=== PATIENT | male | born 1945 | race Caucasian/White ===

== ENCOUNTER 2021-04-15 22:01 | Emergency (ER) | payer MEDICARE, SELFPAY ==
[2021-04-15 22:10] VITALS: BP 179/80; PULSE 79; RESP 16; TEMP 36.5; O2SAT 98
--- NOTE | 2021-04-15 22:20 | ED_ITS ---
Documented by User: VIGNESH Payne 04/15/21 23:29 HPI - Chest Pain General: Chief Complaint: Chest Pain Stated Complaint: cp Time Seen by Provider: 04/15/21 22:19 History of Present Illness: HPI narrative: 75-year-old male patient comes in today with complaints of hiccups and upper abdominal discomfort for the last 3 days. Patient has a history of hypertension and tachycardia which he takes medicine. Patient comes in due to the length of time of the hiccups and increased discomfort today. Patient appears in no acute distress. Associated symptoms: Reports abdominal pain Review of Systems General: Reports: 10 or more systems reviewed and unremarkable except in HPI and below GI: Reports: abdominal pain Physical Exam Const: COMMON NORMALS: no acute distress and patient oriented x3 GENERAL APPEARANCE: cooperative HENMT: COMMON NORMALS: normocephalic HEAD & SCALP: normal to inspection and normocephalic Eye: GENERAL EYE: appearance normal, both eyes and all related structures Neck/C-Spine: COMMON NORMALS: full ROM Chest: COMMONS NORMALS: normal inspection of the chest Resp: COMMON NORMALS: normal respiratory effort EFFORT & INSPECTION: Yes able to speak in complete sentences Cardio: COMMON NORMALS: regular rate and regular rhythm RATE: regular rate RHYTHM: regular rhythm GI: COMMON NORMALS: Soft to palpation (mild distention) PALPATION: Yes Soft to palpation (mild distention) and Yes Tenderness to palpation present (GI) (epigastric) : COMMON NORMALS: Yes no CVA tenderness BLADDER/KIDNEY EXAM: Yes no CVA tenderness Back/Pelvis: COMMON NORMALS: no CVA tenderness Extremity: COMMON NORMALS: normal to inspection Neuro: COMMON NORMALS: patient oriented x3 and moves all extremities Psych: COMMON NORMALS: mental status grossly normal and cooperative Skin: COMMON NORMALS: no rashes or lesions noted GENERAL SKIN EXAM: no rashes or lesions noted Course Vital Signs: Vital signs: Vital Signs Temperature 97.7 F 04/15/21 22:10 Pulse Rate 79 04/15/21 22:10 Respiratory Rate 16 04/15/21 22:10 Blood Pressure 179/80 04/15/21 22:10 Pulse Oximetry 98 04/15/21 22:10 MDM - Chest Pain MDM Narrative: Medical decision making narrative: 75-year-old male patient comes in with some gastric distress. On exam abdomen was slightly distended and soft. Bowel sounds were present. Skin was warm and dry. Vital signs were normal except for some mild elevation in blood pressure. Differential diagnosis includes ACS, gastritis, gastroenteritis, diverticulitis. Laboratory values noted a white count of 5.8. CMP was unremarkable. Lipase was normal. Patient was given a GI cocktail, Reglan IV, and pantoprazole IV with resolution of hiccups and improvement in gastric discomfort. Chest x-ray was normal and KUB noted large amount of bowel gas in the colon. Feel the patient probably has a gastroenteritis. Patient was given 1 L of IV fluid, will be continued on ondansetron and loperamide for symptoms. Recommended follow-up with primary care in 3 days. Recommend return to the ER for high fever greater than 100.4, worsening vomiting and diarrhea, or blood in vomit or diarrhea. Patient reported understanding and agreed to plan. Lab Data: Labs: Lab Results 04/15/21 04/15/21 04/15/21 22:42 22:42 22:42 WBC 5.8 10^3/uL 10^3/ uL (4.0-10.0) RBC 4.53 10^6/uL 10^6 /uL (4.1-5.3) Hgb 13.9 g/dL g/dL (11.7-16.6) Hct 42.9 % % (42.0-52.0) MCV 94.7 fl H fl (80-94) MCH 30.7 pg pg (28.0-34.0) MCHC 32.4 g/dL g/dL (30.0-36.0) RDW 13.2 % % (12.1-15.1) Plt Count 108 10^3/cmm L 10 ^3/cmm (130-400) MPV 10.4 fL fL (7.4-10.4) Neut % (Auto) 81.7 % % Lymph % (Auto) 7.3 % % [place] % (Auto) 9.4 % % Eos % (Auto) 0.9 % % Baso % (Auto) 0.2 % % Neut # (Auto) 4.71 10^3/uL 10^3 /uL (1.8-7.7) Lymph # (Auto) 0.4 10^3/uL L 10^ 3/uL (0.8-4.8) [place] # (Auto) 0.5 10^3/uL 10^3/ uL (0.2-0.9) Eos # (Auto) 0.1 10^3/uL 10^3/ uL (0.0-0.8) Baso # (Auto) 0.0 10^3/uL 10^3/ uL (0.0-0.1) Nucleated RBC % (a uto) 0 % % Nucleated RBCs # 0.0 /100WBC /100W BC Sodium 139 mmol/L mmol/L (136-145) Potassium 3.5 mmol/L mmol/L (3.5-5.1) Chloride 103 mmol/L mmol/L (98-107) Carbon Dioxide 24 mmol/L mmol/L (22-29) Anion Gap 15.5 (5-19) BUN 16 mg/dL mg/dL (8-23) Creatinine 1.1 mg/dL mg/dL (0.7-1.2) GFR Calculation Not Reportable Glucose 111 mg/dL mg/dL (65-115) Calculated Osmolal ity 290 mOsm/kg mOsm/ kg (285-295) Calcium 9.0 mg/dL mg/dL (8.5-10.5) Total Bilirubin 0.4 mg/dL mg/dL (0.15-1.2) AST 12 U/L U/L (0-40) ALT 17 U/L U/L (0-41) Alkaline Phosphata se 69 IU/L IU/L (40-130) Troponin T Baselin e 6 ng/L ng/L (0-15) Total Protein 7.0 g/dL g/dL (6.6-8.7) Albumin 4.6 g/dL g/dL (3.5-5.2) Globulin 2.4 g/dL g/dL (1.3-4.6) Lipase 33 U/L U/L (13-60) Discharge Plan Discharge Patient Disposition: Home Clinical Impression: Gastroenteritis Condition: Stable Prescriptions: New loperamide 2 mg capsule 2 mg PO Q4H PRN (Reason: loose stool) Qty: 20 RF: 0 ondansetron 4 mg tablet,disintegrating 4 mg PO Q8H PRN (Reason: nausea and vomiting) 5 Days Qty: 10 RF: 0 Discharge Orders: Discharge ED (Routine); Ordered 04/15/21 Ordered By: Pato Livingston Referrals: Harvey Lea MD [Primary Care Provider] - Discharge Diet: Usual diet Discharge Activity: Increase activity as tolerated Patient Instructions: Gastroenteritis (ED), Opioid Safety Activity Restrictions/Additional Instructions: Home and rest. Drink plenty of fluids. Use ondansetron 4 mg every 8 hours as needed for nausea or vomiting. Use loperamide 1 capsule every 4 hours as needed for diarrhea or loose stools. Eat a healthy diet. Follow-up with primary care in 3 days for recheck. Return to the ER for high fever greater than 100.4, blood in vomit or stool, or new concerns. Coding Level of Care Code ED Dewatering Filtering Supervisor for Chg Fwd Exam Comprehensive Documented by User: Dewey Armendariz DO 04/16/21 00:25 HPI - Chest Pain General: Chief Complaint: Chest Pain Stated Complaint: cp Time Seen by Provider: 04/15/21 22:19 Course Vital Signs: Vital signs: Vital Signs Temperature 97.7 F 04/15/21 22:10 Pulse Rate 79 04/15/21 22:10 Respiratory Rate 16 04/15/21 22:10 Blood Pressure 179/80 04/15/21 22:10 Pulse Oximetry 98 04/15/21 22:10 MDM - Chest Pain MDM Narrative: Medical decision making narrative: This patient was originally seen by VIGNESH Rooney. I agree with his history, evaluation, and treatment. Lab Data: Labs: Lab Results 04/15/21 04/15/21 04/15/21 22:42 22:42 22:42 WBC 5.8 10^3/uL 10^3/ uL (4.0-10.0) RBC 4.53 10^6/uL 10^6 /uL (4.1-5.3) Hgb 13.9 g/dL g/dL (11.7-16.6) Hct 42.9 % % (42.0-52.0) MCV 94.7 fl H fl (80-94) MCH 30.7 pg pg (28.0-34.0) MCHC 32.4 g/dL g/dL (30.0-36.0) RDW 13.2 % % (12.1-15.1) Plt Count 108 10^3/cmm L 10 ^3/cmm (130-400) MPV 10.4 fL fL (7.4-10.4) Neut % (Auto) 81.7 % % Lymph % (Auto) 7.3 % % [place] % (Auto) 9.4 % % Eos % (Auto) 0.9 % % Baso % (Auto) 0.2 % % Neut # (Auto) 4.71 10^3/uL 10^3 /uL (1.8-7.7) Lymph # (Auto) 0.4 10^3/uL L 10^ 3/uL (0.8-4.8) [place] # (Auto) 0.5 10^3/uL 10^3/ uL (0.2-0.9) Eos # (Auto) 0.1 10^3/uL 10^3/ uL (0.0-0.8) Baso # (Auto) 0.0 10^3/uL 10^3/ uL (0.0-0.1) Nucleated RBC % (a uto) 0 % % Nucleated RBCs # 0.0 /100WBC /100W BC Sodium 139 mmol/L mmol/L (136-145) Potassium 3.5 mmol/L mmol/L (3.5-5.1) Chloride 103 mmol/L mmol/L (98-107) Carbon Dioxide 24 mmol/L mmol/L (22-29) Anion Gap 15.5 (5-19) BUN 16 mg/dL mg/dL (8-23) Creatinine 1.1 mg/dL mg/dL (0.7-1.2) GFR Calculation Not Reportable Glucose 111 mg/dL mg/dL (65-115) Calculated Osmolal ity 290 mOsm/kg mOsm/ kg (285-295) Calcium 9.0 mg/dL mg/dL (8.5-10.5) Total Bilirubin 0.4 mg/dL mg/dL (0.15-1.2) AST 12 U/L U/L (0-40) ALT 17 U/L U/L (0-41) Alkaline Phosphata se 69 IU/L IU/L (40-130) Troponin T Baselin e 6 ng/L ng/L (0-15) Total Protein 7.0 g/dL g/dL (6.6-8.7) Albumin 4.6 g/dL g/dL (3.5-5.2) Globulin 2.4 g/dL g/dL (1.3-4.6) Lipase 33 U/L U/L (13-60) Discharge Plan Discharge Patient Disposition: Home Clinical Impression: Gastroenteritis Condition: Stable Prescriptions: New loperamide 2 mg capsule 2 mg PO Q4H PRN (Reason: loose stool) Qty: 20 RF: 0 ondansetron 4 mg tablet,disintegrating 4 mg PO Q8H PRN (Reason: nausea and vomiting) 5 Days Qty: 10 RF: 0 Discharge Orders: Discharge ED (Routine); Ordered 04/15/21 Ordered By: Pato Livingston Referrals: Harvey Lea MD [Primary Care Provider] - Discharge Diet: Usual diet Discharge Activity: Increase activity as tolerated Patient Instructions: Gastroenteritis (ED), Opioid Safety Activity Restrictions/Additional Instructions: Home and rest. Drink plenty of fluids. Use ondansetron 4 mg every 8 hours as needed for nausea or vomiting. Use loperamide 1 capsule every 4 hours as needed for diarrhea or loose stools. Eat a healthy diet. Follow-up with primary care in 3 days for recheck. Return to the ER for high fever greater than 100.4, blood in vomit or stool, or new concerns. Coding Level of Care Code ED Dewatering Filtering Supervisor for Real Fwd Exam Comprehensive
--- NOTE | 2021-04-15 22:20 | XRR_ITS ---
PROCEDURE INFORMATION: Exam: XR Chest Exam date and time: 04/15/2021 10:20 PM Age: 75 years old Clinical indication: Chest wall pain; Additional info: Chest pain TECHNIQUE: Imaging protocol: XR of the chest. Views: 1 view. COMPARISON: No relevant prior studies available. FINDINGS: Tubes, catheters and devices: OVEN DRIER TENDER shunt catheter is seen overlying the lower neck and right side of chest. Lungs: Visualized portions of the lungs are clear. Pleural spaces: Unremarkable. No pleural effusion. No pneumothorax. Heart/Mediastinum: Heart is within normal limits of size. Bones/joints: Unremarkable. XR/XR chest 1V portable [id number] IMPRESSION: No acute infiltrate.
--- NOTE | 2021-04-15 22:32 | XRR_ITS ---
PROCEDURE INFORMATION: Exam: XR Abdomen Exam date and time: 04/15/2021 10:32 PM Age: 75 years old Clinical indication: Other: Distention; Additional info: Abd distention TECHNIQUE: Imaging protocol: XR of the abdomen. Views: Frontal supine view of the abdomen. 1 View. COMPARISON: CR (CHEST, ) 04/15/2021 10:33 PM FINDINGS: Tubes, catheters and devices: Lower end of a IRON SETTER shunt catheter is seen within the abdomen. Gastrointestinal tract: There is a nonspecific bowel gas pattern with gas seen throughout a normal appearing colon and mild gaseous distention of the stomach but paucity of small bowel gas. Organs: No urinary tract calculi are identified. Bones/joints: There is some mild degenerative change in the lumbar spine. XR/XR KUB [id number] IMPRESSION: Nonspecific bowel gas pattern.
[2021-04-15] MEDS: nitroglycerin 0.4 mg sublingual Tablet SUBLINGUAL (22:46)
[2021-04-15] MEDS: metoclopramide 5 mg/mL SDV 2 mL 10 MG IVP (22:48)
[2021-04-15] MEDS: pantoprazole 40 mg SDV IVP (22:48)
[2021-04-15 22:54] LABS: Basophils % 0.2 %; Eosinophils # 0.1 10^3/uL (0.0-0.8); Eosinophils % 0.9 %; Hematocrit 42.9 % (42.0-52.0); Hemoglobin 13.9 g/dL (11.7-16.6); Lymphocytes # 0.4 10^3/uL (0.8-4.8); Lymphocytes % 7.3 %; Mean Corpuscular HGB Conc 32.4 g/dL (30.0-36.0); Mean Corpuscular Hemoglobin 30.7 pg (28.0-34.0); Mean Corpuscular Volume 94.7 fl (80-94); Mean Platelet Volume 10.4 fL (7.4-10.4); Monocytes # 0.5 10^3/uL (0.2-0.9); Monocytes % 9.4 %; Neutrophils # 4.71 10^3/uL (1.8-7.7); Neutrophils % 81.7 %; Nucleated Red Blood Cells % 0 %; Platelet Count 108 10^3/cmm (130-400); Red Blood Count 4.53 10^6/uL (4.1-5.3); Red Cell Distribution Width 13.2 % (12.1-15.1); White Blood Count 5.8 10^3/uL (4.0-10.0)
[2021-04-15 23:08] LABS: Troponin(5th) Baseline 6 ng/L (0-15)
[2021-04-15 23:10] LABS: Alanine Aminotransferase 17 U/L (0-41); Albumin Level 4.6 g/dL (3.5-5.2); Alkaline Phosphatase 69 IU/L (40-130); Anion Gap 15.5 (5-19); Aspartate Amino Transferase 12 U/L (0-40); Blood Urea Nitrogen 16 mg/dL (8-23); Carbon Dioxide 24 mmol/L (22-29); Chloride 103 mmol/L (98-107); Globulin 2.4 g/dL (1.3-4.6); Glucose 111 mg/dL (65-115); Lipase 33 U/L (13-60); Osmolality Calculated 290 mOsm/kg (285-295); Potassium 3.5 mmol/L (3.5-5.1); Sodium 139 mmol/L (136-145); Total Bilirubin 0.4 mg/dL (0.15-1.2)
[2021-04-16] MEDS: diphenoxylate/atropine Tablet 2 TAB PO (00:51)
[2021-04-16] MEDS: sodium chloride 0.9% 1,000 ML 999 ML IV (00:51)
[2021-04-16 01:35] LABS: Troponin 5 2HR Delta 0 ABS# (0-10)
== END 2021-04-16 01:43 | disposition home or self-care (01) ==
PROVIDERS: Emergency Provider Nurse Practitioner Family; PCP Family Medicine
DX: K52.9 Noninfective gastroenteritis and colitis, unspecified (principal)
CPT/HCPCS: 36415; 71045; 74018; 80053; 83690; 84484; 85025; 96361; 96374; 96375; 99284; C9113; J2765; J7030

== ENCOUNTER 2023-04-01 08:28 | Outpatient (CLI) | payer OTHER, SELFPAY ==
--- NOTE | 2023-04-01 | ECG_ITS ---
[facility] Test Date: 2023-04-01 Pat Name: Andrae Callejas Department: Room: Gender: Male Electron Beam Welder: Phil Feliz : 1945 Requested By: Romina Whitlock Order Number: [id number] Micki MD: Jesenia Randle M.D. Interpretive Statements NAME OF STUDY: LEXISCAN SESTAMIBI STRESS TEST INDICATION: Dyspnea on exertion PROCEDURE: At the baseline, the blood pressure was 174/96 mmHg with a heart rate of 70 beats per min. The electrocardiogram showed sinus rhythm, normal axis with nonspecific T wave inversion in lead III. ??? The Lexiscan was infused over a period of 20 seconds. A total of 0.4 milligrams of Lexiscan was infused. The stress phase was continued for a total of 5 minutes. Heart rate at the end of the stress phase was 79 bpm with a blood pressure of 156 over 78 mm Hg. The EKG at the peak infusion revealed sinus rhythm with no significant ST-T wave changes. The study was terminated due to protocol completion. ??? Sestamibi was injected 20 seconds after the Lexiscan infusion. ??? Blood pressure at the end of the recovery phase was 161 over 80 mm Hg with a heart rate of 78 beats per minute. ??? CONCLUSION: 1. Normal EKG response to LexiScan infusion. 2. No LexiScan induced chest pain or cardiac arrhythmia. 3. Normal blood pressure and heart rate response. 4. Sestamibi/sestamibi perfusion scan pending; see separate report. Electronically Signed On 04-02-2023 12:06:33 FINANCIAL [employer]VOCATE by Jesenia Randle M.D. [id number]
--- NOTE | 2023-04-01 08:00 | USCV_ITS ---
Andrae Callejas Age: 77 Gender: M : 1945 Exam Date: 04/01/2023 08:46 Ordering Phys: Candice Reyes Technologist: Mickie Arnett Exam Location: [facility] [place] Indication: COFFEY BP: 150 / 80 HR: 71 Rhythm: Sinus Technical Quality: Adequate MEASUREMENTS (Male / Female) Normal Values 2D ECHO LV Diastolic Diameter PLAX 2.5 cm 4.2 - 5.9 / 3.9 - 5.3 cm LV Systolic Diameter PLAX 1.6 cm IVS Diastolic Thickness 1.7 cm 0.6 - 1.0 / 0.6 - 0.9 cm IVS Systolic Thickness 1.8 cm LVPW Diastolic Thickness 0.7 cm 0.6 - 1.0 / 0.6 - 0.9 cm LVPW Systolic Thickness 1.5 cm LVOT Diameter 2.1 cm LV Ejection Fraction 2D Teich 69.1 % LV Ejection Fraction MOD 2C 55.6 % LV Ejection Fraction 2C AL 55.6 % LA Diameter 2.8 cm LA Width 2.9 cm LA Height 4.6 cm RA Width 2.9 cm RA Height 4.5 cm Aorta at Sinotubular Diameter 3.3 cm IVC Diameter 1.2 cm M-MODE Aortic Annulus Diameter 3.0 cm LA Ao Ratio MM 1.1 MV E Point Septal Separation 0.4 cm DOPPLER AV Peak Velocity 162.0 cm/s LVOT Peak Velocity 135.0 cm/s AV Area Cont Eq vti 2.9 cm squared AV Area Cont Eq pk 2.9 cm squared MV Peak Velocity 68.0 cm/s MV Area PHT 4.0 cm squared Mitral E to A Ratio 0.9 MV E' Velocity 36.0 cm/s Mitral E to MV E' Ratio 11.2 Mitral E to LV E' Lateral Ratio 9.7 Mitral E to LV E' Septal Ratio 13.3 TR Peak Velocity 203.7 cm/s TR Peak Gradient 16.6 mmHg Right Atrial Pressure 5.0 mmHg Pulmonary Artery Systolic Pressu 21.6 mmHg RV Acceleration Time 0.1 s RV Ejection Time 0.3 s RV AcT/ET 0.4 FINDINGS Left Ventricle Left ventricle is normal in size. LV systolic function is normal with EF of 60-65%. No regional wall motion abnormalities are seen. Right Ventricle Normal in size and function Right Atrium Normal in size. Eustachian valve is seen. Left Atrium Normal in size Mitral Valve Structurally normal mitral valve. Trace mitral regurgitation. Aortic Valve Structurally normal aortic valve. Mild aortic regurgitation. No significant stenosis. Tricuspid Valve Mild tricuspid regurgitation. Pulmonary artery systolic pressure is normal. Pulmonic Valve Not well visualized Pericardium Normal Aorta Ascending aorta is mildly dilated with diameter of 3.59 cm. IVC Appears to be normal CONCLUSIONS LV systolic function is normal with EF of 60 to 65%. Trace mitral regurgitation Mild aortic regurgitation Mild tricuspid regurgitation Ascending aorta is mildly dilated with diameter of 3.59 cm No comparison studies are available Saqib Sanchez MD (Electronically Signed) Final Date: 01 April 2023 09:51 S
[2023-04-01 09:46] VITALS: BMI 24.4
--- NOTE | 2023-04-01 09:46 | NMCV_ITS ---
NM manoj perf SPECT r/s* [id number] Andrae Callejas Age: 77 Gender: M : 1945 Exam Date: 04/01/2023 10:26 Ordering Phys: Stuart Suero MD Technologist: Fabiola Escobedo Exam Location: [facility] Indications: ATHEROSCLEROTIC HEART DISEASE STRESS TEST [facility] IMAGE PROTOCOL Rest/Stress 1 Lexiscan Day Radiopharmaceutical Dose (mCi) Administration Site Administered by Rest: Tc-99m 10.6 IV Meño Moya, TY Sestamibi Stress:Tc-99m 32.5 IV TY Kulkarni Sestamibi Rest: 01-Apr-2023 60 Discovery 630 Stress: 01-Apr-2023 30 Discovery 630 0.4mg Lexiscan. Images obtained in supine and prone position. SPECT RESULTS Technical Quality: Excellent Raw Data Analysis: Normal Image Corrections: No attenuation or motion correction applied Summed Stress Score: 3 Summed Rest Score: 1 Summed Difference Score: 3 PERFUSION FINDINGS SPECT images demonstrate homogeneous tracer distribution throughout the myocardium. FUNCTIONAL RESULTS (calculated via Gated SPECT) Stress Image LV EF (%): 72 Stress EDV (mL):78 TID: 1.17 Stress ESV (mL):22 FUNCTIONAL FINDINGS: The left ventricle is normal in size. Transient Ischemia Dilatation of 1.17. The left ventricular ejection fraction is normal with a value of 72%. There is normal left ventricular wall thickening. IMPRESSIONS 1. Myocardial perfusion imaging is normal. 2. Overall left ventricular systolic function is normal without regional wall motion abnormalities, LVEF=72%. 3. No EKG changes with Lexiscan infusion. Refer to separate report for details. 4. Scan indicates low risk for cardiac events. Jesenia Randle MD (Electronically Signed) Final Date: 02 April 2023 12:04 S
[2023-04-01] MEDS: regadenoson 0.4 Mg/5 ml Syringe IVP (11:03)
[2023-04-01 11:12] VITALS: BP 161/80; PULSE 75
== END 2023-04-01 08:29 | disposition home or self-care (01) ==
LOC: RAD 09:15 → CDL 09:45
PROVIDERS: PCP Family Medicine; Visit Provider Nurse Practitioner Family
DX: R06.00 Dyspnea, unspecified (principal); I25.10 Atherosclerotic heart disease of native coronary artery without angina pectoris; I08.2 Rheumatic disorders of both aortic and tricuspid valves
CPT/HCPCS: 78452; 93017; 93306; A9500; J2785

== ENCOUNTER 2023-04-01 09:00 | Outpatient (CLI) | payer OTHER, SELFPAY | END 2023-04-01 09:01 | disposition home or self-care (01) | LOC: CDL 05-06 09:48 | PROVIDERS: PCP Family Medicine; Visit Provider Family Medicine | DX: R06.09 Other forms of dyspnea (principal) | CPT/HCPCS: 36415; 96374 ==

== ENCOUNTER 2023-05-03 08:28 | Outpatient (CLI) | payer OTHER, SELFPAY ==
--- NOTE | 2023-05-03 08:35 | CT_ITS ---
WS: [id number] CT HEAD TECHNIQUE: Noncontrast and contrast-enhanced CT of the head. CLINICAL INFORMATION: HX OF ANEURSYM W/SHUNT PLACEMENT COMPARISON: None. DLP: 2275.[address] scans at [facility] use at least one of these dose optimization techniques: automated e xposure control; mA and/or kV adjustment per patient size (includes targeted exams where dose is matc hed to clinical indication); or iterative reconstruction. FINDINGS: No evidence of intracranial hemorrhage or mass effect. Ventricular system and basal cisterns are parada nt. Moderate small vessel changes with mild parenchymal volume loss. Intracranial vascular calcificat ion. RIGHT frontal shunt catheter with tip in the LEFT frontal horn. No significant hydrocephalus. No transependymal edema. RIGHT frontal and pterional craniotomy with RIGHT supraclinoid aneurysm clippi ng. 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 Mastoid air cells are well aerated. Paranasal sinuses are well aerated. Moderate cavernous carotid calcification. No abnormal intracranial enhancement. Basilar artery is pat ent. Normal visualized proximal MCA segments. CTA head could be performed for better intracranial art erial evaluation if indicated. IMPRESSION: 1. No evidence intracranial hemorrhage or mass effect. 2. RIGHT pleural shunt cath with tip in the LEFT frontal horn. Normal ventricular system. No signifi cant hydrocephalus. No transependymal edema. 3. Moderate small vessel changes and mild parenchymal volume loss. 4. Prior RIGHT supraclinoid ICA aneurysm clipping. 5. No other suspicious findings.
[2023-05-03 09:20] LABS: Blood Urea Nitrogen 15 mg/dL (8-23)
[2023-05-03] MEDS: iohexol 350 mg/mL 500 mL Btl (per mL) IV (09:27)
== END 2023-05-03 08:29 | disposition home or self-care (01) ==
LOC: RAD 08:30
PROVIDERS: PCP Family Medicine; Visit Provider Family Medicine
DX: I67.1 Cerebral aneurysm, nonruptured (principal); Z95.828 Presence of other vascular implants and grafts
CPT/HCPCS: 70470; 82565; 84520; Q9967

== ENCOUNTER 2023-06-13 12:16 | Emergency (ER) | payer OTHER, SELFPAY ==
[2023-06-13 12:25] VITALS: BP 144/73; PULSE 67; RESP 18; TEMP 36.4; O2SAT 96; BMI 24.3
--- NOTE | 2023-06-13 13:13 | CT_ITS ---
WS: [id number] CT ABDOMEN PELVIS TECHNIQUE: Contrast-enhanced CT of the abdomen and pelvis with coronal and sagittal reformatted image s. CLINICAL INFORMATION: right sided abd mass, abd pain, diarrhea COMPARISON: None. DLP: 598.[address] scans at [facility] use at least one of these dose optimization techniques: automated e xposure control; mA and/or kV adjustment per patient size (includes targeted exams where dose is matc hed to clinical indication); or iterative reconstruction. FINDINGS: Mild diffuse wall thickening with submucosal enhancement and surrounding induration involving the hep atic flexure and RIGHT colon suspicious for infectious or inflammatory colitis. Recommend follow-up t o resolution. Mild wall thickening with submucosal enhancement involving the distal sigmoid colon extending to the rectum suspicious for distal colitis. Lung bases are well aerated. Slight subsegmental atelectasis in the lung bases. Normal liver. A few t iny low-attenuation lesions likely cysts but too small to characterize. Normal portal vein and spleni c vein. Normal pancreas. Normal gallbladder. Normal esophageal hiatal hernia. Normal spleen. Marked urinary distention of the bladder. Small cystocele. Enlarged prostate measuring 4.7 cm. 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 A few sigmoid diverticuli. No evidence of acute diverticuli tis. No evidence of high-grade small or large bowel obstruction. Partially visualized shunt with tip in the pelvis. IMPRESSION: 1. Mild diffuse wall thickening with submucosal enhancement and surrounding induration involving the hepatic flexure and RIGHT colon suspicious for infectious or inflammatory colitis. Recommend follow- up to resolution. 2. In addition, slight thickening with induration and enhancement involving the distal sigmoid colon extending to the rectum suspicious for distal colitis. 3. Enlarged prostate with urine distended bladder suspicious for bladder outlet obstruction. Thicken ing of the seminal vesicles. Recommend correlation PSA. 4. Small esophageal hiatal hernia. 5. Slightly aneurysmal infrarenal abdominal aorta measuring 2.8 x 2.4 cm.
--- NOTE | 2023-06-13 13:14 | ED_ITS ---
HPI - Abdominal Pain 2 General: Chief Complaint: Abdominal Pain Stated Complaint: bowel blockage sent from pr Time Seen by Provider: 06/13/23 13:08 History of Present Illness: Patient is present to the ER with complaints of right-sided abdominal mass that was seen at the [facility] approximately a month ago. Patient says been taking stool softeners and laxative to try to get rid of it which is causing diarrhea. They are on for sure what this mass or blockage is technically but they keep saying it is preventing him from having a good bowel movement and thus he has to use laxatives and stool softeners. Patient says he has mild discomfort in the right side. Patient says he had multiple labs and x-rays done at the [facility] but [facility]. Patient denies any nausea vomiting fevers chills coughs colds Review of Systems 2 General: Reports: 10 or more systems reviewed and unremarkable except in HPI and below Physical Exam 2 Const: COMMON NORMALS: no acute distress, average body habitus, patient oriented x3, no limitations, healthy appearing, alert and well nourished HENMT: COMMON NORMALS: normocephalic, atraumatic, hearing grossly normal bilaterally, external ears normal, Normal external nose present, moist oral mucous membranes and oropharynx normal HEAD & SCALP: normocephalic and atraumatic NOSE: Normal external nose present EXTERNAL EAR: Yes external ears normal Neck/C-Spine: COMMON NORMALS: full ROM, no lymphadenopathy, supple, no meningeal signs, no JVD and Thyroid normal THYROID: Thyroid normal Chest: COMMONS NORMALS: normal inspection of the chest and normal palpation of entire chest wall Resp: COMMON NORMALS: normal respiratory effort, No retractions, No use of accessory muscles and clear to auscultation bilaterally AUSCULTATION: clear to auscultation bilaterally Cardio: COMMON NORMALS: no JVD, regular rate, regular rhythm, S1 normal heart sound present, S2 normal heart sound present, No gallops present (Cardio), No murmurs present (Cardio) and No rub (Cardio) RATE: regular rate RHYTHM: r egular rhythm HEART SOUNDS: S1 normal heart sound present and S2 normal heart sound present GI: COMMON NORMALS: Normal to inspection, nondistended, normoactive bowel sounds present, Soft to palpation, non-tender and No hepatosplenomegaly present; negative for no masses (Palpable mass on right side of abdomen mobile nontender) PALPATION: Yes Soft to palpation and Yes No hepatosplenomegaly present Neuro: COMMON NORMALS: patient oriented x3 SENSORIUM/ORIENTATION: Yes alert MENINGEAL SIGNS: Yes no meningeal signs Course 2 Vital Signs: Vital signs: Vital Signs Temperature 97.6 F 06/13/23 12:25 Pulse Rate 67 06/13/23 12:25 Respiratory Rate 18 06/13/23 12:25 Blood Pressure 144/73 06/13/23 12:25 Pulse Oximetry 96 06/13/23 12:25 Oxygen Delivery Me thod Room Air 06/13/23 12:25 MDM - Abdominal Pain Medical Decision Making Physical exam was performed lab work was obtained and CT with contrast of the abdomen pelvis. Work included not limited to CBC CMP lipase, all of which was essentially benign, mildly elevated potassium of 5.2, CT scan of the abdomen pelvis showed possible colitis in the right upper quadrant as well as distal sigmoid colon. These results was discussed with the patient. We will call in antibiotics to the pharmacy and failure patient should follow-up with his family practice doctor within about 10 days for further evaluation and treatment. Differential Diagnosis Likely constipation; Unlikely abdominal pain, acute appendicitis, calculus of kidney, diverticulitis, endometriosis, gastroenteritis, pancreatitis or small bowel obstruction Medical Records I reviewed the patient's medical records. Lab Data I reviewed the patient's lab results. 06/13/23 13:15 06/13/23 13:15 Labs/Radiology: Laboratory Results WBC 4.66 10^3/uL (3.29-11.43) 06/13/23 13:15 RBC 4.14 10^6/uL (3.85-5.65) 06/13/23 13:15 Hgb 12.80 g/dL (11.27-16.99) 06/13/23 13:15 Hct 38.8 % (37-53) 06/13/23 13:15 MCV 93.7 fl (82-101) 06/13/23 13:15 MCH 30.9 pg (27-33) 06/13/23 13:15 MCHC 33.0 g/dL (30-55) 06/13/23 13:15 RDW 12.6 % (12.1-15.1) 06/13/23 13:15 Plt Count 144 10^3/cmm (157-399) L 06/13/23 13:15 MPV 9.8 fL (7.4-10.4) 06/13/23 13:15 Neut % (Auto) 68.0 % 06/13/23 13:15 Lymph % (Auto) 14.4 % 06/13/23 13:15 [place] % (Auto) 13.5 % 06/13/23 13:15 Eos % (Auto) 2.4 % 06/13/23 13:15 Baso % (Auto) 0.2 % 06/13/23 13:15 Neut # (Auto) 3.17 10^3/uL (1.8-7.7) 06/13/23 13:15 Lymph # (Auto) 0.7 10^3/uL (0.8-4.8) L 06/13/23 13:15 [place] # (Auto) 0.6 10^3/uL (0.2-0.9) 06/13/23 13:15 Eos # (Auto) 0.1 10^3/uL (0.0-0.8) 06/13/23 13:15 Baso # (Auto) 0.0 10^3/uL (0.0-0.1) 06/13/23 13:15 Nucleated RBC % (auto) 0 % 06/13/23 13:15 Nucleated RBCs # 0.0 /100WBC 06/13/23 13:15 Sodium 137 mmol/L (136-145) 06/13/23 13:15 Potassium 5.2 mmol/L (3.5-5.1) H 06/13/23 13:15 Chloride 102 mmol/L (98-107) 06/13/23 13:15 Carbon Dioxide 25 mmol/L (22-29) 06/13/23 13:15 Anion Gap 15.2 (5-19) 06/13/23 13:15 BUN 12 mg/dL (8-23) 06/13/23 13:15 Creatinine 1.2 mg/dL (0.7-1.2) 06/13/23 13:15 GFR Calculation Not Reportable 06/13/23 13:15 Glucose 95 mg/dL (65-115) 06/13/23 13:15 Calculated Osmolality 284 mOsm/kg (285-295) L 06/13/23 13:15 Calcium 9.3 mg/dL (8.5-10.5) 06/13/23 13:15 Total Bilirubin 0.4 mg/dL (0.15-1.2) 06/13/23 13:15 AST 16 U/L (0-40) 06/13/23 13:15 ALT 20 U/L (0-41) 06/13/23 13:15 Alkaline Phosphatase 81 U/L (40-130) 06/13/23 13:15 Total Protein 6.9 g/dL (6.6-8.7) 06/13/23 13:15 Albumin 4.1 g/dL (3.5-5.2) 06/13/23 13:15 Globulin 2.8 g/dL (1.3-4.6) 06/13/23 13:15 Lipase 53 U/L (13-60) 06/13/23 13:15 All radiology interpretation(s) finalized by discharge Discharge Plan Discharge Patient Disposition: Home Clinical Impression: Colitis, Enlarged prostate Diarrhea Qualifiers: Diarrhea type: unspecified type Qualified Code(s): R19.7 - Diarrhea, unspecified Condition: Stable Prescriptions: New ciprofloxacin HCl 500 mg tablet 500 mg PO Q12H Qty: 20 0RF metronidazole 500 mg tablet 500 mg PO Q8H Qty: 30 0RF No Action atorvastatin 20 mg Tablet 20 mg PO QPM metoprolol tartrate 100 mg Tablet 100 mg PO BID tramadol 50 mg Tablet 50 mg PO Q6H PRN (Reason: Pain) citalopram 20 mg tablet 20 mg PO QAM amlodipine 10 mg Tablet 10 mg PO DAILY cholecalciferol (vitamin D3) 50 mcg (2,000 unit) Tablet 50 mcg PO DAILY Discharge Orders: Discharge ED (Routine); Ordered 06/13/23 Ordered By: Joel Collier Referrals: Romina Whitlock MD [Primary Care Provider] - 1 week Patient Instructions: Diarrhea - Adult, Enlarged Prostate (BPH) (ED), Colitis (ED) Activity Restrictions/Additional Instructions: CT scan performed in the ER showed you do not have a mass or tumor but you do have probable colitis. We will prescribe you some antibiotics that should take care of this. Also shows you have enlarged prostate but probably needs further workup. Please follow-up with your family practice physician in about 10 days for further evaluation and treatment. If your symptoms worsen please return to the ER. 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
[2023-06-13 13:25] LABS: Basophils % 0.2 %; Eosinophils # 0.1 10^3/uL (0.0-0.8); Eosinophils % 2.4 %; Hematocrit 38.8 % (37-53); Lymphocytes # 0.7 10^3/uL (0.8-4.8); Lymphocytes % 14.4 %; Mean Corpuscular Hemoglobin 30.9 pg (27-33); Mean Corpuscular Volume 93.7 fl (82-101); Mean Platelet Volume 9.8 fL (7.4-10.4); Monocytes # 0.6 10^3/uL (0.2-0.9); Monocytes % 13.5 %; Neutrophils # 3.17 10^3/uL (1.8-7.7); Nucleated Red Blood Cells % 0 %; Platelet Count 144 10^3/cmm (157-399); Red Blood Count 4.14 10^6/uL (3.85-5.65); Red Cell Distribution Width 12.6 % (12.1-15.1); White Blood Count 4.66 10^3/uL (3.29-11.43)
[2023-06-13 13:42] LABS: Alanine Aminotransferase 20 U/L (0-41); Albumin Level 4.1 g/dL (3.5-5.2); Alkaline Phosphatase 81 U/L (40-130); Anion Gap 15.2 (5-19); Aspartate Amino Transferase 16 U/L (0-40); Blood Urea Nitrogen 12 mg/dL (8-23); Calcium 9.3 mg/dL (8.5-10.5); Carbon Dioxide 25 mmol/L (22-29); Chloride 102 mmol/L (98-107); Globulin 2.8 g/dL (1.3-4.6); Glucose 95 mg/dL (65-115); Lipase 53 U/L (13-60); Osmolality Calculated 284 mOsm/kg (285-295); Potassium 5.2 mmol/L (3.5-5.1); Sodium 137 mmol/L (136-145); Total Bilirubin 0.4 mg/dL (0.15-1.2); Total Protein 6.9 g/dL (6.6-8.7)
--- NOTE | 2023-06-13 13:53 | PC.PHAR ---
[facility]ED [facility] AT 1[facility]55 PM FOR [facility] MEDICATION LIST
[2023-06-13] MEDS: iohexol 350 mg/mL 500 mL Btl (per mL) IV (14:20)
[2023-06-13 17:17] VITALS: BP 151/86; PULSE 68; O2SAT 97
== END 2023-06-13 17:19 | disposition home or self-care (01) ==
PROVIDERS: Emergency Provider Emergency Medicine; PCP Family Medicine
DX: K52.9 Noninfective gastroenteritis and colitis, unspecified (principal); N40.0 Benign prostatic hyperplasia without lower urinary tract symptoms
CPT/HCPCS: 36415; 74177; 80053; 83690; 85025; 99285; Q9967

== ENCOUNTER 2023-11-03 05:26 | Emergency (ER) | payer OTHER, SELFPAY ==
[2023-11-03] VITALS (16 sets, daily range): BP systolic 143–197; BP diastolic 88–118; PULSE 63–86; RESP 18–29; TEMP 36.6; O2SAT 90–97; BMI 24.3
[2023-11-03 05:48] LABS: Basophils % 0.5 %; Eosinophils # 0.2 10^3/uL (0.0-0.8); Eosinophils % 2.7 %; Hematocrit 41.1 % (37-53); Lymphocytes # 0.9 10^3/uL (0.8-4.8); Lymphocytes % 17.2 %; Mean Corpuscular HGB Conc 32.4 g/dL (30-55); Mean Corpuscular Hemoglobin 30.6 pg (27-33); Mean Corpuscular Volume 94.7 fl (82-101); Mean Platelet Volume 10.1 fL (7.4-10.4); Monocytes # 0.6 10^3/uL (0.2-0.9); Monocytes % 10.9 %; Neutrophils % 67.6 %; Nucleated Red Blood Cells % 0 %; Platelet Count 121 10^3/cmm (157-399); Red Blood Count 4.34 10^6/uL (3.85-5.65); White Blood Count 5.48 10^3/uL (3.29-11.43)
[2023-11-03 06:07] LABS: INR 0.93 (0.8-1.2)
[2023-11-03 06:08] LABS: Partial Thromboplastin Time 25.9 SECONDS (23.9-36.7)
--- NOTE | 2023-11-03 06:10 | XRR_ITS ---
PROCEDURE INFORMATION: Exam: XR Chest Exam date and time: 11/03/2023 6:18 AM Age: 78 years old Clinical indication: Chest pressure; Prior surgery; Surgery date: 6+ months; Surgery type: Nozzle Tender shunt; Patient HX: C/O chest pain; Additional info: Cp TECHNIQUE: Imaging protocol: Radiologic exam of the chest. Views: 1 view. COMPARISON: CR XR chest 1V portable [id number] 04/15/2021 10:33 PM FINDINGS: Tubes, catheters and devices: Partially imaged ventriculoperitoneal shunt catheter is noted on the right. Lungs: Unremarkable. No consolidation. Pleural spaces: Unremarkable. No pleural effusion. No pneumothorax. Heart/Mediastinum: Heart size is normal. There is calcified plaque involving the aorta. Bones/joints: Unremarkable. XR/XR chest 1V portable [id number] IMPRESSION: 1. No acute findings.
[2023-11-03 06:11] LABS: Troponin(5th) Baseline 10 ng/L (0-15)
--- NOTE | 2023-11-03 06:11 | ED_ITS ---
HPI - Chest Pain 2 General: Chief Complaint: Chest Pain Stated Complaint: CP Time Seen by Provider: 11/03/23 06:03 Source: patient and family Mode of arrival: ambulatory Limitations: no limitations History of Present Illness: This patient presents to our emergency department because of chest pain. He states he was awoken with chest pain symptoms approximately 4 AM. He states that they felt like heaviness on his chest. There was no associated diaphoresis, nausea, change in his breathing pattern etc. He states the pain has not radiated or changed in location. He states that his symptoms are improved but not completely abated at this time. Family reports that he has been having some episodes of chest pain over the past at least a couple weeks intermittently but he has not sought care for that condition. He is has no known history of coronary artery disease although there is a question whether he was told he had a heart attack many years ago. He takes antihypertensives. He has had no aspirin this morning. He does not smoke tobacco he was a previous chewing tobacco user. Otherwise no other constitutional complaints at this time. MD complaint: chest heaviness Onset: during rest Pain radiation: none Quality: heaviness Relieving factors: nothing Associated symptoms: Deny abdominal pain, fever(s), nausea, palpitations, syncope or vomiting Risk Factors: Coronary artery disease risk factors: hypertension Review of Systems 2 Const: Denies: fever(s) or chills ENMT: Denies: throat pain, odynophagia, nasal congestion or nasal obstruction Card: Denies: palpitations, syncope or pre-syncope Resp: Denies: productive cough or wheezing GI: Denies: abdominal pain, nausea, vomiting or diarrhea : Denies: flank pain, difficulty urinating or dysuria Musc: Denies: neck pain, back pain, extremity pain or extremity swelling Skin/Breast: Denies: rash, pruritus or erythema Neuro: Denies: headache(s), numbness in extremities or weakness in extremities Antonio/Lymph: Denies: easy bruising or easy bleeding Physical Exam 2 Narrative: EXAM NARRATIVE: He is alert makes good eye contact is calm and cooperative. Const: COMMON NORMALS: no acute distress, average body habitus, patient oriented x3 and alert GENERAL APPEARANCE: cooperative and comfortable HENMT: COMMON NORMALS: normocephalic, Normal nasal mucous membranes and turbinates present and moist oral mucous membranes HEAD & SCALP: n ormocephalic NOSE: Normal nasal mucous membranes and turbinates present Eye: COMMON NORMALS: Equal, round and reactive pupils present, EOMs intact bilaterally and conjunctivae normal CONJUNCTIVA: Yes conjunctivae normal P UPIL: Yes Equal, round and reactive pupils present Neck/C-Spine: COMMON NORMALS: full ROM, no JVD and No carotid bruits Chest: COMMONS NORMALS: normal inspection of the chest and normal palpation of entire chest wall Resp: COMMON NORMALS: normal respiratory effort and No retractions EFFORT & INSPECTION: Yes able to speak in complete sentences Cardio: COMMON NORMALS: no JVD, regular rhythm, No murmurs present (Cardio) and Peripheral pulses 2+ throughout RHYTHM: regular rhythm PERIPHERAL PULSES: Peripheral pulses 2+ throughout GI: COMMON NORMALS: Normal to inspection, nondistended, normoactive bowel sounds present, Soft to palpation and non-tender PALPATION: Yes Soft to palpation : COMMON NORMALS: Yes no CVA tenderness BLADDER/KIDNEY EXAM: Yes no CVA tenderness Back/Pelvis: COMMON NORMALS: no CVA tenderness, thoracic and lumbar spine normal to inspection, no thoracic nor lumbar tenderness and thoraco-lumbar ROM normal Extremity: COMMON NORMALS: normal to inspection, full ROM, no calf tenderness and no pedal edema Neuro: COMMON NORMALS: patient oriented x3, moves all extremities, no focal motor deficits and no sensory deficits noted SENSORIUM/ORIENTATION: Yes alert Psych: COMMON NORMALS: mental status grossly normal Skin: COMMON NORMALS: no rashes or lesions noted, no wounds and turgor normal GENERAL SKIN EXAM: no rashes or lesions noted and turgor normal Course 2 Reevaluation(s): Reevaluation #1: Initial troponin is reassuring. He does show evidence of possible volume depletion will continue to observe and give fluids. Time: 07:57 Reevaluation #2: Serial biomarkers and serial electrocardiograms are reassuring. D-dimer is elevated. Will go ahead and proceed with a CTPA as we cannot age adjust him out. Time: 11:21 Reevaluation #3: Patient has subsegmental PE on the right middle lobe vasculature. No evidence of heart strain, hypoxia, tachycardia or other concerning clinical features at this time. Going to place him on a apixaban with a loading dose given in the emergency department and have him take 5 mg twice daily given his age and then reduce to 2.5 mg twice daily which has equal equivalent C to 5 mg in particular given his age. Time: 12:19 Vital Signs: Vital signs: Vital Signs Temperature 98 F 11/03/23 05:30 Pulse Rate 63 11/03/23 12:05 Respiratory Rate 24 H 11/03/23 12:05 Blood Pressure 159/113 11/03/23 12:05 Pulse Oximetry 93 11/03/23 12:05 Oxygen Delivery Me thod Room Air 11/03/23 08:25 MDM - Chest Pain Medical Decision Making This patient presented as noted in the HPI with chest pain symptoms. No other contributory history at this time. Clinical examination was reassuring without any stigmata to suggest a clear etiology to his presentation. Workup included evaluating for ACS, pneumonia, chest wall pain, thromboembolic issues etc. Serial biomarkers and EKGs were reassuring. His D-dimer was elevated past age- related cutoff and CTPA revealed right-sided subsegmental PE. There was no risk factor for PE as typically seen. He is certainly clinically stable without any evidence of right heart strain hypotension tachycardia hypoxia etc. to be managed as an outpatient. He is agreeable to that plan of care. He is being started on a loading dose of apixaban and will be continued on that therapy with outpatient primary care follow-up. We also discussed return precautions. Lab Data I reviewed the patient's lab results. 11/03/23 05:37 11/03/23 05:37 Radiology Impressions Chest X-Ray 11/03/23 06:10 IMPRESSION: 1. No acute findings. Chest CTA 11/03/23 11:13 IMPRESSION: 1. Pulmonary emboli involving branches of the right middle lobe pulmonary artery. No large central pulmonary embolism is identified. No right heart strain. 2. 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 3. Bibasilar atelectasis. COMMENTS: Consistent with the [employer]'s Incidental Findings Committee white paper (J Am Caprice Radiol 2018): Any incidental renal lesion less than 1 cm or classified as too small to characterize, or any incidental cystic renal lesion characterized as simple-appearing, is likely benign. No follow-up imaging is recommended for these lesions per consensus recommendations based on imaging criteria. ADDENDUM: 11/03/23 1204 COMMENT: THIS REPORT CONTAINS FINDINGS THAT MAY BE CRITICAL TO PATIENT CARE. The exam findings were verbally communicated by me to DAVID GARIBAY via telephone conference at 12:01 PM CDT on 11/03/2023. The findings were acknowledged and understood. Laboratory Results WBC 5.48 10^3/uL (3.29-11.43) 11/03/23 05:37 RBC 4.34 10^6/uL (3.85-5.65) 11/03/23 05:37 Hgb 13.30 g/dL (11.27-16.99) 11/03/23 05:37 Hct 41.1 % (37-53) 11/03/23 05:37 MCV 94.7 fl (82-101) 11/03/23 05:37 MCH 30.6 pg (27-33) 11/03/23 05:37 MCHC 32.4 g/dL (30-55) 11/03/23 05:37 RDW 13.0 % (12.1-15.1) 11/03/23 05:37 Plt Count 121 10^3/cmm (157-399) L 11/03/23 05:37 MPV 10.1 fL (7.4-10.4) 11/03/23 05:37 Neut % (Auto) 67.6 % 11/03/23 05:37 Lymph % (Auto) 17.2 % 11/03/23 05:37 [place] % (Auto) 10.9 % 11/03/23 05:37 Eos % (Auto) 2.7 % 11/03/23 05:37 Baso % (Auto) 0.5 % 11/03/23 05:37 Neut # (Auto) 3.70 10^3/uL (1.8-7.7) 11/03/23 05:37 Lymph # (Auto) 0.9 10^3/uL (0.8-4.8) 11/03/23 05:37 [place] # (Auto) 0.6 10^3/uL (0.2-0.9) 11/03/23 05:37 Eos # (Auto) 0.2 10^3/uL (0.0-0.8) 11/03/23 05:37 Baso # (Auto) 0.0 10^3/uL (0.0-0.1) 11/03/23 05:37 Nucleated RBC % (auto) 0 % 11/03/23 05:37 Nucleated RBCs # 0.0 /100WBC 11/03/23 05:37 PT 12.80 SECONDS (12.1-14.9) 11/03/23 05:37 INR 0.93 (0.8-1.2) 11/03/23 05:37 APTT 25.9 SECONDS (23.9-36.7) 11/03/23 05:37 D-Dimer 1.31 ug/mLFEU (0-0.59) H 11/03/23 05:37 Sodium 140 mmol/L (136-145) 11/03/23 05:37 Potassium 4.4 mmol/L (3.5-5.1) 11/03/23 05:37 Chloride 105 mmol/L (98-107) 11/03/23 05:37 Carbon Dioxide 22 mmol/L (22-29) 11/03/23 05:37 Anion Gap 17.4 (5-19) 11/03/23 05:37 BUN 25 mg/dL (8-23) H 11/03/23 05:37 Creatinine 1.7 mg/dL (0.7-1.2) H 11/03/23 05:37 GFR Calculation Not Reportable 11/03/23 05:37 Glucose 151 mg/dL (65-115) H 11/03/23 05:37 Calculated Osmolality 297 mOsm/kg (285-295) H 11/03/23 05:37 Calcium 9.3 mg/dL (8.5-10.5) 11/03/23 05:37 Total Bilirubin 0.2 mg/dL (0.15-1.2) 11/03/23 05:37 AST 15 U/L (0-40) 11/03/23 05:37 ALT 25 U/L (0-41) 11/03/23 05:37 Alkaline Phosphatase 98 U/L (40-130) 11/03/23 05:37 Troponin T Baseline 10 ng/L (0-15) 11/03/23 05:37 Troponin T 120 Minute 9.24 ng/L (0-15) 11/03/23 07:34 Delta Troponin T -0.76 ABS# (0-10) L 11/03/23 07:34 Troponin T Hi Sens 6Hr 8.93 ng/L (0-15) 11/03/23 11:17 Troponin T Hi Sens 6Hr Delta -1.07 ng/L (0-12) L 11/03/23 11:17 NT-Pro-B Natriuret Pep 63 pg/mL (0-450) 11/03/23 05:37 Total Protein 6.3 g/dL (6.6-8.7) L 11/03/23 05:37 Albumin 4.3 g/dL (3.5-5.2) 11/03/23 05:37 Globulin 2.0 g/dL (1.3-4.6) 11/03/23 05:37 All radiology interpretation(s) finalized by discharge EKG Data EKG 1: I personally reviewed and interpreted this EKG as follows: Interpretation: Contemporaneous review of resting EKG reveals a ventricular rate of 88 bpm. Normal CA interval, QRS duration, corrected QT interval. Normal axis. No acute ST-T wave changes noted at this time. EKG 2: I personally reviewed and interpreted this EKG as follows: Interpretation: Review of second EKG this visit reveals ventricular rate of 72 bpm. Normal CA interval, QRS duration, corrected QT interval. Normal axis. No acute ST-T wave changes no change from prior tracing this visit. Discharge Plan Discharge Patient Disposition: Home Clinical Impression: Multiple subsegmental pulmonary emboli without acute cor pulmonale, Chest pain Condition: Stable Prescriptions: New Eliquis 2.5 mg tablet 2.5 mg PO BID Qty: 60 1RF Rx Instructions: 2 pills twice daily for one week then 1 pill twice daily No Action atorvastatin 20 mg Tablet 20 mg PO QPM metoprolol tartrate 100 mg Tablet 100 mg PO BID tramadol 50 mg Tablet 50 mg PO Q6H PRN (Reason: Pain) citalopram 20 mg tablet 20 mg PO QAM amlodipine 10 mg Tablet 10 mg PO DAILY cholecalciferol (vitamin D3) 50 mcg (2,000 unit) Tablet 50 mcg PO DAILY ciprofloxacin HCl 500 mg tablet 500 mg PO Q12H Qty: 20 0RF metronidazole 500 mg tablet 500 mg PO Q8H Qty: 30 0RF Discharge Orders: Discharge ED (Routine); Ordered 11/03/23 Ordered By: David Garibay Referrals: Romina Whitlock MD [Primary Care Provider] - 2 weeks Discharge Diet: Usual diet Discharge Activity: Resume usual activity Patient Instructions: Opioid Safety, Pain Management Activity Restrictions/Additional Instructions: As we discussed you have blood clots in the right lung. At this point in time there is no evidence that she require hospitalization and you are safe to be discharged on blood thinning medication. We have provided a prescription for those medication. You should follow-up with your doctor in 2 weeks to review your medications and determine additional treatment. If it anytime you have increasing shortness of breath fevers chills or other concerns at any time return to this or the nearest emergency department. 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
[2023-11-03 06:16] LABS: Alanine Aminotransferase 25 U/L (0-41); Albumin Level 4.3 g/dL (3.5-5.2); Alkaline Phosphatase 98 U/L (40-130); Anion Gap 17.4 (5-19); Aspartate Amino Transferase 15 U/L (0-40); Blood Urea Nitrogen 25 mg/dL (8-23); Calcium 9.3 mg/dL (8.5-10.5); Carbon Dioxide 22 mmol/L (22-29); Chloride 105 mmol/L (98-107); Creatinine Clr Calc Pharmacy 38.4199; Glucose 151 mg/dL (65-115); Osmolality Calculated 297 mOsm/kg (285-295); Potassium 4.4 mmol/L (3.5-5.1); Sodium 140 mmol/L (136-145); Total Bilirubin 0.2 mg/dL (0.15-1.2); Total Protein 6.3 g/dL (6.6-8.7)
[2023-11-03] MEDS: aspirin 81 mg Chew Tablet 324 MG PO (06:33)
[2023-11-03] MEDS: nitroglycerin 0.4 mg sublingual Tablet SUBLINGUAL (06:35)
[2023-11-03 07:09] LABS: NT Pro B Type Natriuretic Pept 63 pg/mL (0-450)
--- NOTE | 2023-11-03 07:29 | ECG_ITS ---
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 Measurements Intervals [place] Rate: 72 P: 56 IN: 191 QRS: 41 QRSD: 89 T: 46 QT: 385 QTc: 422 Interpretive Statements SINUS RHYTHM Compared to ECG 11/03/2023 05:31:16 No significant changes Electronically Signed On 11-03-2023 16:08:37 CDT by Honey Cortez M.D. [email or web address]
[2023-11-03 08:10] LABS: Troponin 5 2HR 9.24 ng/L (0-15)
[2023-11-03] MEDS: lactated ringers 1,000 ML 999 ML IV (08:22)
[2023-11-03 09:39] LABS: Troponin 5 2HR Delta -0.76 ABS# (0-10)
[2023-11-03] MEDS: metoprolol tartrate 50 mg Tablet 100 MG PO (10:15)
[2023-11-03] MEDS: amlodipine 10 mg Tablet PO (10:15)
[2023-11-03 10:17] LABS: D Dimer 1.31 ug/mLFEU (0-0.59)
--- NOTE | 2023-11-03 11:13 | CTR_ITS ---
PROCEDURE INFORMATION: Exam: CTA Chest With Contrast Exam date and time: 11/03/2023 11:29 AM Age: 78 years old Clinical indication: Abnormal findings; Abnormal diagnostic tests; Elevated d-dimer; Additional info: Cp with elevated dimer TECHNIQUE: Imaging protocol: Computed tomographic angiography of the chest with contrast. Exam focused on the arteries. 3D rendering (Not supervised by radiologist): MIP and/or 3D reconstructed images were created by the technologist. Radiation optimization: All CT scans at this facility use at least one of these dose optimization techniques: automated exposure control; mA and/or kV adjustment per patient size (includes targeted exams where dose is matched to clinical indication); or iterative reconstruction. Contrast material: OMNI 350; Contrast volume: 80 ml; Contrast route: INTRAVENOUS (IV); COMPARISON: CR (CHEST, ) 11/03/2023 6:18 AM RADIATION DOSE METRICS: Total DLP (mGy-cm): 412.01 FINDINGS: Pulmonary arteries: There is intraluminal thrombus within branches of the right middle lobe pulmonary artery no large central PE is identified. No evidence of right heart strain. The RV/LV ratio is 0.92. Aorta: The ascending aorta is mildly dilated measuring 4.1 cm in maximal dimension. The descending thoracic aorta measures 3.5 cm in maximal dimension. There is calcified plaque involving the aorta, coronary vessels and proximal great vessels. The aorta is not opacified to the extent necessary to evaluate for an aortic dissection. Lungs: There is bibasilar atelectasis. No consolidation is appreciated. No lung nodules or masses Pleural spaces: Unremarkable. No pneumothorax. No pleural effusion. Heart: See Pulmonary arteries finding. Lymph nodes: Unremarkable. No enlarged lymph nodes. Liver: Images through the upper abdomen demonstrates fatty infiltration of the liver. There is a small hiatal hernia. Partially imaged right renal cystic lesion. are identified. Bones/joints: Unremarkable. No acute fracture. Soft tissues: Unremarkable. CT/CT angio chest PE protcl [id number] IMPRESSION: 1. Pulmonary emboli involving branches of the right middle lobe pulmonary artery. No large central pulmonary embolism is identified. No right heart strain. 2. 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 3. Bibasilar atelectasis. COMMENTS: Consistent with the [employer]'s Incidental Findings Committee white paper (J Am Caprice Radiol 2018): Any incidental renal lesion less than 1 cm or classified as too small to characterize, or any incidental cystic renal lesion characterized as simple-appearing, is likely benign. No follow-up imaging is recommended for these lesions per consensus recommendations based on imaging criteria.
--- NOTE | 2023-11-03 11:29 | ECG_ITS ---
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 Measurements Intervals Sarah Ann Rate: 88 P: 68 VA: 196 QRS: 69 QRSD: 92 T: 69 QT: 360 QTc: 437 Interpretive Statements SINUS RHYTHM Normal EKG No previous ECG available for comparison Electronically Signed On 11-03-2023 16:09:39 CDT by Honey Cortez M.D. [email or web address] [email or web address] Solutionsselect medical [facility], [id number]
[2023-11-03] MEDS: iohexol 350 mg/mL 500 mL Btl (per mL) IV (11:32)
[2023-11-03 11:51] LABS: Troponin 5 6HR 8.93 ng/L (0-15)
[2023-11-03 11:56] LABS: Troponin 5 6HR Delta -1.07 ng/L (0-12)
== END 2023-11-03 12:46 | disposition home or self-care (01) ==
PROVIDERS: Emergency Medicine; Emergency Provider Emergency Medicine; PCP Family Medicine
DX: I26.99 Other pulmonary embolism without acute cor pulmonale (principal); R07.89 Other chest pain; Z79.899 Other long term (current) drug therapy
CPT/HCPCS: 36415; 71045; 71275; 80053; 83880; 84484; 85025; 85378; 85610; 85730; 93005; 99285; J7120; Q9967

== ENCOUNTER 2023-11-15 10:36 | Emergency (ER) | payer OTHER, MEDICARE, SELFPAY ==
[2023-11-15 10:58] VITALS: BP 136/79; PULSE 58; RESP 20; TEMP 36.9; O2SAT 94; BMI 24.3
[2023-11-15 11:09] VITALS: BP 138/79; PULSE 57; O2SAT 94
--- NOTE | 2023-11-15 11:11 | ED_ITS ---
HPI - SOB/Dyspnea 2 General: Chief Complaint: Shortness of Breath/Dyspnea Stated Complaint: blood in stool, SOB Time Seen by Provider: 11/15/23 10:55 History of Present Illness: HPI Narrative: 78-year-old man with a history of hypert ension, hyperlipidemia, depression and recently diagnosed pulmonary embolismWho presents emergency room today with worsening shortness of breath. Also has some concern for some bright red blood in his stools. He says he just hurts all over. He had some mild cough. A big concern was that he was becoming more short of breath. He is having some chest pain still. No known fevers. No altered mental status. No focal motor deficits. No abdominal pain. No nausea or vomiting. Blood pressure is normal and he is mildly bradycardic on presentation. No fever. O2 sats are in the mid 90s on room air. Chest CTA 11/03/23 11:13 IMPRESSION: 1. Pulmonary emboli involving branches o f the right middle lobe pulmonary artery. No large central pulmonary embolism is identified. No right heart strain. 2. 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 3. Bibasilar atelectasis. Review of Systems 2 Narrative: Constitutional symptoms: Negative except as documented in HPI. Skin symptoms: Negative except as documented in HPI. Eye symptoms: Negative except as documented in HPI. ENMT symptoms: Negative except as documented in HPI. Respiratory symptoms: Negative except as documented in HPI. Cardiovascular symptoms: Negative except as documented in HPI. Gastrointestinal symptoms: Negative except as documented in HPI. Genitourinary symptoms: Negative except as documented in HPI. Musculoskeletal symptoms: Negative except as documented in HPI. Neurologic symptoms: Negative except as documented in HPI. Psychiatric symptoms: Negative except as documented in HPI. Endocrine symptoms: Negative except as documented in HPI. Physical Exam 2 Narrative: EXAM NARRATIVE: General: Alert, no acute distress. Skin: Warm, dry. Head: Normocephalic, atraumatic. Neck: Supple, trachea midline. Eye: Extraocular movements are intact. Ears, nose, mouth and throat: mucosa moist. Cardiovascular: Regular, Normal peripheral perfusion. Respiratory: Lungs are clear to auscultation, respirations are non-labored, breath sounds are equal, Symmetrical chest wall expansion. Gastrointestinal: Soft, Nontender, Non distended Musculoskeletal: Normal ROM, no deformity. Neurological: Alert and oriented, No focal neurological deficit observed. Psychiatric: Cooperative, appropriate mood & affect. Course 2 Vital Signs: Vital signs: Vital Signs Temperature 98.4 F 11/15/23 10:58 Pulse Rate 57 L 11/15/23 11:31 Respiratory Rate 20 H 11/15/23 10:58 Blood Pressure 155/83 11/15/23 11:31 Pulse Oximetry 94 11/15/23 11:31 Oxygen Delivery Me thod Room Air 11/15/23 10:58 MDM - SOB/Dyspnea Medical Decision Making Differential diagnosis for patient with shortness of breath includes but is not limited to and based on the above HPI, review of systems and physical exam: Pneumonia. Bronchitis. Asthma or COPD with acute exacerbation. Acute coronary syndrome / PR. Pulmonary embolism. Anxiety. Congestive heart failure. Viral infections including influenza and Covid-19. Atrial fibrillation. Anxiety. Pleural effusion. Pneumothorax. Workup: Lab work, chest X-ray and EKG ordered to evaluate, rule in and rule out above pathologies Chest x-ray: No acute process. No infiltrate. No pneumothorax. This was reviewed and interpreted by myself the ER physician. Lab Review: Laboratory results were reviewed and interpreted by myself the emergency room physician. Lab work is fairly unremarkable. Platelets are little bit low at 123. He is not anemic with a hemoglobin of 14.4. BUN and creatinine are 23 and 1.3 which is improved slightly from couple weeks ago. I reviewed the patient's medical record. Reexamination: Patient remained stable. No oxygen requirements. No increased work of breathing at this time. Altered mental status. No focal motor deficits. Assessment and plan: Pulmonary embolism Shortness of breath Rectal bleeding Anticoagulated -I can find no other acute issues at this time. Patient is oxygenating well and not requiring oxygen. Really did not have severe increased work of breathing. We discussed that it will take some time for him to improve after being initiated on treatment for pulmonary embolism. ?Patient has had some mild bright red blood per rectum. His hemoglobin is stable at 14.4. - Discharged home - Discussed findings and plan with patient. Answered any questions. - All laboratory values were reviewed and interpreted personally by myself, the ER physician - All imaging was reviewed and interpreted personally by myself, the ER physician. - Evaluation and treatment of this problem were appropriate in the emergency setting Lab Data 11/15/23 11:09 11/15/23 11:09 Labs/Radiology: Laboratory Results WBC 6.76 10^3/uL (3.29-11.43) 11/15/23 11:09 RBC 4.61 10^6/uL (3.85-5.65) 11/15/23 11:09 Hgb 14.40 g/dL (11.27-16.99) 11/15/23 11:09 Hct 42.8 % (37-53) 11/15/23 11:09 MCV 92.8 fl (82-101) 11/15/23 11:09 MCH 31.2 pg (27-33) 11/15/23 11:09 MCHC 33.6 g/dL (30-55) 11/15/23 11:09 RDW 13.1 % (12.1-15.1) 11/15/23 11:09 Plt Count 123 10^3/cmm (157-399) L 11/15/23 11:09 MPV 10.4 fL (7.4-10.4) 11/15/23 11:09 Neut % (Auto) 78.2 % 11/15/23 11:09 Lymph % (Auto) 10.9 % 11/15/23 11:09 [place] % (Auto) 9.0 % 11/15/23 11:09 Eos % (Auto) 0.6 % 11/15/23 11:09 Baso % (Auto) 0.4 % 11/15/23 11:09 Neut # (Auto) 5.28 10^3/uL (1.8-7.7) 11/15/23 11:09 Lymph # (Auto) 0.7 10^3/uL (0.8-4.8) L 11/15/23 11:09 [place] # (Auto) 0.6 10^3/uL (0.2-0.9) 11/15/23 11:09 Eos # (Auto) 0.0 10^3/uL (0.0-0.8) 11/15/23 11:09 Baso # (Auto) 0.0 10^3/uL (0.0-0.1) 11/15/23 11:09 Nucleated RBC % (auto) 0 % 11/15/23 11:09 Nucleated RBCs # 0.0 /100WBC 11/15/23 11:09 PT 13.10 SECONDS (12.1-14.9) 11/15/23 11:09 INR 0.96 (0.8-1.2) 11/15/23 11:09 APTT 27.4 SECONDS (23.9-36.7) 11/15/23 11:09 Sodium 139 mmol/L (136-145) 11/15/23 11:09 Potassium 4.8 mmol/L (3.5-5.1) 11/15/23 11:09 Chloride 105 mmol/L (98-107) 11/15/23 11:09 Carbon Dioxide 23 mmol/L (22-29) 11/15/23 11:09 Anion Gap 15.8 (5-19) 11/15/23 11:09 BUN 23 mg/dL (8-23) 11/15/23 11:09 Creatinine 1.3 mg/dL (0.7-1.2) H 11/15/23 11:09 GFR Calculation Not Reportable 11/15/23 11:09 Glucose 136 mg/dL (65-115) H 11/15/23 11:09 Calculated Osmolality 294 mOsm/kg (285-295) 11/15/23 11:09 Calcium 9.3 mg/dL (8.5-10.5) 11/15/23 11:09 Total Bilirubin 0.4 mg/dL (0.15-1.2) 11/15/23 11:09 AST 15 U/L (0-40) 11/15/23 11:09 ALT 28 U/L (0-41) 11/15/23 11:09 Alkaline Phosphatase 85 U/L (40-130) 11/15/23 11:09 Total Protein 7.1 g/dL (6.6-8.7) 11/15/23 11:09 Albumin 4.5 g/dL (3.5-5.2) 11/15/23 11:09 Globulin 2.6 g/dL (1.3-4.6) 11/15/23 11:09 All radiology interpretation(s) finalized by discharge Discharge Plan Discharge Patient Disposition: Home Clinical Impression: Rectal bleeding Pulmonary embolism Qualifiers: Pulmonary embolism type: unspecified Chronicity: acute Acute cor pulmonale presence: without acute cor pulmonale Qualified Code(s): I26.99 - Other pulmonary embolism without acute cor pulmonale Condition: Stable Prescriptions: No Action Eliquis 2.5 mg tablet 2.5 mg PO BID Qty: 60 1RF Rx Instructions: 2 pills twice daily for one week then 1 pill twice daily atorvastatin 20 mg Tablet 20 mg PO QPM metoprolol tartrate 100 mg Tablet 100 mg PO BID tramadol 50 mg Tablet 50 mg PO Q6H PRN (Reason: Pain) citalopram 20 mg tablet 20 mg PO QAM amlodipine 10 mg Tablet 10 mg PO DAILY cholecalciferol (vitamin D3) 50 mcg (2,000 unit) Tablet 50 mcg PO DAILY ciprofloxacin HCl 500 mg tablet 500 mg PO Q12H Qty: 20 0RF metronidazole 500 mg tablet 500 mg PO Q8H Qty: 30 0RF Discharge Orders: Discharge ED (Routine); Ordered 11/15/23 Ordered By: Anne Cartagena Referrals: Romina Whitlock MD [Primary Care Provider] - Discharge Diet: Usual diet Discharge Activity: Increase activity as tolerated Patient Instructions: Pulmonary Embolism (ED), Rectal Bleeding (ED) Activity Restrictions/Additional Instructions: Thank you for choosing [facility] for your healthcare needs today. Please realize this is an emergency room and that we are providing you with a medical screening exam and this may not be complete and all inclusive of all the testing and or work up that you may need to determine your ailment or severity of your illness. You have been screened and evaluated and felt safe for discharge. Health conditions do change or evolve sometimes and as such it is important that you follow up with your Primary Doctor to be re checked, 3-5 days is a general good time frame for follow up. 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
[2023-11-15 11:24] LABS: Basophils % 0.4 %; Eosinophils % 0.6 %; Hematocrit 42.8 % (37-53); Lymphocytes # 0.7 10^3/uL (0.8-4.8); Lymphocytes % 10.9 %; Mean Corpuscular HGB Conc 33.6 g/dL (30-55); Mean Corpuscular Hemoglobin 31.2 pg (27-33); Mean Corpuscular Volume 92.8 fl (82-101); Mean Platelet Volume 10.4 fL (7.4-10.4); Monocytes # 0.6 10^3/uL (0.2-0.9); Neutrophils # 5.28 10^3/uL (1.8-7.7); Neutrophils % 78.2 %; Nucleated Red Blood Cells % 0 %; Platelet Count 123 10^3/cmm (157-399); Red Blood Count 4.61 10^6/uL (3.85-5.65); Red Cell Distribution Width 13.1 % (12.1-15.1); White Blood Count 6.76 10^3/uL (3.29-11.43)
[2023-11-15 11:31] VITALS: BP 155/83; PULSE 57; O2SAT 94
[2023-11-15 11:38] LABS: INR 0.96 (0.8-1.2)
[2023-11-15 11:39] LABS: Partial Thromboplastin Time 27.4 SECONDS (23.9-36.7)
[2023-11-15 11:40] LABS: Alanine Aminotransferase 28 U/L (0-41); Albumin Level 4.5 g/dL (3.5-5.2); Alkaline Phosphatase 85 U/L (40-130); Anion Gap 15.8 (5-19); Aspartate Amino Transferase 15 U/L (0-40); Blood Urea Nitrogen 23 mg/dL (8-23); Calcium 9.3 mg/dL (8.5-10.5); Carbon Dioxide 23 mmol/L (22-29); Chloride 105 mmol/L (98-107); Creatinine Clr Calc Pharmacy 50.2414; Globulin 2.6 g/dL (1.3-4.6); Glucose 136 mg/dL (65-115); Osmolality Calculated 294 mOsm/kg (285-295); Potassium 4.8 mmol/L (3.5-5.1); Sodium 139 mmol/L (136-145); Total Bilirubin 0.4 mg/dL (0.15-1.2); Total Protein 7.1 g/dL (6.6-8.7)
--- NOTE | 2023-11-15 11:55 | XR_ITS ---
WS: [id number] XR chest 1V portable [id number] REASON FOR EXAM: Shortness of breath FINDINGS: Chest is unchanged compared to 11/03/2023. Peritoneal shunt tubing overlying the right mediastinum. Moderate tortuosity and ectasia of the thoracic aorta. The heart is at the upper limits of normal in size. Calcified granulomas disease in both hemithoraces. No acute pulmonary parenchymal or pleural disease. Moderate degenerative spondylosis in the thoracic spine. XR/XR chest 1V portable [id number] IMPRESSION: Stable chest without acute abnormality.
[2023-11-15 12:01] VITALS: BP 157/85; PULSE 57; RESP 17; O2SAT 97
--- NOTE | 2023-11-15 12:09 | PC.PHAR ---
[facility] L[facility] 11/15/23 12:09PM
[2023-11-15 12:31] VITALS: BP 150/92; PULSE 54; RESP 19; O2SAT 100
== END 2023-11-15 12:32 | disposition home or self-care (01) ==
PROVIDERS: Emergency Provider Emergency Medicine; PCP Family Medicine
DX: I26.99 Other pulmonary embolism without acute cor pulmonale (principal); K62.5 Hemorrhage of anus and rectum; Z79.01 Long term (current) use of anticoagulants
CPT/HCPCS: 36415; 71045; 80053; 85025; 85610; 85730; 86850; 86900; 99284

== ENCOUNTER → 2024-01-16 08:00 | Outpatient (BNVA) | payer OTHER, SELFPAY | PROVIDERS: PCP Family Medicine; Visit Provider Student in an Organized Health Care Education/Training Program | DX: Z12.11 Encounter for screening for malignant neoplasm of colon (principal) | CPT/HCPCS: 99204 ==

== ENCOUNTER → 2024-04-28 09:18 | Outpatient (BNVA) | payer OTHER, SELFPAY | PROVIDERS: PCP Family Medicine; Referring Provider Family Medicine; Visit Provider Psychiatry & Neurology Neurology | DX: F03.90 Unspecified dementia, unspecified severity, without behavioral disturbance, psychotic disturbance, mood disturbance, and anxiety (principal) | CPT/HCPCS: 36415; 82542; 83520; 99203 ==

== ENCOUNTER 2024-04-30 07:57 | Outpatient (CLI) | payer OTHER, SELFPAY ==
--- NOTE | 2024-04-30 08:16 | CT_ITS ---
WS: [id number] CT CHEST ANGIOGRAPHY WITH REFORMATS HISTORY: FOLLOW UP HISTORY OF PE TECHNIQUE: Contiguous axial images are obtained through the chest during arterial injection of intrav enous contrast. Images are reconstructed to evaluate the pulmonary arteries. MIP imaging also reviewe d. All CT scans at [facility] use at least one of these dose optimization techniques: automat ed exposure control; mA and/or kV adjustment per patient size (includes targeted exams where dose is matched to clinical indication); or iterative reconstruction. CONTRAST: Omnipaque 350; 100 mL IV. DLP: 375.78 mGy.cm COMPARISON: 11/03/2023 No residual pulmonary emboli identified. There are no filling defects in the pulmonary arteries. In p articular the RIGHT middle lobe pulmonary artery is clear. Mild ectasia and atherosclerosis aorta. As cending aorta 4.0 cm is stable. Bovine arch. Lungs are clear. No pneumonia. No mediastinal or hilar adenopathy. Small hiatal hernia. No adrenal ma ss. Reidentified are partially imaged cystic lesions in the upper pole of the RIGHT kidney with the large st measuring 4.6 x 5.0 cm. Hounsfield units are low. No osseous destructive lesions. TRACTOR TRAILER OPERATOR shunt catheter is noted over the anterior chest into the upper abd omen. CT/CT angio chest PE protcl [id number] IMPRESSION: 1. No pulmonary embolism. Complete resolution of the recently described pulmon sissy emboli in the RIGHT middle lobe. 2. No pneumonia. 3. Stable mild dilatation of the ascending aorta, 4.0 cm. 4. No adenopathy.
[2024-04-30] MEDS: iohexol 350 mg/mL 500 mL Btl (per mL) IV (08:33)
== END 2024-04-30 07:58 | disposition home or self-care (01) ==
LOC: RAD 07:58
PROVIDERS: PCP Family Medicine; Visit Provider Nurse Practitioner Family
DX: Z86.711 Personal history of pulmonary embolism (principal); I77.819 Aortic ectasia, unspecified site; K44.9 Diaphragmatic hernia without obstruction or gangrene; N28.9 Disorder of kidney and ureter, unspecified
CPT/HCPCS: 71275

== ENCOUNTER 2024-07-13 13:26 | Outpatient (CLI) | payer OTHER, SELFPAY ==
--- NOTE | 2024-07-13 13:30 | USCV_ITS ---
Andrae Callejas Age: 79 Gender: M : 1945 Exam Date: 07/13/2024 13:47 Ordering Phys: Romina Whitlock MD Technologist: JARRETT [place] [facility] [place]B BP: 146 / 77 HR: 64 Rhythm: Sinus Technical Quality: Adequate MEASUREMENTS (Male / Female) Normal Values 2D ECHO LV Diastolic Diameter PLAX 5.0 cm 4.2 - 5.9 / 3.9 - 5.3 cm IVS Diastolic Thickness 1.0 cm 0.6 - 1.0 / 0.6 - 0.9 cm IVS Systolic Thickness 1.7 cm LVPW Diastolic Thickness 0.9 cm 0.6 - 1.0 / 0.6 - 0.9 cm LVPW Systolic Thickness 0.9 cm LVOT Diameter 2.0 cm LV Ejection Fraction 2D Teich 64.2 % LV Ejection Fraction MOD 4C 64.4 % LV Ejection Fraction MOD 2C 70.9 % LV Ejection Fraction 2C AL 69.8 % LA Diameter 2.9 cm RA Systolic Volume 4C AL 42.1 ml RA Systolic Volume 4C MOD 41.6 ml LA Sys Volume AL 45.5 cm cubed LA Sys Volume Index AL 23.2 cm cubed/m squared Aorta at Sinotubular Diameter 3.4 cm IVC Diameter 1.7 cm M-MODE LA Ao Ratio MM 1.4 AV Cusp Separation MM 1.3 cm DOPPLER AV Peak Velocity 167.0 cm/s LVOT Peak Velocity 131.0 cm/s AV Area Cont Eq vti 2.6 cm squared AV Area Cont Eq pk 2.4 cm squared MV Peak Velocity 107.0 cm/s MV Area PHT 5.6 cm squared Mitral E to A Ratio 0.8 TR Peak Velocity 191.0 cm/s TR Peak Gradient 14.6 mmHg TR Mean Velocity 192.0 cm/s TR Mean Gradient 17.5 mmHg TR Velocity Time Integral 79.4 cm TV Peak E Velocity 69.0 cm/s PV Peak Velocity 107.0 cm/s FINDINGS Left Ventricle Left ventricle is normal in size. LV systolic function is normal with EF 55 to 60%. No regional wall motion abnormalities are seen. Grade 1 diastolic dysfunction Right Ventricle Normal in size and function Right Atrium Normal in size Left Atrium Normal in size Mitral Valve Structurally normal valve. Mild mitral regurgitation. Aortic Valve Structurally normal aortic valve. No significant stenosis Tricuspid Valve Insufficient TR jet to evaluate RVSP. Pulmonic Valve Not well visualized Pericardium Normal Aorta Normal in size IVC Appears to be normal CONCLUSIONS LV systolic function is normal with EF of 55-60% Grade 1 diastolic dysfunction Mild mitral regurgitatioon Saqib Sanchez MD (Electronically Signed) Final Date: 16 July 2024 12:01 S
== END 2024-07-13 13:27 | disposition home or self-care (01) ==
PROVIDERS: PCP Family Medicine; Visit Provider Family Medicine
DX: R06.00 Dyspnea, unspecified (principal); R93.1 Abnormal findings on diagnostic imaging of heart and coronary circulation; I34.0 Nonrheumatic mitral (valve) insufficiency
CPT/HCPCS: 93306

== ENCOUNTER 2024-07-21 20:00 | Outpatient (CLI) | payer OTHER, SELFPAY | END 2024-07-21 20:01 | disposition home or self-care (01) | LOC: SLEEP 07-23 13:24 | PROVIDERS: PCP Family Medicine; Visit Provider Family Medicine | DX: Z53.9 Procedure and treatment not carried out, unspecified reason (principal) | CPT/HCPCS: 95810 ==

== ENCOUNTER 2024-07-29 23:25 | Emergency (ER) | payer OTHER, MEDICARE, SELFPAY ==
[2024-07-29 23:28] VITALS: BP 145/83; PULSE 68; RESP 16; TEMP 37.1; O2SAT 93
--- NOTE | 2024-07-30 00:08 | W.ED.MALEGU ---
HPI - Male Genitourinary General: Chief complaint: Urogenital-Male Stated complaint: bleeding from penis Time Seen by Provider: 07/29/24 23:58 Source: patient Mode of arrival: ambulatory Limitations: no limitations History of Present Illness: Patient is a 79-year-old male who presents the emergency department complaining of hematuria onset tonight. States he noticed a couple dots of blood in his underwear, noted to be coming from his penis. This was just a small amount as he states he voided and noticed that the urine did not seem to have any blood in it. He is not having any pain, he is on a blood thinner. States he is just here to get checked out as he has never had this happen before. No recent trauma, does note a history of BPH and has followed urology in the past. Vitals unremarkable at this time. MD Complaint: other (Penile bleeding/hematuria) Onset (ago): hour(s) Duration: now resolved Location: penis Relieving factors: none Exacerbating factors: none Context: other (On blood thinner) Associated symptoms: Reports hematuria; Deny dysuria, nausea or vomiting Related Data Home Medications ?Medication ?Instructions ?Recorded ?Confirmed amlodipine 10 mg tablet 10 mg PO DAILY 06/13/23 04/28/24 atorvastatin 20 mg tablet 20 mg PO QPM 06/13/23 04/28/24 cholecalciferol (vitamin D3) 50 50 mcg PO DAILY 06/13/23 04/28/24 mcg (2,000 unit) tablet citalopram 20 mg tablet 20 mg PO QAM 06/13/23 04/28/24 metoprolol tartrate 100 mg tablet 100 mg PO BID 06/13/23 04/28/24 tramadol 50 mg tablet 50 mg PO Q6H PRN Pain 06/13/23 04/28/24 donepezil 10 mg tablet 10 mg PO DAILY 01/16/24 04/28/24 Previous Rx's ?Medication ?Instructions ?Recorded apixaban 2.5 mg tablet (Eliquis) 2.5 mg PO BID #60 tabs 11/03/23 Allergies Allergy/AdvReac Type Severity Reaction Status Date / Time No Known Allergies Allergy Verified 07/29/24 23:32 Review of Systems General: Reports: 10 or more systems reviewed and unremarkable except in HPI and below Const: Denies: fever(s), chills, change in appetite, change in weight or diaphoresis ENMT: Denies: throat pain or hoarseness Card: Denies: chest pain, palpitations or lightheadedness Resp: Denies: dyspnea, productive cough or wheezing GI: Denies: abdominal pain, nausea, vomiting, diarrhea, constipation, bloating, change in stool character or hematochezia : Reports: hematuria and other (Penile bleeding); Denies: flank pain, difficulty urinating, dysuria, urinary frequency or urinary urgency Musc: Denies: neck pain or back pain Skin/Breast: Denies: rash or new lesions Neuro: Denies: headache(s) or dizziness PFSH ED PFSH: Family History Mother Hypoglycemia Family/Other Heart disease Social History Smoking and tobacco/nicotine status: former use of tobacco/nicotine (chew) Quit status (tobacco/nicotine): has quit using Alcohol intake: former Year of sobriety/quit date alcohol: 2011 Substance/Drug Use: never Physical Exam Const: COMMON NORMALS: no acute distress, average body habitus, patient oriented x3, no limitations, healthy appearing, alert and well nourished GENERAL APPEARANCE: cooperative and comfortable ORIENTATION/CONSCIOUSNESS: Yes awake Eye: COMMON NORMALS: Equal, round and reactive pupils present, EOMs intact bilaterally, conjunctivae normal and normal visual cm by confrontation CONJUNCTIVA: Yes conjunctivae normal PUPIL: Yes Equal, round and reactive pupils present Neck/C-Spine: COMMON NORMALS: full ROM, supple, no meningeal signs and no JVD Resp: COMMON NORMALS: normal respiratory effort, No retractions, No use of accessory muscles and clear to auscultation bilaterally AUSCULTATION: clear to auscultation bilaterally, no crackles, no rales, no rhonchi and no wheezes Cardio: COMMON NORMALS: no JVD, regular rate, regular rhythm, S1 normal heart sound present, S2 normal heart sound present, No gallops present (Cardio), No clicks present (Cardio), No murmurs present (Cardio), No rub (Cardio) and Peripheral pulses 2+ throughout RATE: regular rate RHYTHM: regular rhythm HEART SOUNDS: S1 normal heart sound present and S2 normal heart sound present PERIPHERAL PULSES: Peripheral pulses 2+ throughout GI: COMMON NORMALS: Normal to inspection, nondistended, normoactive bowel sounds present, Soft to palpation, non-tender, No hepatosplenomegaly present and no masses AUSCULTATION: Yes normoactive bowel sounds PALPATION: Yes Soft to palpation, No Guarding due to palpation present (GI), No Rigid due to palpation and Yes No hepatosplenomegaly present RECTAL EXAM: Yes deferred : COMMON NORMALS: Yes no CVA tenderness BLADDER/KIDNEY EXAM: Yes no CVA tenderness Back/Pelvis: COMMON NORMALS: no CVA tenderness Extremity: COMMON NORMALS: normal to inspection and full ROM Neuro: COMMON NORMALS: patient oriented x3, moves all extremities, no focal motor deficits and no sensory deficits noted SENSORIUM/ORIENTATION: Yes alert MENINGEAL SIGNS: Yes no meningeal signs Psych: COMMON NORMALS: mental status grossly normal, cooperative and speech normal SPEECH: Yes normal speech Skin: COMMON NORMALS: no rashes or lesions noted GENERAL SKIN EXAM: no rashes or lesions noted Course Vital Signs: Vital signs: Vital Signs Temperature 98.7 F 07/29/24 23:28 Pulse Rate 68 07/29/24 23:28 Respiratory Rate 16 07/29/24 23:28 Blood Pressure 145/83 07/29/24 23:28 Pulse Oximetry 93 07/29/24 23:28 Oxygen Delivery Me thod Room Air 07/29/24 23:28 [facility] - Male Medical Decision Making Gross hematuria reported by this patient, resolved on arrival as urinalysis he gave us appeared normal. However on UA there was 3+ blood and red blood cells noted. He is on a blood thinner, history of BPH but no other abnormalities. History of CKD, creatinine seem to be stable and the rest of his lab work was normal. He had no other symptoms to report and was asymptomatic at time of exam with normal vitals. I do believe that he needs further workup with urology which he already is established with, encouraged him to call in the morning to set up an appointment as he may require cystoscopy or further imaging on an outpatient basis to evaluate for the microscopic bleeding. In the meantime told him to return if he has any new symptoms that arise or any worsening of the hematuria. He agrees with this plan and verbalizes understanding to return precautions. Discussed case with Dr. oCllier. Lab Data 07/30/24 00:15 07/30/24 00:15 Laboratory Results WBC 6.04 10^3/uL (3.29-11.43) 07/30/24 00:15 RBC 3.92 10^6/uL (3.85-5.65) 07/30/24 00:15 Hgb 12.10 g/dL (11.27-16.99) 07/30/24 00:15 Hct 37.3 % (37-53) 07/30/24 00:15 MCV 95.2 fl (82-101) 07/30/24 00:15 MCH 30.9 pg (27-33) 07/30/24 00:15 MCHC 32.4 g/dL (30-55) 07/30/24 00:15 RDW 13.2 % (12.1-15.1) 07/30/24 00:15 Plt Count 111 10^3/cmm (157-399) L 07/30/24 00:15 MPV 11.1 fL (7.4-10.4) H 07/30/24 00:15 Neut % (Auto) 67.3 % 07/30/24 00:15 Lymph % (Auto) 16.2 % 07/30/24 00:15 [place] % (Auto) 12.3 % 07/30/24 00:15 Eos % (Auto) 2.2 % 07/30/24 00:15 Baso % (Auto) 0.7 % 07/30/24 00:15 Neut # (Auto) 4.07 10^3/uL (1.8-7.7) 07/30/24 00:15 Lymph # (Auto) 1.0 10^3/uL (0.8-4.8) 07/30/24 00:15 [place] # (Auto) 0.7 10^3/uL (0.2-0.9) 07/30/24 00:15 Eos # (Auto) 0.1 10^3/uL (0.0-0.8) 07/30/24 00:15 Baso # (Auto) 0.0 10^3/uL (0.0-0.1) 07/30/24 00:15 Nucleated RBC % (auto) 0 % 07/30/24 00:15 Nucleated RBCs # 0.0 /100WBC 07/30/24 00:15 PT 13.90 SECONDS (12.1-14.9) 07/30/24 00:15 INR 1.00 (0.8-1.2) 07/30/24 00:15 APTT 28.4 SECONDS (23.9-36.7) 07/30/24 00:15 Sodium 139 mmol/L (136-145) 07/30/24 00:15 Potassium 4.0 mmol/L (3.5-5.1) 07/30/24 00:15 Chloride 106 mmol/L (98-107) 07/30/24 00:15 Carbon Dioxide 22 mmol/L (22-29) 07/30/24 00:15 Anion Gap 15.0 (5-19) 07/30/24 00:15 BUN 21 mg/dL (8-23) 07/30/24 00:15 Creatinine 1.5 mg/dL (0.7-1.2) H 07/30/24 00:15 GFR Calculation Not Reportable 07/30/24 00: Glucose 156 mg/dL (65-115) H 07/30/24 00:15 Calculated Osmolality 294 mOsm/kg (285-295) 07/30/24 00:15 Calcium 9.3 mg/dL (8.5-10.5) 07/30/24 00:15 Total Bilirubin 0.3 mg/dL (0.15-1.2) 07/30/24 00:15 AST 16 U/L (0-40) 07/30/24 00:15 ALT 22 U/L (0-41) 07/30/24 00:15 Alkaline Phosphatase 92 U/L (40-130) 07/30/24 00:15 Total Protein 6.8 g/dL (6.6-8.7) 07/30/24 00:15 Albumin 4.2 g/dL (3.5-5.2) 07/30/24 00:15 Globulin 2.6 g/dL (1.3-4.6) 07/30/24 00:15 Urine Color Yellow (Yellow) 07/30/24 00:03 Urine Appearance Slightly cloudy (CLEAR) 07/30/24 00:03 Urine pH 5 (5-7) 07/30/24 00:03 Ur Specific White 1.020 (1.005-1.030) 07/30/24 00:03 Urine Protein Neg (Negative) 07/30/24 00:03 Urine Glucose (UA) Norm (Normal) 07/30/24 00:03 Urine Ketones Negative (Negative) 07/30/24 00:03 Urine Blood 3+ (Negative) A 07/30/24 00:03 Urine Nitrate Negative (Negative) 07/30/24 00:03 Urine Bilirubin Neg (Negative) 07/30/24 00:03 Urine Urobilinogen Neg mg/dL (Negative) 07/30/24 00:03 Ur Leukocyte Esterase Negative (Negative) 07/30/24 00:03 Urine RBC 51-100 /hpf (0-2) H 07/30/24 00:03 Urine WBC 0-5 /hpf (0-5) 07/30/24 00:03 Ur Squamous Epith Cells 0-5 /hpf (0-5) 07/30/24 00:03 Amorphous Sediment Not Reportable 07/30/24 00:03 Urine Bacteria None seen /hpf (NONE) 07/30/24 00:03 Hyaline Casts 0.81 /lpf 07/30/24 00:03 No radiology studies performed this visit Discharge Plan Discharge Patient Disposition: Home Clinical Impression: Hematuria Qualifiers: Hematuria type: gross Qualified Code(s): R31.0 - Gross hematuria Condition: Stable Prescriptions: No Action donepezil 10 mg tablet 10 mg PO DAILY Eliquis 2.5 mg tablet 2.5 mg PO BID Qty: 60 1RF Rx Instructions: 2 pills twice daily for one week then 1 pill twice daily atorvastatin 20 mg Tablet 20 mg PO QPM metoprolol tartrate 100 mg Tablet 100 mg PO BID tramadol 50 mg Tablet 50 mg PO Q6H PRN (Reason: Pain) citalopram 20 mg tablet 20 mg PO QAM amlodipine 10 mg Tablet 10 mg PO DAILY cholecalciferol (vitamin D3) 50 mcg (2,000 unit) Tablet 50 mcg PO DAILY Discharge Orders: Discharge ED (Routine); Ordered 07/30/24 Ordered By: Lito Arguello Referrals: Romina Whitlock MD [Primary Care Provider] - Patient Instructions: Hematuria (ED) Activity Restrictions/Additional Instructions: Follow-up with urology as we discussed. Please call your primary care in the morning to also schedule close follow-up. Return with any onset of pain, fevers, or other concerning symptoms that you have. 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
[2024-07-30 00:15] LABS: Bacteria Urine None Seen /hpf; Hyaline Casts Urine 0.81 /lpf; RBC Urine 51-100 /hpf (0-2); Squamous Epithelial Cell Urine 0-5 /hpf (0-5); WBC Urine 0-5 /hpf (0-5)
[2024-07-30 00:17] LABS: Add Urine Culture? Yes; Add Urine Microscopic? YES; Bilirubin Urine Neg (Negative); Blood Urine 3+ (Negative); Glucose Urine UA Norm (Normal); Ketones Urine Negative (Negative); Leukocyte Esterase Urine Negative (Negative); Nitrate Urine Negative (Negative); Protein Urine Neg (Negative); Urine Appearance Slightly Cloudy (CLEAR); Urine Color Yellow (Yellow); Urobilinogen Urine Neg (Negative); pH Urine 5 (5-7)
[2024-07-30 00:36] LABS: Basophils % 0.7 %; Eosinophils # 0.1 10^3/uL (0.0-0.8); Eosinophils % 2.2 %; Hematocrit 37.3 % (37-53); Lymphocytes % 16.2 %; Mean Corpuscular HGB Conc 32.4 g/dL (30-55); Mean Corpuscular Hemoglobin 30.9 pg (27-33); Mean Corpuscular Volume 95.2 fl (82-101); Mean Platelet Volume 11.1 fL (7.4-10.4); Monocytes # 0.7 10^3/uL (0.2-0.9); Monocytes % 12.3 %; Neutrophils # 4.07 10^3/uL (1.8-7.7); Neutrophils % 67.3 %; Nucleated Red Blood Cells % 0 %; Platelet Count 111 10^3/cmm (157-399); Red Blood Count 3.92 10^6/uL (3.85-5.65); Red Cell Distribution Width 13.2 % (12.1-15.1); White Blood Count 6.04 10^3/uL (3.29-11.43)
[2024-07-30 00:40] LABS: Partial Thromboplastin Time 28.4 SECONDS (23.9-36.7)
[2024-07-30 00:46] LABS: Alanine Aminotransferase 22 U/L (0-41); Albumin Level 4.2 g/dL (3.5-5.2); Alkaline Phosphatase 92 U/L (40-130); Aspartate Amino Transferase 16 U/L (0-40); Blood Urea Nitrogen 21 mg/dL (8-23); Calcium 9.3 mg/dL (8.5-10.5); Carbon Dioxide 22 mmol/L (22-29); Chloride 106 mmol/L (98-107); Globulin 2.6 g/dL (1.3-4.6); Glucose 156 mg/dL (65-115); Osmolality Calculated 294 mOsm/kg (285-295); Sodium 139 mmol/L (136-145); Total Bilirubin 0.3 mg/dL (0.15-1.2); Total Protein 6.8 g/dL (6.6-8.7)
[2024-07-30 01:47] VITALS: BP 144/81; PULSE 70; O2SAT 95
[2024-07-30 01:48] VITALS: BP 144/81; PULSE 70; O2SAT 95
== END 2024-07-30 01:48 | disposition home or self-care (01) ==
PROVIDERS: Emergency Provider Physician Assistant; PCP Family Medicine
DX: R31.0 Gross hematuria (principal); Z79.01 Long term (current) use of anticoagulants; Z87.891 Personal history of nicotine dependence
CPT/HCPCS: 36415; 80053; 81001; 85025; 85610; 85730; 87086; 99283

== ENCOUNTER → 2024-07-30 13:00 | Outpatient (BNVA) | payer OTHER, MEDICARE, SELFPAY | PROVIDERS: PCP Family Medicine; Visit Provider Internal Medicine Cardiovascular Disease | DX: R06.02 Shortness of breath (principal); R06.00 Dyspnea, unspecified; I20.89 Other forms of angina pectoris; R53.83 Other fatigue; I27.20 Pulmonary hypertension, unspecified; Z79.01 Long term (current) use of anticoagulants; Z87.891 Personal history of nicotine dependence; Z86.711 Personal history of pulmonary embolism | CPT/HCPCS: 99214 ==

== ENCOUNTER → 2024-07-30 13:13 | Outpatient (BNVA) | payer OTHER, MEDICARE, SELFPAY | PROVIDERS: PCP Family Medicine; Visit Provider Internal Medicine Cardiovascular Disease | DX: R07.9 Chest pain, unspecified (principal); R06.02 Shortness of breath; R58 Hemorrhage, not elsewhere classified | CPT/HCPCS: 36415; 80048; 85025; 85610; 93005 ==

== ENCOUNTER 2024-08-07 02:35 | Emergency (ER) | payer OTHER, MEDICARE, SELFPAY ==
[2024-08-07 02:41] VITALS: BP 112/70; PULSE 94; RESP 20; TEMP 36.8; O2SAT 92; BMI 27.8
--- NOTE | 2024-08-07 02:47 | W.ED.CHESTPA ---
HPI - Chest Pain General: Chief Complaint: Chest Pain Stated Complaint: CP Time Seen by Provider: 08/07/24 02:47 History of Present Illness: The patient is a 79-year-old male seen primarily for COFFEY of uncertain etiology. He also has trouble breathing at rest, causing him difficulty sleeping. 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 The patient has been experiencing ongoing issues with shortness of breath and chest pain for about a year. Despite undergoing various tests, including x-rays and CAT scans, the cause remains unclear. Daughter of the patient notes that he typically had a flat, soft abdomen, but over the last few months it has become hard and distended. An echocardiogram performed a month ago showed normal heart function with no wall motion abnormalities. The patient is scheduled for a dye test to check for coronary disease on saturday (5 days) but daughter is tearful and wants it done now. The patient is also experiencing difficulty sleeping and breathing. There is a concern about potential liver disease due to a history of significant alcohol consumption. The patient is currently taking a new medication, the name of which is not recalled. Related Data Home Medications ?Medication ?Instructions ?Recorded ?Confirmed amlodipine 10 mg tablet 10 mg PO DAILY 06/13/23 07/30/24 atorvastatin 20 mg tablet 20 mg PO QPM 06/13/23 07/30/24 cholecalciferol (vitamin D3) 50 50 mcg PO DAILY 06/13/23 07/30/24 mcg (2,000 unit) tablet citalopram 20 mg tablet 20 mg PO QAM 06/13/23 07/30/24 donepezil 10 mg tablet 10 mg PO DAILY 01/16/24 07/30/24 albuterol sulfate 90 mcg/actuation 1 inh inhalation QID 07/30/24 07/30/24 aerosol inhaler (Ventolin HFA) olanzapine 5 mg tablet 5 mg PO DAILY 07/30/24 07/30/24 propranolol 80 mg capsule,24 80 mg PO DAILY 07/30/24 07/30/24 hr,extended release (Inderal LA) Previous Rx's ?Medication ?Instructions ?Recorded apixaban 2.5 mg tablet (Eliquis) 2.5 mg PO BID #60 tabs 11/03/23 isosorbide mononitrate 30 mg 30 mg PO DAILY #90 tabs 07/30/24 tablet,extended release 24 hr Allergies Allergy/AdvReac Type Severity Reaction Status Date / Time No Known Allergies Allergy Verified 07/30/24 13:15 PFSH ED PFSH: Family History Mother Hypoglycemia Family/Other Heart disease Social History Smoking and tobacco/nicotine status: former use of tobacco/nicotine (chew) Quit status (tobacco/nicotine): has quit using Alcohol intake: former Year of sobriety/quit date alcohol: 2011 Substance/Drug Use: never Physical Exam Const: COMMON NORMALS: no acute distress, patient oriented x3 and alert HENMT: COMMON NORMALS: normocephalic and atraumatic HEAD & SCALP: normocephalic and atraumatic Eye: COMMON NORMALS: Equal, round and reactive pupils present, EOMs intact bilaterally and no scleral icterus PUPIL: Yes Equal, round and reactive pupils present Resp: OTHER: Mildly increased work of breathing. No wheezes or crackles. Decreased breath sounds bilaterally. Mild tachypnea. Cardio: COMMON NORMALS: regular rate, regular rhythm and No murmurs present (Cardio) RATE: regular rate RHYTHM: regular rhythm GI: COMMON NORMALS: Soft to palpation and non-tender PALPATION: Yes Soft to palpation OTHER: Abdomen is soft but distended.. No obvious fluid wave. No focal tenderness. Neuro: COMMON NORMALS: patient oriented x3 SENSORIUM/ORIENTATION: Yes alert Skin: COMMON NORMALS: no rashes or lesions noted GENERAL SKIN EXAM: no rashes or lesions noted Course Vital Signs: Vital signs: Vital Signs Temperature 98.2 F 08/07/24 02:41 Pulse Rate 77 08/07/24 06:32 Respiratory Rate 20 H 08/07/24 05:34 Blood Pressure 133/83 08/07/24 06:32 Pulse Oximetry 90 08/07/24 06:32 Oxygen Delivery Me thod Room Air 08/07/24 02:59 MDM - Chest Pain Medical Decision Making Patient remained hemodynamically stable throughout ED course. Imaging and labs and EKG are all reassuring with no evidence of PE, pneumonia, ACS, or intra-abdominal process. states that shortness of breath has been ongoing for the last year and abdominal pain intermittently for the last year as well. I suspect that much of his shortness of breath is due to deconditioning. He agreed to attempt to increase his level activity. I think there may be a component of patient causing intermittent abdominal cramping. I observed him 1 time in the room where he had exquisite pain for roughly 15 seconds and heard his stomach gurgling. Pain remitted spontaneously. He will try taking MiraLAX for this. He will be discharged in stable condition. Lab Data 08/07/24 02:56 08/07/24 02:56 Radiology Impressions Chest X-Ray 08/07/24 02:48 IMPRESSION: No acute findings. Chest/Abdomen/Pelvis CT 08/07/24 03:09 IMPRESSION: Mild bronchiectasis which appears new from prior comparison (nonspecific and could indicate infectious/inflammatory pathology). Otherwise no acute thoracic findings. IMPRESSION: No acute intra-abdominal findings. Specifically no evidence for ascites as queried by the study indication. COMMENTS: Consistent with the [place] [employer]'s Incidental Findings Committee white paper (J Am Caprice Radiol 2018): Any incidental renal lesion less than 1 cm or classified as too small to characterize, or any incidental cystic renal lesion characterized as simple-appearing, is likely benign. No follow-up imaging is recommended for these lesions per consensus recommendations based on imaging criteria. Laboratory Results WBC 6.06 10^3/uL (3.29-11.43) 08/07/24 02:56 RBC 3.87 10^6/uL (3.85-5.65) 08/07/24 02:56 Hgb 11.90 g/dL (11.27-16.99) 08/07/24 02:56 Hct 36.6 % (37-53) L 08/07/24 02:56 MCV 94.6 fl (82-101) 08/07/24 02:56 MCH 30.7 pg (27-33) 08/07/24 02:56 MCHC 32.5 g/dL (30-55) 08/07/24 02:56 RDW 13.0 % (12.1-15.1) 08/07/24 02:56 Plt Count 123 10^3/cmm (157-399) L 08/07/24 02:56 MPV 10.9 fL (7.4-10.4) H 08/07/24 02:56 Neut % (Auto) 66.2 % 08/07/24 02:56 Lymph % (Auto) 16.2 % 08/07/24 02:56 [place] % (Auto) 13.0 % 08/07/24 02:56 Eos % (Auto) 3.3 % 08/07/24 02:56 Baso % (Auto) 0.5 % 08/07/24 02:56 Neut # (Auto) 4.01 10^3/uL (1.8-7.7) 08/07/24 02:56 Lymph # (Auto) 1.0 10^3/uL (0.8-4.8) 08/07/24 02:56 [place] # (Auto) 0.8 10^3/uL (0.2-0.9) 08/07/24 02:56 Eos # (Auto) 0.2 10^3/uL (0.0-0.8) 08/07/24 02:56 Baso # (Auto) 0.0 10^3/uL (0.0-0.1) 08/07/24 02:56 Nucleated RBC % (auto) 0 % 08/07/24 02:56 Nucleated RBCs # 0.0 /100WBC 08/07/24 02:56 Sodium 140 mmol/L (136-145) 08/07/24 02:56 Potassium 4.7 mmol/L (3.5-5.1) 08/07/24 02:56 Chloride 104 mmol/L (98-107) 08/07/24 02:56 Carbon Dioxide 22 mmol/L (22-29) 08/07/24 02:56 Anion Gap 18.7 (5-19) 08/07/24 02:56 BUN 17 mg/dL (8-23) 08/07/24 02:56 Creatinine 1.5 mg/dL (0.7-1.2) H 08/07/24 02:56 GFR Calculation Not Reportable 08/07/24 02:56 Glucose 312 mg/dL (65-115) H 08/07/24 02:56 Calculated Osmolality 303 mOsm/kg (285-295) H 08/07/24 02:56 Calcium 9.6 mg/dL (8.5-10.5) 08/07/24 02:56 Total Bilirubin 0.3 mg/dL (0.15-1.2) 08/07/24 02:56 AST 22 U/L (0-40) 08/07/24 02:56 ALT 22 U/L (0-41) 08/07/24 02:56 Alkaline Phosphatase 105 U/L (40-130) 08/07/24 02:56 Troponin T Baseline 10 ng/L (0-15) 08/07/24 02:56 Troponin T 120 Minute 9.23 ng/L (0-15) 08/07/24 04:42 Delta Troponin T -0.77 ABS# (0-10) L 08/07/24 04:42 Total Protein 7.2 g/dL (6.6-8.7) 08/07/24 02:56 Albumin 4.3 g/dL (3.5-5.2) 08/07/24 02:56 Globulin 2.9 g/dL (1.3-4.6) 08/07/24 02:56 All radiology interpretation(s) finalized by discharge EKG Data EKG 1: Computer generated interpretation: Time?0241?sinus rhythm with first-degree block, rate of 78, no ST segment elevation or depression, intervals within normal limits. QTc = 425 Discharge Plan Discharge Patient Disposition: Home Clinical Impression: COFFEY (dyspnea on exertion) Condition: Stable Prescriptions: No Action donepezil 10 mg tablet 10 mg PO DAILY olanzapine 5 mg tablet 5 mg PO DAILY propranolol [Inderal LA] 80 mg capsule,extended release 24 hr 80 mg PO DAILY albuterol sulfate [Ventolin HFA] 90 mcg/actuation HFA aerosol inhaler 1 inh inhalation QID isosorbide mononitrate 30 mg tablet extended release 24 hr 30 mg PO DAILY Qty: 90 2RF Eliquis 2.5 mg tablet 2.5 mg PO BID Qty: 60 1RF Rx Instructions: 2 pills twice daily for one week then 1 pill twice daily atorvastatin 20 mg Tablet 20 mg PO QPM citalopram 20 mg tablet 20 mg PO QAM amlodipine 10 mg Tablet 10 mg PO DAILY cholecalciferol (vitamin D3) 50 mcg (2,000 unit) Tablet 50 mcg PO DAILY Discharge Orders: Discharge ED (Routine); Ordered 08/07/24 Ordered By: Dominik Quinn Referrals: Romina Whitlock MD [Primary Care Provider] - Discharge Diet: Diabetic Discharge Activity: Increase activity as tolerated Activity Restrictions/Additional Instructions: Please increase activity as feasible to counteract deconditioning Print Language: [place] Coding Level of Care 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
--- NOTE | 2024-08-07 02:48 | XRR_ITS ---
PROCEDURE INFORMATION: Exam: XR Chest Exam date and time: 08/07/2024 3:13 AM Age: 79 years old Clinical indication: Chest pressure and chest wall pain; Additional info: Chest pain TECHNIQUE: Imaging protocol: Radiologic exam of the chest. Views: 1 view. COMPARISON: CT angio chest PE protcl [id number] 04/30/2024 8:21 AM FINDINGS: Tubes, catheters and devices: Right-sided shunt tubing. Lungs: Unremarkable. No consolidation. Pleural spaces: Unremarkable. No pleural effusion. No pneumothorax. Heart/Mediastinum: The heart is mildly enlarged. Vascular calcification. Bones/joints: Unremarkable. XR/XR chest 1V portable [id number] IMPRESSION: No acute findings.
--- NOTE | 2024-08-07 02:48 | ECG_ITS ---
[facility]: [facility]24[facility] Pat Name: Andrae Callejas Department: Room: Gender: Male Fleet Director: : 1945 Requested By: Dominik Bahena Order Number: [id number] Micki MD: Sherron Riley M.D. Measurements Intervals [place] Rate: 78 P: 56 [place]: 212 QRS: 67 QRSD: 97 T: 42 QT: 392 QTc: 447 Interpretive Statements SINUS RHYTHM WITH FIRST DEGREE AV BLOCK Compared to ECG 07/30/2024 13:23:56 Sinus bradycardia no longer present Electronically Signed On 08-07-2024 08:36:50 CDT by Sherron Riley M.D. [email or web address]
[2024-08-07 02:59] VITALS: BP 112/75; PULSE 88; RESP 25; O2SAT 90
[2024-08-07 03:05] LABS: Basophils % 0.5 %; Eosinophils # 0.2 10^3/uL (0.0-0.8); Eosinophils % 3.3 %; Hematocrit 36.6 % (37-53); Lymphocytes % 16.2 %; Mean Corpuscular HGB Conc 32.5 g/dL (30-55); Mean Corpuscular Hemoglobin 30.7 pg (27-33); Mean Corpuscular Volume 94.6 fl (82-101); Mean Platelet Volume 10.9 fL (7.4-10.4); Monocytes # 0.8 10^3/uL (0.2-0.9); Neutrophils # 4.01 10^3/uL (1.8-7.7); Neutrophils % 66.2 %; Nucleated Red Blood Cells % 0 %; Platelet Count 123 10^3/cmm (157-399); Red Blood Count 3.87 10^6/uL (3.85-5.65); White Blood Count 6.06 10^3/uL (3.29-11.43)
[2024-08-07 03:09] VITALS: BP 123/72; PULSE 83; RESP 25; O2SAT 91
--- NOTE | 2024-08-07 03:09 | CTR_ITS ---
PROCEDURE INFORMATION: Exam: CTA Chest With Contrast Exam date and time: 08/07/2024 3:38 AM Age: 79 years old Clinical indication: Bloating and fever; Shortness of breath; Additional info: Hypoxia, tachypnia, abd distention, concern for pe + abd distension concerning for new ascites TECHNIQUE: Imaging protocol: Computed tomographic angiography of the chest with contrast. Exam focused on the arteries. 3D rendering (Not supervised by radiologist): MIP and/or 3D reconstructed images were created by the technologist. Radiation optimization: All CT scans at this facility use at least one of these dose optimization techniques: automated exposure control; mA and/or kV adjustment per patient size (includes targeted exams where dose is matched to clinical indication); or iterative reconstruction. Contrast material: OMNI 350; Contrast volume: 100 ml; Contrast route: INTRAVENOUS (IV); COMPARISON: CT angio chest PE protcl [id number] 04/30/2024 8:21 AM RADIATION DOSE METRICS: Total DLP (mGy-cm): 1300.46 FINDINGS: Tubes, catheters and devices: Partially evaluated presumed MACHINE STONECUTTER shunt, appears intact. Pulmonary arteries: Normal. No pulmonary emboli. Aorta: Heavy atherosclerotic disease of the aorta and the major visualized branches. Lungs: Posterior basilar scarring/atelectasis. [id number]-[id number]-left basilar bronchiectasis. Pleural spaces: Unremarkable. No pneumothorax. No pleural effusion. Heart: Unremarkable. No cardiomegaly. No pericardial effusion. Coronary arteries: Heavy coronary calcified atherosclerotic disease. Lymph nodes: Unremarkable. No enlarged lymph nodes. Bones/joints: Degenerative changes of the visualized osseous structures. Incompletely evaluated cervical spine fusion hardware. Findings compatible with DISH. Soft tissues: Unremarkable. PROCEDURE INFORMATION: Exam: CT Abdomen And Pelvis without contrast. Exam date and time: 08/07/2024 3:38 AM Age: 79 years old Clinical indication: Bloating and fever; Shortness of breath; Additional info: Hypoxia, tachypnia, abd distention, concern for pe + abd distension concerning for new ascites TECHNIQUE: Imaging protocol: Computed tomography of the abdomen and pelvis with contrast. Radiation optimization: All CT scans at this facility use at least one of these dose optimization techniques: automated exposure control; mA and/or kV adjustment per patient size (includes targeted exams where dose is matched to clinical indication); or iterative reconstruction. Contrast material: OMNI 350; Contrast volume: 100 ml; Contrast route: INTRAVENOUS (IV); COMPARISON: CT abdomen pelvis w con* [id number] 06/13/2023 2:13 PM RADIATION DOSE METRICS: Total DLP (mGy-cm): 0.01 FINDINGS: Limitations: Please note the order indicated that the abdomen and pelvis was performed with contrast, however the abdominal and pelvic images demonstrate no contrast within the vasculature of the viscera. Tubes, catheters and devices: Partially evaluated anterior presumed MACHINE STONECUTTER shunt, appears intact. Liver: Scattered hepatic hypodensities too small to characterize by modality, statistically likely to represent benign etiology. Gallbladder and biliary ducts: Normal. No calcified stones. No ductal dilation. Pancreas: Normal. No ductal dilation. Spleen: Normal. No splenomegaly. Adrenal glands: Normal. No mass. Kidneys and ureters: Benign right renal cysts. A few bilateral renal hypodensities too small to characterize by modality, statistically likely to represent benign findings. Stomach and bowel: Moderate colonic stool burden. Appendix: No evidence of appendicitis. Intraperitoneal space: Unremarkable. No ascites. Vasculature: Peripheral arterial vascular disease. Heavy atherosclerotic disease of the aorta in the visualized branches. Infrarenal abdominal aortic ectasia. Lymph nodes: Unremarkable. No enlarged lymph nodes. Urinary bladder: Unremarkable as visualized. Reproductive: Dystrophic calcifications of the prostate gland. Bones/joints: Unremarkable. No acute fracture. Soft tissues: Small fat containing right indirect inguinal hernia. CT/CT angio chest w abd pel w con IMPRESSION: Mild bronchiectasis which appears new from prior comparison (nonspecific and could indicate infectious/inflammatory pathology). Otherwise no acute thoracic findings. IMPRESSION: No acute intra-abdominal findings. Specifically no evidence for ascites as queried by the study indication. COMMENTS: Consistent with the [employer]'s Incidental Findings Committee white paper (J Am Caprice Radiol 2018): Any incidental renal lesion less than 1 cm or classified as too small to characterize, or any incidental cystic renal lesion characterized as simple-appearing, is likely benign. No follow-up imaging is recommended for these lesions per consensus recommendations based on imaging criteria.
[2024-08-07 03:22] LABS: Troponin(5th) Baseline 10 ng/L (0-15)
[2024-08-07 03:27] LABS: Alanine Aminotransferase 22 U/L (0-41); Albumin Level 4.3 g/dL (3.5-5.2); Alkaline Phosphatase 105 U/L (40-130); Anion Gap 18.7 (5-19); Aspartate Amino Transferase 22 U/L (0-40); Blood Urea Nitrogen 17 mg/dL (8-23); Calcium 9.6 mg/dL (8.5-10.5); Carbon Dioxide 22 mmol/L (22-29); Chloride 104 mmol/L (98-107); Creatinine Clr Calc Pharmacy 46.7682; Globulin 2.9 g/dL (1.3-4.6); Glucose 312 mg/dL (65-115); Osmolality Calculated 303 mOsm/kg (285-295); Potassium 4.7 mmol/L (3.5-5.1); Sodium 140 mmol/L (136-145); Total Bilirubin 0.3 mg/dL (0.15-1.2); Total Protein 7.2 g/dL (6.6-8.7)
[2024-08-07] MEDS: iohexol 350 mg/mL 500 mL Btl (per mL) IV (03:59)
[2024-08-07 04:44] VITALS: BP 137/83; PULSE 80; RESP 25; O2SAT 91
[2024-08-07 05:08] LABS: Troponin 5 2HR 9.23 ng/L (0-15)
[2024-08-07 05:09] LABS: Troponin 5 2HR Delta -0.77 ABS# (0-10)
[2024-08-07 05:34] VITALS: BP 129/79; PULSE 80; RESP 20; O2SAT 91
[2024-08-07 06:32] VITALS: BP 133/83; PULSE 77; O2SAT 90
== END 2024-08-07 06:34 | disposition home or self-care (01) ==
PROVIDERS: Emergency Provider Student in an Organized Health Care Education/Training Program; PCP Family Medicine
DX: R06.00 Dyspnea, unspecified (principal); Z79.01 Long term (current) use of anticoagulants
CPT/HCPCS: 71045; 71275; 74177; 80053; 84484; 85025; 93005; 99285

== ENCOUNTER → 2024-08-10 14:06 | Outpatient (BNVA) | payer OTHER, MEDICARE, SELFPAY | PROVIDERS: PCP Family Medicine; Visit Provider Psychiatry & Neurology Neurology | DX: F03.90 Unspecified dementia, unspecified severity, without behavioral disturbance, psychotic disturbance, mood disturbance, and anxiety (principal) | CPT/HCPCS: 99212 ==

== ENCOUNTER 2024-08-12 08:50 | Outpatient (CLI) | payer OTHER, SELFPAY ==
--- NOTE | 2024-08-11 10:36 | PC.NURSE ---
no answer when calling patient to give pre procedure instructions and to hold eliquis for procedure per Dr. Mcclure.
[2024-08-12 09:00] VITALS: BP 120/69; PULSE 65; RESP 16; TEMP 36.5; O2SAT 94; BMI 28.7
[2024-08-12] MEDS: aspirin 325 mg Tablet PO (09:30)
[2024-08-12] MEDS: diphenhydrAMINE 50 mg Capsule PO (09:30)
[2024-08-12 09:38] LABS: Anion Gap 15.5 (5-19); Blood Urea Nitrogen 23 mg/dL (8-23); Calcium 9.6 mg/dL (8.5-10.5); Carbon Dioxide 22 mmol/L (22-29); Chloride 108 mmol/L (98-107); Glucose 167 mg/dL (65-115); Osmolality Calculated 299 mOsm/kg (285-295); Potassium 4.5 mmol/L (3.5-5.1); Sodium 141 mmol/L (136-145)
--- NOTE | 2024-08-12 10:05 | W.PM.OPSUD ---
Surgery/Procedure H&P Update DATE OF PROCEDURE: August 12, 2024 DATE H&P PERFORMED: 07/30/24 H&P UPDATE INFORMATION: I have reviewed H&P completed within last 30 days, I have examined patient prior to procedure and No changes to prior documentation PREOP DIAGNOSIS: Angina equivalent, unexplained shortness of breath PRIMARY INDICATION FOR PROCEDURE: 79-year-old male past medical history significant for hypertension hyperlipidemia pulmonary embolism 1 year ago continues to have worsening of shortness of breath fatigue occasional chest pressure not explained by pulmonary symptoms he is here for left and right heart catheterization to rule out cardiac etiology and angina equivalant symptoms PLANNED PROCEDURE: Operation Date: 08/12/24 10:00 Proposed Procedures p Cardiac Catheterization - RLHC w/wo LV & Deuce(Bilateral) - Renée Mcclure MD PATIENT REASSESSED PRIOR TO SEDATION, WITH NO CHANGE NOTED: Yes PHYSICAL EXAM: alert, oriented x 3, clear to auscultation bilaterally, regular rate & rhythm and operative site marked AIRWAY EVAL/ANESTHESIA PLAN: ASA II, Risks, benefits & alternatives of sedation and/or procedure discussed and Patient agrees to continue as planned ADDITIONAL INFORMATION: Patient has been explained all risk-benefit and alternative for the procedure patient understand 2% risk of stroke major bleed, patient has 10 5% risk of contrast-induced nephropathy urgent emergent bypass or vascular surgery, pseudoaneurysm hematoma infection. Patient would like to accept the risk and proceed with that.
--- NOTE | 2024-08-12 10:19 | P.PN_ITS ---
Subjective 2 Subjective: Please note that the patient and his just told me that they have hematuria in the last few days for which they cannot see urologist. Since this is a elective angiogram for unexplained shortness of breath at this point I will postpone the case until patient see the urologist for hematuria and get clearance as in case of any lesion and placing stent patient cannot stop dual antiplatelet therapy which can be a problem. I have detailed discussion with the patient and the family by bedside. They are in agreement. Patient creatinine today is 1.5 for which he is getting IV fluid. Patient will follow- up after urology clearance to reschedule the case. Vitals/I&O/Wt Last Vital Signs Temp 97.7 F 08/12/24 09:00 Pulse 65 08/12/24 09:00 Resp 16 08/12/24 09:00 BP 120/69 08/12/24 09:00 Pulse Ox 94 08/12/24 09:00 O2 Del Method Room Air 08/12/24 09:00 Weight last 48 hrs Weight 200 lb Data 08/12/24 09:15 A&P PDMP PDMP Reviewed: Not Reviewed Attestations 2 Medical Necessity Statement*: Patient can be discharged home. Coding Level of Care Code Acute Code for Chg Fwd
== END 2024-08-12 08:51 | disposition home or self-care (01) ==
LOC: CCL 08:54
PROVIDERS: PCP Family Medicine; Visit Provider Internal Medicine Cardiovascular Disease
DX: Z53.8 Procedure and treatment not carried out for other reasons (principal); R06.02 Shortness of breath; Z87.891 Personal history of nicotine dependence; Z86.711 Personal history of pulmonary embolism
CPT/HCPCS: 36415; 80048; J1644; J2250; J3010; J3490; J7030; J9999; Q0163

== ENCOUNTER 2024-08-26 06:52 | Outpatient (CLI) | payer OTHER, SELFPAY ==
--- NOTE | 2024-08-24 10:26 | PC.NURSE ---
Attempted to call patient to ask if he was able to follow up with urology for hematuria and ask his eliquis but no answer. Left message to call back.
[2024-08-26] VITALS (14 sets, daily range): BP systolic 137–165; BP diastolic 81–97; PULSE 68–83; RESP 12–20; TEMP 36.4; O2SAT 92–96; BMI 24.3
--- NOTE | 2024-08-26 07:00 | XACV_ITS ---
Ht: 178 cm Wt: 77 kg BSA: 1.96 m2 Gender: Male : 1945 Any Known Allergies: No known allergies Exam Priority: Routine Procedure(s): Procedure Description: Diagnostic procedure Procedure Description: Left Heart Catheterization Procedure Description: Left ventriculography Procedure Description: Coronary Angiography Ren W[place]URN; Diagnostic Cath Status: Elective Diagnostic Findings * No disease noted in the Left Main, Left Anterior Descending, Right, or Circumflex coronary arteries. * Coronary angiography shows right dominance. Conclusions 1. No disease noted in the Left Main, Left Anterior Descending, Right, or Circumflex coronary arteries. 2. Right heart catheterization Pulmonary capillary wedge pressure 14 mmHg PA mean 21 mm Hg RV 33/7 mm Hg RA 14 mmHg Cardiac output 4.5 cardiac index 2.3No intracardiac shunt noted. Recommendations * Continue current medical management and risk factor modification. Diagnostic RX Recommendation: medical therapy and/or counseling Pressures Phase:Rest AO : 116 / 75 ( ) @ 11:48:00 AM RV : 33 / 7 / 14 @ 11:58:00 AM PA : 2 / 0 ( 0 ) @ 11:56:00 AM 35 / 11 ( 21 ) @ 11:57:00 AM RA : a wave = 19 v wave = 16 mean = 14 @ 12:01:00 PM PCW : a wave = 14 v wave = 12 mean = 12 @ 11:57:00 AM O2 Content Phase:Rest PA : O2 Content O2: 63.3 @ 11:48:00 AM Saturations Phase:Rest AO : 93 @ 11:57:00 AM RA : 67 @ 11:57:00 AM RV : 66 @ 11:56:00 AM PA : 63 @ 11:48:00 AM Cardiac Output Phase:Rest Jan : 5 @ 11:42:38 AM Jan Cardiac Index: 2 @ 11:42:38 AM Flow Phase:Rest Qp : 5 @ 11:42:38 AM Qs : 5 @ 11:42:38 AM Clinical Evaluation EBL: 5mL-10mL Procedural Details Procedure Consent Obtained. Admit Source: Out Patient. Current Diagnosis : Unexplained shortness of breath; Angina on Effort. Pre-Procedure Time Out. Identified patient by full name and date of as verbalized by the patient/guarantor. Does the consent match the physician's order: Yes. Accurate & Complete Informed Consent: Yes. Inpatient/Outpatient History & Physical on Chart: Yes. If H&P is completed, is and addenduem needed: No; If yes, is the addendum complete: N/A. Visualize and Verify Site with Patient/Guarantor: N/A. Relevant Radiology Images available: N/A. The risks, benefits, and alternatives of sedation and/or procedure were discussed by physician. The patient agrees to continue. Procedure started. [facility] Clinical Fraility Score: 3: Managing Well. Merchandising Team Lead Indications: Other. Chest Pain Symptom Assessment: Typical Angina Symptoms. Cardiovascular Instability: No. Correct patient, site and procedure confirmed by cath team. Current diagnosis: Chest Pain. PERRLA. Strong, equal hand nurse first assist bilaterally. Lungs clear x 5 lobes. IV Site on Arrival: 20 gauge in the right anticubital. IV Site on Arrival: 20 gauge in the left anticubital. IV Fluids: 0.9% NaCl at KVO. 0 mL infused prior to labor contractor. Pre Procedural Pulses: bilateral posterior tibial was 3+. Pre Procedural Pulses: bilateral dorsalis pedis was 3+. Pre Procedural Pulses: bilateral radial was 3+. Oxygen started at 0liters/min via nasal canula. Will turn on after RHC. right brachial was prepped with chloroprep then draped in the usual sterile fashion. right radial was prepped with chloroprep then draped in the usual sterile fashion. bilateral groins was prepped with chloroprep then draped in the usual sterile fashion. Physician notified. Baseline sample Acquired. HR: 77 BPM. Physician arrived. Physician scrubbed in. Immediate Pre-Procedure Time Out. Correct Patient: Yes; Correct Procedure: Yes; Correct Site: Yes; Correct Patient Position: Yes; Correct Supplies: Yes; Dried Flammable Prep: Yes; Blood Products Available: N/A;. Wire inserted thru the venous brachial access. Lidocaine 1% infiltrated to the right brachial. Odell-Bruce MON catheter inserted and advanced into position over the cougar wire. Oximetry samples were obtained. Normal venous range: 60-85%. Normal arterial range: 95-100%. Pressure measurements obtained. ABG drawn and sent with respiratory therapy. Odell-Bruce out. Lidocaine 1% infiltrated to the right radial. Arterial access obtained. ABG drawn and sent with respiratory therapy. A 5 british TIG catheter in over wire. Multiple views taken of left coronary artery. Catheter redirected to the RCA. Catheter removed over the exchange wire. A 5 british JR4 catheter in over wire. Multiple views taken of right coronary artery. Catheter removed over the exchange wire. A 5 british Angled Pig catheter in over wire. Catheter removed over the exchange wire. Physician scrubbed out. Physician review of films. A Manual Compression was successful obtaining hemostatsis at the Right Brachial Vein insertion site. A TR Band was successful obtaining hemostatsis at the Right Radial artery insertion site. TR band placed. Hemostasis obtained. Pressure bandage applied to brachial access. Post Procedure: Pulses reassessed and unchanged. PERRLA. Strong, equal hand nurse first assist bilaterally. No VTE prophylaxis required. Medication's Wasted: Lidocaine 1% =16 ml , Nitro = 49.6 mg , Heparin = 1000 units. Vital chart was stopped. Total IV fluids: 50 mL. Fluoro: 8:04. Contrast type used: Omnipaque 300 mg/mL, 150 mL bottle. [id number]. Post-op diagnosis: Normal RHC; Normal Coronaries. Complications: None. Estimated blood loss: 5mL-10mL. Responsiveness - Normal response to verbal stimuli; alert and oriented, PERRLA. Airway - Unaffected, no intervention required; spontaneous ventilation. Circulation: W/N/L, pulses unchanged. Nausea/Vomiting: No. Procedure completed. Patient transferred by bed to CPRU. Access Site Site: Right Brachial Vein Sheath Size: 6 Fr Hemostasis Method: Manual Compression Hemostasis Success: Successful Site: Right Radial artery Sheath Size: 6 Fr Hemostasis Method: TR Band Hemostasis Success: Successful Procedure Medications Start: 10:43 AM Stop: 10:43 AM Medication: Versed Amount: 1 mg Route: I.V. Start: 10:44 AM Stop: 10:44 AM Medication: Fentanyl Amount: 50 mcg Route: I.V. Start: 11:13 AM Stop: 11:13 AM Medication: Nitrogylcerin Amount: 200 mcg Route: I.A. Start: 11:14 AM Stop: 11:14 AM Medication: Heparin Amount: 5000 units Route: I.V. Start: 11:15 AM Stop: 11:15 AM Medication: Versed Amount: 1 mg Route: I.V. Start: 11:15 AM Stop: 11:15 AM Medication: Fentanyl Amount: 50 mcg Route: I.V. I, the attending physician, have reviewed and verified all procedure medications. Yes, all medications given per verbal order History/Risk Factors Hypertension: Yes Dyslipidemia: Yes Peripheral Arterial Disease (PAD): No Myocardial Infarction (AK): No Obesity: No Renal Disease: No Tobacco Use: Former Prior Interventions PCI: No CABG: No Valve Surgery: No Report Signatures Finalized by Renée Mcclure MD on 08/26/2024 12:33 PM
[2024-08-26] MEDS: sodium chloride 0.9% 250 ML 999 ML IV (07:20)
[2024-08-26] MEDS: sodium chloride 0.9% 1,000 ML 100 ML IV (07:40)
[2024-08-26 07:42] LABS: Basophils % 0.4 %; Eosinophils # 0.2 10^3/uL (0.0-0.8); Hematocrit 38.6 % (37-53); Lymphocytes # 0.9 10^3/uL (0.8-4.8); Lymphocytes % 17.9 %; Mean Corpuscular HGB Conc 32.4 g/dL (30-55); Mean Corpuscular Hemoglobin 30.7 pg (27-33); Mean Corpuscular Volume 94.8 fl (82-101); Mean Platelet Volume 10.3 fL (7.4-10.4); Monocytes # 0.6 10^3/uL (0.2-0.9); Monocytes % 12.2 %; Neutrophils # 3.08 10^3/uL (1.8-7.7); Neutrophils % 64.9 %; Nucleated Red Blood Cells % 0 %; Platelet Count 112 10^3/cmm (157-399); Red Blood Count 4.07 10^6/uL (3.85-5.65); White Blood Count 4.75 10^3/uL (3.29-11.43)
[2024-08-26 08:07] LABS: Blood Urea Nitrogen 16 mg/dL (8-23); Calcium 9.5 mg/dL (8.5-10.5); Carbon Dioxide 24 mmol/L (22-29); Chloride 104 mmol/L (98-107); Glucose 168 mg/dL (65-115); Osmolality Calculated 295 mOsm/kg (285-295); Sodium 140 mmol/L (136-145)
--- NOTE | 2024-08-26 08:21 | PC.NURSE ---
For RHC procedure
[2024-08-26] MEDS: aspirin 325 mg Tablet PO (09:02)
[2024-08-26] MEDS: diphenhydrAMINE 50 mg Capsule PO (09:02)
--- NOTE | 2024-08-26 10:41 | P.HPUD_ITS ---
Surgery/Procedure H&P Update DATE OF PROCEDURE: August 26, 2024 DATE H&P PERFORMED: 07/30/24 H&P UPDATE INFORMATION: I have reviewed H&P completed within last 30 days, I have examined patient prior to procedure and No changes to prior documentation CHANGES TO PREVIOUS DOCUMENTATION: 79-year-old old male with unexplained worsening of shortness of breath along with chest pain suspicious for worsening of effort angina despite of optimization of medicine he was suggested with left and right heart catheterization. Patient in the past has hematuria for which he was cleared from urology to proceed with left and right heart cath in case patient needs dual antiplatelet therapy. He has underlying chronic kidney disease with baseline creatinine of 1.5. Patient has been prehydrated. Patient has been explained all risk-benefit and alternative for the procedure. He understand 2% risk of stroke major bleed. Patient understand 5 to 6% risk of contrast- induced nephropathy leading to temporary or permanent dialysis. Patient understand 5 to 6% risk of urgent emergent vascular bypass surgery. Patient would like to proceed with it. PLANNED PROCEDURE: Operation Date: 08/26/24 10:00 Proposed Procedures p Cardiac Catheterization - RLHC w/wo LV & Deuce(Bilateral) - Renée Mcclure MD PATIENT REASSESSED PRIOR TO SEDATION, WITH NO CHANGE NOTED: Yes PHYSICAL EXAM: alert, oriented x 3, clear to auscultation bilaterally, regular rate & rhythm and operative site marked AIRWAY EVAL/ANESTHESIA PLAN: ASA II, Risks, benefits & alternatives of sedation and/or procedure discussed and Patient agrees to continue as planned
[2024-08-26 11:27] LABS: Alveolar-Arterial Oxygen Gradi 3.3 mmHg (5-10); Arterial Blood Gas Hematocrit 29.1 % (42-52); Blood Gas Operator Identificat WALCI; Blood Gas Sample Type Arterial; Carboxyhemoglobin < 0.3 %THgb (0.4-20.1); HGB O2 Sat 91.7 % (95-100); Methemoglobin 1.4 % (0.4-1.5); Oxygen Device ROOM AIR; Total Hemoglobin 9.5 g/dL (14-18)
[2024-08-26 11:29] LABS: Blood Gas Operator Identificat WALCI; Blood Gas Sample Type Arterial; Oxygen Device ROOM AIR
[2024-08-26 11:30] LABS: Alveolar-Arterial Oxygen Gradi 7.5 mmHg (5-10); Arterial Blood Gas Hematocrit 32.4 % (42-52); Carboxyhemoglobin 0.9 %THgb (0.4-20.1); HGB O2 Sat 65.6 % (95-100); Methemoglobin 1.4 % (0.4-1.5); Total Hemoglobin 10.6 g/dL (14-18)
[2024-08-26 11:32] LABS: Alveolar-Arterial Oxygen Gradi 7.4 mmHg (5-10); Arterial Blood Gas Hematocrit 32.1 % (42-52); Blood Gas Sample Type Arterial; HGB O2 Sat 64.8 % (95-100); Methemoglobin 1.2 % (0.4-1.5); Oxygen Device ROOM AIR; Total Hemoglobin 10.5 g/dL (14-18)
[2024-08-26 11:34] LABS: Alveolar-Arterial Oxygen Gradi 7.4 mmHg (5-10); Blood Gas Operator Identificat WALCI; Blood Gas Sample Type Arterial; Carboxyhemoglobin 0.3 %THgb (0.4-20.1); HGB O2 Sat 62.6 % (95-100); Oxygen Device ROOM AIR; Total Hemoglobin 14.3 g/dL (14-18)
--- NOTE | 2024-08-26 11:35 | PC.NURSE ---
Received the patient back from the terrazzo laborer via cot s/p Diagnostic R & LHC. Drowsy but A & 0 x 3. vb net developer placed and vital signs obtained. TR band intact to the right wrist. No bleeding or hematoma noted. Palpable radial pulse. Pressure dressing to the right brachial from RHC procedure. Dressing dry and intact with no bleeding or hematoma noted. No other assessment changes noted from pre cath assessment. Family remains at bedside. No concerns voiced at this time. Plan to transfer to floor when bed becomes available.
--- NOTE | 2024-08-26 12:35 | PC.NURSE ---
Letting the air out of the TR band per protocol. The pressure dressing to the right brachial is off. No bleeding or hematoma noted. Site soft. A band aid was applied to the site. No other assessment changes at this time.
--- NOTE | 2024-08-26 12:45 | PC.NURSE ---
Called to give report to assuming nurse. Was told by BECKY Mooney that BECKY Shipley was not available at this time and would call back for report cara.
--- NOTE | 2024-08-26 13:28 | PC.NURSE ---
Report called to BECKY Shipley. Gordo then transferred via wheelchair to room 105 with family and all belongings.
== END 2024-08-26 15:45 | disposition home or self-care (01) ==
LOC: CCL 11:36 → CSU 13:35
PROVIDERS: PCP Family Medicine; Visit Provider Internal Medicine Cardiovascular Disease
DX: R07.9 Chest pain, unspecified (principal); R06.02 Shortness of breath; I10 Essential (primary) hypertension; E78.5 Hyperlipidemia, unspecified; E11.9 Type 2 diabetes mellitus without complications; I27.20 Pulmonary hypertension, unspecified; Z87.891 Personal history of nicotine dependence; Z82.49 Family history of ischemic heart disease and other diseases of the circulatory system
CPT/HCPCS: 36415; 80048; 82810; 85025; 93456; 96374; 99152; 99153; C1751; C1769; C1887; C1894; J1644; J2250; J3010; J3490; J7030; J9999; Q0163; Q9967

== ENCOUNTER → 2024-09-02 15:05 | Outpatient (BNVA) | payer OTHER, SELFPAY | PROVIDERS: PCP Family Medicine; Visit Provider Nurse Practitioner Family | DX: R06.02 Shortness of breath (principal); Z09 Encounter for follow-up examination after completed treatment for conditions other than malignant neoplasm; Z79.01 Long term (current) use of anticoagulants; Z87.891 Personal history of nicotine dependence | CPT/HCPCS: 36415; 80048; 99213 ==

== ENCOUNTER 2024-10-07 08:46 | Outpatient (CLI) | payer OTHER, SELFPAY ==
--- NOTE | 2024-10-07 08:51 | USCV_ITS ---
Andrae Callejas Age: 79 Gender: M : 1945 Exam Date: 10/07/2024 09:02 Ordering Phys: Romina Whitlock MD Technologist: USR Exam Location: [facility] [place] Indication: rigth flank pain Aortic Velocity @ SMA (cm/s) 81.4 RIGHT KIDNEY LEFT KIDNEY Velocity (cm/s) Velocity (cm/s) Sys/Oconnell Sys/Oconnell Resistive Index Resistive Index 103.8 / 23.4 0.77 Proximal Renal Artery 67.6 / 16.3 0.76 72.3 / 14.8 0.80 Mid Renal Artery 68.5 / 17.3 0.75 57.9 / 12.9 0.78 Distal Renal Artery 47.9 / 16.3 0.66 41.6 / 9.7 0.77 Hilar 48.3 / 11.0 0.08 17.6 / 4.6 0.74 Upper Pole 47.9 / 17.0 0.65 24.5 / 8.7 0.65 Mid Pole 35.9 / 12.4 0.65 22.7 / 8.5 0.63 Lower Pole 29.8 / 11.5 0.62 1.26 Renal Aortic Ratio 0.83 Accleration Time (sec) 0.08 Hilar 0.08 0.04 Upper Pole 0.02 0.08 Mid Pole 0.08 0.05 Lower Pole 0.05 10.5 Kidney Length (cm) 9.5 FINDINGS renal cyst recorded on the right kidney CONCLUSIONS Normal renal arterial Doppler velocities and indices. No significant renal artery stenosis, based on the above findings. Right renal cyst measuring 4.3 x 4.7cm Clarence Muniz MD (Electronically Signed) Final Date: 07 October 2024 11:54 S
== END 2024-10-07 08:47 | disposition home or self-care (01) ==
PROVIDERS: PCP Family Medicine; Visit Provider Family Medicine
DX: R10.31 Right lower quadrant pain (principal); N28.1 Cyst of kidney, acquired
CPT/HCPCS: 93975

== ENCOUNTER 2024-10-11 12:36 | Observation (INO) | payer OTHER, MEDICARE, SELFPAY ==
--- OUTSIDE RECORDS SUMMARY | 2023-09-26 08:00 | XMS_ITS ---
Author Organization [facility] Address [address] 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 Name Role Phone Romina Lynch MD Primary Care Provider Unav ailable EloisaKamila guidry Unavailable [phone] [place], [place] Unavailable Unavailable Guerrero Chavez Unavailable [phone] REASON FOR VISIT 1 yr w/ ua/pvr/hortencia Encounters Encounter Location Date Provider Diagnosis [facility] [address] [facility] [place] [address] 09/26/2023 Guerrero Chavez Plan Of Treatment No Information Progress Notes * Andrae VILLALBA CDOB: [birth year] (79 yo M)Acc No.[id number]:09/26/2023 Progress Notes Patient: Ching HAMPTONAndrae Provider: Franchesca Chavez MD :1945 A ge:78 Y S ex:Male Date:09/26/2023 Address:[address] [facility], [id number] Pcp:Romina Lynch MD Subjective: * Chief Complaints: * 1 . 1 yr w/ ua/pvr/hortencia. * Medical History: Objective: * Vitals: Assessment: Plan: * Treatment: * Billing Information: * Visit Code: * Procedure Codes: * Electronic signature of Aust in MD Scott on 10/11/2024 at 06:11 PM CDT Sign off status: Pending * Provider: Franchesca Chavez MD Date: 0 09/26/2023 Generated for Dontrell campos/Ro/Caden on: 0 10/11/2024 06:11 PM CDT
--- OUTSIDE RECORDS SUMMARY | 2023-11-20 09:30 | XMS_ITS | Encounter Summary ---
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 This section includes the names of all active insurance providers for the patient. Insurance Provider Type of Coverage Plan Name Start of Policy Coverage End of Policy Coverage Group Number Member ID Insurance Provider's Telephone Number Policy Andrade's Name Patient's Relationship to Policy Andrade MEDICARE (WNR) MEDICARE (M) RR PART B Oct 20, 2012 RR PART B [id number] [phone] Wilber VILLALBA PATIENT MEDICARE (WNR) MEDICARE (M) RR PART B Oct 20, 2012 RR PART B [id number] Wilber VILLALBA PATIENT MEDICARE (WNR) MEDICARE (M) RR PART A Mar 22, 2011 RR PART A [id number] Wilber VILLALBA PATIENT MEDICARE (WNR) MEDICARE (M) RR PART A Mar 22, 2011 RR PART A [id number] Wilber VILLALBA PATIENT MEDICARE (WNR) MEDICARE (M) RR PART A Mar 22, 2011 RR PART A [id number] Wilber VILLALBA PATIENT MEDICARE (WNR) MEDICARE (M) RR PART A Mar 22, 2011 RR PART A [id number] Wilber VILLALBA PATIENT Selected Encounter This section includes the information on record at NH for the Encounter. Date/Time Encounter Type Encounter Description Reason Provider Source Nov 20, 2023 02:30 PM OFFICE O/P EST MOD 30 MIN PRIMARY CARE/MEDICINE ICD-10-CM I26.99 Other pulmonary embolism without acute cor pulmonale ROMINA WHITLOCK René Encounter Template Text not used by NH Assessments - Encounter Diagnoses This section includes the primary and secondary diagnoses documented for the Encounter. Date/Time Primary/Secondary Diagnosis Diagnosis Name Provider Source Nov 20, 2023 03:10 PM PRIMARY Other pulmonary embolism without acute cor pulmonale ROMINA WHITLOCK [facility] Nov 20, 2023 03:10 PM SECONDARY Cerebral aneurysm, nonruptured [facility] Nov 20, 2023 03:10 PM SEC[facility], [facility] Plan of Treatment: Future Appointments (+ 6 months) and Future Tests (+/- 45 days) The Plan of Treatment section includes future care activities for the patient from all NH treatmentfacilities. This section includes future appointments and future orders which are active, pending or scheduled. Future Appointments This section includes appointments that were scheduled to occur 6 months from the date of the Encounter, up to a maximum of 20 appointments. The data comes from all NH treatment facilities. Appointment Date/Time Appointment Type Appointme nt Facility Name Dec 18, 2023 09:15 AM AM[facility]ORY [place] [facility] Jan 29, 2024 08:40 AM AMBULATORY - MEDICINE [facility] Jan 29, 2024 01:30 PM [facility] [place] [facility] Apr 13, 2024 09:00 AM AMBULATORY - MEDICINE [facility] 2024 11:30 AM [facility] 2024 11:31 AM [facility] Apr 28, 2024 09:00 AM [facility] [place] [facility] Apr 30, 2024 08:00 AM [facility] [facility] Lab Results: +/- 30 days of the encounter This section includes the Chemistry and Hematology Lab Results on record with NH for the patient. Radiology Reports and Pathology Reports are provided separately, in subsequent sections. Lab Results This section contains the Chemistry/Hematology Results that were resulted 30 days before or 30 daysafter the date of the Encounter. Date/Time Source Result Type Result - Unit Interpretation Reference Range Specimen Type Comment Nov 27, 2023 03:12 PM [facility] GASTROINTESTINAL PCR PANEL FECES Specimen Typ e: FECES No comment entered. Ordering Provider: ROMINA WHITLOCK Report Released Date/Time: Nov 27, 2023 03:12 PM Reporting Lab: [facility] [address] [facility] [facility] [address] Performing Lab: [facility] [address] [facility] [facility] [address] *Campylobacter-j,c,u (BF)) Not Detected Not Detected *Clostridium difficile (toxin A/B)(BF) canc Not Detected *Plesiomonas shigelloides(BF) Not Detected Not Detected *Salmonella(BF) Not Detected Not Detecte d *Yersinia enterocolitica(BF) Not Detected Not Detected *Vibrio (p,v,ch)(BF) Not Detected Not De tected *Vibrio cholerae(BF) Not Detected Not De tected *Enteroaggregative E. coli (EAEC)(BF) Not Detect ed Not Detected *Enteropathic E. coli (EPEC)(BF) Not Detected Not Detected *Enterotoxigenic E. coli (ETEC)(BF) Not Detected Not Detected *Shiga-like tox-prod E. coli (STEC)(BF) Not Dete cted Not Detected *E. coli 0157(BF) Not Detected Not Detec [place] *Shigella/Enteroinv E. coli (EIEC)(BF) Not Detec [place] Not Detected *Cryptosporidium(BF) Not Detected Not De tected *Cyclospora cayetanensis(BF) Not Detected Not Detected *Entamoeba histolytica(BF) Not Detected Not Detected *Giardia lamblia(BF) Not Detected Not De tected *Adenovirus F40/41(BF) NON_DETECT Not De tected *Norovirus GI/GII(BF) Not Detected Not D etected *Rotavirus A(BF) Not Detected Not Detect ed *Sapovirus (I, II, IV & V)(BF) Not Detected Not Detected *Astrovirus(BF) Not Detected Not Detecte d Nov 27, 2023 09:56 AM [facility] FECAL LEUKOCYTES (PB) FECES Specimen Type: FE [place] No comment entered. Ordering Provider: ROMINA WHITLOCK Report Released Date/Time: Nov 20, 2023 03:03 PM Reporting Lab: [place] [facility] [address] [place] [address] Performing Lab: [place] [facility] [address] [place] [address] FECAL LEUKOCYTES (PB) NEGATIVE Nov 20, 2023 03:00 PM [facility] PRO TIME (PB) PLASMA Specimen Typ e: PLASMA No comment entered. Ordering Provider: ROMINA WHITLOCK Report Released Date/Time: Nov 20, 2023 02:51 PM Reporting Lab: [place] [facility] [address] [place] [address] Performing Lab: [place] [facility] [address] [place] [address] PROTIME 12.6 s H 9.4-12.5 INR VALUE 1.12 {INR} Nov 20, 2023 03:00 PM [facility] BASIC METABOLIC PANEL PLASMA Specimen Type: PL ASMA No comment entered. Ordering Provider: ROMINA WHITLOCK Report Released Date/Time: Nov 20, 2023 02:44 PM Reporting Lab: [place] [facility] [address] [place] [address] Performing Lab: [place] [facility] [address] [place] [address] CREATININE 1.51 mg/dL H 0.7-1.3 UREA NITROGEN 18 mg/dL 9-25 GLUCOSE 90 mg/dL 72-99 SODIUM 137 meq/L 136-145 POTASSIUM 4.4 meq/L 3.5-5 CHLORIDE 103 meq/L 98-107 CARBON DIOXIDE 25 meq/L 22-31 CALCIUM 9.5 mg/dL 8.4-10.4 EGFR (CKD-EPI 2020) 47 Nov 20, 2023 03:00 PM [facility] APTT PLASM A Specimen Type: PLASMA No comment entered. Ordering Provider: ROMINA WHITLOCK Report Released Date/Time: Nov 20, 2023 02:51 PM Reporting Lab: [place] [facility] [address] [place] [address] Performing Lab: [place] [facility] [address] [place] [address] APTT 30.6 s 26.7-39.9 Nov 20, 2023 03:00 PM [facility] CBC BLOOD Specimen Type: BLOOD No comment entered. Ordering Provider: ROMINA WHITLOCK Report Released Date/Time: Nov 20, 2023 02:48 PM Reporting Lab: [place] [facility] [address] [place] [address] Performing Lab: [place] [facility] [address] [place] [address] WBC 6.4 10*3/uL 3.6-11.2 RBC 4.30 10*6/uL 4.10-5.70 HGB 13.5 g/dL 13.1-16.8 HCT 40.1 38.2-48.4 MCV 93.3 fL 80.0-100.0 MCH 31.4 pg 27.0-34.0 MCHC 33.7 g/dL 33.0-36.0 PLT 130 10*3/uL L 150-400 MPV 11.6 fL H 7.5-11.2 RDW 13.0 11.8-15.1 LYMPHOCYTES, AUTO % 17.1 MONOCYTES, AUTO % 12.6 NEUTROPHILS, AUTO % 67.8 EOSINOPHILS, AUTO % 1.4 BASOPHILS, AUTO % 0.5 LYMPHOCYTES, ABSOLUTE 1.09 10*3/uL 0.77- 4.50 MONOCYTES, ABSOLUTE 0.80 10*3/uL 0.19-0. 8 NEUTROPHILS, ABSOLUTE 4.31 10*3/uL 2.10- 8.00 EOSINOPHILS, ABSOLUTE 0.09 10*3/uL 0.00- 0.60 BASOPHILS, ABSOLUTE 0.03 10*3/uL 0.00-0. 20 IMMATURE PLT FRACTION 6.0 1.0-7.0 IMMATURE GRANS, AUTO % 0.6 IMMATURE GRANS, AUTO ABS 0.04 10*3/uL 0. 00-0.05 Vital Signs: All taken on the encounter date This section contains inpatient and outpatient Vital Signs collected on the date of the Encounter. Date/Time Temperature Pulse Blood Pressure Respiratory Rate SP02 Pain Height Weight Body Mass Index Source Nov 20, 2023 02:32 PM 97.9 49 107/70 20 94 4 71.0 194.7 27 [facility] Social History: Smoking Status (Most current) and Tobacco Use (All prior to encounter date) This section includes the most current, and the historical, smoking and tobacco- related health factors from the NH facility where the Encounter took place. Current Smoking Status This section includes the most current smoking, or tobacco-related health factor, from the NH facility where the Encounter took place. Date/Time Current Smoking Status Comment Facil ity Apr 17, 2023 02:00 PM VA-TOBACCO USER EVERY DAY [facility] Tobacco Use History This section includes a history of the smoking, or tobacco-related health factors, that were collected on or before the date of the Encounter. The data comes from the NH facility where the Encounter took place. 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 [facility] Apr 17, 2023 02:00 PM VA-TOBACCO USE MED NO [facility] Apr 17, 2023 02:00 PM VA-TOBACCO USER EVERY DAY [facility] Apr 19, 2022 01:00 PM VA-TOBACCO USE 30 YEARS OR MORE [facility] Apr 19, 2022 01:00 PM VA-TOBACCO USE ADVICE [facility] Apr 19, 2022 01:00 PM 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 [facility] Apr 19, 2022 01:00 PM VA-TOBACCO USE MED NO [facility] Apr 19, 2022 01:00 PM VA-TOBACCO USE WI 30 MIN OF WAKEUP [facility] Apr 19, 2022 01:00 PM VA-TOBACCO USER EVERY DAY [facility] Apr 26, 2021 02:30 PM VA-TOBACCO DOESNT USE WI 30 MIN WAKEUP [facility] Apr 26, 2021 02:30 PM VA-TOBACCO USE 5 T O 15 YEARS [facility] Apr 26, 2021 02:30 PM VA-TOBACCO USE ADVICE [place] [facility] Apr 26, 2021 02:30 PM 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 [facility] Apr 26, 2021 02:30 PM VA-TOBACCO USE MED NO [place] [facility] Apr 26, 2021 02:30 PM VA-TOBACCO USER SOME DAYS [facility] 2020 09:00 AM VA-TOBACCO USE 30 YEARS OR MORE [facility] 2020 09:00 AM VA-TOBACCO USE ADVICE [place] 2020 09:00 AM 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 [place] [facility] 2020 09:00 AM VA-TOBACCO USE MED NO [place] [facility] 2020 09:00 AM VA-TOBACCO USE WI 30 MIN OF WAKEUP [place] [facility] 2020 09:00 AM VA-TOBACCO USER EVERY DAY [facility] Jun 02, 2018 01:55 PM VA-TOBACCO USE 30 YEARS OR MORE [place] [facility] Jun 02, 2018 01:55 PM VA-TOBACCO USE ADVICE [place] [facility] Jun 02, 2018 01:55 PM 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 [place] [facility] Jun 02, 2018 01:55 PM VA-TOBACCO USE MED NO [place] [facility] Jun 02, 2018 01:55 PM VA-TOBACCO USE WI 30 MIN OF WAKEUP [facility] Jun 02, 2018 01:55 PM VA-TOBACCO USER EVERY DAY [facility] May 27, 2017 12:10 PM CURRENT TOBACCO USER [place] [facility] May 27, 2017 12:10 PM CURRENT TOBACCO US ER (NOT READY TO QUIT) [facility] [facility] May 27, 2017 12:10 PM SMOKELESS TOBACCO AMOUNT/LENGTH V15 1 can Q day , 51 yrs [place] [facility] May 27, 2017 12:10 PM TOBACCO CESSATION REFERRAL DECLINED [place] [facility] May 27, 2017 12:10 PM TOBACCO MEDS OFFER ED BUT DECLINED [facility] May 27, 2017 12:10 PM TOBACCO USER OFFERED MEDS [place] [facility] Aug 10, 2016 08:46 AM CURRENT TOBACCO USER [facility] Aug 10, 2016 08:46 AM CURRENT TOBACCO US ER (NOT READY TO QUIT) [facility] Aug 10, 2016 08:46 AM TOBACCO CESSATION REFERRAL DECLINED [facility] Aug 10, 2016 08:46 AM TOBACCO CESSATION REFERRAL OFFERED [facility] Aug 10, 2016 08:46 AM TOBACCO MEDS OFFER ED BUT DECLINED [facility] Aug 10, 2016 08:46 AM TOBACCO USER OFFERED MEDS [facility] September 02, 2015 09:12 AM CURRENT TOBACCO USER [facility] September 02, 2015 09:12 AM TOBACCO OFFERED PT MEDS (PROVIDER) [facility] September 02, 2015 09:[address] OP SMOKING CLINIC [facility] September 02, 2015 09:12 AM TOBACCO OFFERRED S TOP SMOKING CLINIC [facility] Encounter Notes: All associated encounter notes This section contains the clinical notes associated to the Encounter. Date/Time Encounter Note(s) Provider Source Nov 28, 2023 11:12 AM PHYSICIAN LETTERS: LOCAL TITLE: TEST RESULT GENERAL LETTER STL STANDARD TITLE: PHYSICIAN LETTERS DATE OF NOTE: NOV 28, 2023@11:12 ENTRY DATE: NOV 28, 2023@11:12:51 AUTHOR: ROMINA WHITLOCK EXP COSIGNER: URGENCY: STATUS: COMPLETED [facility] [address] [place] [address] Nov 28, 2023 Mr. Hoa Villalba [address] [place] [id number] Dear Mr. Villalba: This letter is to inform you regarding your recent laboratory tests. The ordering provider has reviewed these reports and will take necessary action, if needed. Date Lab Test Result H/L Unit Range 11/27/2023 CAMPY PCR Not Detecte Not - 11/27/2023 P SHIG PCR Not Detecte Not - 11/27/2023 *Salmonella(BF) Not Detecte Not - 11/27/2023 Y ENT PCR Not Detecte Not - 11/27/2023 VIB-P,V,C PCR Not Detecte Not - 11/27/2023 VIB CH PCR Not Detecte Not - 11/27/2023 EAEC PCR Not Detecte Not - 11/27/2023 EPEC PCR Not Detecte Not - 11/27/2023 ETEC PCR Not Detecte Not - 11/27/2023 STEC PCR Not Detecte Not - 11/27/2023 *E. coli 0157(BF) Not Detecte Not - 11/27/2023 EIEC PCR Not Detecte Not - 11/27/2023 CRYPTO PCR Not Detecte Not - 11/27/2023 CYCLO PCR Not Detecte Not - 11/27/2023 E HISTO PCR Not Detecte Not - 11/27/2023 G VENEGAS PCR Not Detecte Not - 11/27/2023 ADENO PCR Not Detecte Not - 11/27/2023 *Astrovirus(BF) Not Detecte Not - 11/27/2023 NORO PCR Not Detecte Not - 11/27/2023 *Rotavirus A(BF) Not Detecte Not - 11/27/2023 DEMIAN PCR Not Detecte Not - 11/27/2023 F.LEUK NEGATIVE - 11/20/2023 PTT 30.6 Sec 26.7 - 39.9 11/20/2023 INR 1.12 INR - 11/20/2023 PT 12.6 H Sec 9.4 - 12.5 11/20/2023 WBC 6.4 10*3/uL 3.6 - 11.2 11/20/2023 RBC 4.30 10*6/uL 4.10 - 5.70 11/20/2023 HEMOGLOBIN 13.5 g/dL 13.1 - 16.8 11/20/2023 HEMATOCRIT 40.1 % 38.2 - 48.4 11/20/2023 MCV 93.3 fL 80.0 - 100.0 11/20/2023 MCH 31.4 pg 27.0 - 34.0 11/20/2023 MCHC 33.7 g/dL 33.0 - 36.0 11/20/2023 RDW 13.0 % 11.8 - 15.1 11/20/2023 PLATELETS 130 L 10*3/uL 150 - 400 11/20/2023 MPV 11.6 H fL 7.5 - 11.2 11/20/2023 NEUTROPHIL % 67.8 % - 11/20/2023 LYMPHOCYTE % 17.1 % - 11/20/2023 MONOCYTES, AUTO % 12.6 % - 11/20/2023 EO% 1.4 % - 11/20/2023 BASOPHILS, AUTO % 0.5 % - 11/20/2023 IG% 0.6 % - 11/20/2023 NEUT ABS 4.31 10*3/uL 2.10 - 8.00 11/20/2023 LYMPH ABS 1.09 10*3/uL 0.77 - 4.50 11/20/2023 MONO ABS 0.80 10*3/uL 0.19 - 0.8 11/20/2023 EO ABS 0.09 10*3/uL 0.00 - 0.60 11/20/2023 BASO ABS 0.03 10*3/uL 0.00 - 0.20 11/20/2023 IG ABS 0.04 10*3/uL 0.00 - 0.05 11/20/2023 IPF 6.0 % 1.0 - 7.0 11/20/2023 eGFR 47 - 11/20/2023 SODIUM 137 mEq/L 136 - 145 11/20/2023 POTASSIUM 4.4 mEq/L 3.5 - 5 11/20/2023 CHLORIDE 103 mEq/L 98 - 107 11/20/2023 UREA NITROGEN 18 mg/dL 9 - 25 11/20/2023 CREATININE, SERUM 1.51 H mg/dL 0.7 - 1.3 11/20/2023 CALCIUM, SERUM 9.5 mg/dL 8.4 - 10.4 11/20/2023 CO2 25 mEq/L 22 - 31 11/20/2023 GLUCOSE 90 mg/dL 72 - 99 If you are seeing any outside provider(s), please share this information with him/her. If you have any questions, please feel free to contact our clinic. Your stool studies were all normal. Sincerely, MD [facility] [place] [facility] Nov 27, 2023 09:51 AM PHYSICIAN LETTERS: LOCAL TITLE: TEST RESULT GENERAL LETTER STL STANDARD TITLE: PHYSICIAN LETTERS DATE OF NOTE: NOV 27, 2023@09:51 ENTRY DATE: NOV 27, 2023@09:51:25 AUTHOR: ROMINA WHITLOCK EXP COSIGNER: URGENCY: STATUS: COMPLETED [facility] [address] [place] [address] Nov 27, 2023 Mr. Hoa Villalba [address] [place] [address] Dear Mr. Villalba: This letter is to inform you regarding your recent laboratory tests. The ordering provider has reviewed these reports and will take necessary action, if needed. Date Lab Test Result H/L Unit Range 11/20/2023 PTT 30.6 Sec 26.7 - 39.9 11/20/2023 INR 1.12 INR - 11/20/2023 PT 12.6 H Sec 9.4 - 12.5 11/20/2023 WBC 6.4 10*3/uL 3.6 - 11.2 11/20/2023 RBC 4.30 10*6/uL 4.10 - 5.70 11/20/2023 HEMOGLOBIN 13.5 g/dL 13.1 - 16.8 11/20/2023 HEMATOCRIT 40.1 % 38.2 - 48.4 11/20/2023 MCV 93.3 fL 80.0 - 100.0 11/20/2023 MCH 31.4 pg 27.0 - 34.0 11/20/2023 MCHC 33.7 g/dL 33.0 - 36.0 11/20/2023 RDW 13.0 % 11.8 - 15.1 11/20/2023 PLATELETS 130 L 10*3/uL 150 - 400 11/20/2023 MPV 11.6 H fL 7.5 - 11.2 11/20/2023 NEUTROPHIL % 67.8 % - 11/20/2023 LYMPHOCYTE % 17.1 % - 11/20/2023 MONOCYTES, AUTO % 12.6 % - 11/20/2023 EO% 1.4 % - 11/20/2023 BASOPHILS, AUTO % 0.5 % - 11/20/2023 IG% 0.6 % - 11/20/2023 NEUT ABS 4.31 10*3/uL 2.10 - 8.00 11/20/2023 LYMPH ABS 1.09 10*3/uL 0.77 - 4.50 11/20/2023 MONO ABS 0.80 10*3/uL 0.19 - 0.8 11/20/2023 EO ABS 0.09 10*3/uL 0.00 - 0.60 11/20/2023 BASO ABS 0.03 10*3/uL 0.00 - 0.20 11/20/2023 IG ABS 0.04 10*3/uL 0.00 - 0.05 11/20/2023 IPF 6.0 % 1.0 - 7.0 11/20/2023 eGFR 47 - 11/20/2023 SODIUM 137 mEq/L 136 - 145 11/20/2023 POTASSIUM 4.4 mEq/L 3.5 - 5 11/20/2023 CHLORIDE 103 mEq/L 98 - 107 11/20/2023 UREA NITROGEN 18 mg/dL 9 - 25 11/20/2023 CREATININE, SERUM 1.51 H mg/dL 0.7 - 1.3 11/20/2023 CALCIUM, SERUM 9.5 mg/dL 8.4 - 10.4 11/20/2023 CO2 25 mEq/L - 11/20/2023 GLUCOSE 90 mg/dL 72 - 99 If you are seeing any outside provider(s), please share this information with him/her. If you have any questions, please feel free to contact our clinic. Sincerely, Romina Whitlock MD [facility] Nov 20, 2023 02:35 PM PRIMARY CARE PROGR ESS NOTE: LOCAL TITLE: PRIMARY CARE CLINIC PROGRESS NOTE PB STANDARD TITLE: PRIMARY CARE PROGRESS NOTE DATE OF NOTE: NOV 20, 2023@14:35 ENTRY DATE: NOV 20, 2023@14:36:02 AUTHOR: RMOINA WHITLOCK EXP COSIGNER: URGENCY: STATUS: COMPLETED CC: ER follow up HPI: Patient was seen in the emergency room on November 03, 2023 with the diagnoses Multiple subsegmental pulmonary emboli without acute cor pulmonale and was started on Eliquis 2.5 mg twice daily (due to increased creatinine). He reports he started feeling bad a few days prior to going into the emergency room. Mainly just trouble catching his breath and then started having chest pain. He is still fatigued but starting to see maybe a little improvement. 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 He has had some rectal bleeding this last week no known history of hemorrhoids. Non-VA Primary Care Provider Eneida Means NP in [facility] Neurology Dr. 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 elbow Right inguinal hernia cervical fusion Rt. knee arthroscopy Problem List 1) History of surgery for cerebral aneurysm 2) Poor short-term memory 3) Headache 4) Degenerative joint disease of hand 5) HTN - Hypertension 6) Hand pain 7) Lumbar radiculopathy 8) Actinic keratosis 9) Supraventricular tachycardia 10) Benign Prostatic Hypertrophy with Outflow Obstruction ([facility] [id number]) 11) Essential tremor 12) Depression 13) Exposure to potentially hazardous substance 14) Single acquired kidney cyst 15) Acute pulmonary embolism Active Outpatient Medications (including Supplies): Active Outpatient Medications Status 1) AMLODIPINE BESYLATE 10MG TAB TAKE ONE TABLET BY MOUTH ACTIVE ONCE A DAY FOR HEART/BLOOD PRESSURE 2) ATORVASTATIN CALCIUM 20MG TAB TAKE ONE TABLET BY ACTIVE MOUTH EVERY EVENING FOR HIGH CHOLESTEROL 3) CHOLECALCIF 50MCG (D3-2,000UNIT) TAB TAKE ONE TABLET ACTIVE BY MOUTH ONCE A DAY FOR VITAMIN D DEFICIENCY. 4) CITALOPRAM HYDROBROMIDE 20MG TAB TAKE ONE TABLET BY ACTIVE MOUTH EVERY MORNING FOR DEPRESSION 5) METOPROLOL TARTRATE 100MG TAB TAKE ONE TABLET BY ACTIVE MOUTH TWICE A DAY FOR HEART/BLOOD PRESSURE. TAKE WITH OR IMMEDIATELY FOLLOWING FOOD. Active Non-VA Medications Status 1) Non-VA TRAMADOL HCL 50MG TAB 1 TABLET BY MOUTH FOUR ACTIVE TIMES A DAY NEEDED 6 Total Medications OBJECTIVE: Vital Signs Temperature: 97.9 F [36.6 C] (11/20/2023 14:32) Respiratory Rate: 20 (11/20/2023 14:32) Pulse Rate: 49 (11/20/2023 14:32) Blood Pressure: 107/70 (11/20/2023 14:32) HT: 71.0 in [180.3 cm] (11/20/2023 14:32) WT: 194.7 lb [88.31 kg] (11/20/2023 14:32) BMI: 27.2 94% (11/20/2023 14:32) Physical Exam General: NAD noted, A&Ox3, pleasant, appears stated age HEENT: NCAT, TM's clear, nares and oropharynx clear Neck: Supple with normal active ROM, without any lymphadenopathy Heart: RRR, no murmur, clicks, or rub Resp: Lungs CTA bilaterally, respirations even and unlabored Abdomen: Soft, non-distended, non-tender Anal: Minimal anal hemorrhoidal tag noninflamed; no active bleeding at this time Ext: No clubbing, cyanosis, edema or obvious deformity Neuro: Grossly intact Psych: Affect normal, answers questions appropriately throughout visit Assessment/Plan: Hemodynamically stable recent diagnosed pulmonary emboli-we will continue with the apixaban History of cerebral aneurysm with several surgeries and shunt placement Chronic diarrhea/colitis- Will attempt again to get him into see gastroenterology. Will obtain stool studies as well. Follow-up: as scheduled and/or as needed. Discussed with patient that in the event of community imaging / testing being ordered in the future, once the imaging / testing has been completed, please notify [facility]CT of completion at outside facility if not called with results within 1 week by a [facility]; this is due to intermittent lapses in notification of imaging completion within [facility]. All questions answered; agrees to plan of care. Follow up as listed above, annually, and as needed. Keep all appointments. Medications Reconciled. See AVS given to [place]. Time spent 30 minutes. /es/ Romina Whitlock MD [facility] Signed: 11/20/2023 15:10 ROMINA WHITLOCK [facility] Nov 20, 2023 02:22 PM PRIMARY CARE [facility] NOTE: LOCAL TITLE: PRIMARY CARE NURSING PROGRESS NOTE (TEXT) NURSING P STANDARD TITLE: PRIMARY CARE NURSING NOTE DATE OF NOTE: NOV 20, 2023@14:22 ENTRY DATE: NOV 20, 2023@14:22:05 AUTHOR: CHACE HOGAN COSIGNER: URGENCY: STATUS: COMPLETED Established Patient HOA VILLALBA IS A 78 YEAR OLD MALE BEING SEEN IN CLINIC NOV 20, 2023. REASON FOR VISIT: [place] here for ER follow up, Pulmonary embolism Are you receiving care any where other than the [facility]? No HEALTH AND SURGICAL HISTORY: Does patient report using home oxygen? No CURRENT ACTIVE MEDICATIONS FOR REVIEW: Allergies/ADRs (Tool #5) FACILITY ALLERGY/ADR -------- [facility] - NO KNOWN ALLERGIES [facility] GABAPENTIN Med. Reconciliation (Tool #1) INCLUDED IN THIS LIST: Alphabetical list of active outpatient prescriptions dispensed from this VA (local) and dispensed from another VA or DoD facility (remote) as well as inpatient orders (local pending and active), local clinic medications, locally documented non-VA medications, and local prescriptions that have or been discontinued in the past 90 days. Non-VA Meds Last Documented On: 2020 NOTE The display of VA prescriptions dispensed from another VA or DoD facility (remote) is limited to active outpatient prescription entries matched to National Drug File at the originating site and may not include some items such as investigational drugs, compounds, etc. NOT INCLUDED IN THIS LIST: Medications self-entered by the patient into personal health records (i.e. TopLog) are NOT included in this list. Non-VA medications documented outside this NH, remote inpatient orders (regardless of status) and remote clinic medications are NOT included in this list. The patient and provider must always discuss medications the patient is taking, regardless of where the medication was dispensed or obtained. OUTPT AMLODIPINE BESYLATE 10MG TAB (Status = Active) TAKE ONE TABLET BY MOUTH ONCE A DAY FOR HEART/BLOOD PRESSURE Rx# [id number] Last Released: 11/06/23 Qty/Days Supply: Rx Expiration Date: 04/18/24 Refills Remainin Indication: FOR HIGH BLOOD PRESSURE OUTPT ATORVASTATIN CALCIUM 20MG TAB (Status = Active) TAKE ONE TABLET BY MOUTH EVERY EVENING FOR HIGH CHOLESTEROL Rx# [id number] Last Released: 11/07/23 Qty/Days Supply: Rx Expiration Date: 04/19/24 Refills Remainin Indication: FOR HIGH CHOLESTEROL OUTPT CHOLECALCIF 50MCG (D3-2,000UNIT) TAB (Status = Active) TAKE ONE TABLET BY MOUTH ONCE A DAY FOR VITAMIN D DEFICIENCY. Rx# [id number] Last Released: 11/06/23 Qty/Days Supply: 100 Rx Expiration Date: 04/19/24 Refills Remainin OUTPT CITALOPRAM HYDROBROMIDE 20MG TAB (Status = Active) TAKE ONE TABLET BY MOUTH EVERY MORNING FOR DEPRESSION Rx# [id number] Last Released: 11/07/23 Qty/Days Supply: 90 Rx Expiration Date: 03/13/24 Refills Remainin Indication: FOR DEPRESSION OUTPT METOPROLOL TARTRATE 100MG TAB (Status = Active) TAKE ONE TABLET BY MOUTH TWICE A DAY FOR HEART/BLOOD PRESSURE. TAKE WITH OR IMMEDIATELY FOLLOWING FOOD. Rx# [id number] Last Released: 11/07/23 Qty/Days Supply: 180/90 Rx Expiration Date: 04/18/24 Refills Remainin Non-VA TRAMADOL HCL 50MG TAB TAKE ONE TABLET BY MOUTH FOUR TIMES A DAY NEEDED Non-VA medication recommended by VA provider. Patient wants to buy from Non-NH pharmacy. SUPPLIES PHARMACY TERMS AND POSSIBLE PATIENT ACTIONS INPT = NH inpatient order IV = NH intravenous medication OUTPT = NH outpatient prescription PHARMACY POSSIBLE PATIENT TERMS EXPLANATION ACTIONS -------- --- ACTIVE A prescription that can be If you have refills, filled at the local NH pharmacy. you may request a refill of this prescription from your NH pharmacy. CLINIC A medication you received during If you have questions a visit to a NH clinic or about this medication emergency department. contact your NH healthcare team. DISCONTINUED A prescription your provider has Contact your NH stopped. It is no longer healthcare team if you available to be sent to you or need more of this picked up at the NH pharmacy medication. window. A prescription which is too old Contact your VA to fill. This does not refer to healthcare team if you the expiration date of the need more of this medication in the container. medication. NON-VA A medication that came from If this medication someplace other than a VA information is pharmacy. This may be a incorrect or out of prescription from either the VA date, please tell your or non VA providers that was NH healthcare team. filled outside the VA. Or, it may be an jyec-jrq-tiuzseh (OTC), herbal, dietary supplements or sample medication. ON HOLD An active prescription that will Contact your VA not be filled until pharmacy pharmacy when you need resolves the issue. more of this medication. PARKED An active prescription that will Contact your VA not be filled until the patient pharmacy when you need requests it. this medication. PENDING This prescription order has been If you have been sent to the pharmacy for review instructed to start and is not ready yet. this medication now, contact your VA pharmacy. SUSPENDED An active prescription that is Contact your NH not scheduled to be filled yet. pharmacy if you need You should receive it before this medication now. you run out. ======== Patient reports taking meds other than as directed/ordered: eliquis BID IS PATIENT TAKING ANY OVER THE COUNTER MEDICATIONS, SUCH VITAMINS OR HERBAL SUPPLEMENTS, INCLUDING ANY MEDICATIONS PRESCRIBED BY ANOTHER PHYSICIAN? No ALLERGIES/ADVERSE REACTIONS: GABAPENTIN Does patient have any new allergies to report since last visit? NO VITALS: TEMPERATURE: 97.5 F [36.4 C] (04/17/2023 14:47) BP: 144/91 (04/17/2023 14:47) RESP: 16 (04/17/2023 14:47) PULSE: 59 (04/17/2023 14:47) HT: 71 in [180.3 cm] (03/13/2023 10:57) WT: 181.4 lb [82.28 kg] (04/17/2023 14:47) BMI: 25.4 PAIN ASSESSMENT: (Most Recent Pain Score in Vitals Package: 0 (04/17/2023 14:47) ) The patient indicated that they and their close contacts have not traveled outside of the [place] in the past 21 days. The patient reports the following symptoms: No symptoms present The patient is not immunocompromised. The patient does not report having a history of Multi Drug Resistant Organism (MDRO) within the last five years. The patient does not report having been exposed to measles, chickenpox, or zoster in last 30 days. STRESS: Thank you for your service. Now let us serve you. At the [facility], we strive to provide you with exceptional health care that improves your health and well-being. Are you feeling sad, empty, or depressed? No Do you need to talk about things in your life that worry you or cause you stress? No Do you need to talk about personal problems, family problems, alcohol use, drug use, or mental or emotional illness? No SUICIDE SCREENING: The patient was asked, Over the past two weeks, how often have you been bothered by thoughts that you would be better off or of hurting yourself in some way? Not At All SPIRITUAL ASSESSMENT: Are there alevism practices or spiritual concerns you want the grade checker, your physician, and other health care team members to immediately know about? No Patient advised to call the clinic for any concerns, questions, or symptoms. Patient and/or caregiver verbalized understanding of plan of care. /lynn/ ALAN LALA CBMAKAYLA Signed: 11/20/2023 14:37 CHACE HOGAN [place] SHANNON
--- OUTSIDE RECORDS SUMMARY | 2024-04-09 09:46 | XMS_ITS | Encounter Summary ---
Author Name [facility] Address [address] [place] [address] Care Team Providers Care Loading Manager Name Role Phone JYOTSNA TIMMY Primary Care Provider Unavailabl e Insurance Providers: [...] B Oct 20, 2012 RR PART B [id number] Wilber VILLALBA PATIENT MEDICARE (WNR) MEDICARE (M) RR PART B Oct 20, 2012 RR PART B [id number] Wilber VILLALBA PATIENT MEDICARE (WNR) MEDICARE (M) RR PART A Mar 22, 2011 RR PART A [id number] Wilber VILLALBA PATIENT MEDICARE (WNR) MEDICARE (M) RR PART A Mar 22, 2011 RR PART A [id number] Wilber VILLALBA PATIENT MEDICARE (WNR) MEDICARE (M) RR PART A Mar 22, 2011 RR PART A [id number] WAGNERWilber MENSAH JAQUELIN PATIENT MEDICARE (WNR) MEDICARE (M) RR PART A Mar 22, 2011 RR PART A [id number] [phone] WAGNERWilber MENSAH JAQUELIN PATIENT Selected Encounter This section includes the information on record at [place] for the Encounter. Date/Time Encounter Type Encounter Description Reason Pro vider Source Apr 09, 2024 02:46 PM Outpatient Encounter ADMIN PAT ACTIVTIES (MASNONCT) IHE Encounter Template Text not used by ME Plan of Treatment: Future Appointments (+ 6 months) and Future Tests (+/- 45 days) The Plan of Treatment section includes future care activities for the patient from all [place] treatmentfacilities. This section includes future appointments and future orders which are active, pending or scheduled. Future Appointments This section includes appointments that were scheduled to occur 6 months from the date of the Encounter, up to a maximum of 20 appointments. The data comes from all [place] treatment facilities. Appointment Date/Time Appointment Type Appointme nt Facility Name Apr 13, 2024 09:00 AM AMBULATORY - MEDICINE [facility] 2024 11:30 AM AMBULATORY - MEDICINE [facility] 2024 11:31 AM [facility] Apr 28, 2024 09:00 AM [facility]IC[facility] [place] [facility] Apr 30, 2024 08:00 AM AM[facility] - MEDICINE [place] [facility] Jun 04, 2024 08:30 AM AMBULATORY - MEDICINE [facility] Jun 24, 2024 01:30 PM AM[facility]ORY - MEDICINE [place] [facility] Jun 29, 2024 01:00 PM AMBULATORY - MEDICINE [place] Jul 02, 2024 02:00 PM AMBULATORY - NONE [facility] [facility] Jul 06, 2024 11:00 AM AM[facility]ULATORY - MEDICINE [place] [facility] Jul 09, 2024 08:30 AM AMBULATORY - MEDICINE [facility] Jul 13, 2024 01:30 PM AMBULATORY - MEDICINE [place] [facility] Sep 28, 2024 03:30 PM AMBULATORY - MEDICINE [facility] Oct 07, 2024 09:00 AM AM[facility]ATORY - MEDICINE [place] Lab Results: +/- 30 days of the encounter This section includes the Chemistry and Hematology Lab Results on record with ME for the patient. Radiology Reports and Pathology Reports are provided separately, in subsequent sections. Lab Results This section contains the Chemistry/Hematology Results that were resulted 30 days before or 30 daysafter the date of the Encounter. Date/Time Source Result Type Result - Unit Interpretation Reference Range Specimen Type Comment Apr 13, 2024 08:53 AM [facility] HGA1C BLOOD Specimen Type: BLOOD No comment entered. Ordering Provider: TIMMY GOYAL Report Released Date/Time: Apr 17, 2023 04:07 PM Reporting Lab: [place] [facility] [address] [place] [address] Performing Lab: [place] [facility] [address] [place] [address] HGA1C 6.7 H 4.0-6.0 Apr 13, 2024 08:53 AM [facility] COMPREHENSIVE METABOLIC PANEL PLASMA Specimen Type: PLASMA No comment entered. Ordering Provider: TIMMY GOYAL Report Released Date/Time: Apr 17, 2023 04:07 PM Reporting Lab: [place] [facility] [address] [place] [address] Performing Lab: [place] [facility] [address] [place] [address] CREATININE 1.50 mg/dL H 0.7-1.3 UREA NITROGEN 18 mg/dL 9-25 GLUCOSE 144 mg/dL H 72-99 SODIUM 138 meq/L 136-145 POTASSIUM 4.5 meq/L 3.5-5 CHLORIDE 105 meq/L 98-107 CARBON DIOXIDE 23 meq/L 22-31 CALCIUM 9.9 mg/dL 8.4-10.4 PROTEIN 7.0 g/dL 6-8.6 ALBUMIN 4.4 g/dL 3.4-5 TOTAL BILIRUBIN 0.4 mg/dL 0.2-1.2 ALKALINE PHOSPHATASE 77 U/L 40-150 AST/SGOT 17 U/L 5-34 ALT/SGPT 27 U/L 8-40 EGFR (CKD-EPI 2020) 48 Apr 13, 2024 08:53 AM [facility] TSH (MA-PB) SERUM Specimen Typ e: SERUM No comment entered. Ordering Provider: TIMMY GOYAL Report Released Date/Time: Apr 17, 2023 04:07 PM Reporting Lab: [place] [facility] [address] [place] [address] Performing Lab: [place] [facility] [address] [place] [address] TSH 4.948 u[IU]/mL 0.47-5 Apr 13, 2024 08:53 AM [facility] CHOLESTEROL PANEL (PB) PLASMA Specimen Type: P LASMA No comment entered. Ordering Provider: TIMMY GOYAL Report Released Date/Time: Apr 17, 2023 04:07 PM Reporting Lab: [place] [facility] [address] [place] [address] Performing Lab: [place] [facility] [address] [place] [address] CHOLESTEROL 150 mg/dL 0-200 TRIGLYCERIDE 79 mg/dL 0-150 CALCULATED LDL 95.2 mg/dL HDL(New) 39.0 mg/dL L >40 HDL % OF TOTAL CHOLESTEROL (PB) 26.0 >25 Apr 13, 2024 08:53 AM [facility] CBC BLOOD Specimen Type: BLOOD No comment entered. Ordering Provider: TIMMY GOYAL Report Released Date/Time: Apr 17, 2023 04:07 PM Reporting Lab: [place] [facility] [address] [place] [address] Performing Lab: [place] [facility] [address] [place] [address] WBC 5.5 10*3/uL 3.6-11.2 RBC 4.17 10*6/uL 4.10-5.70 HGB 13.0 g/dL L 13.1-16.8 HCT 39.9 38.2-48.4 MCV 95.7 fL 80.0-100.0 MCH 31.2 pg 27.0-34.0 MCHC 32.6 g/dL L 33.0-36.0 PLT 108 10*3/uL L 150-400 MPV 11.3 fL H 7.5-11.2 RDW 12.7 11.8-15.1 LYMPHOCYTES, AUTO % 16.3 MONOCYTES, AUTO % 13.4 NEUTROPHILS, AUTO % 66.1 EOSINOPHILS, AUTO % 2.7 BASOPHILS, AUTO % 0.4 LYMPHOCYTES, ABSOLUTE 0.89 10*3/uL 0.77- 4.50 MONOCYTES, ABSOLUTE 0.73 10*3/uL 0.19-0. 8 NEUTROPHILS, ABSOLUTE 3.61 10*3/uL 2.10- 8.00 EOSINOPHILS, ABSOLUTE 0.15 10*3/uL 0.00- 0.60 BASOPHILS, ABSOLUTE 0.02 10*3/uL 0.00-0. 20 IMMATURE PLT FRACTION 6.3 1.0-7.0 IMMATURE GRANS, AUTO % 1.1 IMMATURE GRANS, AUTO ABS 0.06 10*3/uL H 0. 00-0.05 Social History: Smoking Status (Most current) and Tobacco Use (All prior to encounter date) This section includes the most current, and the historical, smoking and tobacco- related health factors from the [place] facility where the Encounter took place. Current Smoking Status This section includes the most current smoking, or tobacco-related health factor, from the ME facility where the Encounter took place. Date/Time Current Smoking Status Comment Facil ity Apr 17, 2023 02:00 PM VA-TOBACCO USER EVERY DAY [facility] Tobacco Use History This section includes a history of the smoking, or tobacco-related health factors, that were collected on or before the date of the Encounter. The data comes from the [place] facility where the Encounter took place. Date/Time Smoking Status/Tobacco Use Comment F acility Apr 17, 2023 02:00 PM VA-TOBACCO USE > 1 5 LESS THAN 30 YEARS [facility] Apr 17, 2023 02:00 PM VA-TOBACCO USE ADVICE [facility] Apr 17, 2023 02:00 PM VA-TOBACCO USE DIP GUIDER STOVES NO [facility] Apr 17, 2023 02:00 PM VA-TOBACCO USE MED NO [facility] Apr 17, 2023 02:00 PM VA-TOBACCO USER EVERY DAY [facility] Apr 19, 2022 01:00 PM VA-TOBACCO USE 30 YEARS OR MORE [facility] Apr 19, 2022 01:00 PM VA-TOBACCO USE ADVICE [facility] Apr 19, 2022 01:00 PM VA-TOBACCO USE DIP GUIDER STOVES NO [facility] Apr 19, 2022 01:00 PM VA-TOBACCO USE MED NO [facility] Apr 19, 2022 01:00 PM VA-TOBACCO USE WI 30 MIN OF WAKEUP [facility] Apr 19, 2022 01:00 PM VA-TOBACCO USER EVERY DAY [facility] Apr 26, 2021 02:30 PM VA-TOBACCO DOESNT USE WI 30 MIN WAKEUP [facility] Apr 26, 2021 02:30 PM VA-TOBACCO USE 5 T O 15 YEARS [facility] Apr 26, 2021 02:30 PM VA-TOBACCO USE ADVICE [facility] Apr 26, 2021 02:30 PM VA-TOBACCO USE DIP GUIDER STOVES NO [facility] Apr 26, 2021 02:30 PM VA-TOBACCO USE MED NO [facility] Apr 26, 2021 02:30 PM VA-TOBACCO USER SOME DAYS [facility] 2020 09:00 AM VA-TOBACCO USE 30 YEARS OR MORE [facility] 2020 09:00 AM VA-TOBACCO USE ADVICE [facility] 2020 09:00 AM VA-TOBACCO USE DIP GUIDER STOVES NO [facility] 2020 09:00 AM VA-TOBACCO USE MED NO [facility] 2020 09:00 AM VA-TOBACCO USE WI 30 MIN OF WAKEUP [facility] 2020 09:00 AM VA-TOBACCO USER EVERY DAY [facility] Jun 02, 2018 01:55 PM VA-TOBACCO USE 30 YEARS OR MORE [facility] Jun 02, 2018 01:55 PM VA-TOBACCO USE ADVICE [facility] Jun 02, 2018 01:55 PM VA-TOBACCO USE DIP GUIDER STOVES NO [facility] Jun 02, 2018 01:55 PM VA-TOBACCO USE MED NO [facility] Jun 02, 2018 01:55 PM VA-TOBACCO USE WI 30 MIN OF WAKEUP [facility] Jun 02, 2018 01:55 PM VA-TOBACCO USER EVERY DAY [facility] May 27, 2017 12:10 PM CURRENT TOBACCO USER [facility] May 27, 2017 12:10 PM CURRENT TOBACCO US ER (NOT READY TO QUIT) [facility] May 27, 2017 12:10 PM SMOKELESS TOBACCO AMOUNT/LENGTH V15 1 can Q day , 51 yrs [facility] May 27, 2017 12:10 PM TOBACCO CESSATION REFERRAL DECLINED [facility] May 27, 2017 12:10 PM TOBACCO MEDS OFFER ED BUT DECLINED [facility] May 27, 2017 12:10 PM TOBACCO USER OFFERED MEDS [facility] Aug 10, 2016 08:46 AM CURRENT TOBACCO USER [facility] Aug 10, 2016 08:46 AM CURRENT TOBACCO US ER (NOT READY TO QUIT) [facility] Aug 10, 2016 08:46 AM TOBACCO CESSATION REFERRAL DECLINED [facility] Aug 10, 2016 08:46 AM TOBACCO CESSATION REFERRAL OFFERED [facility] Aug 10, 2016 08:46 AM TOBACCO MEDS OFFER ED BUT DECLINED [facility] Aug 10, 2016 08:46 AM TOBACCO USER OFFERED MEDS [facility] September 02, 2015 09:12 AM CURRENT TOBACCO USER [facility] September 02, 2015 09:12 AM TOBACCO OFFERED PT MEDS (PROVIDER) [facility] September 02, 2015 09:[address] OP SMOKING CLINIC [facility] September 02, 2015 09:12 AM TOBACCO OFFERRED S TOP SMOKING CLINIC [facility] Encounter Notes: All associated encounter notes This section contains the clinical notes associated to the Encounter. 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 Narr. - History of myocardial infarction ([facility] [id number]) Action: No Referral Ordered: Eye exam completed elsewhere by an Instrument Specialist or Enologist Exam Information: Date: November 06, 2023 Findings/Comment None [facility] Signed: 04/09/2024 14:48 NADINE RAMIREZ [facility]
--- OUTSIDE RECORDS SUMMARY | 2024-04-20 06:30 | XMS_ITS | Encounter Summary ---
Author Name [facility] [place] [facility] [place] Address [address] [place] [address] Care Team Providers Care Information Assurance Name Role Phone TIMMY GOYAL Primary Care Provider Unavailabl e Insurance Providers: [...] B Oct 20, 2012 RR PART B [id number] Wilber VILLALBA PATIENT MEDICARE (WNR) MEDICARE (M) RR PART B Oct 20, 2012 RR PART B [id number] Wilber VILLALBA PATIENT MEDICARE (WNR) MEDICARE (M) RR PART A Mar 22, 2011 RR PART A [id number] Wilber VILLALBA PATIENT MEDICARE (WNR) MEDICARE (M) RR PART A Mar 22, 2011 RR PART A [id number] Wilber VILLALBA PATIENT MEDICARE (WNR) MEDICARE (M) RR PART A Mar 22, 2011 RR PART A [id number] ORLYWilber JAQUELIN PATIENT MEDICARE (WNR) MEDICARE (M) RR PART A Mar 22, 2011 RR PART A [id number] [phone] ORLYWilber JAQUELIN PATIENT Selected Encounter This section includes the information on record at [place] for the Encounter. Date/Time Encounter Type Encounter Description Reason Provider Source 2024 11:30 AM TELEHEALTH FACILITY FEE PRIMARY CARE/MEDICINE ICD-10-CM I10 Essential (primary) hypertension PEPE CARO IHRené Encounter Template Text not used by [place] Assessments - Encounter Diagnoses This section includes the primary and secondary diagnoses documented for the Encounter. Date/Time Primary/Secondary Diagnosis Diagnosis Name Provider Source 2024 01:09 PM PRIMARY Essential (primary) hypertension NICK CARO [facility] Plan of Treatment: Future Appointments (+ 6 months) and Future Tests (+/- 45 days) The Plan of Treatment section includes future care activities for the patient from all [place] treatmentfacilities. This section includes future appointments and future orders which are active, pending or scheduled. Future Appointments This section includes appointments that were scheduled to occur 6 months from the date of the Encounter, up to a maximum of 20 appointments. The data comes from all [place] treatment facilities. Appointment Date/Time Appointment Type Appointme nt Facility Name Apr 28, 2024 09:00 AM AMBULATORY - [place]ICINE [place] [facility] Apr 30, 2024 08:00 AM AMBULATORY - [place]IC[place] [facility] Jun 04, 2024 08:30 AM AMBULATORY - MEDICINE [facility] Jun 24, 2024 01:30 PM AMBULATORY - [place]IC[place] [facility] Jun 29, 2024 01:00 PM AMBULATORY - MEDICINE [place] [facility] Jul 02, 2024 02:00 PM AMBULATORY - NONE [place] [facility] Jul 06, 2024 11:00 AM AMBULATORY - MEDICINE [place] [facility] Jul 09, 2024 08:30 AM AMBULATORY - MEDICINE [facility] Jul 13, 2024 01:30 PM AMBULATORY - MEDICINE [place] [facility] Sep 28, 2024 03:30 PM AMBULATORY - MEDICINE [facility] Oct 07, 2024 09:00 AM AMBULATORY - MEDICINE [place] [facility] Lab Results: +/- 30 days of the encounter This section includes the Chemistry and Hematology Lab Results on record with [place] for the patient. Radiology Reports and Pathology Reports are provided separately, in subsequent sections. Lab Results This section contains the Chemistry/Hematology Results that were resulted 30 days before or 30 daysafter the date of the Encounter. Date/Time Source Result Type Result - Unit Interpretation Reference Range Specimen Type Comment Apr 13, 2024 08:53 AM [facility] HGA1C BLOOD Specimen Type: BLOOD No comment entered. Ordering Provider: TIMMY GOYAL Report Released Date/Time: Apr 17, 2023 04:07 PM Reporting Lab: [place] [facility] [address] [place] [address] Performing Lab: [place] [facility] [address] [place] [address] HGA1C 6.7 H 4.0-6.0 Apr 13, 2024 08:53 AM [facility] COMPREHENSIVE METABOLIC PANEL PLASMA Specimen Type: PLASMA No comment entered. Ordering Provider: TIMMY GOYAL Report Released Date/Time: Apr 17, 2023 04:07 PM Reporting Lab: [place] [facility] [address] [place] [address] Performing Lab: [place] [facility] [address] [place] [address] CREATININE 1.50 mg/dL H 0.7-1.3 UREA NITROGEN [...] 2020) 48 Apr 13, 2024 08:53 AM [facility] TSH (MA-PB) SERUM Specimen Typ e: SERUM No comment entered. Ordering Provider: TIMMY GOYAL Report Released Date/Time: Apr 17, 2023 04:07 PM Reporting Lab: [place] [facility] [address] [place] [address] Performing Lab: [place] [facility] [address] [place] [address] TSH 4.948 u[IU]/mL 0.47-5 Apr 13, 2024 08:53 AM [facility] CHOLESTEROL PANEL (PB) PLASMA Specimen Type: P LASMA No comment entered. Ordering Provider: TIMMY GOYAL Report Released Date/Time: Apr 17, 2023 04:07 PM Reporting Lab: [place] [facility] [address] [place] [address] Performing Lab: [place] [facility] [address] [place] [facility] CHOLESTEROL 150 mg/dL 0-200 TRIGLYCERIDE 79 mg/dL 0-150 CALCULATED LDL 95.2 mg/dL HDL(New) 39.0 mg/dL L >40 HDL % OF TOTAL CHOLESTEROL (PB) 26.0 >25 Apr 13, 2024 08:53 AM [facility] CBC BLOOD Specimen Type: BLOOD No comment entered. Ordering Provider: TIMMY GOYAL Report Released Date/Time: Apr 17, 2023 04:07 PM Reporting Lab: [place] [facility] [address] [place] [address] Performing Lab: [place] [facility] [address] [place] [address] WBC 5.5 10*3/uL 3.6-11.2 RBC 4.17 10*6/uL [...] AUTO ABS 0.06 10*3/uL H 0. 00-0.05 Vital Signs: All taken on the encounter date This section contains inpatient and outpatient Vital Signs collected on the date of the Encounter. Date/Time Temperature Pulse Blood Pressure Respiratory Rate SP02 Pain Height Weight Body Mass Index Source 2024 12:03 PM 63 118/71 [facility] 2024 12:02 PM 54 154/79 17 94 2 204.6 29 [facility] Social History: Smoking Status (Most current) and Tobacco Use (All prior to encounter date) This section includes the most current, and the historical, smoking and tobacco- related health factors from the [place] facility where the Encounter took place. Current Smoking Status This section includes the most current smoking, or tobacco-related health factor, from the [place] facility where the Encounter took place. Date/Time Current Smoking Status Comment Facil ity 2024 11:30 AM VA-TOBACCO USE FOR ZANE OTHER TYPE Quit 2 years ago [facility] Tobacco Use History This section includes a history of the smoking, or tobacco-related health factors, that were collected on or before the date of the Encounter. The data comes from the [place] facility where the Encounter took place. Date/Time Smoking Status/Tobacco Use Comment F acility 2024 11:30 AM VA-TOBACCO USE FOR ZANE OTHER TYPE Quit 2 years ago [facility] Apr 17, 2023 02:00 PM VA-TOBACCO DOESNT USE WI 30 MIN WAKEUP [facility] Apr 17, 2023 02:00 PM VA-TOBACCO USE > 1 5 LESS THAN 30 YEARS [facility] Apr 17, 2023 02:00 PM VA-TOBACCO USE ADVICE [facility] Apr 17, 2023 02:00 PM VA-TOBACCO USE SQUAD BOSS NO [facility] Apr 17, 2023 02:00 PM VA-TOBACCO USE MED NO [facility] Apr 17, 2023 02:00 PM VA-TOBACCO USER EVERY DAY [facility] Apr 19, 2022 01:00 PM VA-TOBACCO USE 30 YEARS OR MORE [facility] Apr 19, 2022 01:00 PM VA-TOBACCO USE ADVICE [facility] Apr 19, 2022 01:00 PM VA-TOBACCO USE SQUAD BOSS NO [facility] Apr 19, 2022 01:00 PM VA-TOBACCO USE MED NO [facility] Apr 19, 2022 01:00 PM VA-TOBACCO USE WI 30 MIN OF WAKEUP [facility] Apr 19, 2022 01:00 PM VA-TOBACCO USER EVERY DAY [facility] Apr 26, 2021 02:30 PM VA-TOBACCO DOESNT USE WI 30 MIN WAKEUP [facility] Apr 26, 2021 02:30 PM VA-TOBACCO USE 5 T O 15 YEARS [facility] Apr 26, 2021 02:30 PM VA-TOBACCO USE ADVICE [facility] Apr 26, 2021 02:30 PM VA-TOBACCO USE SQUAD BOSS NO [facility] Apr 26, 2021 02:30 PM VA-TOBACCO USE MED NO [facility] Apr 26, 2021 02:30 PM VA-TOBACCO USER SOME DAYS [facility] 2020 09:00 AM VA-TOBACCO USE 30 YEARS OR MORE [facility] 2020 09:00 AM VA-TOBACCO USE ADVICE [facility] 2020 09:00 AM VA-TOBACCO USE SQUAD BOSS NO [facility] 2020 09:00 AM VA-TOBACCO USE MED NO [facility] 2020 09:00 AM VA-TOBACCO USE WI 30 MIN OF WAKEUP [facility] 2020 09:00 AM VA-TOBACCO USER EVERY DAY [facility] Jun 02, 2018 01:55 PM VA-TOBACCO USE 30 YEARS OR MORE [facility] Jun 02, 2018 01:55 PM VA-TOBACCO USE ADVICE [facility] Jun 02, 2018 01:55 PM VA-TOBACCO USE SQUAD [place]OSS NO [place] [facility] Jun 02, 2018 01:55 PM VA-TOBACCO USE MED NO [facility] Jun 02, 2018 01:55 PM VA-TOBACCO USE WI 30 MIN OF WAKEUP [facility] Jun 02, 2018 01:55 PM VA-TOBACCO USER EVERY DAY [facility] May 27, 2017 12:10 PM CURRENT TOBACCO USER [facility] May 27, 2017 12:10 PM CURRENT TOBACCO US ER (NOT READY TO QUIT) [facility] May 27, 2017 12:10 PM SMOKELESS TOBACCO AMOUNT/LENGTH V15 1 can Q day , 51 yrs [facility] May 27, 2017 12:10 PM TOBACCO CESSATION REFERRAL DECLINED [facility] May 27, 2017 12:10 PM TOBACCO MEDS OFFER ED BUT DECLINED [facility] May 27, 2017 12:10 PM TOBACCO USER OFFERED MEDS [place] [facility] Aug 10, 2016 08:46 AM CURRENT TOBACCO USER [place] [facility] Aug 10, 2016 08:46 AM CURRENT TOBACCO US ER (NOT READY TO QUIT) [place] [facility] Aug 10, 2016 08:46 AM TOBACCO CESSATION REFERRAL DECLINED [facility] Aug 10, 2016 08:46 AM TOBACCO CESSATION REFERRAL OFFERED [facility] Aug 10, 2016 08:46 AM TOBACCO MEDS [facility] ED [facility]ED [facility] Aug 10, 2016 08:46 AM TOBACCO USER OFFERED MEDS [place] [facility] September 02, 2015 09:12 AM CURRENT TOBACCO USER [place] [facility] September 02, 2015 09:12 AM TOBACCO OFFERED PT MEDS (PROVIDER) [facility] September 02, 2015 09:[address] OP SMOKING CLINIC [facility] September 02, 2015 09:12 AM TOBACCO OFFERRED S TOP SMOKING CLINIC [facility] Encounter Notes: All associated encounter notes This section contains the clinical notes associated to the Encounter. Date/Time Encounter Note(s) Provider Source 2024 11:33 AM PRIMARY CARE NURSI NG NOTE: LOCAL TITLE: PRIMARY CARE NURSING PROGRESS NOTE (TEXT) NURSING P STANDARD TITLE: PRIMARY CARE NURSING NOTE DATE OF NOTE: 2024@11:33 ENTRY DATE: 2024@11:33:54 AUTHOR: YANCY CAROIGNER: URGENCY: STATUS: COMPLETED Established Patient HOA VILLALBA IS A 79 YEAR OLD MALE BEING SEEN IN CLINIC 2024. == == REASON FOR VISIT: The is here for his annual appointment. reports he is having trouble breathing and has been since October. Reports he was seen in the ER and told that he had several small blood clots in the lungs. Was started on Apixaban at that time. Also has complaint of neck pain, radiating into both shoulders, pain with looking up and pain. Auscultated the 's lungs and heart, the 's lungs are clear throughout, heart sounds are good. Are you receiving care any where other than the [place]? No HEALTH AND SURGICAL HISTORY: Does patient report using home oxygen? No CURRENT ACTIVE MEDICATIONS FOR REVIEW: Allergies/ADRs (Tool #5) FACILITY ALLERGY/ADR -------- [facility] - NO KNOWN ALLERGIES [facility] GABAPENTIN Med. Reconciliation (Tool #1) INCLUDED [...] the patient into personal health records (i.e. [employer]) are NOT included in this list. Non-VA medications documented outside this [place], remote inpatient orders (regardless of status) and remote clinic medications are NOT included in this list. The patient and provider must always discuss medications the patient is taking, regardless of where the medication was dispensed or obtained. OUTPT AMLODIPINE BESYLATE 10MG TAB (Status = ) TAKE ONE TABLET BY MOUTH ONCE A DAY FOR HEART/BLOOD PRESSURE Rx# [id number] Last Released: 02/19/24 Qty/Days Supply: 90 Rx Expiration Date: 04/18/24 Refills Remainin Indication: FOR HIGH BLOOD PRESSURE OUTPT APIXABAN 5MG TAB (Status = Active) TAKE ONE TABLET BY MOUTH TWICE A DAY FOR ANTICOAGULATION Rx# [id number] Last Released: 03/14/24 Qty/Days Supply: 120/60 Rx Expiration Date: 12/04/24 Refills Remainin Indication: FOR ANTICOAGULATION OUTPT ATORVASTATIN CALCIUM 20MG TAB (Status = ) TAKE ONE TABLET BY MOUTH EVERY EVENING FOR HIGH CHOLESTEROL Rx# [id number] Last Released: 02/18/24 Qty/Days Supply: 90 Rx Expiration Date: 04/19/24 Refills Remainin Indication: FOR HIGH CHOLESTEROL OUTPT CHOLECALCIF 50MCG (D3-2,000UNIT) TAB (Status = ) TAKE ONE TABLET BY MOUTH ONCE A DAY FOR VITAMIN D DEFICIENCY. Rx# [id number] Last Released: 02/18/24 Qty/Days Supply: 100/90 Rx Expiration Date: 04/19/24 Refills Remainin OUTPT CITALOPRAM HYDROBROMIDE 20MG TAB (Status = ) TAKE ONE TABLET BY MOUTH EVERY MORNING FOR DEPRESSION Rx# [id number] Last Released: 02/22/24 Qty/Days Supply: 9090 Rx Expiration Date: 03/13/24 Refills Remainin Indication: FOR DEPRESSION OUTPT METOPROLOL TARTRATE 100MG TAB (Status = ) TAKE ONE TABLET BY MOUTH TWICE A DAY FOR HEART/BLOOD PRESSURE. TAKE WITH OR IMMEDIATELY FOLLOWING FOOD. Rx# [id number] Last Released: 02/19/24 Qty/Days Supply: 180/90 Rx Expiration Date: 04/18/24 Refills Remainin Non-VA TRAMADOL HCL 50MG TAB TAKE ONE TABLET BY MOUTH FOUR TIMES A DAY NEEDED Non-VA medication recommended by [place] provider. Patient wants to buy from Non-[place] pharmacy. SUPPLIES PHARMACY TERMS AND POSSIBLE PATIENT ACTIONS INPT = [place] inpatient order IV = [place] intravenous medication OUTPT = [place] outpatient prescription PHARMACY POSSIBLE PATIENT TERMS EXPLANATION ACTIONS -------- ----- ACTIVE A prescription that can be If you have refills, filled at the local [place] pharmacy. you may request a refill of this prescription from your [place] pharmacy. CLINIC A medication you received during If you have questions a visit to a [place] clinic or about this medication emergency department. contact your [place] healthcare team. DISCONTINUED A prescription your provider has Contact your [facility] stopped. It is no longer healthcare team if you available to be sent to you or need more of this picked up at the [place] pharmacy medication. window. A prescription which is [...] your or non VA providers that was VA healthcare team. filled outside the VA. Or, it may be an qdqk-hyw-nuiedql (OTC), herbal, dietary supplements or sample medication. [...] An active prescription that is Contact your [facility] not scheduled to be filled yet. pharmacy if you need You should receive it before this medication now. you run out. Patient reports taking meds other than as Pt reports that he has been out of his Donepezil 10mg for a few months. IS PATIENT TAKING ANY OVER THE COUNTER MEDICATIONS, SUCH VITAMINS OR HERBAL SUPPLEMENTS, INCLUDING ANY MEDICATIONS PRESCRIBED BY ANOTHER PHYSICIAN? No ALLERGIES/ADVERSE REACTIONS: GABAPENTIN Does patient have any new allergies to report since last visit? NO VITALS: TEMPERATURE: 97.9 F [36.6 C] (11/20/2023 14:32) BP: 107/70 (11/20/2023 14:32) RESP: 20 (11/20/2023 14:32) PULSE: 49 (11/20/2023 14:32) HT: 71.0 in [180.3 cm] (11/20/2023 14:32) WT: 194.7 lb [88.31 kg] (11/20/2023 14:32) BMI: 27.2 PAIN ASSESSMENT: (Most Recent Pain Score in Vitals Package: 4 (11/20/2023 14:32) ) The patient indicated that they and [...] Now let us serve you. At the , we strive to provide you with exceptional health care that improves your health and well-being. Are you feeling sad, empty, or depressed? Yes Do you need to talk about things in your life that worry you or cause you stress? No Do you need to talk about personal problems, family problems, alcohol use, drug use, or mental or emotional illness? No Talks to SUICIDE SCREENING: The patient was asked, Over the past two weeks, how often have you been bothered by thoughts that you would be better off or of hurting yourself in some way? Not At All SPIRITUAL ASSESSMENT: Are there mandaeism practices or spiritual concerns you want the channel lip stiffener insoles, your physician, and other health care team members to immediately know about? No Patient advised to call the clinic for any concerns, questions, or symptoms. Patient and/or caregiver verbalized understanding of plan of care. Suicide Screen - V: C-SSRS Screening [place] Suicide Severity Rating Scale (C-SSRS) screener 1. Over the past month, have you wished you were or wished you could go to sleep and not wake up? No 2. Over the past month, have you had any actual thoughts of killing yourself? No 3. Over the past month, have you been thinking about how you might do this? Response not required due to responses to other questions. 4. Over the past month, have you had these thoughts and had some intention of acting on them? Response not required due to responses to other questions. 5. Over the past month, have you started to work out or worked out the details of how to kill yourself? Response not required due to responses to other questions. 6. If yes, at any time in the past month did you intend to carry out this plan? Response not required due to responses to other questions. 7. In your lifetime, have you ever done anything, started to do anything, or prepared to do anything to end your life (for example, collected pills, obtained a gun, gave away valuables, went to the roof but didn't jump)? No 8. If YES, was this within the past 3 months? Response not required due to responses to other questions. Depression Screening - V: Perform PHQ-2 A PHQ-2 screen was performed. The score was 6 which is a positive screen for depression. Over the past two weeks, how often have you been bothered by the following problems? 1. Little interest or pleasure in doing things Nearly every day 2. Feeling down, depressed, or hopeless Nearly every day Licensed Independent Provider notified of positive screen and need for follow-up. Name of provider notified: KASI Tian FALL RISK OP PB: [place] FALL RISK ASSESSMENT Have you experienced any falls within the last 12 months: 10 = Yes Secondary Dx: 5 = Yes Secondary Dx Ambulatory Aid: 0 = No Gait/Transferrin = Weak Mental status: 0 = Oriented to own ability Medications: 5 = High risk meds TOTAL SCORE: 25 Score <30 - patient IS NOT at risk for falls. No action at this time. Reassess annually or if needed. Fall Documentation Yes - Patient experienced a fall within the last year. Type of fall that occurred: Two or more falls RHS Screen - VS: RHS Screen Session Format: Face to Face Environmental Check Screening was not completed at this time due to: Another adult present COVID-19 Immunization - L,N,P,PH,U: Refused Moderna Monovalent COVID-19 vaccine Immunization: COVID-19 (MODERNA), MRNA, LNP-S, PF, 50 MCG/0.5 ML (AGES 12+ YEARS) Refusal Reason: PATIENT DECISION Patient refuses all immunization(s) in the COVID-19 group Comment: The has pulmonary embolism diagnosed 11/03/23, does not want Date Documented: 04/20/24 12:44 Alcohol Use Screen (AUDIT-C) - V: Alcohol Screen: SCREEN FOR ALCOHOL (AUDIT-C) An alcohol screening test (AUDIT-C) was negative (score=0). 1. How often did you have a drink containing alcohol in the past year? Consider a drink to be a 12 ounce can or bottle of regular beer, 8 ounces of malt liquor, a 5 ounce glass of table wine, or a 1.5 ounce shot of liquor (like scotch, gin, or vodka). Never 2. How many drinks containing alcohol did you have on a typical day when you were drinking in the past year? Response not required due to responses to other questions. 3. How often did you have six or more drinks on one occasion in the past year? Response not required due to responses to other questions. Tobacco Use Screening - AT,DE,L,M,N,P,PH,PS,RT,S,U: The patient has never smoked cigarettes. The patient formerly used other types of tobacco. Comment: Quit 2 years ago Advanced Directive Screen/Generation Manager: ADVANCE DIRECTIVE SCREENING: I asked if the patient has an advance directive, and determined that: Patient does not have an Advance Directive. Patient declines advance directive education/instruction at this time. ADVANCE DIRECTIVE NOTIFICATION I did not provide the patient with written notification about advance directives because reports she has a copy and they have filled it out but need to get it notarized and then will bring it in. Level of understanding: Good Pain Assessment: - PAIN ASSESSMENT: .. Patient is reporting some pain. PAIN SCORE TODAY: 2 Patient's self identified pain goal: 0 Weight Control/Nutrition Counseling: * Patient declined nutrition and weight screen counseling at this encounter. Patient/Nurse Interview: * * Patient stated that adequate information was received regarding the condition and/or treatment. Comment: If you have any questions please call the clinic Per [facility] Directive [phone], wristband documentation: Patient wristband was removed and destroyed by (staff name) Naman Caro RN and placed in the designated [place] bin. /lynn/ Yancy Caro RN,BSN SHANNON Lopez Signed: 2024 12:57 YANCY CARO
--- OUTSIDE RECORDS SUMMARY | 2024-04-20 06:31 | XMS_ITS | Encounter Summary ---
Author Name [facility] [place] Organization [facility] [place] [place] Address [address] [place] [address] Care Team Providers Care Rn Private Duty Name Role Phone JYOTSNA ROMINA Primary Care [...] B Oct 20, 2012 RR PART B [id number] [phone] Wilber VILLALBA PATIENT MEDICARE (WNR) MEDICARE (M) RR PART B Oct 20, 2012 RR PART B [id number] [phone] Wilber VILLALBA PATIENT MEDICARE (WNR) MEDICARE (M) RR PART A Mar 22, 2011 RR PART A [id number] Wilber VILLALBA PATIENT MEDICARE (WNR) MEDICARE (M) RR PART A Mar 22, 2011 RR PART A [id number] Wilber VILLALBA PATIENT MEDICARE (WNR) MEDICARE (M) RR PART A Mar 22, 2011 RR PART A [id number] WAGNERRODRICKWilber JAQUELIN PATIENT MEDICARE (WNR) MEDICARE (M) RR PART A Mar 22, 2011 RR PART A [id number] [phone] WAGNERWilber MENSAH JAQUELIN PATIENT Selected Encounter This section includes the information on record at [place] for the Encounter. Date/Time Encounter Type Encounter Description Reason Provider Source 2024 11:31 AM OFFICE O/P EST MOD 30 MIN PRIMARY CARE/MEDICINE ICD-10-CM I10 Essential (primary) hypertension YISELSHEILA René Encounter Template Text not used by [place] Assessments - Encounter Diagnoses This section includes the primary and secondary diagnoses documented for the Encounter. Date/Time Primary/Secondary Diagnosis Diagnosis Name Provider Source 2024 12:36 PM PRIMARY Essential (primary) hypertension YISELSHEILA [facility] 2024 12:36 PM SECONDARY [facility] 12:36 PM SECONDARY Benign prostatic hyperplasia with lower urinary tract symp [facility]ROES,[facility] 2024 12:36 PM SECONDARY Cerebral aneurysm, nonruptured THROESCH,[facility] 2024 12:36 PM SECONDARY Contact with and exposure to other hazardous substances YISELSHEILA [facility] 2024 12:36 PM SECONDARY Cyst of kidney, acquired THROESCH,[facility] 2024 12:36 PM SECONDARY Depression, unspecified THROESCH,SHEILA [facility] 2024 12:36 PM SECONDARY Essential tremor THROES,[facility] 2024 12:36 PM SECONDARY Other amnesia ANDREIAESDELIA,[facility] 2024 12:36 PM SECONDARY Other obstructive and reflux uropathy [facility] 2024 12:36 PM SECONDARY Other pulmonary embolism without acute cor pulmonale [facility] 2024 12:36 PM SECONDARY Pain in unspecified hand THROESCH,[facility] 2024 12:36 PM SECONDARY Primary osteoarthritis, unspecified hand [facility] 2024 12:36 PM SECONDARY Radiculopathy, lumbar region [facility] 2024 12:36 PM SECONDARY Supraventricular tachycardia, unspecified BARRON MORILLO [facility] Plan of Treatment: Future Appointments (+ 6 months) and Future Tests (+/- 45 days) The Plan of Treatment section includes future care activities for the patient from all [place] treatmentfacilities. This section includes future appointments and future orders which are active, pending or scheduled. Future Appointments This section includes appointments that were scheduled to occur 6 months from the date of the Encounter, up to a maximum of 20 appointments. The data comes from all [place] treatment facilities. Appointment Date/Time Appointment Type Appointme nt Facility Name Apr 28, 2024 09:00 AM AM[place]ULATORY [place] [facility] Apr 30, 2024 08:00 AM AM[facility]ULATORY [place] [facility] Jun 04, 2024 08:30 AM AMBULATORY - MEDICINE [facility] Jun 24, 2024 01:30 PM AM[facility]ULATORY [place] [facility] Jun 29, 2024 01:00 PM AM[facility]ULATORY [facility] [place] [facility] Jul 02, 2024 02:00 PM AMBULATORY - NONE [place] [facility] Jul 06, 2024 11:00 AM AM[facility]ULATORY [place] [facility] Jul 09, 2024 08:30 AM AMBULATORY - MEDICINE [facility] Jul 13, 2024 01:30 PM AM[facility]ULATORY [place] [facility] Sep 28, 2024 03:30 PM AMBULATORY - MEDICINE [facility] Oct 07, 2024 09:00 AM AM[facility]ULATORY - [place] [facility] Lab Results: +/- 30 days of the encounter This section includes the Chemistry and Hematology Lab Results on record with [place] for the patient. Radiology Reports and Pathology Reports are provided separately, in subsequent sections. Lab Results This section contains the Chemistry/Hematology Results that were resulted 30 days before or 30 daysafter the date of the Encounter. Date/Time Source Result Type Result - Unit Interpretation Reference Range Specimen Type Comment Apr 13, 2024 08:53 AM [facility] HGA1C BLOOD Specimen Type: BLOOD No comment entered. Ordering Provider: ROMINA WHITLOCK Report Released Date/Time: Apr 17, 2023 04:07 PM Reporting Lab: [place] [facility] [address] [place] [address] Performing Lab: [place] [facility] [address] [place] [address] HGA1C 6.7 H 4.0-6.0 Apr 13, 2024 08:53 AM [facility] COMPREHENSIVE METABOLIC PANEL PLASMA Specimen Type: PLASMA No comment entered. Ordering Provider: ROMINA WHITLOCK Report Released Date/Time: Apr 17, 2023 04:07 PM Reporting Lab: [place] [facility] [address] [place] [address] Performing Lab: [place] [facility] [address] [place] [address] CREATININE 1.50 mg/dL H 0.7-1.3 UREA NITROGEN [...] 2020) 48 Apr 13, 2024 08:53 AM [facility] CHOLESTEROL PANEL (PB) PLASMA Specimen Type: P LASMA No comment entered. Ordering Provider: ROMINA WHITLOCK Report Released Date/Time: Apr 17, 2023 04:07 PM Reporting Lab: [place] [facility] [address] [place] [address] Performing Lab: [place] [facility] [address] [place] [address] CHOLESTEROL 150 mg/dL 0-200 TRIGLYCERIDE 79 mg/dL 0-150 CALCULATED LDL 95.2 mg/dL HDL(New) 39.0 mg/dL L >40 HDL % OF TOTAL CHOLESTEROL (PB) 26.0 >25 Apr 13, 2024 08:53 AM [facility] TSH ([place]-PB) SERUM Specimen Typ e: SERUM No comment entered. Ordering Provider: ROMINA WHITLOCK Report Released Date/Time: Apr 17, 2023 04:07 PM Reporting Lab: [place] [facility] [address] [place] [address] Performing Lab: [place] [facility] [address] [place] [address] TSH 4.948 u[IU]/mL 0.47-5 Apr 13, 2024 08:53 AM [facility] CBC BLOOD Specimen Type: BLOOD No comment entered. Ordering Provider: ROMINA WHITLOCK Report Released Date/Time: Apr 17, 2023 04:07 PM Reporting Lab: [place] [facility] [address] [place] [address] Performing Lab: [place] [facility] [address] [place] [address] WBC 5.5 10*3/uL 3.6-11.2 RBC 4.17 10*6/uL [...] AUTO ABS 0.06 10*3/uL H 0. 00-0.05 Encounter Notes: All associated encounter notes This section contains the clinical notes associated to the Encounter. Date/Time Encounter Note(s) Provider Source May 18, 2024 11:53 AM ADDENDUM: LOCAL TITLE: Addendum STANDARD TITLE: ADDENDUM DATE OF NOTE: MAY 18, 2024@11:53:34 ENTRY DATE: MAY 18, 2024@11:53:35 AUTHOR: ROMINA WHITLOCK EXP COSIGNER: URGENCY: STATUS: COMPLETED Notify patient his CT scan performed on 04/30/2024 shows complete resolution of his pulmonary emboli that was in the right middle lobe. No other concerns noted such as infiltrates or masses. It is common to have residual shortness of breath from the PE if he continues to have increasing issues or problems he needs an appointment with me for reevaluation. /lynn/ Romina Whitlock MD [facility] Primary Care Signed: 05/18/2024 11:54 Receipt Acknowledged By: 05/18/2024 15:01 /lynn/ Yancy Caro RN,BSN [facility] --- Original Document --- 04/20/24 PRIMARY CARE CLINIC PROGRESS NOTE PB: SUBJECTIVE: HOA VILLALBA is a 79 y.o.MALE. HPI: [place] contacted via Telehealth appointment due to location/staffing limitations. was offered to be seen via this modality and is agreeable to be seen via telehealth. Patient is located at the [facility] for this appointment, whereas [facility] affiliated provider is located off-site utilizing remotely secured video connection. Patient is being seen for a annual f/u. Reports he had small PE found in ER in October and was started on eliquis. he has not had repeat imaging and continues to have sob and julio. will repeat CTA. Denies any new problems or acute symptoms otherwise. Denies any other needs at this time. Non-VA Primary Care Provider none Specialty Services Neurology Dr. Correa Problem List 1) History of surgery for cerebral aneurysm 2) Poor short-term memory 3) Headache 4) Degenerative joint disease of hand 5) HTN - Hypertension 6) Hand pain 7) Lumbar radiculopathy 8) Actinic keratosis 9) Supraventricular tachycardia 10) Benign Prostatic Hypertrophy with Outflow Obstruction 11) Essential tremor 12) Depression 13) Exposure to potentially hazardous substance 14) Single acquired kidney cyst 15) Acute pulmonary embolism 16) Chronic diarrhea Active Outpatient Medications (including Supplies): Active Outpatient Medications Status 1) APIXABAN 5MG TAB TAKE ONE TABLET BY MOUTH TWICE A DAY ACTIVE Indication: FOR ANTICOAGULATION Active Non-VA Medications Status 1) Non-VA TRAMADOL HCL 50MG TAB 1 TABLET BY MOUTH FOUR TIMES A ACTIVE DAY NEEDED 2 Total Medications Allergies: GABAPENTIN Review of Systems Systemic: Denies fatique, fever, chills, or weight loss CV: Denies chest pain, palpitations Pulm: Denies hemoptysis GI: Denies constipation, bloody stools. Musculo- skeletal: Denies swelling Neuro: Denies slurred speech Skin: Denies abnormal lesions; denies any new rashes PSYCH: Denies SI/HI OBJECTIVE: Vital Signs Temperature: 97.9 F [36.6 C] (11/20/2023 14:32) Respiratory Rate: 20 (11/20/2023 14:32) Pulse Rate: 49 (11/20/2023 14:32) Blood Pressure: 107/70 (11/20/2023 14:32) HT: 71.0 in [180.3 cm] (11/20/2023 14:32) WT: 194.7 lb [88.31 kg] (11/20/2023 14:32) BMI: 27.2 SPO2: 94% (11/20/2023 14:32) Vital Signs per chart to date and reviewed by signee. Physical Exam completed by pact RN whom reports lungs CTA APL and normal heart sounds with S1S2 and no murmur noted. General: NAD noted, A&Ox3, pleasant, appears stated age Neuro: Grossly intact Psych: Affect normal, answers questions appropriately throughout visit A/P: ASSESSMENT and PLAN Health Maintenance: Discussed preventative health to include diet/exercise, immunizations, CRS. labs reviewed and discussed. A1C up from 5.7 to 6.7 at this time. ldl 95. depression-improved on citalopram. stable, doing well. Poor short-term memory- on Aricept 10mg with no real improvement; has upcoming apt with neurology. Headache- stable; denies any recent problems HTN - well controlled on metoprolol hx of SVT- on metoprolol; denies any recent palpitations Arthritis hands- discussed supportive care for his hands. Actinic keratosis- use Efudex cream Essential tremor with pill rolling -followed by neurology Lumbar radiculopathy-stable: very rarely but occasionally will take a tramadol as needed Diabetes: a1c 6.7. will work on diet management. he reports he has been eating a ton of snacks, little debbies, etc. he tells me he will stop eating the simple sugars. Stable. Discussed health conditions listed above and medications with patient; med rec completed. Continue current regimen as prescribed by PCP and specialists. RTC as needed if developing any new or worsening symptoms. Please notify PACT with medication changes or for orders coordination as needed if seen by a specialist in the future. Will f/u with patient once updated labs / imaging / testing received; otherwise f/u as listed below. Follow-up: 12 months and/or as needed. All questions answered; agrees to plan of care. Follow up as listed above, annually, and as needed. Keep all appointments. Medications Reconciled. Time spent 30 minutes. Discussed with patient that in the event of community imaging / testing being ordered in the future, once the imaging / testing has been completed, please notify PACT of completion at outside facility if not called with results within 1 week by a [facility] PACT member; this is due to intermittent lapses in notification of imaging completion within [facility]. Appointment was conducted via [facility] Connect, Video to home, or CVT Telehealth via in-person interview within the local [place] [facility] as discussed in note above. VVC / Video to home / CVT Telehealth via in-person interview appointment information: The following items were reviewed: - The nature of telehealth, its benefits, and risks. - Confidentiality and its limits. - The importance of having a confidential location for the service. - The emergency plan. - The appointment should be treated like an in person appointment (no smoking or driving during session, showing up fully dressed, etc.) *The Virtual Medical Room locked for this encounter (CVT, VVC, or Video to home). *A survey of the environment was conducted and it is appropriate to conduct a CVT/VVC appointment. *Confirmed [place]'s Non-VA location for appointment (VVC or Video to home). *[place] was notified of right to decline Telehealth services and eligibility for other options. consented to be seen via CVT/VVC/Telehealth via in-person interview at local [facility]. EMERGENCY PLAN In the event of an emergency, the or family will call emergency services, if capable. Teleprovider will remain in the virtual medical room until emergency response arrives and handoff to emergency services is complete. If [place] is unable to make emergency call, Teleprovider is to call the national E911 service at [phone] and ask to be connected to emergency services for the [place]'s location. Crisis Hotline: 201.447.7309 [employer] Help Desk ([employer]): 885.802.1125 or [phone] Verified Provider's location and contact information for this appointment: Other Location: [place] [facility] or Remote from home // BARRON MORILLO, MANAGER STUDENT SERVICES-ANTHONY BONILLA [facility] Signed: 2024 12:35 ROMINA WHITLOCK RAHELMIKEARASELI [facility] 2024 12:02 PM PRIMARY CARE PROGR ESS NOTE: LOCAL TITLE: PRIMARY CARE CLINIC PROGRESS NOTE PB STANDARD TITLE: PRIMARY CARE PROGRESS NOTE DATE OF NOTE: 2024@12:02 ENTRY DATE: 2024@12:02:15 AUTHOR: BRARON MORILLO EXP COSIGNER: URGENCY: STATUS: COMPLETED PRIMARY CARE CLINIC PROGRESS NOTE PB Has ADDENDA SUBJECTIVE: OHA VILLALBA is a 79 y.o.MALE. HPI: contacted via Telehealth appointment due to location/staffing limitations. was offered to be seen via this modality and is agreeable to be seen via telehealth. Patient is located at the [facility] for this appointment, whereas [facility] affiliated provider is located off-site utilizing remotely secured video connection. Patient is being seen for a annual f/u. Reports he had small PE found in ER in October and was started on eliquis. he has not had repeat imaging and continues to have sob and julio. will repeat CTA. Denies any new problems or acute symptoms otherwise. Denies any other needs at this time. Non-VA Primary Care Provider none Specialty Services Neurology Dr. Correa Problem List 1) History of surgery for cerebral aneurysm 2) Poor short-term memory 3) Headache 4) Degenerative joint disease of hand 5) HTN - Hypertension 6) Hand pain 7) Lumbar radiculopathy 8) Actinic keratosis 9) Supraventricular tachycardia 10) Benign Prostatic Hypertrophy with Outflow Obstruction 11) Essential tremor 12) Depression 13) Exposure to potentially hazardous substance 14) Single acquired kidney cyst 15) Acute pulmonary embolism 16) Chronic diarrhea Active Outpatient Medications (including Supplies): Active Outpatient Medications Status 1) APIXABAN 5MG TAB TAKE ONE TABLET BY MOUTH TWICE A DAY ACTIVE Indication: FOR ANTICOAGULATION Active Non-VA Medications Status 1) Non-VA TRAMADOL HCL 50MG TAB 1 TABLET BY MOUTH FOUR TIMES A ACTIVE DAY NEEDED 2 Total Medications Allergies: GABAPENTIN Review of Systems Systemic: Denies fatique, fever, chills, or weight loss CV: Denies chest pain, palpitations Pulm: Denies hemoptysis GI: Denies constipation, bloody stools. Musculo- skeletal: Denies swelling Neuro: Denies slurred speech Skin: Denies abnormal lesions; denies any new rashes PSYCH: Denies SI/HI OBJECTIVE: Vital Signs Temperature: 97.9 F [36.6 C] (11/20/2023 14:32) Respiratory Rate: 20 (11/20/2023 14:32) Pulse Rate: 49 (11/20/2023 14:32) Blood Pressure: 107/70 (11/20/2023 14:32) HT: 71.0 in [180.3 cm] (11/20/2023 14:32) WT: 194.7 lb [88.31 kg] (11/20/2023 14:32) BMI: 27.2 SPO2: 94% (11/20/2023 14:32) Vital Signs per chart to date and reviewed by signee. Physical Exam completed by pact RN whom reports lungs CTA APL and normal heart sounds with S1S2 and no murmur noted. General: NAD noted, A&Ox3, pleasant, appears stated age Neuro: Grossly intact Psych: Affect normal, answers questions appropriately throughout visit A/P: ASSESSMENT and PLAN Health Maintenance: Discussed preventative health to include diet/exercise, immunizations, CRS. labs reviewed and discussed. A1C up from 5.7 to 6.7 at this time. ldl 95. depression-improved on citalopram. stable, doing well. Poor short-term memory- on Aricept 10mg with no real improvement; has upcoming apt with neurology. Headache- stable; denies any recent problems HTN - well controlled on metoprolol hx of SVT- on metoprolol; denies any recent palpitations Arthritis hands- discussed supportive care for his hands. Actinic keratosis- use Efudex cream Essential tremor with pill rolling -followed by neurology Lumbar radiculopathy-stable: very rarely but occasionally will take a tramadol as needed Diabetes: a1c 6.7. will work on diet management. he reports he has been eating a ton of snacks, little debbies, etc. he tells me he will stop eating the simple sugars. Stable. Discussed health conditions listed above and medications with patient; med rec completed. Continue current regimen as prescribed by PCP and specialists. RTC as needed if developing any new or worsening symptoms. Please notify PACT with medication changes or for orders coordination as needed if seen by a specialist in the future. Will f/u with patient once updated labs / imaging / testing received; otherwise f/u as listed below. Follow-up: 12 months and/or as needed. All questions answered; agrees to plan of care. Follow up as listed above, annually, and as needed. Keep all appointments. Medications Reconciled. Time spent 30 minutes. Discussed with patient that in the event of community imaging / testing being ordered in the future, once the imaging / testing has been completed, please notify PACT of completion at outside facility if not called with results within 1 week by a [facility] PACT member; this is due to intermittent lapses in notification of imaging completion within [facility]. Appointment was conducted via [employer] Video Connect, Video to home, or CVT Telehealth via in-person interview within the local [place] [facility] as discussed in note above. VVC / Video to home / CVT Telehealth via in-person interview appointment information: The following items were reviewed: - The nature of telehealth, its benefits, and risks. - Confidentiality and its limits. - The importance of having a confidential location for the service. - The emergency plan. - The appointment should be treated like an in person appointment (no smoking or driving during session, showing up fully dressed, etc.) *The Virtual Medical Room locked for this encounter (CVT, VVC, or Video to home). *A survey of the environment was conducted and it is appropriate to conduct a CVT/VVC appointment. *Confirmed [place]'s Non-VA location for appointment (VVC or Video to home). *[place] was notified of right to decline Telehealth services and eligibility for other options. [place] consented to be seen via CVT/VVC/Telehealth via in-person interview at local CB. EMERGENCY PLAN In the event of an emergency, the or family will call emergency services, if capable. Teleprovider will remain in the virtual medical room until emergency response arrives and handoff to emergency services is complete. If [place] is unable to make emergency call, Teleprovider is to call the [employer] service at [phone] and ask to be connected to emergency services for the [place]'s location. Crisis Hotline: 265.414.7460 [employer] Help Desk ([employer]TH[employer]): 450.423.3705 or [phone] Verified Provider's location and contact information for this appointment: Other Location: [facility] or Remote from home /lynn/ VIGNESH MRERITT-ANTHONY BONILLA [facility] Signed: 2024 12:35 05/18/2024 ADDENDUM STATUS: COMPLETED Notify patient his CT scan performed on 04/30/2024 shows complete resolution of his pulmonary emboli that was in the right middle lobe. No other concerns noted such as infiltrates or masses. It is common to have residual shortness of breath from the PE if he continues to have increasing issues or problems he needs an appointment with me for reevaluation. /lynn/ Romina Whitlock MD [facility] Primary Care Signed: 05/18/2024 11:54 Receipt Acknowledged By: * AWAITING SIGNATURE * YANCY CARO,BARRON MCGINNISENCOMPASS [facility]
--- OUTSIDE RECORDS SUMMARY | 2024-06-04 03:30 | XMS_ITS | Encounter Summary ---
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 Role Phone JYOTSNA ROMINA Primary Care [...] B Oct 20, 2012 RR PART B [id number] [phone] Wilber VILLALBA PATIENT MEDICARE (WNR) MEDICARE (M) RR PART B Oct 20, 2012 RR PART B [id number] Wilber VILLALBA PATIENT MEDICARE (WNR) MEDICARE (M) RR PART A Mar 22, 2011 RR PART A [id number] Wilber VILLALBA PATIENT MEDICARE (WNR) MEDICARE (M) RR PART A Mar 22, 2011 RR PART A [id number] [phone] Wilber VILLALBA PATIENT MEDICARE (WNR) MEDICARE (M) RR PART A Mar 22, 2011 RR PART A [id number] Wilber VILLALBA PATIENT MEDICARE (WNR) MEDICARE (M) RR PART A Mar 22, 2011 RR PART A [id number] Wilber VILLALBA PATIENT Selected Encounter This section includes the information on record at [place] for the Encounter. Date/Time Encounter Type Encounter Description Reason Provider Source Jun 04, 2024 08:30 AM OFFICE O/P EST LOW 20 MIN PRIMARY CARE/MEDICINE ICD-10-CM R06.00 Dyspnea, unspecified JOYTSNA,TAMMY IHE Encounter Template Text not used by [place] Assessments - Encounter Diagnoses This section includes the primary and secondary diagnoses documented for the Encounter. Date/Time Primary/Secondary Diagnosis Diagnosis Name Provider Source Jun 04, 2024 09:56 AM PRIMARY Dyspnea, unspecified JYOTSNA,ROMINA [facility] Jun 04, 2024 09:56 AM SECONDARY Cerebral aneurysm, nonruptured ROMINA GOYAL [facility] Jun 04, 2024 09:56 AM SECONDARY Chronic respiratory failure with hypoxia ROMINA GOYAL [facility] Jun 04, 2024 09:56 AM SECONDARY Essential tremor JYOTSNA,ROMINA [facility] Jun 04, 2024 09:56 AM SECONDARY Nightmare disorder JYOTSNA,ROMINA [facility] Plan of Treatment: Future Appointments (+ 6 months) and Future Tests (+/- 45 days) The Plan of Treatment section includes future care activities for the patient from all [place] treatmentfacilities. This section includes future appointments and future orders which are active, pending or scheduled. Future Appointments This section includes appointments that were scheduled to occur 6 months from the date of the Encounter, up to a maximum of 20 appointments. The data comes from all [place] treatment facilities. Appointment Date/Time Appointment Type Appointme nt Facility Name Jun 24, 2024 01:30 PM AMBULATORY - MEDICINE [place] [facility] Jun 29, 2024 01:00 PM AMBULATORY - MEDICINE [place] [facility] Jul 02, 2024 02:00 PM AMBULATORY - NONE [place] [facility] Jul 06, 2024 11:00 AM AMBULATORY - MEDICINE [place] [facility] Jul 09, 2024 08:30 AM [place] [place] [facility] Jul 13, 2024 01:30 PM AMBULATORY - MEDICINE [place] [facility] Sep 28, 2024 03:30 PM AMBULATORY - MEDICINE [facility] Oct 07, 2024 09:00 AM AMBULATORY - MEDICINE [facility] Lab Results: +/- 30 days of the encounter This section includes the Chemistry and Hematology Lab Results on record with [facility] for the patient. Radiology Reports and Pathology Reports are provided separately, in subsequent sections. Lab Results This section contains the Chemistry/Hematology Results that were resulted 30 days before or 30 daysafter the date of the Encounter. Date/Time Source Result Type Result - Unit Interpretation Reference Range Specimen Type Comment Jul 02, 2024 12:21 PM [facility] COMPREHENSIVE METABOLIC PANEL PLASMA Specimen Type: PLASMA No comment entered. Ordering Provider: ROMINA GOYAL Report Released Date/Time: Jun 04, 2024 05:00 PM Reporting [facility] [address] [place] [facility] [address] Performing Lab: [facility] [address] [place] [facility] [id number] CREATININE 1.65 mg/dL H 0.7-1.3 UREA NITROGEN 17 mg/dL 9-25 GLUCOSE 220 mg/dL H 72-99 SODIUM 141 meq/L 136-145 POTASSIUM 4.0 meq/L 3.5-5 CHLORIDE 110 meq/L H 98-107 CARBON DIOXIDE 20 meq/L L 22-31 CALCIUM 9.2 mg/dL 8.4-10.4 PROTEIN 6.4 g/dL 6-8.6 ALBUMIN 4.1 g/dL 3.4-5 TOTAL BILIRUBIN 0.4 mg/dL 0.2-1.2 ALKALINE PHOSPHATASE 76 U/L 40-150 AST/SGOT 19 U/L 5-34 ALT/SGPT 23 U/L 8-40 EGFR (CKD-EPI 2020) 42 Jun 24, 2024 02:05 PM [facility] ANCILLARY GLUCOSE-PB BLOOD Specimen Type: BLO OD Comment: Test performed by: Julius Amezquita [id number] Meter #: [id number] Ordering Provider: ROMINA GOYAL Report Released Date/Time: Jun 24, 2024 02:19 PM Reporting Lab: [place] [facility] [address] [place] [address] Performing Lab: [place] [facility] [address] [place] [address] ANCILLARY GLUCOSE-PB 92 mg/dL 72-99 Vital Signs: All taken on the encounter date This section contains inpatient and outpatient Vital Signs collected on the date of the Encounter. Date/Time Temperature Pulse Blood Pressure Respiratory Rate SP02 Pain Height Weight Body Mass Index Source Jun 04, 2024 08:37 AM 54 134/79 [facility] Jun 04, 2024 08:37 AM 56 144/72 [facility] Jun 04, 2024 08:36 AM 54 151/79 18 96 3 206.7 29 [facility] Social History: Smoking Status (Most current) and Tobacco Use (All prior to encounter date) This section includes the most current, and the historical, smoking and tobacco- related health factors from the [place] facility where the Encounter took place. Current Smoking Status This section includes the most current smoking, or tobacco-related health factor, from the [place] facility where the Encounter took place. Date/Time Current Smoking Status Comment Facil ity 2024 11:30 AM VA-TOBACCO NEVER USED CIGARETTES [facility] Tobacco Use History This section includes a history of the smoking, or tobacco-related health factors, that were collected on or before the date of the Encounter. The data comes from the [place] facility where the Encounter took place. 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 [facility] Apr 17, 2023 02:00 PM VA-TOBACCO USE MED NO [facility] Apr 17, 2023 02:00 PM VA-TOBACCO USER EVERY DAY [facility] Apr 19, 2022 01:00 PM VA-TOBACCO USE 30 YEARS OR MORE [facility] Apr 19, 2022 01:00 PM VA-TOBACCO USE ADVICE [facility] Apr 19, 2022 01:00 PM 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 [place] [facility] Apr 19, 2022 01:00 PM VA-TOBACCO USE MED NO [place] [facility] Apr 19, 2022 01:00 PM VA-TOBACCO USE WI 30 MIN OF WAKEUP [place] [facility] Apr 19, 2022 01:00 PM VA-TOBACCO USER EVERY DAY [place] [place] [facility] Apr 26, 2021 02:30 PM VA-TOBACCO DOESNT USE WI 30 MIN WAKEUP [place] [facility] Apr 26, 2021 02:30 PM VA-TOBACCO USE 5 T O 15 YEARS [place] [place] [facility] Apr 26, 2021 02:30 PM VA-TOBACCO USE ADVICE [facility] Apr 26, 2021 02:30 PM 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 [facility] Apr 26, 2021 02:30 PM VA-TOBACCO USE MED NO [facility] Apr 26, 2021 02:30 PM VA-TOBACCO USER SOME DAYS [facility] 2020 09:00 AM VA-TOBACCO USE 30 YEARS OR MORE [place] [facility] 2020 09:00 AM VA-TOBACCO USE ADVICE [facility] 2020 09:00 AM 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 [facility] 2020 09:00 AM VA-TOBACCO USE MED NO [facility] 2020 09:00 AM VA-TOBACCO USE WI 30 MIN OF WAKEUP [place] [facility] 2020 09:00 AM VA-TOBACCO USER EVERY DAY [place] [facility] Jun 02, 2018 01:55 PM VA-TOBACCO USE 30 YEARS OR MORE [place] [place] [facility] Jun 02, 2018 01:55 PM VA-TOBACCO USE ADVICE [place] [place] [facility] Jun 02, 2018 01:55 PM 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 [place] [facility] Jun 02, 2018 01:55 PM VA-TOBACCO USE MED NO [facility] Jun 02, 2018 01:55 PM VA-TOBACCO USE WI 30 MIN OF WAKEUP [place] [facility] Jun 02, 2018 01:55 PM VA-TOBACCO USER EVERY DAY [place] [facility] May 27, 2017 12:10 PM [facility] May 27, 2017 12:10 PM CURRENT TOBACCO US ER (NOT READY TO QUIT) [facility] May 27, 2017 12:10 PM SMOKELESS TOBACCO AMOUNT/LENGTH V15 1 can Q day , 51 yrs [facility] [place] [facility] May 27, 2017 12:10 PM TOBACCO CESSATION REFERRAL DECLINED [facility] May 27, 2017 12:10 PM TOBACCO MEDS OFFER ED BUT DECLINED [facility] May 27, 2017 12:10 PM TOBACCO USER OFFERED MEDS [facility] Aug 10, 2016 08:46 AM CURRENT TOBACCO USER [facility] Aug 10, 2016 08:46 AM CURRENT TOBACCO US ER (NOT READY TO QUIT) [facility] Aug 10, 2016 08:46 AM TOBACCO CESSATION REFERRAL DECLINED [facility] Aug 10, 2016 08:46 AM TOBACCO CESSATION REFERRAL OFFERED [facility] Aug 10, 2016 08:46 AM TOBACCO MEDS OFFER ED BUT DECLINED [facility] Aug 10, 2016 08:46 AM TOBACCO USER OFFERED MEDS [facility] September 02, 2015 09:12 AM CURRENT TOBACCO USER [facility] September 02, 2015 09:12 AM TOBACCO OFFERED PT MEDS (PROVIDER) [facility] September 02, 2015 09:[address] OP SMOKING CLINIC [facility] September 02, 2015 09:12 AM TOBACCO OFFERRED S TOP SMOKING CLINIC [facility] Radiology Reports: +/- 30 days of the encounter Radiology Reports For cases when an order for radiology services may have been completed prior to the date of the Encounter, the report list includes the Radiology Reports that were completed up to 30 days before dateof the Encounter. For cases when an order for radiology services may have been completed after the date of the Encounter, the report list also includes the Radiology Reports that were completed up to30 days after date of the Encounter. The data comes from all [place] treatment facilities. Date/Time Radiology Report Provider Source Jul 02, 2024 01:47 PM MRI BRAIN W/O CONT : HOA VILLALBA CHEST [id number] -1945 M Exm Date: JUL 02, 2024@13:47 Req Phys: ROMINA GOYAL Loc: PB-[facility] PACT ECHO PCP (Nain'randi Velazco Loc: PB-MOBILE MRI Service: Unknown [facility] [place] [address] (Case [id number] COMPLETE) MRI BRAIN W/O CONT (MRI Detailed) CPT:18144 Reason for Study: AMS Clinical History: Reason for exam: AMS; trmors, new onset nightmares, worsening dementia Does the patient have: Pacemaker? NO Cochlear implants? NO Aneurysm Clip? NO Any metallic prosthesis? NO Neurotransmitter? NO Weigh over 350 lbs? NO (Note: Weight limit 350lbs but shoulder and abominal girth also a a limiting factor) Female patient: ? NO IUD? NO Urgent Request? NO has AV shunt with history of aneurysm Report Status: Verified Date Reported: JUL 03, 2024 Date Verified: JUL 03, 2024 Grader [employer] E-Sig: Report: MRI BRAIN W/O CONT INDICATION: 79 year old Male with altered mental status, tremors, new onset nightmares and worsening dementia COMPARISON: CT head 05/02/2022 TECHNIQUE: MRI BRAIN W/O CONT. 438 total images. FINDINGS: No restricted diffusion to suggest recent infarct. No acute intracranial hemorrhage. No extra-axial fluid collection. No midline shift. Encephalomalacia/tract at right frontal lobe. Right posterior approach ventriculostomy catheter with tip at left lateral ventricle. Encephalomalacia at left occipital lobe, anterior lateral right temporal lobe and inferior right frontal lobe. Mild chronic ischemic T2/FLAIR white matter hyperintensities. Mild generalized cerebral volume loss; appears similar to prior exam. Aneurysm clip and susceptibility artifact at right parasellar region. Normal major intracranial arterial flow voids. Mucosal thickening of maxillary sinuses. Opacification of right mastoid air cells. No abnormal signal drop-out on susceptibility-weighting to suggest hemosiderin deposition. Impression: No restricted diffusion to suggest recent infarct. Right posterior approach ventriculostomy catheter with tip at left lateral ventricle. Aneurysm clip and susceptibility artifact at right parasellar region. Encephalomalacia at left occipital lobe, anterior lateral right temporal lobe and inferior right frontal lobe. Encephalomalacia/tract at right frontal lobe. Mucosal thickening of maxillary sinuses. Opacification of right mastoid air cells. READING PHYSICIAN: Connor Garcia M.D. -[id number] 07/02/2024 22:31 PDT [facility] [employer] [phone] (For Medical Practitioner Use Only) Attention Patients / Veterans: If you have questions or concerns about these test results, please contact your ordering provider or primary care team. Primary Interpreting Staff: RADIOLOGY,OUTSIDE SERVICE, Staff Physician / RADIOLOGY,OUTSIDE SERVICE [facility] Jun 04, 2024 08:53 AM CHEST X-RAY, 2 VIE WS: HOA VILLALBA CHEST [id number] -1945 M Exm Date: JUN 04, 2024@08:53 Req Phys: ROMINA GOYAL Pat Loc: PB-[facility] PACT ECHO PCP (Req'g Lo Img Loc: PB-XRAY [place] Service: [place] [address] (Case [id number] COMPLETE) CHEST X-RAY, 2 VIEWS (RAD Detailed) CPT:50737 Reason for Study: dyspnea Clinical History: Report Status: Verified Date Reported: JUN 04, 2024 Date Verified: JUN 04, 2024 Gr[employer] E-Sig: Report: PA and lateral views of the chest reveal degenerative skeletal change, mild scoliosis, atherosclerotic calcification, mild bilateral pulmonary hyperaeration and what appears to be a ventriculoperitoneal shunt superimposed on the chest. There is no infiltrate or effusion. Heart size is normal. Impression: No acute process Primary Interpreting Staff: EWELINA ESPINO, RADIOLOGIST (Grader Patrol, no e-sig) /EWELINA Ellison [facility] Encounter Notes: All associated encounter notes This section contains the clinical notes associated to the Encounter. Date/Time Encounter Note(s) Provider Source Jun 04, 2024 08:39 AM PRIMARY CARE PROGR ESS NOTE: LOCAL TITLE: PRIMARY CARE CLINIC PROGRESS NOTE PB STANDARD TITLE: PRIMARY CARE PROGRESS NOTE DATE OF NOTE: JUN 04, 2024@08:39 ENTRY DATE: JUN 04, 2024@08:39:39 AUTHOR: ROMINA GOYAL EXP COSIGNER: URGENCY: STATUS: COMPLETED PRIMARY CARE CLINIC PROGRESS NOTE PB Has ADDENDA SUBJECTIVE: HOA VILLALBA is a 79 years old MALE. CC: Dyspnea HPI: Patient was diagnosed in October 2023 with a small pulmonary emboli he reports that his breathing has continued to worsen without any improvement he had a CTA last month that showed complete resolution of the PE and no other lung abnormality. Nurse did do a oxygen test on him during check and he was satting normally at room air at rest but with ambulation he drops significantly and did not even return to normal at 6 L. Patient has not had any cough or congestion he reports no improvement with use of albuterol. He does not have a significant smoking history. He has had cerebral aneurysms and has a shunt in his head he has having increasing tremors that have been diagnosed by neurology is essential tremors worse on the right than on the left. Although these tremors are rest so I am not so sure they are essential tremors. Also the last month he has been waking up in the night screaming with nightmares that he does not really remember. Non-VA Primary Care Provider Eneida Means NP in [facility] Neurology Dr. 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 RINSE MOUTHPIECE FREQUENTLY TO PREVENT CLOGGING. Indication: FOR COPD 2) AMLODIPINE BESYLATE 10MG TAB TAKE ONE TABLET BY MOUTH ONCE A ACTIVE DAY Indication: FOR HIGH BLOOD PRESSURE 3) APIXABAN 5MG TAB TAKE ONE TABLET BY MOUTH TWICE A DAY ACTIVE Indication: FOR ANTICOAGULATION 4) ATORVASTATIN CALCIUM 20MG TAB TAKE ONE TABLET BY MOUTH EVERY ACTIVE EVENING Indication: FOR HIGH CHOLESTEROL 5) CHOLECALCIF 50MCG (D3-2,000UNIT) TAB TAKE ONE TABLET BY ACTIVE MOUTH ONCE A DAY FOR VITAMIN D DEFICIENCY. 6) CITALOPRAM HYDROBROMIDE 20MG TAB TAKE ONE TABLET BY MOUTH ACTIVE EVERY MORNING Indication: FOR DEPRESSION 7) DONEPEZIL HCL 10MG TAB TAKE ONE TABLET BY MOUTH AT BEDTIME ACTIVE Indication: FOR ALZHEIMER DISEASE 8) METOPROLOL TARTRATE 100MG TAB TAKE ONE TABLET BY MOUTH TWICE ACTIVE A DAY FOR HEART/BLOOD PRESSURE. TAKE WITH OR IMMEDIATELY FOLLOWING FOOD. Active Non-VA Medications Status 1) Non-VA TRAMADOL HCL 50MG TAB 1 TABLET BY MOUTH FOUR TIMES A ACTIVE DAY NEEDED 9 Total Medications Allergies: GABAPENTIN Review of Systems: as per HPI and Systemic: Denies fatigue, fever, chills, or weight loss CV: Denies chest pain, palpitations Pulmonary: Denies hemoptysis, Shortness of breath, dyspnea on exertion GI: Denies constipation, bloody stools, diarrhea, indigestion, or n/v Ext: Denies any swelling Neuro: Denies slurred speech or dizziness Skin: Denies abnormal lesions; denies any new rashes PSYCH: Denies SI/HI; denies nightmares OBJECTIVE: Vital Signs Temperature: 97.9 F [36.6 C] (11/20/2023 14:32) Respiratory Rate: 18 (06/04/2024 08:36) Pulse Rate: 54 (06/04/2024 08:37) Blood Pressure: 134/79 (06/04/2024 08:37) HT: 71.0 in [180.3 cm] (11/20/2023 14:32) WT: 206.7 lb [93.76 kg] (06/04/2024 08:36) BMI: 28.9 96% (06/04/2024 08:36) Physical Exam General: NAD noted, A&Ox3, pleasant, appears stated age HEENT: NCAT, TM's clear, nares and oropharynx clear Neck: Supple with normal active ROM, without any lymphadenopathy Heart: RRR, no murmur, clicks, or rub Resp: Lungs CTA bilaterally, respirations even and unlabored Ext: No clubbing, cyanosis, edema or obvious deformity Skin: Warm, pink, and dry, no rashes Neuro: Grossly intact Psych: Affect normal, answers questions appropriately throughout visit A/P: ASSESSMENT and PLAN: 1) History of surgery for cerebral aneurysm status post shunt with new onset of nightmares and increased tremors-will obtain a MRI of the head for further evaluation 2) Tremor-combination of resting and essential but more noticeable actually resting; he just recently saw a new neurologist I am going to get the notes from Dr. Parker as he had seen Dr. Pak in the past. I am going to switch his metoprolol over to propranolol to see if we get any improvement with the tremors. 3) Dyspnea with hypoxemia associated with any activity-we will set him up for pulmonary function test as well as a sleep study with his new onset of nightmares as well will also set him up for an echocardiogram and pulmonology consult. Stable. Discussed medications with patient; med rec completed. Continue current regimen as prescribed by PCP and specialists. RTC as needed if developing any new or worsening symptoms. Please notify PACT with medication changes or for orders coordination as needed if seen by a specialist in the future. Will f/u with patient once updated labs / imaging / testing received; otherwise f/u as listed below. Follow-up: 4 to 6 weeks for med follow-up and test result review and/or as needed. Discussed with patient that [...] appointments. Medications Reconciled. See AVS given to . Time spent 30 minutes. /lynn/ Romina Goyal MD [facility] Primary Care Signed: 06/04/2024 09:56 06/04/2024 ADDENDUM STATUS: COMPLETED ECG today shows sinus bradycardia with first-degree block ventricular rate of [address] normal axis no acute ST changes Chest x-ray today shows no acute infiltrates or concerns no cardiomegaly /lynn/ Romina Goyal MD [facility] Primary Care Signed: 06/04/2024 09:57 ROMINA GOYAL [facility] Jun 04, 2024 08:13 AM PRIMARY CARE ALBA NAJERA NOTE: LOCAL TITLE: PRIMARY CARE NURSING PROGRESS NOTE (TEXT) NURSING P STANDARD TITLE: PRIMARY CARE NURSING NOTE DATE OF NOTE: JUN 04, 2024@08:13 ENTRY DATE: JUN 04, 2024@08:13:26 AUTHOR: YANCY CARO COSIGNER: URGENCY: STATUS: COMPLETED Established Patient HAO VILLALBA IS A 79 YEAR OLD MALE BEING SEEN IN CLINIC JUN 04, 2024. = = REASON FOR VISIT: [place] here for an acute visit with continue complaint of SOB. Oxygen walk test done in the clinic today. The 's oxygen was 99-100% at rest on room air. The did not walk 100 feet before his Spo2 fell to 81%. recovered to 99% within one minute at rest. Placed on 2 Lt of oxygen, Sp02 sats fell to 86% after walking only about 500 feet, let the recover to 98% increased oxygen to 3 Lt. Spo2 fell again to 86% after walking about 500Ft. This was repeated till was on 6 Lt of oxygen. The veterans Spo2 on 6Lt of oxygen fell to 86% after walking about 800Ft back to the room. The recovered to 100%. Taken off oxygen and maintained 98-99%. Pulse rate remained in the 60s during the Oxygen walk test. Are you receiving care any where other than the [place]? No HEALTH AND SURGICAL HISTORY: Does patient report using home oxygen? No CURRENT ACTIVE MEDICATIONS FOR REVIEW: Allergies/ADRs (Tool #5) FACILITY ALLERGY/ADR -------- [facility] - NO KNOWN ALLERGIES [facility] GABAPENTIN Med. Reconciliation (Tool #1) INCLUDED IN THIS LIST: Alphabetical list of active outpatient prescriptions dispensed from this [place] (local) and dispensed from another [place] or DoD facility (remote) as well as [...] the patient into personal health records (i.e. [facility]) are NOT included in this list. Non-VA medications documented outside this [place], remote inpatient orders (regardless of status) and remote clinic medications are NOT included in this list. The patient and provider must always discuss medications the patient is taking, regardless of where the medication was dispensed or obtained. OUTPT ALBUTEROL 90MCG (CFC-F) 200D ORAL INHL (Status = Active) INHALE 2 PUFFS BY ORAL INHALATION FOUR TIMES A DAY FOR COPD SHAKE WELL. RINSE MOUTHPIECE FREQUENTLY TO PREVENT CLOGGING. Rx# [id number] Last Released: 04/24/24 Qty/Days Supply: Rx Expiration Date: 04/21/25 Refills Remainin Indication: FOR COPD OUTPT AMLODIPINE BESYLATE 10MG TAB (Status = Discontinued) TAKE ONE TABLET BY MOUTH ONCE A DAY FOR HEART/BLOOD PRESSURE Rx# [id number] Last Released: 02/19/24 Qty/Days Supply: Rx Expiration Date: 04/18/24 Refills Remainin Indication: FOR HIGH BLOOD PRESSURE OUTPT AMLODIPINE BESYLATE 10MG TAB (Status = Active) TAKE ONE TABLET BY MOUTH ONCE A DAY FOR HIGH BLOOD PRESSURE Rx# [id number] Last Released: 04/29/24 Qty/Days Supply: Rx Expiration Date: 04/21/25 Refills Remainin Indication: FOR HIGH BLOOD PRESSURE OUTPT APIXABAN 5MG TAB (Status = Active) TAKE ONE TABLET BY MOUTH TWICE A DAY FOR ANTICOAGULATION Rx# [id number] Last Released: 03/14/24 Qty/Days Supply: 120/60 Rx Expiration Date: 12/04/24 Refills Remainin Indication: FOR ANTICOAGULATION OUTPT ATORVASTATIN CALCIUM 20MG TAB (Status = Discontinued) TAKE ONE TABLET BY MOUTH EVERY EVENING FOR HIGH CHOLESTEROL Rx# [id number] Last Released: 02/18/24 Qty/Days Supply: Rx Expiration Date: 04/19/24 Refills Remainin Indication: FOR HIGH CHOLESTEROL OUTPT ATORVASTATIN CALCIUM 20MG TAB (Status = Active) TAKE ONE TABLET BY MOUTH EVERY EVENING FOR HIGH CHOLESTEROL Rx# [id number] Last Released: 04/28/24 Qty/Days Supply: 90 Rx Expiration Date: 04/21/25 Refills Remainin Indication: FOR HIGH CHOLESTEROL OUTPT CHOLECALCIF 50MCG (D3-2,000UNIT) TAB (Status = Discontinued) TAKE ONE TABLET BY MOUTH ONCE A DAY FOR VITAMIN D DEFICIENCY. Rx# [id number] Last Released: 02/18/24 Qty/Days Supply: 100/90 Rx Expiration Date: 04/19/24 Refills Remainin OUTPT CHOLECALCIF 50MCG (D3-2,000UNIT) TAB (Status = Active) TAKE ONE TABLET BY MOUTH ONCE A DAY FOR VITAMIN D DEFICIENCY. Rx# [id number] Last Released: 04/28/24 Qty/Days Supply: 100 Rx Expiration Date: 04/21/25 Refills Remainin OUTPT CITALOPRAM HYDROBROMIDE 20MG TAB (Status = Discontinued) TAKE ONE TABLET BY MOUTH EVERY MORNING FOR DEPRESSION Rx# [id number] Last Released: 02/22/24 Qty/Days Supply: Rx Expiration Date: 03/13/24 Refills Remainin Indication: FOR DEPRESSION OUTPT CITALOPRAM HYDROBROMIDE 20MG TAB (Status = Active) TAKE ONE TABLET BY MOUTH EVERY MORNING FOR DEPRESSION Rx# [id number] Last Released: 04/28/24 Qty/Days Supply: Rx Expiration Date: 04/21/25 Refills Remainin Indication: FOR DEPRESSION OUTPT DONEPEZIL HCL 10MG TAB (Status = Active) TAKE ONE TABLET BY MOUTH AT BEDTIME FOR ALZHEIMER DISEASE Rx# [id number] Last Released: 04/24/24 Qty/Days Supply: 90 Rx Expiration Date: 04/21/25 Refills Remainin Indication: FOR ALZHEIMER DISEASE OUTPT METOPROLOL TARTRATE 100MG TAB (Status = Discontinued) TAKE ONE TABLET BY MOUTH TWICE A DAY FOR HEART/BLOOD PRESSURE. TAKE WITH OR IMMEDIATELY FOLLOWING FOOD. Rx# [id number] Last Released: 02/19/24 Qty/Days Supply: 180/90 Rx Expiration Date: 04/18/24 Refills Remainin OUTPT METOPROLOL TARTRATE 100MG TAB (Status = Active) TAKE ONE TABLET BY MOUTH TWICE A DAY FOR HEART/BLOOD PRESSURE. TAKE WITH OR IMMEDIATELY FOLLOWING FOOD. Rx# [id number] Last Released: 04/30/24 Qty/Days Supply: 180 Rx Expiration Date: 04/21/25 Refills Remainin Non-VA TRAMADOL HCL 50MG TAB TAKE ONE TABLET BY MOUTH FOUR TIMES A DAY NEEDED Non-VA medication recommended by VA provider. Patient wants to buy from Non-VA pharmacy. SUPPLIES PHARMACY TERMS AND POSSIBLE PATIENT ACTIONS INPT = [place] inpatient order IV = [place] intravenous medication OUTPT = [place] outpatient prescription PHARMACY POSSIBLE PATIENT TERMS EXPLANATION ACTIONS -------- ---- ACTIVE A prescription that can be If you have refills, filled at the local [place] pharmacy. you may request a refill of this prescription from your [place] pharmacy. CLINIC A medication you received during If you have questions a visit to a [place] clinic or about this medication emergency department. contact your [place] healthcare team. DISCONTINUED A prescription your provider has Contact your VA stopped. It is no longer healthcare team if you available to be sent to you or need more of this picked up at the [place] pharmacy medication. window. A prescription which is [...] the VA. Or, it may be an epen-rch-ckefqsy (OTC), herbal, dietary supplements or sample medication. [...] before this medication now. you run out. Medication list reviewed with Patient Pt and Patient/Caregiver reports taking medications as ordered. IS PATIENT TAKING ANY OVER THE COUNTER MEDICATIONS, SUCH VITAMINS OR HERBAL SUPPLEMENTS, INCLUDING ANY MEDICATIONS PRESCRIBED BY ANOTHER PHYSICIAN? No Does patient have any new allergies to report since last visit? NO VITALS: TEMPERATURE: 97.9 F [36.6 C] (11/20/2023 14:32) BP: 118/71 (2024 12:03) RESP: 17 (2024 12:02) PULSE: 63 (2024 12:03) HT: 71.0 in [180.3 cm] (11/20/2023 14:32) WT: 204.6 lb [92.80 kg] (2024 12:02) BMI: 28.6 PAIN ASSESSMENT: (Most Recent Pain Score in Vitals Package: 2 (2024 12:02) ) The patient indicated that they and [...] Now let us serve you. At the [facility], we strive to provide you with exceptional [...] Not At All SPIRITUAL ASSESSMENT: Are there spiritism practices or spiritual concerns you want the quality assurance intern, your physician, and other health care team members to immediately know about? No Patient advised to call the clinic for any concerns, questions, or symptoms. Patient and/or caregiver verbalized understanding of plan of care. Per [facility] Directive 1605.06, wristband documentation: Patient wristband was removed and destroyed by (staff name) Naman Caro RN and placed in the designated [employer] bin. /es/ Yancy Caro RN,BSN SHANNON Lopez Signed: 06/05/2024 15:28 YANCY CARO
--- OUTSIDE RECORDS SUMMARY | 2024-06-24 08:30 | XMS_ITS | Encounter Summary ---
Author Name [facility] Organization [facility] Address [address] [place] [address] Care Team Providers Care Folder Machine Adjuster Name Role Phone TIMMY GOYAL Primary Care [...] B Oct 20, 2012 RR PART B [id number] [phone] Wilber VILLALBA PATIENT MEDICARE (WNR) MEDICARE (M) RR PART B Oct 20, 2012 RR PART B [id number] Wilber VILLALBA PATIENT MEDICARE (WNR) MEDICARE (M) RR PART A Mar 22, 2011 RR PART A [id number] Wilber VILLALBA PATIENT MEDICARE (WNR) MEDICARE (M) RR PART A Mar 22, 2011 RR PART A [id number] ORLYWilber JAQULEIN PATIENT MEDICARE (WNR) MEDICARE (M) RR PART A Mar 22, 2011 RR PART A [id number] Wilber VILLALBA PATIENT MEDICARE (WNR) MEDICARE (M) RR PART A Mar 22, 2011 RR PART A [id number] [phone] Wilber VILLALBA PATIENT Selected Encounter This section includes the information on record at ID for the Encounter. Date/Time Encounter Type Encounter Description Reason Provider Source Jun 24, 2024 01:30 PM EVALUATION OF WHEEZING PULMONARY FUNCTION ICD-10-CM J98.9 Respiratory disorder, unspecified HERMILO GENAO I[facility] Encounter Template Text not used by ID Assessments - Encounter Diagnoses This section includes the primary and secondary diagnoses documented for the Encounter. Date/Time Primary/Secondary Diagnosis Diagnosis Name Provider Source Jun 24, 2024 02:26 PM PRIMARY Respiratory disorder, unspecified HERMILO GENAO [facility] Plan of Treatment: Future Appointments (+ 6 months) and Future Tests (+/- 45 days) The Plan of Treatment section includes future care activities for the patient from all [place] treatmentfacilities. This section includes future appointments and future orders which are active, pending or scheduled. Future Appointments This section includes appointments that were scheduled to occur 6 months from the date of the Encounter, up to a maximum of 20 appointments. The data comes from all ID treatment facilities. Appointment Date/Time Appointment Type Appointme nt Facility Name Jun 29, 2024 01:00 PM AMBULATORY - MEDICINE [place] [facility] Jul 02, 2024 02:00 PM AMBULATORY - NONE [place] [facility] Jul 06, 2024 11:00 AM AMBULATORY - MEDICINE [place] [facility] Jul 09, 2024 08:30 AM AM[facility]ORY - MEDICINE [facility] Jul 13, 2024 01:30 PM AMBULATORY - MEDICINE [place] [facility] Sep 28, 2024 03:30 PM AMBULATORY - MEDICINE [facility] Oct 07, 2024 09:00 AM AMBULATORY - MEDICINE [place] [facility] Lab Results: +/- 30 days of the encounter This section includes the Chemistry and Hematology Lab Results on record with ID for the patient. Radiology Reports and Pathology Reports are provided separately, in subsequent sections. Lab Results This section contains the Chemistry/Hematology Results that were resulted 30 days before or 30 daysafter the date of the Encounter. Date/Time Source Result Type Result - Unit Interpretation Reference Range Specimen Type Comment Jul 02, 2024 12:21 PM [facility] [place] COMPREHENSIVE METABOLIC PANEL PLASMA Specimen Type: PLASMA No comment entered. Ordering Provider: TIMMY GOYAL Report Released Date/Time: Jun 04, 2024 05:00 PM Reporting Lab: [place] [facility] [address] [place] [address] Performing Lab: [place] [facility] [address] [place] [address] CREATININE 1.65 mg/dL H 0.7-1.3 UREA NITROGEN [...] 2020) 42 Jun 24, 2024 02:05 PM [facility] ANCILLARY GLUCOSE-PB BLOOD Specimen Type: BLO OD Comment: Test performed by: Julius Amezquita [id number] Meter #: [id number] Ordering Provider: TIMMY GOYAL Report Released Date/Time: Jun 24, 2024 02:19 PM Reporting Lab: [place] [facility] [address] [place] [address] Performing Lab: [place] [facility] [address] [place] [address] ANCILLARY GLUCOSE-PB 92 mg/dL 72-99 Radiology Reports: +/- 30 days of the [...] the Encounter. The data comes from all [facility] treatment facilities. Date/Time Radiology Report Provider Source Jul 02, 2024 01:47 PM MRI BRAIN W/O CONT : HOA VILLALBA CHEST [id number] -[id number] M Exm Date: JUL 02, 2024@13:47 Req Phys: TIMMY GOYAL Ruth Loc: PB-[facility] PACT ECHO PCP (Req'g Lo Img Loc: PB-MOBILE MRI Service: Unknown [facility]ON [facility] [place] [address] (Case [id number] COMPLETE) MRI BRAIN W/O CONT (MRI Detailed) CPT:20309 Reason for Study: AMS Clinical History: Reason [...] 03, 2024 Date Verified: JUL 03, 2024 Clerical Administrative Assistant E-Sig: Report: MRI BRAIN W/O CONT INDICATION: [...] air cells. READING PHYSICIAN: Connor Garcia M.D. -[phone] 07/02/2024 22:31 PDT [facility] National Teleradiology Program [phone] (For Medical Practitioner Use Only) Attention Patients / Veterans: If you have questions or concerns about these test results, please contact your ordering provider or primary care team. Primary Interpreting Staff: RADIOLOGY,OUTSIDE SERVICE, Staff Physician / RADIOLOGY,OUTSIDE SERVICE [facility] Jun 04, 2024 08:53 AM CHEST X-RAY, 2 VIE WS: HOA VILLALBA CHEST [id number] -[id number] M Exm Date: JUN 04, 2024@08:53 Req Phys: TIMMY GOYAL Loc: PB-[facility] PACT ECHO PCP (Req'g Lo Img Loc: PB-XRAY [place] Service: [place] [address] (Case [id number] COMPLETE) CHEST X-RAY, 2 VIEWS (RAD Detailed) CPT:24529 Reason for Study: dyspnea Clinical History: Report Status: Verified Date Reported: JUN 04, 2024 Date Verified: JUN 04, 2024 Clerical Administrative Assistant E-Sig: Report: PA and lateral views of the chest reveal degenerative skeletal change, mild scoliosis, atherosclerotic calcification, mild bilateral pulmonary hyperaeration and what appears to be a ventriculoperitoneal shunt superimposed on the chest. There is no infiltrate or effusion. Heart size is normal. Impression: No acute process Primary Interpreting Staff: EWELINA ESPINO RADIOLOGIST (Clerical Administrative Assistant, no e-sig) /EWELINA Ellison [facility] Encounter Notes: All associated encounter notes This section contains the clinical notes associated to the Encounter. Date/Time Encounter Note(s) Provider Source Oct 09, 2024 02:48 PM PULMONARY PROCEDUR E CONSULT: LOCAL TITLE: CP PFT PB STANDARD TITLE: PULMONARY PROCEDURE CONSULT DATE OF NOTE: OCT 09, 2024@14:48 ENTRY DATE: OCT 09, 2024@14:49:08 AUTHOR: TIMMY HIGH COSIGNER: URGENCY: STATUS: COMPLETED PROCEDURE SUMMARY CODE: DATE/TIME PERFORMED: Impression: Spirometry is normal. No significant response to bronchodilator prior. This should not preclude the use of bronchodilators if clinically indicated. Diffusion capacity is mildly reduced. Lung volume measurements are normal. Clinical correlation is advised. Ata Nieves MD, [facility] Pulmonary and Critical Care Medicine /lynn/ ATA RIZO PHYSICIAN Signed: 10/09/2024 14:49 ATA PRABHAKAR [facility] Jun 24, 2024 02:18 PM PULMONARY DIAGNOST IC STUDY NOTE: LOCAL TITLE: PULMONARY FUNCTION TEST NOTE PB STANDARD TITLE: PULMONARY DIAGNOSTIC STUDY NOTE DATE OF NOTE: JUN 24, 2024@14:18 ENTRY DATE: JUN 24, 2024@14:19:04 AUTHOR: HERMILO GENAO EXP COSIGNER: URGENCY: STATUS: COMPLETED (Note: Only items marked with x are applicable) [] Spirometry completed [X] Pre/Post Bronchodilator Challenge completed [] Gas-dilution determination of Functional [place] Capacity completed [X] Volume of Thoracic Gas determination by whole-body plethysmography completed [X] DLCO completed [] Tolerated procedure well. Effort: GOOD [] Unable to tolerate Comments:Pt lost consciousness while performing post spirometry tesing. Rapid respose called. Pts vital signs all normal. Outpatient Education Patient Educated/Demonstration regarding: Instruction handout provided /lynn/ HERMILO GENAO REGISTERED RESPIRATORY THERAPIST Signed: 06/24/2024 14:26 HERMILO GENAO [facility] Jun 24, 2024 02:12 PM PULMONARY PROCEDUR E CONSULT: LOCAL TITLE: CP PFT PB STANDARD TITLE: PULMONARY PROCEDURE CONSULT DATE OF NOTE: JUN 24, 2024@14:12:29 ENTRY DATE: JUN 24, 2024@14:12:29 AUTHOR: CLINICAL,DEVICE PRO EXP COSIGNER: URGENCY: STATUS: COMPLETED PROCEDURE SUMMARY CODE: Machine Resulted DATE/TIME PERFORMED: JUN 24, 2024@13:35:1 DOCUMENT IN VISTA IMAGING SEE FULL REPORT IN VISTA IMAGING SIGNATURE NOT REQUIRED SEE SIGNATURE IN VISTA IMAGING (VYAIRE PFT PB) AUTO-INSTRUMENT DIAGNOSIS Procedure: PFT PFT Administrative Closure: 06/24/2024 by: CLINICAL,DEVICE PROXY SERVICE CLINICAL,DEVICE PROXY SERVICE [facility]
--- OUTSIDE RECORDS SUMMARY | 2024-07-09 03:30 | XMS_ITS | Encounter Summary ---
Author Name [facility] [place] [facility] [place] [facility] [place] Address [address] [place] [address] Care Team Providers Care Hand Tube Bender Name Role Phone JYOTSNA ROMINA Primary Care [...] B Oct 20, 2012 RR PART B [id number] Wilber VILLALBA PATIENT MEDICARE (WNR) MEDICARE (M) RR PART B Oct 20, 2012 RR PART B [id number] Wilber VILLALBA PATIENT MEDICARE (WNR) MEDICARE (M) RR PART A Mar 22, 2011 RR PART A [id number] Wilber VILLALBA PATIENT MEDICARE (WNR) MEDICARE (M) RR PART A Mar 22, 2011 RR PART A [id number] Wilber VILLALBA PATIENT MEDICARE (WNR) MEDICARE (M) RR PART A Mar 22, 2011 RR PART A [id number] Wilber VILLALBA PATIENT MEDICARE (WNR) MEDICARE (M) RR PART A Mar 22, 2011 RR PART A [id number] Wilber VILLALBA PATIENT Selected Encounter This section includes the information on record at [place] for the Encounter. Date/Time Encounter Type Encounter Description Reason Provider Source Jul 09, 2024 08:30 AM OFFICE O/P EST MOD 30 MIN PRIMARY CARE/MEDICINE ICD-10-CM I67.1 Cerebral aneurysm, nonruptured JYOTSNA,TAMMY René Encounter Template Text not used by [place] Assessments - Encounter Diagnoses This section includes the primary and secondary diagnoses documented for the Encounter. Date/Time Primary/Secondary Diagnosis Diagnosis Name Provider Source Jul 09, 2024 08:54 AM PRIMARY Cerebral aneurysm, nonruptured JYOTSNAROMINA OCASIO [facility] Jul 09, 2024 08:54 AM SECONDARY Chronic obstructive pulmonary disease, unspecified JYOTSNA,ROMINA LYNN PEGGY [facility] Jul 09, 2024 08:54 AM SECONDARY Essential tremor JYOTSNA,ROMINA PARRA LANGTRYJosef [place] [facility] Jul 09, 2024 08:54 AM SECONDARY Other pulmonary embolism without acute cor pulmonale JYOTSNA,ROMINA [facility] Plan of Treatment: Future Appointments (+ 6 months) and Future Tests (+/- 45 days) The Plan of Treatment section includes future care activities for the patient from all [place] treatmentfacilities. This section includes future appointments and future orders which are active, pending or scheduled. Future Appointments This section includes appointments that were scheduled to occur 6 months from the date of the Encounter, up to a maximum of 20 appointments. The data comes from all [place] treatment facilities. Appointment Date/Time Appointment Type Appointme nt Facility Name Jul 13, 2024 01:30 PM AMBULATORY - MEDICINE [facility] [facility] Sep 28, 2024 03:30 PM AMBULATORY - MEDICINE [facility] Oct 07, 2024 09:00 AM AMBULATORY - MEDICINE [facility] Lab Results: +/- 30 days of the encounter This section includes the Chemistry and Hematology Lab Results on record with [place] for the patient. Radiology Reports and Pathology Reports are provided separately, in subsequent sections. Lab Results This section contains the Chemistry/Hematology Results that were resulted 30 days before or 30 daysafter the date of the Encounter. Date/Time Source Result Type Result - Unit Interpretation Reference Range Specimen Type Comment Jul 02, 2024 12:21 PM [facility] COMPREHENSIVE METABOLIC PANEL PLASMA Specimen Type: PLASMA No comment entered. Ordering Provider: ROMINA GOYAL Report Released Date/Time: Jun 04, 2024 05:00 PM Reporting Lab: [place] [facility] [address] [place] [facility] [address] Performing Lab: [place] [facility] [address] [facility] [address] CREATININE 1.65 mg/dL H 0.7-1.3 UREA NITROGEN [...] 2020) 42 Jun 24, 2024 02:05 PM [facility] ANCILLARY GLUCOSE-PB BLOOD Specimen Type: BLO OD Comment: Test performed by: Julius Amezquita [id number] Meter #: [id number] Ordering Provider: ROMINA GOYAL Report Released Date/Time: Jun 24, 2024 02:19 PM Reporting Lab: [place] [facility] [address] [place] [facility] [address] Performing Lab: [place] [facility] [address] [place] [facility] [address] ANCILLARY GLUCOSE-PB 92 mg/dL 72-99 Vital Signs: All taken on the encounter date This section contains inpatient and outpatient Vital Signs collected on the date of the Encounter. Date/Time Temperature Pulse Blood Pressure Respiratory Rate SP02 Pain Height Weight Body Mass Index Source Jul 09, 2024 08:35 AM 81 127/74 18 94 2 211.4 30 [facility] Social History: Smoking Status (Most current) and Tobacco Use (All prior to encounter date) This section includes the most current, and the historical, smoking and tobacco- related health factors from the [place] facility where the Encounter took place. Current Smoking Status This section includes the most current smoking, or tobacco-related health factor, from the [place] facility where the Encounter took place. Date/Time Current Smoking Status Comment Facil ity 2024 11:30 AM VA-TOBACCO USE FOR ZANE OTHER TYPE Quit 2 years ago [facility] [place] [facility] Tobacco Use History This section includes a history of the smoking, or tobacco-related health factors, that were collected on or before the date of the Encounter. The data comes from the [place] facility where the Encounter took place. Date/Time Smoking Status/Tobacco Use Comment F acility 2024 11:30 AM VA-TOBACCO USE FOR ZANE OTHER TYPE Quit 2 years ago [facility] [place] [facility] Apr 17, 2023 02:00 PM VA-TOBACCO DOESNT USE WI 30 MIN WAKEUP [facility] Apr 17, 2023 02:00 PM VA-TOBACCO USE > 1 5 LESS THAN 30 YEARS [facility] Apr 17, 2023 02:00 PM VA-TOBACCO USE ADVICE [facility] Apr 17, 2023 02:00 PM VA-TOBACCO USE LUMBER TRIPPER NO [facility] Apr 17, 2023 02:00 PM VA-TOBACCO USE MED NO [facility] Apr 17, 2023 02:00 PM VA-TOBACCO USER EVERY DAY [facility] Apr 19, 2022 01:00 PM VA-TOBACCO USE 30 YEARS OR MORE [facility] Apr 19, 2022 01:00 PM VA-TOBACCO USE ADVICE [facility] Apr 19, 2022 01:00 PM VA-TOBACCO USE LUMBER TRIPPER NO [facility] Apr 19, 2022 01:00 PM VA-TOBACCO USE MED NO [facility] Apr 19, 2022 01:00 PM VA-TOBACCO USE WI 30 MIN OF WAKEUP [facility] Apr 19, 2022 01:00 PM VA-TOBACCO USER EVERY DAY [facility] Apr 26, 2021 02:30 PM VA-TOBACCO DOESNT USE WI 30 MIN WAKEUP [facility] Apr 26, 2021 02:30 PM VA-TOBACCO USE 5 T O 15 YEARS [facility] Apr 26, 2021 02:30 PM VA-TOBACCO USE ADVICE [facility] Apr 26, 2021 02:30 PM VA-TOBACCO USE LUMBER TRIPPER NO [facility] Apr 26, 2021 02:30 PM VA-TOBACCO USE MED NO [facility] Apr 26, 2021 02:30 PM VA-TOBACCO USER SOME DAYS [facility] 2020 09:00 AM VA-TOBACCO USE 30 YEARS OR MORE [facility] 2020 09:00 AM VA-TOBACCO USE ADVICE [facility] 2020 09:00 AM VA-TOBACCO USE LUMBER TRIPPER NO [facility] 2020 09:00 AM VA-TOBACCO USE MED NO [facility] 2020 09:00 AM VA-TOBACCO USE WI 30 MIN OF WAKEUP [facility] 2020 09:00 AM VA-TOBACCO USER EVERY DAY [facility] Jun 02, 2018 01:55 PM VA-TOBACCO USE 30 YEARS OR MORE [facility] Jun 02, 2018 01:55 PM VA-TOBACCO USE ADVICE [facility] Jun 02, 2018 01:55 PM VA-TOBACCO USE LUMBER TRIPPER NO [facility] Jun 02, 2018 01:55 PM VA-TOBACCO USE MED NO [facility] Jun 02, 2018 01:55 PM VA-TOBACCO USE WI 30 MIN OF WAKEUP [facility] Jun 02, 2018 01:55 PM VA-TOBACCO USER EVERY DAY [facility] May 27, 2017 12:10 PM CURRENT TOBACCO USER [facility] May 27, 2017 12:10 PM CURRENT TOBACCO US ER (NOT READY TO QUIT) [facility] May 27, 2017 12:10 PM SMOKELESS TOBACCO AMOUNT/LENGTH V15 1 can Q day , 51 yrs [facility] May 27, 2017 12:10 PM TOBACCO CESSATION REFERRAL DECLINED [facility] May 27, 2017 12:10 PM TOBACCO MEDS OFFER ED BUT DECLINED [facility] May 27, 2017 12:10 PM TOBACCO USER OFFERED MEDS [facility] Aug 10, 2016 08:46 AM CURRENT TOBACCO USER [facility] Aug 10, 2016 08:46 AM CURRENT TOBACCO US ER (NOT READY TO QUIT) [facility] Aug 10, 2016 08:46 AM TOBACCO CESSATION REFERRAL DECLINED [facility] Aug 10, 2016 08:46 AM TOBACCO CESSATION REFERRAL OFFERED [facility] Aug 10, 2016 08:46 AM TOBACCO MEDS OFFER ED BUT DECLINED [facility] Aug 10, 2016 08:46 AM TOBACCO USER OFFERED MEDS [facility] September 02, 2015 09:12 AM CURRENT TOBACCO USER [facility] September 02, 2015 09:12 AM TOBACCO OFFERED PT MEDS (PROVIDER) [facility] September 02, 2015 09:[address] OP SMOKING CLINIC [facility] September 02, 2015 09:12 AM TOBACCO OFFERRED S TOP SMOKING CLINIC [facility] Radiology Reports: +/- 30 days of [...] the Encounter. The data comes from all [place] treatment facilities. Date/Time Radiology Report Provider Source Jul 02, 2024 01:47 PM MRI BRAIN W/O CONT : HOA VILLALBA CHEST [id number] M Exm Date: JUL 02, 2024@13:47 Req Phys: ROMINA GOYAL Loc: PB-[facility] PACT ECHO PCP (Req'g Lo Img Loc: PB-MOBILE MRI Service: Unknown BARRON MELVIZUHAIR [facility] PEGGY MIMS [id number] (Case [id number] COMPLETE) MRI BRAIN W/O CONT (MRI Detailed) CPT:94238 Reason for Study: AMS Clinical History: Reason [...] 03, 2024 Date Verified: JUL 03, 2024 Special Delivery Carrier E-Sig: Report: MRI BRAIN W/O CONT INDICATION: [...] air cells. READING PHYSICIAN: Connor Garcia M.D. -[id number] 07/02/2024 22:31 PDT [facility] National Teleradiology Program [phone] (For Medical Practitioner Use Only) Attention Patients / Veterans: If you have questions or concerns about these test results, please contact your ordering provider or primary care team. Primary Interpreting Staff: RADIOLOGY,OUTSIDE SERVICE, Staff Physician / RADIOLOGY,OUTSIDE SERVICE [facility] Encounter Notes: All associated encounter notes This section contains the clinical notes associated to the Encounter. Date/Time Encounter Note(s) Provider Source Jul 09, 2024 08:36 AM PRIMARY CARE PROGR ESS NOTE: LOCAL TITLE: PRIMARY CARE CLINIC PROGRESS NOTE PB STANDARD TITLE: PRIMARY CARE PROGRESS NOTE DATE OF NOTE: JUL 09, 2024@08:36 ENTRY DATE: JUL 09, 2024@08:36:56 AUTHOR: ROMINA GOYAL EXP COSIGNER: URGENCY: STATUS: COMPLETED PRIMARY CARE CLINIC PROGRESS NOTE PB Has ADDENDA CC: Medication follow-up HPI: Patient reports sleeping well on the Zyprexa has decreased his nightmares significantly he still has an occasional 1 but is happy with where he is at on the medication at this time. His tremors has significantly decreased as well with the switch of metoprolol over to propranolol. Non-VA Primary Care Provider Eneida Means NP in [facility] Neurology Dr. 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 elbow Right inguinal hernia cervical fusion Rt. knee arthroscopy Problem List: 1) History of surgery for cerebral aneurysm 2) Poor short-term memory 3) Headache 4) Degenerative joint disease of hand 5) HTN - Hypertension 6) Hand pain 7) Lumbar radiculopathy 8) Actinic keratosis 9) Supraventricular tachycardia 10) Benign Prostatic Hypertrophy with Outflow Obstruction ([facility] [phone]) 11) Essential tremor 12) Depression 13) Exposure to potentially hazardous substance 14) Single acquired kidney cyst 15) Acute pulmonary embolism 16) Chronic diarrhea 17) Dementia Active Outpatient Medications (including Supplies): Active Outpatient [...] BEDTIME ACTIVE Indication: FOR ALZHEIMER DISEASE 8) OLANZAPINE 5MG TAB TAKE ONE TABLET BY MOUTH AT BEDTIME ACTIVE Indication: FOR NIGHTMARES 9) PROPRANOLOL HCL 80MG TAB TAKE ONE-HALF TABLET BY MOUTH THREE ACTIVE TIMES A DAY Indication: FOR ESSENTIAL TREMOR Active Non-VA Medications Status 1) Non-VA TRAMADOL HCL 50MG TAB 1 TABLET BY MOUTH FOUR TIMES A ACTIVE DAY NEEDED 10 Total Medications OBJECTIVE: Vital Signs Temperature: 97.9 F [36.6 C] (11/20/2023 14:32) Respiratory Rate: 18 (07/09/2024 08:35) Pulse Rate: 81 (07/09/2024 08:35) Blood Pressure: 127/74 (07/09/2024 08:35) HT: 71.0 in [180.3 cm] (11/20/2023 14:32) WT: 211.4 lb [95.89 kg] (07/09/2024 08:35) BMI: 29.5 94% (07/09/2024 08:35) Physical Exam General: NAD noted, A&Ox3, pleasant, appears stated age HEENT: NCAT, TM's clear, nares and oropharynx clear Neck: Supple with normal active ROM, without any lymphadenopathy Heart: RRR, no murmur, clicks, or rub Resp: Lungs CTA bilaterally, respirations even and unlabored Abdomen: Soft, non-distended, non-tender Ext: No clubbing, cyanosis, edema or obvious deformity Neuro: Grossly intact Psych: Affect normal, answers questions appropriately throughout visit Assessment/Plan: 1) History of surgery for cerebral aneurysm status post shunt with new onset of nightmares and increased tremors-MRI showed no significant acute changes 2) Tremor-patient did follow-up with Dr. Parker he is doing much better on the propranolol will continue with current medications 3) Dyspnea with hypoxemia associated with any activity-PFT showed mild obstruction will use the albuterol as needed encouraged him to use it before working outside. He has an appointment with cardiology on Saturday and hopefully will get an echocardiogram. He is on apixaban due to a PE from back in April informing we need to stay on that at least 3-6 months. But will await his cardiology consult and evaluation. Follow-up: as scheduled and/or as needed. Discussed [...] spent 30 minutes. /lynn/ Romina Goyal MD [facility] Primary Care Signed: 07/09/2024 08:55 10/09/2024 ADDENDUM STATUS: COMPLETED Echocardiogram performed 07/16/2024 essentially unremarkable other than some mild mitral regurgitation EF 55 to 60% grade 1 diastolic dysfunction /lynn/ Romina Goyal MD [facility] Primary Care Signed: 10/09/2024 09:43 [facility] Jul 09, 2024 08:23 AM PRIMARY CARE NURSI REINALDO NOTE: LOCAL TITLE: PRIMARY CARE NURSING PROGRESS NOTE (TEXT) NURSING P STANDARD TITLE: PRIMARY CARE NURSING NOTE DATE OF NOTE: JUL 09, 2024@08:23 ENTRY DATE: JUL 09, 2024@08:23:15 AUTHOR: YANCY CARO COSIGNER: URGENCY: STATUS: COMPLETED Established Patient HAO VILLALBA IS A 79 YEAR OLD MALE BEING SEEN IN CLINIC JUL 09, 2024. = = REASON FOR VISIT: The is here for a Medication follow and Test results. Are you receiving care any where other than the [facility]? No HEALTH AND SURGICAL HISTORY: Does patient report using home oxygen? Yes; Current Oxygen Flow Rate: 2Lt CURRENT ACTIVE MEDICATIONS FOR REVIEW: Allergies/ADRs (Tool #5) FACILITY ALLERGY/ADR -------- [facility] - NO KNOWN ALLERGIES [facility] Med. Reconciliation (Tool #1) INCLUDED IN THIS LIST: Alphabetical list of active outpatient prescriptions dispensed from this [place] (local) and dispensed from another VA or [...] the patient into personal health records (i.e. [employer]) are NOT included in this list. Non-VA medications documented outside this [place], remote inpatient orders (regardless of status) and [...] RINSE MOUTHPIECE FREQUENTLY TO PREVENT CLOGGING. Rx# [id number] Last Released: 04/24/24 Qty/Days Supply: Rx Expiration Date: 04/21/25 Refills Remainin Indication: FOR COPD OUTPT AMLODIPINE BESYLATE 10MG TAB (Status = Discontinued) TAKE ONE TABLET BY MOUTH ONCE A DAY FOR HEART/BLOOD PRESSURE Rx# [id number] Last Released: 02/19/24 Qty/Days Supply: Rx Expiration Date: 04/18/24 Refills Remainin Indication: FOR HIGH BLOOD PRESSURE OUTPT AMLODIPINE BESYLATE 10MG TAB (Status = Active) TAKE ONE TABLET BY MOUTH ONCE A DAY FOR HIGH BLOOD PRESSURE Rx# [id number] Last Released: 04/29/24 Qty/Days Supply: Rx Expiration Date: 04/21/25 Refills Remainin Indication: FOR HIGH BLOOD PRESSURE OUTPT APIXABAN 5MG TAB (Status = Active) TAKE ONE TABLET BY MOUTH TWICE A DAY FOR ANTICOAGULATION Rx# [id number] Last Released: 03/14/24 Qty/Days Supply: 120/60 Rx Expiration Date: 12/04/24 Refills Remainin Indication: FOR ANTICOAGULATION OUTPT ATORVASTATIN CALCIUM 20MG TAB (Status = Discontinued) TAKE ONE TABLET BY MOUTH EVERY EVENING FOR HIGH CHOLESTEROL Rx# [id number] Last Released: 02/18/24 Qty/Days Supply: 90 Rx Expiration Date: 04/19/24 Refills Remainin Indication: FOR HIGH CHOLESTEROL OUTPT ATORVASTATIN CALCIUM 20MG TAB (Status = Active) TAKE ONE TABLET BY MOUTH EVERY EVENING FOR HIGH CHOLESTEROL Rx# [id number] Last Released: 04/28/24 Qty/Days Supply: Rx Expiration Date: 04/21/25 Refills Remainin Indication: FOR HIGH CHOLESTEROL OUTPT CHOLECALCIF 50MCG (D3-2,000UNIT) TAB (Status = Discontinued) TAKE ONE TABLET BY MOUTH ONCE A DAY FOR VITAMIN D DEFICIENCY. Rx# [id number] Last Released: 02/18/24 Qty/Days Supply: 100/90 Rx Expiration Date: 04/19/24 Refills Remainin OUTPT CHOLECALCIF 50MCG (D3-2,000UNIT) TAB (Status = Active) TAKE ONE TABLET BY MOUTH ONCE A DAY FOR VITAMIN D DEFICIENCY. Rx# [id number] Last Released: 04/28/24 Qty/Days Supply: 100/90 Rx Expiration Date: 04/21/25 Refills Remainin OUTPT CITALOPRAM HYDROBROMIDE 20MG TAB (Status = Active) TAKE ONE TABLET BY MOUTH EVERY MORNING FOR DEPRESSION Rx# [id number] Last Released: 04/28/24 Qty/Days Supply: 90 Rx Expiration Date: 04/21/25 Refills Remainin Indication: FOR DEPRESSION OUTPT DONEPEZIL HCL 10MG TAB (Status = Active) TAKE ONE TABLET BY MOUTH AT BEDTIME FOR ALZHEIMER DISEASE Rx# [id number] Last Released: 04/24/24 Qty/Days Supply: 90 Rx Expiration Date: 04/21/25 Refills Remainin Indication: FOR ALZHEIMER DISEASE OUTPT METOPROLOL TARTRATE 100MG TAB (Status = Discontinued) TAKE ONE TABLET BY MOUTH TWICE A DAY FOR HEART/BLOOD PRESSURE. TAKE WITH OR IMMEDIATELY FOLLOWING FOOD. Rx# [id number] Last Released: 02/19/24 Qty/Days Supply: 180/90 Rx Expiration Date: 04/18/24 Refills Remainin OUTPT METOPROLOL TARTRATE 100MG TAB (Status = Discontinued) TAKE ONE TABLET BY MOUTH TWICE A DAY FOR HEART/BLOOD PRESSURE. TAKE WITH OR IMMEDIATELY FOLLOWING FOOD. Rx# [id number] Last Released: 04/30/24 Qty/Days Supply: 180/90 Rx Expiration Date: 04/21/25 Refills Remainin OUTPT OLANZAPINE 5MG TAB (Status = Active) TAKE ONE TABLET BY MOUTH AT BEDTIME FOR NIGHTMARES Rx# [id number] Last Released: 06/10/24 Qty/Days Supply: 90/90 Rx Expiration Date: 06/05/25 Refills Remainin Indication: FOR NIGHTMARES OUTPT PROPRANOLOL HCL 80MG TAB (Status = Active) TAKE ONE-HALF TABLET BY MOUTH THREE TIMES A DAY FOR ESSENTIAL TREMOR Rx# [id number] Last Released: 06/10/24 Qty/Days Supply: 135/90 Rx Expiration Date: 06/05/25 Refills Remainin Indication: FOR ESSENTIAL TREMOR Non-VA TRAMADOL HCL 50MG TAB TAKE ONE TABLET BY MOUTH FOUR TIMES A DAY NEEDED Non-VA medication recommended by [place] provider. Patient wants to buy from Non-[place] pharmacy. SUPPLIES PHARMACY TERMS AND POSSIBLE PATIENT ACTIONS INPT = [place] inpatient order IV = [place] intravenous medication OUTPT = [place] outpatient prescription PHARMACY POSSIBLE PATIENT TERMS EXPLANATION ACTIONS -------- ---- ACTIVE A prescription that can be If you have refills, filled at the local [place] pharmacy. you may request a refill of this prescription from your [place] pharmacy. CLINIC A medication you received during If you have questions a visit to a [place] clinic or about this medication emergency department. contact your [place] healthcare team. DISCONTINUED A prescription your provider has Contact your [place] stopped. It is no longer healthcare team if you available to be sent to you or need more of this picked up at the [place] pharmacy medication. window. A prescription which is [...] the [facility]. Or, it may be an ifrt-fie-enrasfk (OTC), herbal, dietary supplements or sample medication. [...] run out. Medication list reviewed with Patient And caregiver Patient/Caregiver reports taking medications as ordered. IS PATIENT TAKING ANY OVER THE COUNTER MEDICATIONS, SUCH VITAMINS OR HERBAL SUPPLEMENTS, INCLUDING ANY MEDICATIONS PRESCRIBED BY ANOTHER PHYSICIAN? No Does patient have any new allergies to report since last visit? NO VITALS: TEMPERATURE: 97.9 F [36.6 C] (11/20/2023 14:32) BP: 134/79 (06/04/2024 08:37) RESP: 18 (06/04/2024 08:36) PULSE: 54 (06/04/2024 08:37) HT: 71.0 in [180.3 cm] (11/20/2023 14:32) WT: 206.7 lb [93.76 kg] (06/04/2024 08:36) BMI: 28.9 PAIN ASSESSMENT: (Most Recent Pain Score in Vitals Package: 3 (06/04/2024 08:36) ) The patient indicated that they and [...] chickenpox, or zoster in last 30 days. Patient reports no pain at this visit. Pain Score = 0. STRESS: Thank you for your service. Now let us serve you. At the [facility], we strive to provide you with exceptional [...] Not At All SPIRITUAL ASSESSMENT: Are there orthodoxy practices or spiritual concerns you want the rn wellness, your physician, and other health care team members to immediately know about? No Patient advised to call the clinic for any concerns, questions, or symptoms. Patient and/or caregiver verbalized understanding of plan of care. Depression Screening - V: Perform PHQ-2 A PHQ-2 screen was performed. The score was 0 which is a negative screen for depression. Over the past two weeks, how often have you been bothered by the following problems? 1. Little interest or pleasure in doing things Not at all 2. Feeling down, depressed, or hopeless Not at all Homelessness/Food Insecurity Screen - DI,L,N,P,PH,PS,S,U: In the past 2 months, have you been living in stable housing that you own, rent, or stay in as part of a household? Yes - Living in stable housing. Are you worried or concerned that in the next 2 months you may NOT have stable housing that you own, rent, or stay in as part of a household? No - Not worried about housing near future The reports the following: Within the past 12 months, you worried whether your food would run out before you got money to buy more. Never true Within the past 12 months, the food you bought just didn't last and you didn't have money to get more. Never true Patient/Nurse Interview: * * Patient stated that adequate information was received regarding the condition and/or treatment. Comment: If you have any questions please call the clinic Per [facility] Directive 1605.06, wristband documentation: Patient wristband was removed and destroyed by (staff name) Naman Caro RN and placed in the designated [employer] bin. /es/ Yancy Caro RN,BSN [place] Signed: 07/09/2024 08:43 YANCY CARO [facility]
--- OUTSIDE RECORDS SUMMARY | 2024-09-28 10:30 | XMS_ITS | Encounter Summary ---
Author Name [facility] [place] Organization [facility] [place] Address [address] [place] [address] Care Team Providers Care Flooring Professional Name Role Phone JYOTSNA ROMINA Primary Care [...] B Oct 20, 2012 RR PART B [id number] [phone] Wilber VILLALBA PATIENT MEDICARE (WNR) MEDICARE (M) RR PART B Oct 20, 2012 RR PART B [id number] Wilber VILLALBA PATIENT MEDICARE (WNR) MEDICARE (M) RR PART A Mar 22, 2011 RR PART A [id number] [phone] Wilber VILLALBA PATIENT MEDICARE (WNR) MEDICARE (M) RR PART A Mar 22, 2011 RR PART A [id number] [phone] Wilber VILLALBA PATIENT MEDICARE (WNR) MEDICARE (M) RR PART A Mar 22, 2011 RR PART A [id number] Wilber VILLALBA PATIENT MEDICARE (WNR) MEDICARE (M) RR PART A Mar 22, 2011 RR PART A [id number] Wilber VILLALBA PATIENT Selected Encounter This section includes the information on record at [place] for the Encounter. Date/Time Encounter Type Encounter Description Reason Provider Source Sep 28, 2024 03:30 PM OFFICE O/P EST MOD 30 MIN PRIMARY CARE/MEDICINE ICD-10-CM I10 Essential (primary) hypertension JYOTSNA,TAMM Y IHE Encounter Template Text not used by [place] Assessments - Encounter Diagnoses This section includes the primary and secondary diagnoses documented for the Encounter. Date/Time Primary/Secondary Diagnosis Diagnosis Name Provider Source Sep 28, 2024 04:54 PM PRIMARY Essential (primary) hypertension [facility] Sep 28, 2024 04:54 PM SECONDARY Chronic fatigue, unspecified [facility] Sep 28, 2024 04:54 PM SECONDARY Essential tremor [facility] Sep 28, 2024 04:54 PM SECONDARY Radiculopathy, lumbar region [facility] Plan of Treatment: Future Appointments (+ 6 [...] Date/Time Appointment Type Appointme nt Facility Name Oct 07, 2024 09:00 AM AMBULATORY - MEDICINE [facility] Active, Pending, and Scheduled Orders This section includes a listing of several types of active, pending, and scheduled orders, including clinic medications orders, diagnostic test orders, procedure orders and consult orders; where the start date of the order is 45 days before the date of the Encounter or 45 days after the date of theEncounter. The data comes from all [place] treatment [facility]. Test Date/Time Test Type Test Details Facility Name Sep 28, 2024 03:35 PM Laboratory - Chemi stry Order POC UA (STL-PB-MA) URINE SP [facility] Sep 29, 2024 12:02 PM Consult Order COMMUNITY CARE-IMAGING ULTRASOUND-AUTO [id number] [facility] Nurse's Choice [facility] Lab Results: +/- 30 days of [...] Unit Interpretation Reference Range Specimen Type Comment Sep 28, 2024 03:43 PM [facility] POC UA (STL-PB-MA) URINE Specimen Type: URINE No comment entered. Ordering Provider: ROMINA WHITLOCK Report Released Date/Time: Sep 28, 2024 03:50 PM Reporting Lab: [facility] [address] [facility] [id number] Performing Lab: [facility] [address] [facility] [id number] PROTEIN POC UA 30 mg/dL Negative BLOOD POC UA Negative Negative LEUKOCYTES POC UA Negative Negative COLOR POC UA Yellow YELLOW SPEC GRAV POC UA >=1.030 1.005-1.030 UROBILINOGEN POC UA 0.2 {Yeny'U}/dL 0 .1-1.0 BILIRUBIN POC UA Negative Negative KETONES POC UA Negative mg/dL Negative GLUCOSE POC UA Negative mg/dL Negative pH POC UA 5.5 5.0-8.0 NITRITE POC UA Negative Negative CLARITY POC UA Clear CLEAR Vital Signs: All taken on the encounter date This section contains inpatient and outpatient Vital Signs collected on the date of the Encounter. Date/Time Temperature Pulse Blood Pressure Respiratory Rate SP02 Pain Height Weight Body Mass Index Source Sep 28, 2024 03:28 PM 97.5 60 116/70 18 91 0 71.0 209.1 29 [facility] Social History: Smoking Status (Most current) and [...] took place. Date/Time Current Smoking Status Comment Frederick ity 2024 11:30 AM VA-TOBACCO NEVER USED CIGARETTES [facility] Tobacco Use History This section includes a history of the smoking, or tobacco-related health factors, that were collected on or before the date of the Encounter. The data comes from the [place] facility where the Encounter took place. Date/Time Smoking Status/Tobacco Use Comment F acility 2024 11:30 AM VA-TOBACCO USE FOR ZANE OTHER TYPE Quit 2 years ago [facility] Apr 17, 2023 02:00 PM VA-TOBACCO DOESNT USE WI 30 MIN WAKEUP [facility] Apr 17, 2023 02:00 PM VA-TOBACCO USE > 1 5 LESS THAN 30 YEARS [facility] Apr 17, 2023 02:00 PM VA-TOBACCO USE ADVICE [facility] Apr 17, 2023 02:00 PM VA-TOBACCO USE ENERGY ADMINISTRATOR NO [facility] Apr 17, 2023 02:00 PM VA-TOBACCO USE MED NO [facility] Apr 17, 2023 02:00 PM VA-TOBACCO USER EVERY DAY [facility] Apr 19, 2022 01:00 PM VA-TOBACCO USE 30 YEARS OR MORE [facility] Apr 19, 2022 01:00 PM VA-TOBACCO USE ADVICE [facility] Apr 19, 2022 01:00 PM VA-TOBACCO USE ENERGY ADMINISTRATOR NO [facility] Apr 19, 2022 01:00 PM VA-TOBACCO USE MED NO [facility] Apr 19, 2022 01:00 PM VA-TOBACCO USE WI 30 MIN OF WAKEUP [facility] Apr 19, 2022 01:00 PM VA-TOBACCO USER EVERY DAY [facility] Apr 26, 2021 02:30 PM VA-TOBACCO DOESNT USE WI 30 MIN WAKEUP [facility] Apr 26, 2021 02:30 PM VA-TOBACCO USE 5 T O 15 YEARS [facility] Apr 26, 2021 02:30 PM VA-TOBACCO USE ADVICE [facility] Apr 26, 2021 02:30 PM VA-TOBACCO USE ENERGY ADMINISTRATOR NO [facility] Apr 26, 2021 02:30 PM VA-TOBACCO USE MED NO [facility] Apr 26, 2021 02:30 PM VA-TOBACCO USER SOME DAYS [facility] 2020 09:00 AM VA-TOBACCO USE 30 YEARS OR MORE [facility] 2020 09:00 AM VA-TOBACCO USE ADVICE [facility] 2020 09:00 AM VA-TOBACCO USE ENERGY ADMINISTRATOR NO [facility] 2020 09:00 AM VA-TOBACCO USE MED NO [facility] 2020 09:00 AM VA-TOBACCO USE WI 30 MIN OF WAKEUP [facility] 2020 09:00 AM VA-TOBACCO USER EVERY DAY [facility] Jun 02, 2018 01:55 PM VA-TOBACCO USE 30 YEARS OR MORE [facility] Jun 02, 2018 01:55 PM VA-TOBACCO USE ADVICE [facility] Jun 02, 2018 01:55 PM VA-TOBACCO USE ENERGY ADMINISTRATOR NO [facility] Jun 02, 2018 01:55 PM VA-TOBACCO USE MED NO [facility] Jun 02, 2018 01:55 PM VA-TOBACCO USE WI 30 MIN OF WAKEUP [facility] Jun 02, 2018 01:55 PM VA-TOBACCO USER EVERY DAY [facility] May 27, 2017 12:10 PM CURRENT TOBACCO USER [facility] May 27, 2017 12:10 PM CURRENT TOBACCO US ER (NOT READY TO QUIT) [facility] May 27, 2017 12:10 PM SMOKELESS TOBACCO AMOUNT/LENGTH V15 1 can Q day , 51 yrs [facility] May 27, 2017 12:10 PM TOBACCO CESSATION REFERRAL DECLINED [facility] May 27, 2017 12:10 PM TOBACCO MEDS OFFER ED BUT DECLINED [facility] May 27, 2017 12:10 PM TOBACCO USER OFFERED MEDS [facility] Aug 10, 2016 08:46 AM CURRENT TOBACCO USER [facility] Aug 10, 2016 08:46 AM CURRENT TOBACCO US ER (NOT READY TO QUIT) [facility] Aug 10, 2016 08:46 AM TOBACCO CESSATION REFERRAL DECLINED [facility] Aug 10, 2016 08:46 AM TOBACCO CESSATION REFERRAL OFFERED [facility] Aug 10, 2016 08:46 AM TOBACCO MEDS OFFER ED BUT DECLINED [facility] Aug 10, 2016 08:46 AM TOBACCO USER OFFERED MEDS [facility] September 02, 2015 09:12 AM CURRENT TOBACCO USER [facility] September 02, 2015 09:12 AM TOBACCO OFFERED PT MEDS (PROVIDER) [facility] September 02, 2015 09:[address] OP SMOKING CLINIC [facility] September 02, 2015 09:12 AM TOBACCO OFFERRED S TOP SMOKING CLINIC [facility] Encounter Notes: All associated encounter notes This section contains the clinical notes associated to the Encounter. Date/Time Encounter Note(s) Provider Source Sep 28, 2024 03:45 PM PRIMARY CARE PROGR ESS NOTE: LOCAL TITLE: PRIMARY CARE CLINIC PROGRESS NOTE PB STANDARD TITLE: PRIMARY CARE PROGRESS NOTE DATE OF NOTE: SEP 28, 2024@15:45 ENTRY DATE: SEP 28, 2024@15:45:34 AUTHOR: ROMINA WHITLOCK EXP COSIGNER: URGENCY: STATUS: COMPLETED CC: Right flank pain HPI: Patient reports for several months now having pain in his right mid to lower back more so with movement like when he is going to get up but his reports that he moans and groans with it continuously he has had numerous CT scans been seen in the ER for other issues including hematuria. He has never been told he had an aortic aneurysm in the past but he has had brain aneurysm surgery. He has not tried any topical rubs for the pain he states that it feels like almost like a muscle Spasm that just reviewed currently appears. He is on propranolol which is not helping with his tremor and he reports chronic fatigue just has no energy to do anything. He was supposed to been set up for a sleep study was set up actually went to the study but because he is on Aricept he had to have somebody stay with him his is unable to do that so the sleep study was never performed. Non-VA Primary Care Provider Eneida Means NP in [facility] Neurology Dr. 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 OVERSEAS STATIONS/DEPLOYMENTS: [place], [place] MAJOR [employer] OR [...] 10) Benign Prostatic Hypertrophy with Outflow Obstruction ([facility] [id number]) 11) Essential tremor 12) Depression 13) Exposure to potentially hazardous substance 14) Single acquired kidney cyst 15) Acute pulmonary embolism 16) Chronic diarrhea 17) Dementia 18) Chronic obstructive pulmonary disease 19) Chronic hypoxemic respiratory failure Active Outpatient Medications (including Supplies): Active Outpatient [...] 10 Total Medications OBJECTIVE: Vital Signs Temperature: 97.5 F [36.4 C] (09/28/2024 15:) Respiratory Rate: 18 (09/28/2024 15:) Pulse Rate: 60 (09/28/2024:) Blood Pressure: 116/70 (09/28/2024:) HT: 71.0 in [180.3 cm] (09/28/2024) WT: 209.1 lb [94.85 kg] (09/28/2024:) BMI: 29.2 91% (09/28/2024:) Physical Exam General: NAD noted, A&Ox3, pleasant, [...] normal, answers questions appropriately throughout visit Assessment/Plan: 1. Right flank pain-POC UA today was negative no hematuria although he was seen in the ER in July for hematuria. I medicine him up for an ultrasound of the aorta and renal ultrasound for further evaluation since he has already had CT scan of the abdomen. Will also get him a TENS unit to help with there is any muscle spasms associated with this. Encouraged using topical rubs. 2. Chronic fatigue-we will get him set up for a sleep study at home. Will stop his propranolol which may be contributing to his fatigue place him on primidone to help with his essential tremors. He is already followed by neurology. Follow-up: As scheduled and/or as needed. Discussed with patient [...] appointments. Medications Reconciled. See AVS given to [place]. Time spent 30 minutes. /es/ Romina Whitlock MD [facility] Signed: 09/28/2024 16:54 ROMINA WHITLOCK [facility] Sep 28, 2024 03:21 PM PRIMARY CARE NURSI NG NOTE: LOCAL TITLE: PRIMARY CARE NURSING PROGRESS NOTE (TEXT) NURSING P STANDARD TITLE: PRIMARY CARE NURSING NOTE DATE OF NOTE: SEP 28, 2024@15:21 ENTRY DATE: SEP 28, 2024@15:21:12 AUTHOR: CHACE HOGAN EXP COSIGNER: URGENCY: STATUS: COMPLETED Established Patient HOA VILLALBA IS A 79 YEAR OLD MALE BEING SEEN IN CLINIC SEP 28, 2024. = = REASON FOR VISIT: [place] here for c/o right sided low/mid back pain Are you receiving care any where other than the [facility]? No HEALTH AND SURGICAL HISTORY: Does patient report using home oxygen? Yes; Current Oxygen Flow Rate: 2l CURRENT ACTIVE MEDICATIONS FOR REVIEW: If the list for review does not include a component, then it was not applicable to this patient. Allergies/ADRs (Tool #5) FACILITY ALLERGY/ADR -------- [facility] - NO KNOWN ALLERGIES [facility] GABAPENTIN Med. Reconciliation (Tool #1) INCLUDED IN THIS LIST: Alphabetical list of active outpatient prescriptions dispensed from this [place] (local) and dispensed from another VA or [facility] facility (remote) as well as inpatient orders (local pending and active), local clinic medications, locally documented non-VA medications, and local prescriptions that have or been discontinued in the past 90 days. Non-VA Meds Last Documented On: 2020 NOTE The display of VA prescriptions dispensed from another [place] or [facility] facility (remote) is limited to active outpatient prescription entries matched to National Drug File at the originating site and may not include some items such as investigational drugs, compounds, etc. NOT INCLUDED IN THIS LIST: Medications self-entered by the patient into personal health records (i.e. [employer]) are NOT included in this list. Non-VA [...] RINSE MOUTHPIECE FREQUENTLY TO PREVENT CLOGGING. Rx# [id number] Last Released: 04/24/24 Qty/Days Supply: Rx Expiration Date: 04/21/25 Refills Remainin Indication: FOR COPD OUTPT AMLODIPINE BESYLATE 10MG TAB (Status = Active) TAKE ONE TABLET BY MOUTH ONCE A DAY FOR HIGH BLOOD PRESSURE Rx# [id number] Last Released: 04/29/24 Qty/Days Supply: Rx Expiration Date: 04/21/25 Refills Remainin Indication: FOR HIGH BLOOD PRESSURE OUTPT APIXABAN 5MG TAB (Status = Discontinued) TAKE ONE TABLET BY MOUTH TWICE A DAY FOR ANTICOAGULATION Rx# [id number] Last Released: 03/14/24 Qty/Days Supply: 120/60 Rx Expiration Date: 12/04/24 Refills Remainin Indication: FOR ANTICOAGULATION OUTPT APIXABAN 5MG TAB (Status = Active) TAKE ONE TABLET BY MOUTH TWICE A DAY FOR ANTICOAGULATION Rx# [id number] Last Released: 07/21/24 Qty/Days Supply: 180/90 Rx Expiration Date: 07/21/25 Refills Remainin Indication: FOR ANTICOAGULATION OUTPT ATORVASTATIN CALCIUM 20MG TAB (Status = Active) TAKE ONE TABLET BY MOUTH EVERY EVENING FOR HIGH CHOLESTEROL Rx# [id number] Last Released: 04/28/24 Qty/Days Supply: 90/90 Rx Expiration Date: 04/21/25 Refills Remainin Indication: FOR HIGH CHOLESTEROL OUTPT CHOLECALCIF 50MCG (D3-2,000UNIT) TAB (Status = Active) TAKE ONE TABLET BY MOUTH ONCE A DAY FOR VITAMIN D DEFICIENCY. Rx# [id number] Last Released: 04/28/24 Qty/Days Supply: 100/90 Rx Expiration Date: 04/21/25 Refills Remainin OUTPT CITALOPRAM HYDROBROMIDE 20MG TAB (Status = Active) TAKE ONE TABLET BY MOUTH EVERY MORNING FOR DEPRESSION Rx# [id number] Last Released: 04/28/24 Qty/Days Supply: 90/90 Rx Expiration Date: 04/21/25 Refills Remainin Indication: FOR DEPRESSION OUTPT DONEPEZIL HCL 10MG TAB (Status = Active) TAKE ONE TABLET BY MOUTH AT BEDTIME FOR ALZHEIMER DISEASE Rx# [id number] Last Released: 04/24/24 Qty/Days Supply: 9090 Rx Expiration Date: 04/21/25 Refills Remainin Indication: FOR ALZHEIMER DISEASE OUTPT OLANZAPINE 5MG TAB (Status = Active) TAKE ONE TABLET BY MOUTH AT BEDTIME FOR NIGHTMARES Rx# [id number] Last Released: 06/10/24 Qty/Days Supply: 90/90 Rx Expiration Date: 06/05/25 Refills Remainin Indication: FOR NIGHTMARES OUTPT PROPRANOLOL HCL 80MG TAB (Status = Active) TAKE ONE-HALF TABLET BY MOUTH THREE TIMES A DAY FOR ESSENTIAL TREMOR Rx# [id number] Last Released: 06/10/24 Qty/Days Supply: 135/90 Rx Expiration Date: 2/14/26 Refills Remainin Indication: FOR ESSENTIAL TREMOR Non-VA TRAMADOL HCL 50MG TAB TAKE ONE TABLET BY MOUTH FOUR TIMES A DAY NEEDED Non-VA medication recommended by [place] provider. Patient wants to buy from Non-VA [...] A prescription your provider has Contact your [place] stopped. It is no longer healthcare team [...] your or non VA providers that was [place] healthcare team. filled outside the VA. Or, it may be an djdi-qku-aomvhui (OTC), herbal, dietary supplements or sample medication. [...] An active prescription that is Contact your [place] not scheduled to be filled yet. pharmacy if you need You should receive it before this medication now. you run out. Medication list reviewed with Caregiver Patient/Caregiver reports taking medications as ordered. IS PATIENT TAKING ANY OVER THE COUNTER MEDICATIONS, SUCH VITAMINS OR HERBAL SUPPLEMENTS, INCLUDING ANY MEDICATIONS PRESCRIBED BY ANOTHER PHYSICIAN? No Does patient have any new allergies to report since last visit? NO VITALS: TEMPERATURE: 97.9 F [36.6 C] (11/20/2023 14:32) BP: 127/74 (07/09/2024 08:35) RESP: 18 (07/09/2024 08:35) PULSE: 81 (07/09/2024 08:35) HT: 71.0 in [180.3 cm] (11/20/2023 14:32) WT: 211.4 lb [95.89 kg] (07/09/2024 08:35) BMI: 29.5 PAIN ASSESSMENT: (Most Recent Pain Score in Vitals Package: 2 (07/09/2024 08:35) ) The patient indicated that they and [...] Now let us serve you. At the [facility], we strive to provide you with [...] Not At All SPIRITUAL ASSESSMENT: Are there synagogue practices or spiritual concerns you want the tobacco stemmer, your physician, and other health care team members to immediately know about? No Patient advised to call the clinic for any concerns, questions, or symptoms. Patient and/or caregiver verbalized understanding of plan of care. /lynn/ ALAN LALA CBMAKAYLA Signed: 09/28/2024 15:32 CHACE HOGAN [place] SHANN[place]
[2024-10-11] VITALS (16 sets, daily range): BP systolic 128–151; BP diastolic 70–90; PULSE 55–78; RESP 15–22; TEMP 36.8; O2SAT 92–98; BMI 25.8
--- NOTE | 2024-10-11 12:43 | CTR_ITS ---
PROCEDURE INFORMATION: Exam: CT Head Without Contrast Exam date and time: 10/11/2024 1:01 PM Age: 79 years old Clinical indication: Dizziness; Prior surgery; Surgery date: 6+ months; Surgery type: Shunt; Additional info: [place] TECHNIQUE: Imaging protocol: Computed tomography of the head without contrast. Radiation optimization: All CT scans at this facility use at least one of these dose optimization techniques: automated exposure control; mA and/or kV adjustment per patient size (includes targeted exams where dose is matched to clinical indication); or iterative reconstruction. COMPARISON: CT head wo/w con [id number] 05/03/2023 9:22 AM RADIATION DOSE METRICS: Total DLP (mGy-cm): 1164.01 FINDINGS: Tubes, catheters and devices: A right-sided CHEMICAL EDUCATOR shunt has its tip in the left frontal horn. The ventricles are minimally prominent. Brain: Patchy chronic white matter ischemic change involves the periventricular white matter bilaterally. Focal encephalomalacia also involves the posterior aspect of the right frontal lobe. Cerebral ventricles: See Tubes, catheters and devices finding. 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 Paranasal sinuses: Visualized sinuses are unremarkable. No fluid levels. Mastoid air cells: Visualized mastoid air cells are well aerated. Bones: Unremarkable. No acute fracture. Soft tissues: Unremarkable. CT/CT head wo con* [id number] IMPRESSION: 1. No acute findings. 2. Surgical changes and chronic ischemic changes noted
--- NOTE | 2024-10-11 12:44 | W.ED.NEUROSD ---
HPI - Neuro Symptoms/Deficit General: Chief Complaint: Dizziness Stated Complaint: dizzy; fall Time Seen by Provider: 10/11/24 12:38 Source: patient and EMS Mode of arrival: EMS Limitations: no limitations History of Present Illness: 79-year-old male who states that he had dizziness episode just prior arrival. He states roughly 30 minutes ago he got up to walk felt dizzy and fell. He denies hitting his head he states he feels much improved currently he has no dizziness at this time denies any nausea or vomiting denies headache or chest pain. Associated symptoms: Deny chest pain, headache(s), nausea or vomiting Related Data Home Medications ?Medication ?Instructions ?Recorded ?Confirmed amlodipine 10 mg tablet 10 mg PO DAILY 06/13/23 10/11/24 atorvastatin 20 mg tablet 20 mg PO QPM 06/13/23 10/11/24 cholecalciferol (vitamin D3) 50 50 mcg PO DAILY 06/13/23 10/11/24 mcg (2,000 unit) tablet citalopram 20 mg tablet 20 mg PO QAM 06/13/23 10/11/24 albuterol sulfate 90 mcg/actuation 1 inh inhalation QID PRN Shortness 07/30/24 10/11/24 aerosol inhaler (Ventolin HFA) Of Breath apixaban 5 mg tablet (Eliquis) 5 mg PO BID 10/11/24 10/11/24 primidone 50 mg tablet 25 mg PO TID 10/11/24 10/11/24 Previous Rx's ?Medication ?Instructions ?Recorded isosorbide mononitrate 30 mg 30 mg PO DAILY #90 tabs 07/30/24 tablet,extended release 24 hr donepezil 10 mg tablet 10 mg PO DAILY 30 days #30 tabs 08/10/24 Allergies Allergy/AdvReac Type Severity Reaction Status Date / Time No Known Allergies Allergy Verified 09/02/24 15:18 Review of Systems Const: Denies: fever(s), chills, body aches or change in appetite Eyes: Denies: blurry vision or eye discomfort ENMT: Denies: throat pain or dental pain Card: Denies: chest pain Resp: Denies: dyspnea GI: Denies: abdominal pain, nausea, vomiting or diarrhea Musc: Denies: neck pain or back pain Skin/Breast: Denies: rash Neuro: Reports: dizziness; Denies: headache(s) PFSH ED PFSH: Family History Mother Hypoglycemia Family/Other Heart disease Social History Smoking and tobacco/nicotine status: former use of tobacco/nicotine (chew) Quit status (tobacco/nicotine): has quit using Alcohol intake: former Year of sobriety/quit date alcohol: 2011 Substance/Drug Use: never NIH stroke score NIHSS: Level Of Consciousness - 1a: 0 Level Of Consciousness Questions - 1b: Both Correct Level Of Consciousness Commands - 1c: Both Correct Best Gaze - 2: Normal Visual Mejia - 3: No Visual Loss Facial Palsy - 4: Normal Motor Arm Right - 5: No Drift Motor Arm Left - 5: No Drift Motor Leg Right - 6: No Drift Motor Leg Left - 6: No Drift Limb Ataxia - 7: Absent Sensory - 8: Normal Best Language - 9: No Aphasia Dysarthia - 10: Normal Extinction And Inattention - 11: 0 Score: Total Score: 0 Physical Exam Const: COMMON NORMALS: no acute distress, patient oriented x3 and healthy appearing HENMT: COMMON NORMALS: normocephalic and atraumatic HEAD & SCALP: normocephalic and atraumatic Eye: COMMON NORMALS: Equal, round and reactive pupils present and EOMs intact bilaterally VISUAL MEJIA: No peripheral vision loss, No central vision loss, No left visual field cut, No right visual field cut and No bitemporal visual field cut PUPIL: Yes Equal, round and reactive pupils present Neck/C-Spine: COMMON NORMALS: full ROM and supple Chest: COMMONS NORMALS: normal inspection of the chest Resp: COMMON NORMALS: normal respiratory effort, No retractions, No use of accessory muscles and clear to auscultation bilaterally AUSCULTATION: clear to auscultation bilaterally Cardio: COMMON NORMALS: regular rate, regular rhythm and No murmurs present (Cardio) RATE: regular rate RHYTHM: regular rhythm Extremity: COMMON NORMALS: normal to inspection and full ROM Neuro: COMMON NORMALS: patient oriented x3, moves all extremities and no focal motor deficits CRANIAL NERVES: Yes CN normal except as noted SPEECH: speech normal GAIT: Yes Normal gait present MOTOR EXAM: 5/5 motor strength present throughout Psych: COMMON NORMALS: mental status grossly normal, Normal thought process present and cooperative THOUGHT PROCESS: Normal thought process present Skin: COMMON NORMALS: no rashes or lesions noted and no wounds GENERAL SKIN EXAM: no rashes or lesions noted Course Reevaluation(s): Reevaluation #1: When patient first arrived his symptoms resolved and he was able to ambulate with me I had him ambulate in the [place] and was able to ambulate normally patient is now unsteady again he states he does not feels dizzy but does have an ataxic gait having difficulty walking and will have [facility] stroke team evaluate and will do a CTA of the head Time: 14:13 Vital Signs: Vital signs: Vital Signs Temperature 98.2 F 10/11/24 12:43 Pulse Rate 78 10/11/24 12:43 Respiratory Rate 18 10/11/24 12:43 Blood Pressure 143/78 10/11/24 12:43 Pulse Oximetry 98 10/11/24 12:43 Oxygen Delivery Me thod Room Air 10/11/24 12:43 MDM - Neuro Symptoms/Deficit Medical Decision Making Patient presents here with vertigo is quite ataxic gait he is not a lytic candidate as he is on [employer] head CT CTA are normal will admit at this time for his vertigo. Medical Records I reviewed the patient's medical records. Lab Data I reviewed the patient's lab results. 10/11/24 12:52 10/11/24 12:[address] 10/11/24 12:43 IMPRESSION: 1. No acute findings. 2. Surgical changes and chronic ischemic changes noted Head/Neck CTA 10/11/24 14:14 IMPRESSION: No acute arterial abnormality noted IMPRESSION: No stenosis or occlusion. REFERENCES: NASCET CRITERIA. The degree of stenosis in the cervical segment of the internal carotid artery is based on NASCET criteria. Normal is no stenosis. Mild is less than 50% stenosis. Moderate is 50-69% stenosis. Severe is 70% to 99% stenosis. Total occlusion is no detectable patent lumen. Laboratory Results WBC 5.56 10^3/uL (3.29-11.43) 10/11/24 12:52 RBC 4.13 10^6/uL (3.85-5.65) 10/11/24 12:52 Hgb 12.80 g/dL (11.27-16.99) 10/11/24 12:52 Hct 38.6 % (37-53) 10/11/24 12:52 MCV 93.5 fl (82-101) 10/11/24 12:52 MCH 31.0 pg (27-33) 10/11/24 12:52 MCHC 33.2 g/dL (30-55) 10/11/24 12:52 RDW 12.9 % (12.1-15.1) 10/11/24 12:52 Plt Count 107 10^3/cmm (157-399) L 10/11/24 12:52 MPV 10.3 fL (7.4-10.4) 10/11/24 12:52 Neut % (Auto) 69.9 % 10/11/24 12:52 Lymph % (Auto) 15.5 % 10/11/24 12:52 [place] % (Auto) 10.3 % 10/11/24 12:52 Eos % (Auto) 2.5 % 10/11/24 12:52 Baso % (Auto) 0.5 % 10/11/24 12:52 Neut # (Auto) 3.89 10^3/uL (1.8-7.7) 10/11/24 12:52 Lymph # (Auto) 0.9 10^3/uL (0.8-4.8) 10/11/24 12:52 [place] # (Auto) 0.6 10^3/uL (0.2-0.9) 10/11/24 12:52 Eos # (Auto) 0.1 10^3/uL (0.0-0.8) 10/11/24 12:52 Baso # (Auto) 0.0 10^3/uL (0.0-0.1) 10/11/24 12:52 Nucleated RBC % (auto) 0 % 10/11/24 12:52 Nucleated RBCs # 0.0 /100WBC 10/11/24 12:52 PT 13.40 SECONDS (12.1-14.9) 10/11/24 12:52 INR 0.96 (0.8-1.2) 10/11/24 12:52 Sodium 139 mmol/L (136-145) 10/11/24 12:52 Potassium 4.6 mmol/L (3.5-5.1) 10/11/24 12:52 Chloride 105 mmol/L (98-107) 10/11/24 12:52 Carbon Dioxide 20 mmol/L (22-29) L 10/11/24 12:52 Anion Gap 18.6 (5-19) 10/11/24 12:52 BUN 16 mg/dL (8-23) 10/11/24 12:52 Creatinine 1.2 mg/dL (0.7-1.2) 10/11/24 12:52 GFR Calculation Not Reportable 10/11/24 12:52 Glucose 140 mg/dL (65-115) H 10/11/24 12:52 Calculated Osmolality 291 mOsm/kg (285-295) 10/11/24 12:52 Calcium 9.5 mg/dL (8.5-10.5) 10/11/24 12:52 Total Bilirubin 0.4 mg/dL (0.15-1.2) 10/11/24 12:52 AST 19 U/L (0-40) 10/11/24 12:52 ALT 32 U/L (0-41) 10/11/24 12:52 Alkaline Phosphatase 104 U/L (40-130) 10/11/24 12:52 Total Protein 7.2 g/dL (6.6-8.7) 10/11/24 12:52 Albumin 4.3 g/dL (3.5-5.2) 10/11/24 12:52 Globulin 2.9 g/dL (1.3-4.6) 10/11/24 12:52 All radiology interpretation(s) finalized by discharge EKG Data EKG 1: I personally reviewed and interpreted this EKG as follows: EKG interpretation date: 10/11/24 EKG interpretation time: 12:55 Interpretation: nsr hr [address] elevation qrs 105 qtc 325 Discharge Plan Discharge Patient Disposition: Admitted As Inpatient Clinical Impression: Vertigo Condition: Stable Coding Level of Care Code ED Clinical Product Manager for [facility] Wolf[facility]
--- NOTE | 2024-10-11 12:55 | ECG_ITS ---
[facility]: 2024-[facility]-11 Pat Name: Andrae Callejas Department: Room: Gender: Male Medication Nurse: : 1945 Requested By: Giancarlo Bertrand Order Number: [id number] Micki MD: Honey Cortez M.D. Measurements Intervals [place] Rate: 61 P: 47 ND: 224 QRS: 33 QRSD: 105 T: 41 QT: 422 QTc: 426 Interpretive Statements SINUS RHYTHM WITH FIRST DEGREE AV BLOCK Compared to ECG 08/07/2024 02:41:29 No significant changes Electronically Signed On 10-11-2024 19:17:44 CDT by Honey Cortez M.D. [email or web address]
[2024-10-11 12:58] LABS: Basophils % 0.5 %; Eosinophils # 0.1 10^3/uL (0.0-0.8); Eosinophils % 2.5 %; Hematocrit 38.6 % (37-53); Lymphocytes # 0.9 10^3/uL (0.8-4.8); Lymphocytes % 15.5 %; Mean Corpuscular HGB Conc 33.2 g/dL (30-55); Mean Corpuscular Volume 93.5 fl (82-101); Mean Platelet Volume 10.3 fL (7.4-10.4); Monocytes # 0.6 10^3/uL (0.2-0.9); Monocytes % 10.3 %; Neutrophils # 3.89 10^3/uL (1.8-7.7); Neutrophils % 69.9 %; Nucleated Red Blood Cells % 0 %; Platelet Count 107 10^3/cmm (157-399); Red Blood Count 4.13 10^6/uL (3.85-5.65); Red Cell Distribution Width 12.9 % (12.1-15.1); White Blood Count 5.56 10^3/uL (3.29-11.43)
[2024-10-11 13:09] LABS: INR 0.96 (0.8-1.2)
--- OUTSIDE RECORDS SUMMARY | 2024-10-11 13:10 | XMS_ITS | Continuity of Care Document ---
Author Name [facility] Organization [facility] Care Team Providers Care Web Weaver Name Role Phone [facility] Unavailable Unavailable Problems Combined list of problems from Department of Defense and Veterans Affairs facilities. It does not include entries that were removed or entered in error. Problem Status Onset Date Problem Type Date of Resolution Comments Source Actinic keratosis Active Condition [place] [facility] Acute pulmonary embolism Active Condition [place] [facility] Benign Prostatic Hypertrophy with Outflow Obstruction (SCT [id number]) Active Condition [place] [facility] Chronic diarrhea Active Condition [place] [facility] Chronic hypoxemic respiratory failure Active Condition [place] [facility] Chronic obstructive pulmonary disease Active Condition Jul 09 Entered By: YUDITH GOYAL Comment: mild PFTs 06/2024 [place] [facility] 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 Hand pain Active Condition [place] [facility] Headache Active Condition [place] [facility] Hearing loss * (ICD-9-CM 389.9) Active Condition [facility] History of surgery for cerebral aneurysm Active Condition [place] [facility] HTN - Hypertension Active Condition [place] [facility] Low Back Pain * (ICD-9-CM 724.2) Active Condition [facility] Lumbar radiculopathy Active Condition [place] [facility] Poor short-term memory Active Condition [place] [facility] Single acquired kidney cyst Active Condition Oct 21, 2023 Entered By: YUDITH GOYAL Comment: Right [place] [facility] Supraventricular tachycardia Active Condition 2020 Entered By: YUDITH GOYAL Comment: one episode [place] [facility] Anxiety Inactive Condition 2020 [place] [facility] CAD - Coronary artery disease Inactive Condition 07/10/2017 [place] [facility] Chronic neck pain Inactive Condition 2020 [place] [facility] Joint pain in right hand Inactive Condition 2020 [place] [facility] Pain of left hip joint Inactive Condition 2020 [place] [facility] Diagnosis: ICD-10-CM I10 Essential (primary) hypertension Active Diagnosis [facility] Diagnosis: ICD-10-CM I67.1 Cerebral aneurysm, nonruptured Active Diagnosis [facility] Diagnosis: ICD-10-CM J98.9 Respiratory disorder, unspecified Active Diagnosis [place] [facility] Diagnosis: ICD-10-CM R06.00 Dyspnea, unspecified Active Diagnosis [facility] Diagnosis: ICD-10-CM Z51.81 Encounter for therapeutic drug level monitoring Active Diagnosis [place] [facility] Diagnosis: ICD-10-CM Z23 Encounter for immunization Active Diagnosis [place] [facility] Diagnosis: ICD-10-CM I26.99 Other pulmonary embolism without acute cor pulmonale Active Diagnosis [facility] Diagnosis: ICD-10-CM 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 Medication Details Route Status Patient Instructions Prescription Expires Prescription Number Last Dispense Date Ordering Provider Order Date Order Qty Source ALBUTEROL SO4 90MCG/ACTUA T (CFC-F) INHL,ORAL,8 .5GM INHALE 2 PUFFS BY ORAL INHALATI ON FOUR TIMES A DAY FOR COPD SHAKE WELL. RINSE MOUTHPIE CE FREQUENT LY TO PREVENT CLOGGING . RESPIR ATORY (INHAL ATION) ACTIVE 04/21/2025 [id number] BARRON MORILLO M 2023 3 [facility] AMLODIPINE BESYLATE 10MG TAB TAKE ONE TABLET BY MOUTH ONCE A DAY FOR HIGH BLOOD PRESSURE ORAL ACTIVE 04/21/2025 [id number] 5 BARRON MORILLO M 2024 90 [facility] AMLODIPINE BESYLATE 10MG TAB TAKE ONE TABLET BY MOUTH ONCE A DAY FOR HEART/BL OOD PRESSURE ORAL DISCONT INUED 04/18/2024 [id number] 4 TIMMY GOYAL 2022 90 [facility] APIXABAN 5MG TAB TAKE ONE TABLET BY MOUTH TWICE A DAY FOR ANTICOAG ULATION ORAL ACTIVE 07/21/2025 [id number] 5 FABIENNE KILPATRICK 2024 180 [place] [facility] APIXABAN 5MG TAB TAKE ONE TABLET BY MOUTH TWICE A DAY FOR ANTICOAG ULATION ORAL DISCONT INUED (EDIT) 12/04/2024 [id number] 4 FABIENNE KILPATRICK 2023 120 [place] [facility] ATORVASTATI N CA 20MG TAB TAKE ONE TABLET BY MOUTH EVERY EVENING FOR HIGH CHOLESTE ROL ORAL ACTIVE 04/21/2025 [id number] 5 GRUPOBARRON M 2024 90 [facility] ATORVASTATI N CA 20MG TAB TAKE ONE TABLET BY MOUTH EVERY EVENING FOR HIGH CHOLESTE ROL ORAL DISCONT INUED 04/19/2024 [id number] TIMMY GOYAL [address] [place] [address] CHOLECALCIF LOUANN 50MCG (2,000UNIT) TAB TAKE ONE TABLET BY MOUTH ONCE A DAY FOR VITAMIN D DEFICIEN CY. ORAL ACTIVE 04/21/2025 [id number] 5 BARRON MORILLO M 2024 100 [facility] CHOLECALCIF LOUANN 50MCG (2,000UNIT) TAB TAKE ONE TABLET BY MOUTH ONCE A DAY FOR VITAMIN D DEFICIEN CY. ORAL DISCONT INUED 04/19/2024 [id number] 4 TIMMY GOYAL 2022 100 [facility] CITALOPRAM HYDROBROMID E 20MG TAB TAKE ONE TABLET BY MOUTH EVERY MORNING FOR DEPRESSI ON ORAL ACTIVE 04/21/2025 [id number] 5 BARRON MORILLO M 2024 90 [facility] CITALOPRAM HYDROBROMID E 20MG TAB TAKE ONE TABLET BY MOUTH EVERY MORNING FOR DEPRESSI ON ORAL DISCONT INUED 03/13/2024 [id number] 4 TIMMY GOYAL 2022 90 [facility] DONEPEZIL HCL 10MG TAB TAKE ONE TABLET BY MOUTH AT BEDTIME FOR ALZHEIME R DISEASE ORAL ACTIVE 04/21/2025 [id number] 4 BARRON MORILLO M 2023 90 [facility] METOPROLOL TARTRATE 100MG TAB TAKE ONE TABLET BY MOUTH TWICE A DAY FOR HEART/BL OOD PRESSURE . TAKE WITH OR IMMEDIAT JAMES FOLLOWIN G FOOD. ORAL DISCONT INUED BY PROVIDE R 04/21/2025 [id number] 5 GRUPOBARRON M 2024 180 [facility] METOPROLOL TARTRATE 100MG TAB TAKE ONE TABLET BY MOUTH TWICE A DAY FOR HEART/BL OOD PRESSURE . TAKE WITH OR IMMEDIAT JAMES FOLLOWIN G FOOD. ORAL DISCONT INUED 04/18/2024 [id number] 4 TIMMY GOYAL 2023 180 [facility] OLANZAPINE 5MG TAB TAKE ONE TABLET BY MOUTH AT BEDTIME FOR NIGHTMAR ES ORAL ACTIVE 06/05/2025 [id number] 5 TIMMY GOYAL 2024 90 [facility] PRIMIDONE 50MG TAB TAKE ONE-HALF TABLET BY MOUTH THREE TIMES A DAY FOR SEIZURES ORAL ACTIVE 09/29/2025 [id number] 5 JYOTSNASHELBIE LEMONMY 2024 135 [facility] PROPRANOLOL HCL 80MG TAB TAKE ONE-HALF TABLET BY MOUTH THREE TIMES A DAY FOR [place] ORAL DISCONT INUED BY PROVIDE R 06/05/2025 [id number] 5 TIMMY GOYAL 2024 135 [facility] TRAMADOL HCL 50MG TAB TAKE ONE TABLET BY MOUTH FOUR TIMES A DAY NEEDED ORAL ACTIVE JYOTSNA, TIMMY 2019 [facility] Allergies, Adverse Reactions, Alerts Combined list of allergies from Department of Defense and Veterans Affairs facilities. It does not include entries that were removed or entered in error. Substance Category Reaction Severity Reaction type Status Date Reported Comments Source GABAPENTIN Propensity to adverse reactions to drug (finding) Delirium MODERATE active 3 [facility] Immunizations Combined list of available immunizations from the Department of Defense and Veterans Affairs facilities. Immunization Series Date Given Administered By Site Reaction Lot Number CVX Code Drug Medical Transcription Supervisor Status Comments Source INFLUENZA, SPLIT VIRUS, TRIVALENT, PF 2023 HIGHFILL,YENIFER NDA RIGHT DELTO ID [id number] 140 complet ed [facility] COVID-19 (MODERNA), MRNA, LNP-S, PF, 50 MCG/0.5 ML (AGES 12+ YEARS) 1 2022 AMBER DUMONT LEFT DELTO ID [id number] 312 complet ed [facility] INFLUENZA, INJECTABLE, QUADRIVALENT, PRESERVATIVE FREE 2022 AMBER [place] RIGHT DELTO ID [id number] A 150 complet ed [facility] INFLUENZA, UNSPECIFIED FORMULATION 2020 88 complet ed [facility] COVID-19 (MODERNA), MRNA, LNP-S, PF, 100 MCG/0.5ML DOSE OR 50 MCG/0.25ML DOSE 2 2020 207 complet ed HISTORICA L INFORMATI ON - FROM OTHER REGISTRY, [facility] COVID-19 (MODERNA), MRNA, LNP-S, PF, 100 MCG/0.5ML DOSE OR 50 MCG/0.25ML DOSE 1 2020 207 complet ed HISTORICA L INFORMATI ON - FROM OTHER REGISTRY, [facility] INFLUENZA, UNSPECIFIED FORMULATION 2019 88 complet ed [facility] ZOSTER RECOMBINANT 2 2019 187 complet ed [facility] PNEUMOCOCCAL POLYSACCHARID E PPV23 2019 33 complet ed [facility] ZOSTER RECOMBINANT 1 2019 187 complet ed [facility] INFLUENZA, INJECTABLE, QUADRIVALENT, PRESERVATIVE FREE 2018 150 complet ed [facility] TD (ADULT), 5 LF TETANUS TOXOID, PRESERVATIVE FREE, ADSORBED 2 2018 113 complet ed HISTORICA L INFORMATI ON - FROM OTHER REGISTRY, [facility] INFLUENZA, UNSPECIFIED FORMULATION 2018 88 complet ed [facility] PNEUMOCOCCAL CONJUGATE PCV 13 2017 133 complet ed given at [facility] called to [facility]IS[facility] N PNEUMOCOCCAL CONJUGATE PCV 13 2015 133 complet ed [facility] TDAP 2015 115 complet ed [facility] INFLUENZA, UNSPECIFIED FORMULATION 2014 88 complet ed [facility] Results Combined list of recent chemistry, hematology and other laboratory results from Department of Defense and Veterans Affairs, ranging from 15 months to all on record, depending upon the facility. Order Name Results Value Reference Range Date Interpretation Specimen Comments Source POC UA (STL-PB-M A) PROTEIN [MASS/VOLUM E] IN URINE BY TEST STRIP 30 mg/dL 09/28 Specimen Type: URINE No comment entered. Ordering Provider: Izzy GOYAL Report Released Date/Time: Sep 28, 2024 03:50 PM Reporting Lab: [facility] [address] [facility] [address] Performing Lab: [facility] [address] [facility] [address] [facility] POC UA (STL-PB-M A) HEMOGLOBIN [MASS/VOLUM E] IN URINE BY TEST STRIP Negative 09/28 Specimen Type: URINE No comment entered. Ordering Provider: Izzy GOYAL Report Released Date/Time: Sep 28, 2024 03:50 PM Reporting Lab: [place] [facility] [address] [facility] [address] Performing Lab: [place] [facility] [address] [facility] [address] [facility] [address] [facility] POC UA (STL-PB-M A) LEUKOCYTES [PRESENCE] IN URINE Negative 09/28 Specimen Type: URINE No comment entered. Ordering Provider: Izzy GOYAL Report Released Date/Time: Sep 28, 2024 03:50 PM Reporting Lab: [facility] [facility] [address] [facility] [address] Performing Lab: [facility] [facility] [address] [facility] [address] [facility] POC UA (STL-PB-M A) COLOR OF URINE Yellow 09/28 Specimen Type: URINE No comment entered. Ordering Provider: Izzy GOYAL Report Released Date/Time: Sep 28, 2024 03:50 PM Reporting Lab: [facility] [address] [facility] [address] Performing Lab: [facility] [address] [facility] [address] [facility] [address] [facility] POC UA (STL-PB-M A) SPECIFIC GRAVITY OF URINE >=1.030 1.005 - 1.030 09/28 Specimen Type: URINE No comment entered. Ordering Provider: Izzy GOYAL Report Released Date/Time: Sep 28, 2024 03:50 PM Reporting Lab: [facility] [address] [facility] [address] Performing Lab: [facility] [address] [facility] [address] [facility] POC UA (STL-PB-M A) UROBILINOGE N [UNITS/VOLU ME] IN URINE 0.2 {Yeny' U}/dL 0.1 - 1.0 09/28 Specimen Type: URINE No comment entered. Ordering Provider: Izzy GOYAL Report Released Date/Time: Sep 28, 2024 03:50 PM Reporting Lab: [place] [facility] [address] [facility] [address] Performing Lab: [place] [facility] [address] [facility] [address] [facility] POC UA (STL-PB-M A) BILIRUBIN.T OTAL [PRESENCE] IN URINE Negative 09/28 Specimen Type: URINE No comment entered. Ordering Provider: Izzy GOYAL Report Released Date/Time: Sep 28, 2024 03:50 PM Reporting Lab: [facility] [address] [facility] [address] Performing Lab: [place] [address] [facility] [address] [facility] POC UA (STL-PB-M A) KETONES [MASS/VOLUM E] IN URINE BY TEST STRIP Negativem g/dL 09/28 Specimen Type: URINE No comment entered. Ordering Provider: Izzy GOYAL Report Released Date/Time: Sep 28, 2024 03:50 PM Reporting Lab: [facility] [address] [facility] [address] Performing Lab: [place] [facility] [address] [facility] [address] [facility] POC UA (STL-PB-M A) GLUCOSE [MASS/VOLUM E] IN URINE BY TEST STRIP Negativem g/dL 09/28 Specimen Type: URINE No comment entered. Ordering Provider: Izzy GOYAL Report Released Date/Time: Sep 28, 2024 03:50 PM Reporting Lab: [facility] [address] [facility] [address] Performing Lab: [facility] [address] [facility] [address] [facility] POC UA (STL-PB-M A) PH OF URINE 5.5 5.0 - 8.0 09/28 Specimen Type: URINE No comment entered. Ordering Provider: Izzy GOYAL Report Released Date/Time: Sep 28, 2024 03:50 PM Reporting Lab: [facility] [address] [facility] [address] Performing Lab: [facility] [address] [facility] [address] [facility] POC UA (STL-PB-M A) NITRITE [PRESENCE] IN URINE BY TEST STRIP Negative 09/28 Specimen Type: URINE No comment entered. Ordering Provider: Izzy GOYAL Report Released Date/Time: Sep 28, 2024 03:50 PM Reporting Lab: [facility] [address] [facility] [address] Performing Lab: [facility] [address] [facility] [address] [facility] [address] [facility] POC UA (STL-PB-M A) CLARITY OF URINE Clear 09/28 Specimen Type: URINE No comment entered. Ordering Provider: Izzy GOYAL Report Released Date/Time: Sep 28, 2024 03:50 PM Reporting Lab: [facility] [address] [facility] [address] Performing Lab: [facility] [address] [facility] [address] [facility] COMPREHEN SIVE METABOLIC PANEL CREATININE [MASS/VOLUM E] IN SERUM OR PLASMA 1.65 mg/dL 0.7 - 1.3 07/02 H Specimen Type: PLASMA No comment entered. Ordering Provider: Izzy GOYAL Report Released Date/Time: Jun 04, 2024 05:00 PM Reporting Lab: [place] [facility] [address] [place] [address] Performing Lab: [place] [facility] [address] [place] [address] [place] [facility] COMPREHEN SIVE METABOLIC PANEL UREA NITROGEN [MASS/VOLUM E] IN SERUM OR PLASMA 17 mg/dL 9 - 25 07/02 Specimen Type: PLASMA No comment entered. Ordering Provider: Izzy GOYAL Report Released Date/Time: Jun 04, 2024 05:00 PM Reporting Lab: [place] [facility] [address] [place] [address] Performing Lab: [place] [facility] [address] [place] [address] [place] [facility] COMPREHEN SIVE METABOLIC PANEL GLUCOSE [MASS/VOLUM E] IN SERUM OR PLASMA 220 mg/dL 72 - 99 07/02 H Specimen Type: PLASMA No comment entered. Ordering Provider: Izzy GOYAL Report Released Date/Time: Jun 04, 2024 05:00 PM Reporting Lab: [place] [facility] [address] [place] [address] Performing Lab: [place] [facility] [address] [place] [address] [place] [facility] COMPREHEN SIVE METABOLIC PANEL SODIUM [MOLES/VOLU ME] IN SERUM OR PLASMA 141 meq/L 136 - 145 07/02 Specimen Type: PLASMA No comment entered. Ordering Provider: Izzy GOYAL Report Released Date/Time: Jun 04, 2024 05:00 PM Reporting Lab: [place] [facility] [address] [place] [address] Performing Lab: [place] [facility] [address] [place] [address] [place] [facility] COMPREHEN SIVE METABOLIC PANEL POTASSIUM [MOLES/VOLU ME] IN SERUM OR PLASMA 4.0 meq/L 3.5 - 5 07/02 Specimen Type: PLASMA No comment entered. Ordering Provider: Izzy GOYAL Report Released Date/Time: Jun 04, 2024 05:00 PM Reporting Lab: [place] [facility] [address] [place] [address] Performing Lab: [place] [facility] [address] [place] [address] [place] [facility] COMPREHEN SIVE METABOLIC PANEL CHLORIDE [MOLES/VOLU ME] IN SERUM OR PLASMA 110 meq/L 98 - 107 07/02 H Specimen Type: PLASMA No comment entered. Ordering Provider: Izzy GOYAL Report Released Date/Time: Jun 04, 2024 05:00 PM Reporting Lab: [place] [facility] [address] [place] [address] Performing Lab: [place] [facility] [address] [place] [address] [place] [facility] COMPREHEN SIVE METABOLIC PANEL CARBON DIOXIDE, TOTAL [MOLES/VOLU ME] IN SERUM OR PLASMA 20 meq/L 22 - 31 07/02 L Specimen Type: PLASMA No comment entered. Ordering Provider: Izzy GOYAL Report Released Date/Time: Jun 04, 2024 05:00 PM Reporting Lab: [place] [facility] [address] [place] [address] Performing Lab: [place] [facility] [address] [place] [address] [place] [facility] COMPREHEN SIVE METABOLIC PANEL CALCIUM [MASS/VOLUM E] IN SERUM OR PLASMA 9.2 mg/dL 8.4 - 10.4 07/02 Specimen Type: PLASMA No comment entered. Ordering Provider: Izzy GOYAL Report Released Date/Time: Jun 04, 2024 05:00 PM Reporting Lab: [place] [facility] [address] [place] [address] Performing Lab: [place] [facility] [address] [place] [address] [place] [facility] COMPREHEN SIVE METABOLIC PANEL PROTEIN [MASS/VOLUM E] IN SERUM OR PLASMA 6.4 g/dL 6 - 8.6 07/02 Specimen Type: PLASMA No comment entered. Ordering Provider: Izzy GOYAL Report Released Date/Time: Jun 04, 2024 05:00 PM Reporting Lab: [place] [facility] [address] [place] [address] Performing Lab: [place] [facility] [address] [place] [address] [place] [facility] COMPREHEN SIVE METABOLIC PANEL ALBUMIN [MASS/VOLUM E] IN SERUM OR PLASMA 4.1 g/dL 3.4 - 5 07/02 Specimen Type: PLASMA No comment entered. Ordering Provider: Izzy GOYAL Report Released Date/Time: Jun 04, 2024 05:00 PM Reporting Lab: [place] [facility] [address] [place] [address] Performing Lab: [place] [facility] [address] [place] [address] [place] [facility] COMPREHEN SIVE METABOLIC PANEL BILIRUBIN.T OTAL [MASS/VOLUM E] IN SERUM OR PLASMA 0.4 mg/dL 0.2 - 1.2 07/02 Specimen Type: PLASMA No comment entered. Ordering Provider: Izzy GOYAL Report Released Date/Time: Jun 04, 2024 05:00 PM Reporting Lab: [place] [facility] [address] [place] [address] Performing Lab: [place] [facility] [address] [place] [address] [place] [facility] COMPREHEN SIVE METABOLIC PANEL ALKALINE PHOSPHATASE [ENZYMATIC ACTIVITY/VO LUME] IN SERUM OR PLASMA 76 U/L 40 - 150 07/02 Specimen Type: PLASMA No comment entered. Ordering Provider: Izzy GOYAL Report Released Date/Time: Jun 04, 2024 05:00 PM Reporting Lab: [place] [facility] [address] [place] [address] Performing Lab: [place] [facility] [address] [place] [address] [place] [facility] COMPREHEN SIVE METABOLIC PANEL ASPARTATE AMINOTRANSF ERASE [ENZYMATIC ACTIVITY/VO LUME] IN SERUM OR PLASMA 19 U/L 5 - 34 07/02 Specimen Type: PLASMA No comment entered. Ordering Provider: Izzy GOYAL Report Released Date/Time: Jun 04, 2024 05:00 PM Reporting Lab: [place] [facility] [address] [place] [address] Performing Lab: [place] [facility] [address] [place] [address] [place] [facility] COMPREHEN SIVE METABOLIC PANEL ALANINE AMINOTRANSF ERASE [ENZYMATIC ACTIVITY/VO LUME] IN SERUM OR PLASMA 23 U/L 8 - 40 07/02 Specimen Type: PLASMA No comment entered. Ordering Provider: Izzy GOYAL Report Released Date/Time: Jun 04, 2024 05:00 PM Reporting Lab: [place] [facility] [address] [place] [address] Performing Lab: [place] [facility] [address] [place] [address] [place] [facility] COMPREHEN SIVE METABOLIC PANEL GLOMERULAR FILTRATION RATE/1.73 SQ M.PREDICTED [VOLUME RATE/AREA] IN SERUM, PLASMA OR BLOOD BY CREATININE- BASED FORMULA (CKD-EPI 2020) 42 07/02 Specimen Type: PLASMA No comment entered. Ordering Provider: Izzy GOYAL Report Released Date/Time: Jun 04, 2024 05:00 PM Reporting Lab: [place] [facility] [address] [place] [address] Performing Lab: [place] [facility] [address] [place] [address] [place] [facility] ANCILLARY GLUCOSE-P B GLUCOSE [MASS/VOLUM E] IN BLOOD BY AUTOMATED TEST STRIP 92 mg/dL 72 - 99 06/24 Specimen Type: BLOOD Comment: Test performed by: Julius Amezquita [id number] Meter #: [id number] Ordering Provider: Izzy GOYAL Report Released Date/Time: Jun 24, 2024 02:19 PM Reporting Lab: [place] [facility] [address] [place] [address] Performing Lab: [place] [facility] [address] [place] [address] [place] [facility] HGA1C HEMOGLOBIN A1C/HEMOGLO BIN.TOTAL IN BLOOD 6.7 4.0 - 6.0 04/13 H Specimen Type: BLOOD No comment entered. Ordering Provider: Izzy GOYAL Report Released Date/Time: Apr 17, 2023 04:07 PM Reporting Lab: [place] [facility] [address] [place] [address] Performing Lab: [place] [facility] [address] [place] [address] [facility] COMPREHEN SIVE METABOLIC PANEL CREATININE [MASS/VOLUM E] IN SERUM OR PLASMA 1.50 mg/dL 0.7 - 1.3 04/13 H Specimen Type: PLASMA No comment entered. Ordering Provider: Izzy GOYAL Report Released Date/Time: Apr 17, 2023 04:07 PM Reporting Lab: [place] [facility] [address] [place] [address] Performing Lab: [place] [facility] [address] [place] [address] [facility] COMPREHEN SIVE METABOLIC PANEL UREA NITROGEN [MASS/VOLUM E] IN SERUM OR PLASMA 18 mg/dL 9 - 25 04/13 Specimen Type: PLASMA No comment entered. Ordering Provider: Izzy GOYAL Report Released Date/Time: Apr 17, 2023 04:07 PM Reporting Lab: [place] [facility] [address] [place] [address] Performing Lab: [place] [facility] [address] [place] [address] [facility] COMPREHEN SIVE METABOLIC PANEL GLUCOSE [MASS/VOLUM E] IN SERUM OR PLASMA 144 mg/dL 72 - 99 04/13 H Specimen Type: PLASMA No comment entered. Ordering Provider: Izzy GOYAL Report Released Date/Time: Apr 17, 2023 04:07 PM Reporting Lab: [place] [facility] [address] [place] [address] Performing Lab: [place] [facility] [address] [place] [address] [facility] COMPREHEN SIVE METABOLIC PANEL SODIUM [MOLES/VOLU ME] IN SERUM OR PLASMA 138 meq/L 136 - 145 04/13 Specimen Type: PLASMA No comment entered. Ordering Provider: Izzy GOYAL Report Released Date/Time: Apr 17, 2023 04:07 PM Reporting Lab: [place] [facility] [address] [place] [address] Performing Lab: [place] [facility] [address] [place] [address] [facility] COMPREHEN SIVE METABOLIC PANEL POTASSIUM [MOLES/VOLU ME] IN SERUM OR PLASMA 4.5 meq/L 3.5 - 5 04/13 Specimen Type: PLASMA No comment entered. Ordering Provider: Izzy GOYAL Report Released Date/Time: Apr 17, 2023 04:07 PM Reporting Lab: [place] [facility] [address] [place] [address] Performing Lab: [place] [facility] [address] [place] [address] [facility] COMPREHEN SIVE METABOLIC PANEL CHLORIDE [MOLES/VOLU ME] IN SERUM OR PLASMA 105 meq/L 98 - 107 04/13 Specimen Type: PLASMA No comment entered. Ordering Provider: Izzy GOYAL Report Released Date/Time: Apr 17, 2023 04:07 PM Reporting Lab: [place] [facility] [address] [place] [address] Performing Lab: [place] [facility] [address] [place] [address] [facility] COMPREHEN SIVE METABOLIC PANEL CARBON DIOXIDE, TOTAL [MOLES/VOLU ME] IN SERUM OR PLASMA 23 meq/L 22 - 31 04/13 Specimen Type: PLASMA No comment entered. Ordering Provider: Izzy GOYAL Report Released Date/Time: Apr 17, 2023 04:07 PM Reporting Lab: [place] [facility] [address] [place] [address] Performing Lab: [place] [facility] [address] [place] [address] [facility] COMPREHEN SIVE METABOLIC PANEL CALCIUM [MASS/VOLUM E] IN SERUM OR PLASMA 9.9 mg/dL 8.4 - 10.4 04/13 Specimen Type: PLASMA No comment entered. Ordering Provider: Izzy GOYAL Report Released Date/Time: Apr 17, 2023 04:07 PM Reporting Lab: [place] [facility] [address] [place] [address] Performing Lab: [place] [facility] [address] [place] [address] [facility] COMPREHEN SIVE METABOLIC PANEL PROTEIN [MASS/VOLUM E] IN SERUM OR PLASMA 7.0 g/dL 6 - 8.6 04/13 Specimen Type: PLASMA No comment entered. Ordering Provider: Izzy GOYAL Report Released Date/Time: Apr 17, 2023 04:07 PM Reporting Lab: [place] [facility] [address] [place] [address] Performing Lab: [place] [facility] [address] [place] [address] [facility] COMPREHEN SIVE METABOLIC PANEL ALBUMIN [MASS/VOLUM E] IN SERUM OR PLASMA 4.4 g/dL 3.4 - 5 04/13 Specimen Type: PLASMA No comment entered. Ordering Provider: Izzy GOYAL Report Released Date/Time: Apr 17, 2023 04:07 PM Reporting Lab: [place] [facility] [address] [place] [address] Performing Lab: [place] [facility] [address] [place] [address] [facility] COMPREHEN SIVE METABOLIC PANEL BILIRUBIN.T OTAL [MASS/VOLUM E] IN SERUM OR PLASMA 0.4 mg/dL 0.2 - 1.2 04/13 Specimen Type: PLASMA No comment entered. Ordering Provider: Izzy GOYAL Report Released Date/Time: Apr 17, 2023 04:07 PM Reporting Lab: [place] [facility] [address] [place] [address] Performing Lab: [place] [facility] [address] [place] [address] [facility] COMPREHEN SIVE METABOLIC PANEL ALKALINE PHOSPHATASE [ENZYMATIC ACTIVITY/VO LUME] IN SERUM OR PLASMA 77 U/L 40 - 150 04/13 Specimen Type: PLASMA No comment entered. Ordering Provider: Izzy GOYAL Report Released Date/Time: Apr 17, 2023 04:07 PM Reporting Lab: [place] [facility] [address] [place] [address] Performing Lab: [place] [facility] [address] [place] [address] [facility] COMPREHEN SIVE METABOLIC PANEL ASPARTATE AMINOTRANSF ERASE [ENZYMATIC ACTIVITY/VO LUME] IN SERUM OR PLASMA 17 U/L 5 - 34 04/13 Specimen Type: PLASMA No comment entered. Ordering Provider: Izzy GOYAL Report Released Date/Time: Apr 17, 2023 04:07 PM Reporting Lab: [place] [facility] [address] [place] [address] Performing Lab: [place] [facility] [address] [place] [address] [facility] COMPREHEN SIVE METABOLIC PANEL ALANINE AMINOTRANSF ERASE [ENZYMATIC ACTIVITY/VO LUME] IN SERUM OR PLASMA 27 U/L 8 - 40 04/13 Specimen Type: PLASMA No comment entered. Ordering Provider: Izzy GOYAL Report Released Date/Time: Apr 17, 2023 04:07 PM Reporting Lab: [place] [facility] [address] [place] [address] Performing Lab: [place] [facility] [address] [place] [address] [facility] COMPREHEN SIVE METABOLIC PANEL GLOMERULAR FILTRATION RATE/1.73 SQ M.PREDICTED [VOLUME RATE/AREA] IN SERUM, PLASMA OR BLOOD BY CREATININE- BASED FORMULA (CKD-EPI 2020) 48 04/13 Specimen Type: PLASMA No comment entered. Ordering Provider: Izzy GOYAL Report Released Date/Time: Apr 17, 2023 04:07 PM Reporting Lab: [place] [facility] [address] [place] [address] Performing Lab: [place] [facility] [address] [place] [address] [facility] TSH (MA-PB) THYROTROPIN [UNITS/VOLU ME] IN SERUM OR PLASMA 4.948 u[IU]/mL 0.47 - 5 04/13 Specimen Type: SERUM No comment entered. Ordering Provider: Izzy GOYAL Report Released Date/Time: Apr 17, 2023 04:07 PM Reporting Lab: [place] [facility] [address] [place] [address] Performing Lab: [place] [facility] [address] [place] [address] [facility] CHOLESTER OL PANEL (PB) CHOLESTEROL [MASS/VOLUM E] IN SERUM OR PLASMA 150 mg/dL 0 - 200 04/13 Specimen Type: PLASMA No comment entered. Ordering Provider: Izzy GOYAL Report Released Date/Time: Apr 17, 2023 04:07 PM Reporting Lab: [place] [facility] [address] [place] [address] Performing Lab: [place] [facility] [address] [place] [address] [facility] CHOLESTER OL PANEL (PB) TRIGLYCERID E [MASS/VOLUM E] IN SERUM OR PLASMA 79 mg/dL 0 - 150 04/13 Specimen Type: PLASMA No comment entered. Ordering Provider: Izzy GOYAL Report Released Date/Time: Apr 17, 2023 04:07 PM Reporting Lab: [place] [facility] [address] [place] [address] Performing Lab: [place] [facility] [address] [place] [address] [facility] CHOLESTER OL PANEL (PB) CHOLESTEROL IN LDL [MASS/VOLUM E] IN SERUM OR PLASMA BY CALCULATION 95.2 mg/dL 04/13 Specimen Type: PLASMA No comment entered. Ordering Provider: Izzy GOYAL Report Released Date/Time: Apr 17, 2023 04:07 PM Reporting Lab: [place] [facility] [address] [place] [address] Performing Lab: [place] [facility] [address] [place] [address] [facility] CHOLESTER OL PANEL (PB) CHOLESTEROL IN HDL [MASS/VOLUM E] IN SERUM OR PLASMA 39.0 mg/dL 40 04/13 L Specimen Type: PLASMA No comment entered. Ordering Provider: Izzy GOYAL Report Released Date/Time: Apr 17, 2023 04:07 PM Reporting Lab: [place] [facility] [address] [place] [address] Performing Lab: [place] [facility] [address] [place] [address] [facility] CHOLESTER OL PANEL (PB) CHOLESTEROL IN HDL/CHOLEST LOUANN.TOTAL [MASS RATIO] IN SERUM OR PLASMA 26.0 25 04/13 Specimen Type: PLASMA No comment entered. Ordering Provider: Izzy GOYAL Report Released Date/Time: Apr 17, 2023 04:07 PM Reporting Lab: [place] [facility] [address] [place] [address] Performing Lab: [place] [facility] [address] [place] [address] [facility] CBC LEUKOCYTES [#/VOLUME] IN BLOOD BY AUTOMATED COUNT 5.5 10*3/uL 3.6 - 11.2 04/13 Specimen Type: BLOOD No comment entered. Ordering Provider: Izzy GOYAL Report Released Date/Time: Apr 17, 2023 04:07 PM Reporting Lab: [place] [facility] [address] [place] [address] Performing Lab: [place] [facility] [address] [place] [address] [facility] CBC ERYTHROCYTE S [#/VOLUME] IN BLOOD BY AUTOMATED COUNT 4.17 10*6/uL 4.10 - 5.70 04/13 Specimen Type: BLOOD No comment entered. Ordering Provider: Izzy GOYAL Report Released Date/Time: Apr 17, 2023 04:07 PM Reporting Lab: [place] [facility] [address] [place] [address] Performing Lab: [place] [facility] [address] [place] [facility] [facility] CBC HEMOGLOBIN [MASS/VOLUM E] IN BLOOD 13.0 g/dL 13.1 - 16.8 04/13 L Specimen Type: BLOOD No comment entered. Ordering Provider: Izzy GOYAL Report Released Date/Time: Apr 17, 2023 04:07 PM Reporting Lab: [place] [facility] [address] [place] [address] Performing Lab: [place] [facility] [address] [place] [address] [facility] CBC HEMATOCRIT [VOLUME FRACTION] OF BLOOD 39.9 38.2 - 48.4 04/13 Specimen Type: BLOOD No comment entered. Ordering Provider: Izzy GOYAL Report Released Date/Time: Apr 17, 2023 04:07 PM Reporting Lab: [place] [facility] [address] [place] [address] Performing Lab: [place] [facility] [address] [place] [address] [facility] CBC MCV [ENTITIC VOLUME] BY AUTOMATED COUNT 95.7 fL 80.0 - 100.0 04/13 Specimen Type: BLOOD No comment entered. Ordering Provider: Izzy GOYAL Report Released Date/Time: Apr 17, 2023 04:07 PM Reporting Lab: [place] [facility] [address] [place] [address] Performing Lab: [place] [facility] [address] [place] [address] [facility] CBC MCH [ENTITIC MASS] BY AUTOMATED COUNT 31.2 pg 27.0 - 34.0 04/13 Specimen Type: BLOOD No comment entered. Ordering Provider: Izzy GOYAL Report Released Date/Time: Apr 17, 2023 04:07 PM Reporting Lab: [place] [facility] [address] [place] [address] Performing Lab: [place] [facility] [address] [place] [address] [facility] CBC MCHC [MASS/VOLUM E] BY AUTOMATED COUNT 32.6 g/dL 33.0 - 36.0 04/13 L Specimen Type: BLOOD No comment entered. Ordering Provider: Izzy GOYAL Report Released Date/Time: Apr 17, 2023 04:07 PM Reporting Lab: [place] [facility] [address] [place] [address] Performing Lab: [place] [facility] [address] [place] [address] [facility] CBC PLATELETS [#/VOLUME] IN BLOOD BY AUTOMATED COUNT 108 10*3/uL 150 - 400 04/13 L Specimen Type: BLOOD No comment entered. Ordering Provider: Izzy GOYAL Report Released Date/Time: Apr 17, 2023 04:07 PM Reporting Lab: [place] [facility] [address] [place] [address] Performing Lab: [place] [facility] [address] [place] [address] [facility] CBC PLATELET MEAN VOLUME [ENTITIC VOLUME] IN BLOOD BY AUTOMATED COUNT 11.3 fL 7.5 - 11.2 04/13 H Specimen Type: BLOOD No comment entered. Ordering Provider: Izzy GOYAL Report Released Date/Time: Apr 17, 2023 04:07 PM Reporting Lab: [place] [facility] [address] [place] [address] Performing Lab: [place] [facility] [address] [place] [address] [facility] CBC ERYTHROCYTE DISTRIBUTIO N WIDTH [RATIO] BY AUTOMATED COUNT 12.7 11.8 - 15.1 04/13 Specimen Type: BLOOD No comment entered. Ordering Provider: Izzy GOYAL Report Released Date/Time: Apr 17, 2023 04:07 PM Reporting Lab: [place] [facility] [address] [place] [address] Performing Lab: [place] [facility] [address] [place] [address] [facility] CBC LYMPHOCYTES /100 LEUKOCYTES IN BLOOD BY AUTOMATED COUNT 16.3 04/13 Specimen Type: BLOOD No comment entered. Ordering Provider: Izzy GOYAL Report Released Date/Time: Apr 17, 2023 04:07 PM Reporting Lab: [place] [facility] [address] [place] [address] Performing Lab: [place] [facility] [address] [place] [address] [facility] CBC MONOCYTES/1 00 LEUKOCYTES IN BLOOD BY AUTOMATED COUNT 13.4 04/13 Specimen Type: BLOOD No comment entered. Ordering Provider: Izzy OGYAL Report Released Date/Time: Apr 17, 2023 04:07 PM Reporting Lab: [place] [facility] [address] [place] [address] Performing Lab: [place] [facility] [address] [place] [address] [place] [address] [facility] CBC NEUTROPHILS /100 LEUKOCYTES IN BLOOD BY AUTOMATED COUNT 66.1 04/13 Specimen Type: BLOOD No comment entered. Ordering Provider: Izzy GOYAL Report Released Date/Time: Apr 17, 2023 04:07 PM Reporting Lab: [place] [facility] [address] [place] [address] Performing Lab: [place] [facility] [address] [place] [address] [place] [address] [facility] CBC EOSINOPHILS /100 LEUKOCYTES IN BLOOD BY AUTOMATED COUNT 2.7 04/13 Specimen Type: BLOOD No comment entered. Ordering Provider: Izzy GOYAL Report Released Date/Time: Apr 17, 2023 04:07 PM Reporting Lab: [place] [facility] [address] [place] [address] Performing Lab: [place] [facility] [address] [place] [address] [place] [address] [facility] CBC BASOPHILS/1 00 LEUKOCYTES IN BLOOD BY AUTOMATED COUNT 0.4 04/13 Specimen Type: BLOOD No comment entered. Ordering Provider: Izzy GOYAL Report Released Date/Time: Apr 17, 2023 04:07 PM Reporting Lab: [place] [facility] [address] [place] [address] Performing Lab: [place] [facility] [address] [place] [address] [facility] CBC LYMPHOCYTES [#/VOLUME] IN BLOOD BY AUTOMATED COUNT 0.89 10*3/uL 0.77 - 4.50 04/13 Specimen Type: BLOOD No comment entered. Ordering Provider: Izzy GOYAL Report Released Date/Time: Apr 17, 2023 04:07 PM Reporting Lab: [place] [facility] [address] [place] [address] Performing Lab: [place] [facility] [address] [place] [address] [facility] CBC MONOCYTES [#/VOLUME] IN BLOOD BY AUTOMATED COUNT 0.73 10*3/uL 0.19 - 0.8 04/13 Specimen Type: BLOOD No comment entered. Ordering Provider: Izzy GOYAL Report Released Date/Time: Apr 17, 2023 04:07 PM Reporting Lab: [place] [facility] [address] [place] [address] Performing Lab: [place] [facility] [address] [place] [address] [facility] CBC NEUTROPHILS [#/VOLUME] IN BLOOD BY AUTOMATED COUNT 3.61 10*3/uL 2.10 - 8.00 04/13 Specimen Type: BLOOD No comment entered. Ordering Provider: Izzy GOYAL Report Released Date/Time: Apr 17, 2023 04:07 PM Reporting Lab: [place] [facility] [address] [place] [address] Performing Lab: [place] [facility] [address] [place] [address] [facility] CBC EOSINOPHILS [#/VOLUME] IN BLOOD BY AUTOMATED COUNT 0.15 10*3/uL 0.00 - 0.60 04/13 Specimen Type: BLOOD No comment entered. Ordering Provider: Izzy GOYAL Report Released Date/Time: Apr 17, 2023 04:07 PM Reporting Lab: [place] [facility] [address] [place] [id number] Performing Lab: [place] [facility] [address] [place] [address] [facility] CBC BASOPHILS [#/VOLUME] IN BLOOD BY AUTOMATED COUNT 0.02 10*3/uL 0.00 - 0.20 04/13 Specimen Type: BLOOD No comment entered. Ordering Provider: Izzy GOYAL Report Released Date/Time: Apr 17, 2023 04:07 PM Reporting Lab: [place] [facility] [address] [place] [id number] Performing Lab: [place] [facility] [address] [place] [address] [facility] CBC PLATELETS RETICULATED /100 PLATELETS IN BLOOD BY AUTOMATED COUNT 6.3 1.0 - 7.0 04/13 Specimen Type: BLOOD No comment entered. Ordering Provider: Izzy GOYAL Report Released Date/Time: Apr 17, 2023 04:07 PM Reporting Lab: [place] [facility] [address] [place] [address] Performing Lab: [place] [facility] [address] [place] [address] [facility] CBC IMMATURE GRANULOCYTE S/100 LEUKOCYTES IN BLOOD BY AUTOMATED COUNT 1.1 04/13 Specimen Type: BLOOD No comment entered. Ordering Provider: Izzy GOYAL Report Released Date/Time: Apr 17, 2023 04:07 PM Reporting Lab: [place] [facility] [address] [place] [address] Performing Lab: [place] [facility] [address] [place] [address] [facility] CBC IMMATURE GRANULOCYTE S [#/VOLUME] IN BLOOD BY AUTOMATED COUNT 0.06 10*3/uL 0.00 - 0.05 04/13 H Specimen Type: BLOOD No comment entered. Ordering Provider: Izzy GOYAL Report Released Date/Time: Apr 17, 2023 04:07 PM Reporting Lab: [place] [facility] [address] [place] [address] Performing Lab: [place] [facility] [address] [place] [address] [facility] HGB,HCT,P LT HEMOGLOBIN [MASS/VOLUM E] IN BLOOD 13.9 g/dL 13.1 - 16.8 01/28 Specimen Type: BLOOD No comment entered. Ordering Provider: FABIENNE KILPATRICK Report Released Date/Time: Dec 18, 2023 08:45 AM Reporting Lab: [place] [facility] [address] [place] [address] Performing Lab: [place] [facility] [address] [place] [address] [place] [facility] HGB,HCT,P LT HEMATOCRIT [VOLUME FRACTION] OF BLOOD 41.7 38.2 - 48.4 01/28 Specimen Type: BLOOD No comment entered. Ordering Provider: FABIENNE KILPATRICK Report Released Date/Time: Dec 18, 2023 08:45 AM Reporting Lab: [place] [facility] [address] [place] [address] Performing Lab: [place] [facility] [address] [place] [address] [place] [facility] HGB,HCT,P LT PLATELETS [#/VOLUME] IN BLOOD BY AUTOMATED COUNT 115 10*3/uL 150 - 400 01/28 L Specimen Type: BLOOD No comment entered. Ordering Provider: FABIENNE KILPATRICK Report Released Date/Time: Dec 18, 2023 08:45 AM Reporting Lab: [place] [facility] [address] [place] [address] Performing Lab: [place] [facility] [address] [place] [address] [place] [facility] CREATININ E(EGFR) CREATININE [MASS/VOLUM E] IN SERUM OR PLASMA 1.60 mg/dL 0.7 - 1.3 01/28 H Specimen Type: PLASMA No comment entered. Ordering Provider: FABIENNE KILPATRICK Report Released Date/Time: Dec 18, 2023 08:45 AM Reporting Lab: [place] [facility] [address] [place] [address] Performing Lab: [place] [facility] [address] [place] [address] [place] [facility] CREATININ E(EGFR) GLOMERULAR FILTRATION RATE/1.73 SQ M.PREDICTED [VOLUME RATE/AREA] IN SERUM, PLASMA OR BLOOD BY CREATININE- BASED FORMULA (CKD-EPI 2020) 44 01/28 Specimen Type: PLASMA No comment entered. Ordering Provider: FABIENNE KILPATRICK Report Released Date/Time: Dec 18, 2023 08:45 AM Reporting Lab: [place] [facility] [address] [place] [address] Performing Lab[facility] [place] [facility] [address] [place] [address] [place] [facility] Vital Signs Combined list of inpatient and outpatient Vital Signs from Department of Defense and Veterans Affairs, ranging from 12 months to all on record, depending upon the facility. Vital Sign Value Date Comments Source SYSTOLIC BLOOD PRESSURE 116 09/28/2024 15:28:00 [facility] [place] [place] [facility] DIASTOLIC BLOOD PRESSURE 70 09/28/2024 15:28:00 [facility] [place] PULSE OXIMETRY 91 09/28/2024 15:28:00 [place] WEIGHT 209.1 09/28/2024 15:28:00 [facility] [place] [facility] BMI 29 kg/m2 09/28/2024 15:28:00 [facility] PAIN 0 09/28/2024 15:28:00 [facility] HEIGHT 71.0 09/28/2024 15[facility]28:00 [facility] TEMPERATURE 97.5 09/28/2024 15:28:00 [facility] PULSE 60 09/28/2024 15[facility]28:00 [facility] RESPIRATION 18 09/28/2024 15:28:00 [facility] SYSTOLIC BLOOD PRESSURE 127 07/09/2024 08:35:00 [facility] DIASTOLIC BLOOD PRESSURE 74 07/09/2024 08:35:00 [place] [facility] PULSE OXIMETRY 94 07/09/2024 08:35:00 [facility] [place] [facility] WEIGHT 211.4 07/09/2024 08:35:00 [facility] BMI 30 kg/m2 07/09/2024 08[facility]35:00 [facility] PAIN 2 07/09/2024 08[facility]35:00 [facility] PULSE 81 07/09/2024 08[facility]35:00 [facility] RESPIRATION 18 07/09/2024 08[facility]35:00 [facility] SYSTOLIC BLOOD PRESSURE 151 06/04/2024 08:36:00 [facility] DIASTOLIC BLOOD PRESSURE 79 06/04/2024 08:36:00 [facility] PULSE OXIMETRY 96 06/04/2024 08:36:00 [facility] [place] [facility] WEIGHT 206.7 06/04/2024 08:36:00 [facility] BMI 29 kg/m2 06/04/2024 08:36:00 [facility] PAIN 3 06/04/2024 08:36:00 [facility] PULSE 54 06/04/2024 08:36:00 [facility] RESPIRATION 18 06/04/2024 08:36:00 [place] [facility] SYSTOLIC BLOOD PRESSURE 154 2024 12:02:00 [place] [facility] DIASTOLIC BLOOD PRESSURE 79 2024 12:02:00 [place] [facility] PULSE OXIMETRY 94 2024 12:02:00 [place] [facility] WEIGHT 204.6 2024 12:02:00 [place] [place] [facility] BMI 29 kg/m2 2024 12:02:00 [place] [place] PAIN 2 2024 12:02:00 [place] [place] PULSE 54 2024 12:02:00 [place] [place] [facility] RESPIRATION 17 2024 12:02:00 [place] [place] [facility] SYSTOLIC BLOOD PRESSURE 107 11/20/2023 14:32:00 [place] [place] [facility] DIASTOLIC BLOOD PRESSURE 70 11/20/2023 14:32:00 [place] [place] [facility] PULSE OXIMETRY 94 11/20/2023 14:32:00 [facility] [place] [facility] WEIGHT 194.7 11/20/2023 14:32:00 [place] [place] [facility] BMI 27 kg/m2 11/20/2023 14:32:00 [place] [place] PAIN 4 11/20/2023 14:32:00 [place] [place] [facility] HEIGHT 71.0 11/20/2023 14:32:00 [place] [place] [facility] TEMPERATURE 97.9 11/20/2023 14:32:00 [place] [place] [facility] PULSE 49 11/20/2023 14:32:00 [place] [place] [facility] RESPIRATION 20 11/20/2023 14:32:00 [place] [facility] Encounters Combined list of: 1) Encounters from Department of Veterans Affairs facilities going backup to the last 18 months, not all VA inpatient encounters are included; 2) Encounters from the Department of Defense facilities going backup to 280 months. Location Location Details Encounter Type Encounter Number Reason For Visit Attending Provider ADM Date DC Date Status Disposition Source [facility] Outpatient Encounter [id number] 04/17 [facility] [place] [facility] F[place] [id number] Diagnos is: ICD-10- CM Z02.89 Encount er for other adminis trative examina LATASHA Pham 04/17 [facility] Outpatient Encounter [id number] Diagnos is: ICD-10- CM Z02.89 Encount er for other adminis trative examenoc MANUELTLATASHA 04/17 [facility] HC PRO PHONE CALL 5-10 MIN [id number] Diagnos is: ICD-10- CM 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 VALARIE Davis 04/17 [facility] OFFICE O/P EST MOD 30-39 MIN [id number] Diagnos is: ICD-10- CM 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, nonrupt Izzy Holbrook 04/17 [facility] Outpatient Encounter [id number] ALFONSO SÁNCHEZ L 04/18 [facility] En[facility] [id number] 04/19 [facility] Outpatient Encounter [id number] 05/03 [facility] En[facility] [id number] 05/21 [facility] PHONE CALL 11-20 MIN [id number] Diagnos is: ICD-10- CM R19.7 Diarrhe a, unspeci fiKAYLA Short 05/21 [facility] Outpatient Encounter [id number] JOSE JUAN ARELLANO ALIDA L 06/14 [facility] Outpatient Encounter [id number] 06/14 [facility] Outpatient Encounter [id number] 06/17 [facility] Outpatient Encounter [id number] 06/18 [facility] Outpatient Encounter [id number] 06/20 [facility] Outpatient Encounter [id number] 06/23 [facility] OFFICE O/P EST LOW 20 MIN [id number] Diagnos is: ICD-10- CM K52.3 Indeter minate colitis Izzy GOYAL 06/26 [facility] Outpatient Encounter [id number] 09/17 [facility] Outpatient Encounter [id number] 09/23 [facility] Outpatient Encounter [id number] 09/24 [facility] Outpatient Encounter [id number] ARNALDO PADILLA N 11/02 [facility] Encounter [id number] 11/05 [facility] Outpatient Encounter [id number] 11/05 [facility] Outpatient Encounter [id number] 11/14 [facility] Outpatient Encounter [id number] EILEENJOSE JUAN RIL L 11/17 [facility]P EST MOD 30 MIN [id number] Diagnos is: ICD-10- CM I26.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 Izzy Harrington 11/19 [facility] Outpatient Encounter [id number] 12/02 [facility] MTMS BY PHARM EST 15 MIN [id number] Diagnos is: ICD-10- CM Z51.81 Encount er for therape utic drug level monitor FABIENNE Francisco 12/03 [facility] Outpatient Encounter [id number] 12/09 [facility] MTMS BY PHARM EST 15 MIN [id number] Diagnos is: ICD-10- CM Z51.81 Encount er for therape utic drug level monitor FABIENNE Francisco 12/17 [facility] Outpatient Encounter [id number] 01/05 [facility] Outpatient Encounter [id number] 01/06 [facility] OFF/OP EST MAY X REQ PHY/QHP [id number] Diagnos is: ICD-10- CM Z23 Encount er for immuniz Jaret Huddleston 01/06 [place] [facility] Outpatient Encounter [id number] 01/15 [facility] EST 15 MIN [id number] Diagnos is: ICD-10- CM Z51.81 Encount er for therape utic drug level monitor FABIENNE Francisco 01/28 [facility] Outpatient Encounter [id number] 01/30 [facility] Outpatient Encounter [id number] 02/16 [facility] [id number] 02/23 [facility] [id number] 04/09 [facility] Outpatient Encounter [id number] 04/13 [facility] F[facility] [id number] Diagnos is: ICD-10- CM I10 Essenti al (primar y) hyperte nsKAYLA Gardner 04/20 [facility] OFFICE O/P EST MOD 30 MIN [id number] Diagnos is: ICD-10- CM I10 Essenti al (primar y) hyperte madhuri Maureen MORILLO 04/20 [facility] Outpatient Encounter [id number] 04/27 [facility] Encounter [id number] 04/30 [facility] Outpatient Encounter [id number] 05/13 [facility] Outpatient Encounter [id number] TYRON PARRA 05/14 [facility] Outpatient Encounter [id number] 05/14 [facility] Outpatient Encounter [id number] 05/15 [facility] Outpatient Encounter [id number] 05/18 [facility] Outpatient Encounter [id number] 05/28 [facility] Outpatient Encounter [id number] 06/04 [facility] OFFICE O/P EST LOW 20 MIN [id number] Diagnos is: ICD-10- CM R06.00 Dyspnea , unspeci fied Izzy GOYAL 06/04 [facility] Outpatient Encounter [id number] 06/04 [facility] Outpatient Encounter [id number] 06/04 [facility] Outpatient Encounter [id number] 06/09 [facility] Outpatient Encounter [id number] 06/16 [facility] Outpatient Encounter [id number] 06/16 [facility] Outpatient Encounter [id number] 06/17 [facility] Outpatient Encounter [id number] 06/23 [facility] EVALUATION OF WHEEZING [id number] Diagnos is: ICD-10- CM J98.9 Respira tory disorde r, unspeci LATANYA Mata 06/24 [facility] Outpatient Encounter [id number] 07/06 [facility] OFFICE O/P EST MOD 30 MIN [id number] Diagnos is: ICD-10- CM 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, nonrupt Izzy Holbrook HILARIO 07/09 [facility] Outpatient Encounter [id number] 07/13 [facility] Outpatient Encounter [id number] 07/17 [facility] Outpatient Encounter [id number] EILEEN,AP RIL L 07/30 [facility] Outpatient Encounter [id number] EILEEN,AP RIL L 08/10 [facility] Outpatient Encounter [id number] 08/13 [facility] Outpatient Encounter [id number] 09/28 [facility] OFFICE O/P EST MOD 30 MIN [id number] Diagnos is: ICD-10- CM I10 Essenti al (primar y) hyperte Izzy Beauchamp 09/28 [facility] Outpatient Encounter [id number] 10/02 [facility] Social History Combined list of available smoking, tobacco, and other social history from Department of Defense and [facility] Affairs facilities. 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 Additional future care activities may be listed in the Assessment and Plan section. Date/Time Care Activity Care Activity Detail Facili ty 04/12/2025 AMBULATORY - MEDICINE AMBULATORY - MEDICI NE [facility]
[2024-10-11 13:13] LABS: Alanine Aminotransferase 32 U/L (0-41); Albumin Level 4.3 g/dL (3.5-5.2); Alkaline Phosphatase 104 U/L (40-130); Anion Gap 18.6 (5-19); Aspartate Amino Transferase 19 U/L (0-40); Blood Urea Nitrogen 16 mg/dL (8-23); Calcium 9.5 mg/dL (8.5-10.5); Carbon Dioxide 20 mmol/L (22-29); Chloride 105 mmol/L (98-107); Creatinine Clr Calc Pharmacy 54.8663; Globulin 2.9 g/dL (1.3-4.6); Glucose 140 mg/dL (65-115); Osmolality Calculated 291 mOsm/kg (285-295); Potassium 4.6 mmol/L (3.5-5.1); Sodium 139 mmol/L (136-145); Total Bilirubin 0.4 mg/dL (0.15-1.2); Total Protein 7.2 g/dL (6.6-8.7)
[2024-10-11] MEDS: meclizine 25 mg tablet 50 MG PO (13:14)
--- NOTE | 2024-10-11 13:49 | PC.PHAR ---
[place]spouse brought rx bottles in. Eliquis is currently 5mg bid on rx bottle since December 2023. Our records indicate 2.5mg bid. Spouse states is 5mg bid.
--- NOTE | 2024-10-11 14:14 | CTR_ITS ---
PROCEDURE INFORMATION: Exam: CTA Head With Contrast, Arteriography Exam date and time: 10/11/2024 2:26 PM Age: 79 years old Clinical indication: Dizziness and giddiness; Prior surgery; Surgery date: 6+ months; Surgery type: Shunt; Additional info: Dizzy TECHNIQUE: Imaging protocol: Computed tomographic angiography of the head with contrast. Exam focused on the arteries. 3D rendering (Not supervised by radiologist): MIP and/or 3D reconstructed images were created by the technologist. Radiation optimization: All CT scans at this facility use at least one of these dose optimization techniques: automated exposure control; mA and/or kV adjustment per patient size (includes targeted exams where dose is matched to clinical indication); or iterative reconstruction. Contrast material: OMNI 350; Contrast volume: 100 ml; Contrast route: INTRAVENOUS (IV); COMPARISON: CT head wo con* [id number] 10/11/2024 1:01 PM RADIATION DOSE METRICS: Total DLP (mGy-cm): 488.87 FINDINGS: Tubes, catheters and devices: Right-sided HIDE DROPPER shunt noted. ANTERIOR CIRCULATION: Right internal carotid artery: An aneurysm clip is noted in the periophthalmic portion of the right internal carotid artery. No evidence of patent aneurysm. Right middle cerebral artery: No occlusion or significant stenosis. No aneurysm. Right anterior cerebral artery: No occlusion or significant stenosis. No aneurysm. Left internal carotid artery: Intracranial segment is patent with no significant stenosis. No aneurysm. Left middle cerebral artery: No occlusion or significant stenosis. No aneurysm. Left anterior cerebral artery: No occlusion or significant stenosis. No aneurysm. POSTERIOR CIRCULATION: Right vertebral artery: No occlusion or significant stenosis. No aneurysm. Left vertebral artery: No occlusion or significant stenosis. No aneurysm. Basilar artery: No occlusion or significant stenosis. No aneurysm. Right posterior cerebral artery: No occlusion or significant stenosis. No aneurysm. Left posterior cerebral artery: No occlusion or significant stenosis. No aneurysm. Brain: No definite mass, mass effect, or midline shift. Cerebral ventricles: No ventriculomegaly. Bones/joints: Unremarkable. No acute fracture. Soft tissues: Unremarkable. PROCEDURE INFORMATION: Exam: CTA Neck With Contrast Exam date and time: 10/11/2024 2:26 PM Age: 79 years old Clinical indication: Dizziness and giddiness; Prior surgery; Surgery date: 6+ months; Surgery type: Shunt; Additional info: Dizzy TECHNIQUE: Imaging protocol: Computed tomographic angiography of the neck with contrast. Exam focused on the cervical segments of the vasculature. 3D rendering (Not supervised by radiologist): MIP and/or 3D reconstructed images were created by the technologist. Radiation optimization: All CT scans at this facility use at least one of these dose optimization techniques: automated exposure control; mA and/or kV adjustment per patient size (includes targeted exams where dose is matched to clinical indication); or iterative reconstruction. Contrast material: OMNI 350; Contrast volume: 100 ml; Contrast route: INTRAVENOUS (IV); COMPARISON: CT angio chest w abd pel w con 08/07/2024 3:38 AM RADIATION DOSE METRICS: Total DLP (mGy-cm): 488.87 FINDINGS: Right common carotid artery: No stenosis. No dissection or occlusion. Right internal carotid artery: No stenosis of the extracranial segment. No dissection or occlusion. Right external carotid artery: No occlusion or stenosis of the origin. Left common carotid artery: No stenosis. No dissection or occlusion. Left internal carotid artery: No stenosis of the extracranial segment. No dissection or occlusion. Left external carotid artery: No occlusion or stenosis of the origin. Right vertebral artery: No stenosis. No dissection or occlusion. Left vertebral artery: No stenosis. No dissection or occlusion. Soft tissues: Normal. No significant soft tissue swelling. Bones/joints: No acute fracture. CT/CT angio headneck* [id number] IMPRESSION: No acute arterial abnormality noted IMPRESSION: No stenosis or occlusion. REFERENCES: NASCET CRITERIA. The degree of stenosis in the cervical segment of the internal carotid artery is based on NASCET criteria. Normal is no stenosis. Mild is less than 50% stenosis. Moderate is 50-69% stenosis. Severe is 70% to 99% stenosis. Total occlusion is no detectable patent lumen.
--- NOTE | 2024-10-11 17:44 | PM.HP ---
Providers/Chief Complaint Admitting Physician: Dominik Infante DO Primary Care Provider: Romina Whitlock MD Chief Complaint: dizzy; fall History of Present Illness Andrae Callejas is a 79 year old male seen today for evaluation of dizziness, concerns for vertigo. Apparently it was reported to the ER physician that he had this dizzy spell prior to arrival, and it resulted into a fall. Upon further questioning of his family they report that this has been going on for several months. Patient says that it was worse today than normal. He describes his dizziness as the room spinning when he stands up. He denies any recent weakness, or other strokelike symptoms. He denies having any headaches. He does have a past medical history of pulmonary embolisms, which were reported by the family. He is on Eliquis for this reason. There is a questionable history of Alzheimer's, though his neurologist did not believe this was evident. He is taking donepezil. He also has a history of hypertension, for which he takes amlodipine, isosorbide mononitrate. Family states that he has some kind of a tremor, and he takes primidone for it. He does not have a tremor at my time of evaluation. Family states that he has had some recent difficulties breathing, and there was a plan to have an echocardiogram with a bubble study to evaluate his heart function and structure. In the ER, labs, imaging were obtained. Labs were unremarkable. CT head showed no acute findings, but did note prior surgical and chronic ischemic changes. CTA of the head and neck did not show any stenosis, dissection, or occlusion throughout the viewed structures. 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 This was noted in the right suprasellar cistern. He did have a recent renal artery Doppler which was normal, with exception of a right renal cyst. He follows with cardiology, and had a cath performed on 08/26 of this year. No concerns were noted on this report. There was concern however with his symptoms that he may have a posterior circulation stroke, and patient was admitted for additional workup and rule out. Review of Systems General: Reports: 10 or more systems reviewed and unremarkable except in HPI and below Medications/Allergies Home Medications ?Medication ?Instructions ?Recorded ?Confirmed ?Last Taken ?Type amlodipine 10 mg tablet 10 mg PO DAILY 06/13/23 10/11/2410/11/25 History atorvastatin 20 mg tablet 20 mg PO QPM 06/13/23 10/11/24 10/10/24 History cholecalciferol (vitamin D3) 50 50 mcg PO DAILY 06/13/23 10/11/24 10/11/24 History mcg (2,000 unit) tablet citalopram 20 mg tablet 20 mg PO QAM 06/13/23 10/11/24 10/11/24 History albuterol sulfate 90 mcg/actuation 1 inh inhalation QID PRN Shortness 07/30/24 10/11/24 08/25/24 History aerosol inhaler (Ventolin HFA) Of Breath isosorbide mononitrate 30 mg 30 mg PO DAILY #90 tabs 07/30/24 10/11/24 10/11/24 Rx tablet,extended release 24 hr donepezil 10 mg tablet 10 mg PO DAILY 30 days #30 tabs 08/10/24 10/11/24 10/11/24 Rx apixaban 5 mg tablet (Eliquis) 5 mg PO BID 10/11/24 10/11/24 10/11/24 History primidone 50 mg tablet 25 mg PO TID 10/11/24 10/11/24 10/11/24 History Allergies Allergy/AdvReac Type Severity Reaction Status Date / Time No Known Allergies Allergy Verified 09/02/24 15:18 PFSH Acute PFSH: Family History Mother Hypoglycemia Family/Other Heart disease Social History Smoking and tobacco/nicotine status: former use of tobacco/nicotine (chew) Quit status (tobacco/nicotine): has quit using Alcohol intake: former Year of sobriety/quit date alcohol: 2011 Substance/Drug Use: never Vitals/I&O/Wt Last Vital Signs Temp 98.2 F 10/11/24 12:43 Pulse 78 10/11/24 12:43 Resp 18 10/11/24 12:43 BP 143/78 10/11/24 12:43 Pulse Ox 98 10/11/24 12:43 O2 Del Method Room Air 10/11/24 12:43 Weight last 48 hrs Weight 180 lb Physical Exam Narrative: General: Cooperative patient in no apparent distress. Hard of hearing. HEENT: Normocephalic, Atraumatic. Pupils are constricted bilaterally, but reactive to light and accommodation. External ears normal. Nasal passages patent without drainage. MMM. Heart: RRR. Resp: Bilateral lung crackles, diminished sounds worse on the right side. Abd: Soft, non-tender. Mildly distended with normal bowel sounds. Extremities: No edema. No focal motor or sensory loss. Skin: No rash or lesions on exposed areas. Data 10/11/24 12:52 10/11/24 12:52 A&P Assessment and plan (1) Vertigo: (2) Shortness of breath: (3) Angina of effort: (4) History of recent fall: (5) Mixed dyslipidemia: (6) Anticoagulated on Eliquis: (7) History of pulmonary embolism: (8) Essential hypertension: Plan 79-year-old male admitted for dizziness, vertigo, worsening shortness of breath, and recent fall. Admit for additional workup. CT, CTA head and neck were unremarkable. There were no acute findings on current lab studies. Reports having some dizziness, on his description is consistent with vertigo. His examination is notable for crackles through the lung bases. He did have a recent chest CTA which showed bronchiectasis that was new from previous studies. Will obtain a new chest x-ray to see if there edema or effusions are present given his examination. May require CT chest to further evaluate. Will obtain an echocardiogram with bubble study. His symptoms are most evident when he stands up and begins to walk. We can obtain some orthostatic pressures, and I will have the echocardiogram with a bubble study performed during this stay. Will check B12, folate, thyroid. Cardiac monitoring. Will obtain orthostatic vitals. Will have PT, OT evaluate and treat. We can consider cardiac monitoring on discharge. May also consider that his medications could be causing some of his problems. He may need to have his medications reevaluated, specifically his primidone, citalopram, and donepezil. If his blood pressure begins to elevate, we can restart his blood pressure medications overnight. Code Status: Full IVF: None DVT PPx: Eliquis GI PPx: None ABx: None Diet: Cardic Discharge plan: TBD. PDMP PDMP Reviewed: Not Reviewed Attestations Medical Necessity Statement*: Patient will need hospitalization for assessment, concern for posterior circulation stroke, possible cardiac arrhythmia, vertigo, pulmonary edema, imaging, lab recheck, and evaluation by physical and Occupational Therapy. Coding Level of Care Code Acute Code for Chg Fwd Moderate MDM includes number and complexity of problems actively addressed during encounter, amount and/or complexity of data reviewed/ordered and described risk of complication, morbidity or mortality of management as documented Diagnoses Vertigo R42 Shortness of breath R06.02 Angina of effort I20.89 History of recent fall Z91.81 Mixed dyslipidemia E78.2 Anticoagulated on Eliquis Z79.01 History of pulmonary embolism Z86.711 Essential hypertension I10
--- NOTE | 2024-10-11 17:44 | PC.NURSE ---
pt changed into a brief and gown, bed linens are also changed at this time. pt sitting in recliner at bedside watching TV.
--- OUTSIDE RECORDS SUMMARY | 2024-10-11 18:12 | XMS_ITS | CCD ---
Author Name Interface, [email or web address] [facility] Address [address] [place] [id number] [facility] ARETHA self Address [address] [place] [address] Care Team Providers Care Veterinary Manager Name Role Phone Betito MEAD, Vinny Reddy Unavailable Unavailable Reason for Visit Social History Date Name Value Sex Female
--- OUTSIDE RECORDS SUMMARY | 2024-10-11 18:12 | XMS_ITS | Clinical Summary ---
[facility] Organization [facility] Address [address] [address] Phone Care Team Providers Care Fire Lieutenant Name Role Phone Unavailable Primary Care Provider Unavailabl e Allergies No known active allergies Medications vitamins A and D (VITAMIN A AND D TOPICAL) Apply to affected area. Active gabapentin (NEURONTIN) 100 mg capsuleIndicatio ns:Chronic low back pain with sciatica, sciatica laterality unspecified, unspecified back pain laterality,Essen tial tremor Take 1 Capsule (100 mg) by mouth 2 times daily. 60 Capsule 4 3 Active Active Problems Problem Noted Date Diagnosed Date Essential tremor 03/07/2023 Social History Tobacco Use Types Packs/Day Years Used Date Smoking Tobacco: Never Assessed Sex and Gender Information Value Date Recorded Sex Assigned at Not on file Legal Sex Male 10:04 PM CDT Gender Identity Not on file Sexual Orientation Not on file Last Filed Vital Signs Vital Sign Reading Time Taken Comments Blood Pressure 143/76 03/07/2023 10:03 AM CHUTE LOADER Pulse 54 03/07/2023 10:03 AM CHUTE LOADER Temperature 36.4 C (97.5 F) 03/07/2023 10:03 AM CHUTE LOADER Respiratory Rate 16 03/07/2023 10:03 AM CHUTE LOADER Oxygen Saturation 99% 03/07/2023 10:03 AM CHUTE LOADER Inhaled Oxygen Concentration - - Weight 82.4 kg (181 lb 9.6 oz) 03/07/2023 10:03 AM CHUTE LOADER Height 180.3 cm (5' 11 ) 03/07/2023 10:03 AM CHUTE LOADER Body Mass Index 25.33 03/07/2023 10:03 AM CHUTE LOADER Plan of Treatment Health Maintenance Due Date Last Done Comments RSV VACCINE (60+ or ) (1 - 1-dose 75+ series) 2021 INFLUENZA VACCINE (#1) 2023 02/13/2019 DTAP/TDAP/TD VACCINES (2 - T d or Tdap) 09/01/2025 09/02/2015 PNEUMOCOCCAL VACCINE 50+ YEARS Completed 0 04/28/2019, 04/03/2018, 09/02/2015 ZOSTER VACCINE Completed 06/26/2019, 04/28/2019 Insurance * Guarantor: [facility] Account Type Relation to Patient Date of Phone Billing Address Corporate Other DEFAULT ADDRESS [address] [employer]
--- OUTSIDE RECORDS SUMMARY | 2024-10-11 18:12 | XMS_ITS | Patient Health Record ---
Author Organization [facility] Address [address] [place] [place] [address] Care Team Providers Care Plumbing Manager Name Role Phone Romina Lynch MD Primary Care Provider Unav ailable Michela Ponceamirahradha Unavailable [phone] [place], [place] Unavailable Unavailable Allergies No Known Allergies Reason For Referral No Information Medications Medication SIG (Take, Route, Frequency, Duration) Notes Start Date End Date Status Metoclopramide 10 MG Oral Tablet Metoclopramide 10 MG Oral Tablet 07/02/2018 Active tramadol hydrochloride 50 MG Oral Tablet tramadol hydrochloride 50 MG Oral Tablet 06/23/2018 Active Ibuprofen 800 MG Oral Tablet Ibuprofen 800 MG Oral Tablet 06/23/2018 Active Vitamin B12 Active Metoprolol Tartrate 50 MG Oral Tablet Metoprolol Tartrate 50 MG Oral Tablet 06/23/2018 Active Immunizations Vaccine Route Administration Date Status Comme nts Influenza (whole), CPT 46444 Inactive Unknown 03/25/2018 Administered Social History xTobacco Use/Smoking Question Answer Notes Additional Findings: Tobacco User Chews tobacco Problems Problem Type SNOMED Code ICD Code Onset Dates Problem Status W/U Status Risk Notes Problem 688897676 BPH loc w urin obs/LUTS (N40.1) Active confirmed Problem 560745743 S/P DELIVERY REPRESENTATIVE 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) Active confirmed Problem 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, acquired, 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) Active confirmed Problem Right flank pain (239196908) Right flank pain (R10.9) Active confirmed Problem 509510004 Right-sided back pain, unspecified back location, unspecified chronicity (M54.9) Active confirmed Plan Of Treatment No Information Insurance Providers Payer Name Payer Address Payer Phone Subscriber Number Group Number Insured Name Patient Relationship to Insured Coverage Start Date Coverage End Date [employer] [address] [place] [phone] [id number] Andrae Callejas Self - patient is the insured Medical (General) History Medical History History ICD Code Problem:History of - surgery (context-de pendent category) , Status :: Active Problem:Hyperlipidemia (disorder) , Stat us :: Active Problem:Hypertensive disorde r, systemic arterial (disorder) , Status :: Active Problem:Osteoarthritis (disorder) , Stat us :: Active Problem:Snuff user (finding) , Status :: Active Surgical History Surgery Date(Month/Year) elbow hernia repair neck fusion bilateral cataract removal brain aneurysm repair
--- NOTE | 2024-10-11 19:28 | XRR_ITS ---
PROCEDURE INFORMATION: Exam: XR Chest Exam date and time: 10/11/2024 7:29 PM Age: 79 years old Clinical indication: Other: Pulmonary edema TECHNIQUE: Imaging protocol: Radiologic exam of the chest. Views: 1 view. COMPARISON: CT angio chest w abd pel w con 08/07/2024 3:38 AM FINDINGS: Lungs: Lungs appear clear without consolidation. Pleural spaces: No evidence of a pneumothorax. No pleural effusion is seen. Heart/Mediastinum: Cardiac silhouette appears mildly enlarged, likely secondary to portable technique. Ventriculoperitoneal shunt tubing noted on the right. Vasculature: There is atherosclerotic calcification within the aortic arch. Bones/joints: Scattered degenerative changes in the visualized spine. XR/XR chest 1V portable [id number] IMPRESSION: 1. No radiographically apparent acute cardiopulmonary disease.
[2024-10-11] MEDS: apixaban 5 mg Tablet PO (20:56)
[2024-10-12] VITALS (14 sets, daily range): BP systolic 114–156; BP diastolic 67–83; PULSE 54–71; RESP 13–18; TEMP 36.3–36.9; O2SAT 91–95; BMI 29.7
--- NOTE | 2024-10-12 01:51 | USCV_ITS ---
Andrae Callejas Age: 79 Gender: M : 1945 Exam Date: 10/12/2024 10:11 Ordering Phys: Dominik Infante DO Technologist: [place] [facility] [place]: cva BP: 143 / 72 HR: Rhythm: Sinus Technical Quality: Adequate MEASUREMENTS (Male / Female) Normal Values 2D ECHO LV Diastolic Diameter PLAX 3.7 cm 4.2 - 5.9 / 3.9 - 5.3 cm IVS Diastolic Thickness 1.1 cm 0.6 - 1.0 / 0.6 - 0.9 cm IVS Systolic Thickness 1.4 cm LVPW Diastolic Thickness 1.5 cm 0.6 - 1.0 / 0.6 - 0.9 cm LVPW Systolic Thickness 1.9 cm LVOT Diameter 2.0 cm LV Ejection Fraction 2D Teich 66.9 % LV Ejection Fraction MOD 4C 70.1 % LV Ejection Fraction MOD 2C 67.4 % LV Ejection Fraction 2C AL 68.5 % LA Diameter 3.6 cm Aorta at Sinotubular Diameter 3.1 cm M-MODE LA Ao Ratio MM 1.4 AV Cusp Separation MM 1.8 cm FINDINGS Left Ventricle Right Ventricle Right Atrium Left Atrium Mitral Valve Aortic Valve Tricuspid Valve Pulmonic Valve Pericardium Aorta IVC CONCLUSIONS LV systolic function is normal with EF of 65-70%. No regional wall motion abnormalities are seen. Bubble study is inadequate. Can not rule out intracardiac shunting. Saqib Sanchez MD (Electronically Signed) Final Date: 12 October 2024 16:10 S
[2024-10-12 04:01] LABS: Basophils % 0.4 %; Eosinophils # 0.1 10^3/uL (0.0-0.8); Eosinophils % 2.3 %; Hematocrit 36.6 % (37-53); Lymphocytes # 0.9 10^3/uL (0.8-4.8); Lymphocytes % 17.8 %; Mean Corpuscular HGB Conc 32.8 g/dL (30-55); Mean Corpuscular Hemoglobin 31.1 pg (27-33); Mean Corpuscular Volume 94.8 fl (82-101); Monocytes # 0.7 10^3/uL (0.2-0.9); Monocytes % 13.3 %; Neutrophils # 3.18 10^3/uL (1.8-7.7); Neutrophils % 65.2 %; Nucleated Red Blood Cells % 0 %; Platelet Count 95 10^3/cmm (157-399); Red Blood Count 3.86 10^6/uL (3.85-5.65); White Blood Count 4.88 10^3/uL (3.29-11.43)
[2024-10-12 04:20] LABS: Estmated Average Glucose 186; Hemoglobin A1C 8.1 % (4.0-6.0)
[2024-10-12 04:21] LABS: Chol HDL Ratio 3.54 mg/dL (1.0-5.00); Cholesterol 124 mg/dL (0-200); HDL Cholesterol 35 mg/dL (60-100); LDL Cholesterol Calculated 68 mg/dL (50-129); LDL HDL Ratio 1.94 RATIO (0.00-3.22); Triglycerides 103 mg/dL (0-150)
[2024-10-12 04:36] LABS: Vitamin B12 252 pg/mL (232-1245)
[2024-10-12 04:49] LABS: Free T4 Free Thyroxine 1.22 ng/dL (0.82-1.77)
[2024-10-12 04:56] LABS: Folate Level 7.7 ng/mL (4.5-32.2)
[2024-10-12 05:19] LABS: Alanine Aminotransferase 29 U/L (0-41); Albumin Level 4.1 g/dL (3.5-5.2); Alkaline Phosphatase 103 U/L (40-130); Anion Gap 16.2 (5-19); Aspartate Amino Transferase 18 U/L (0-40); Blood Urea Nitrogen 16 mg/dL (8-23); Calcium 9.3 mg/dL (8.5-10.5); Carbon Dioxide 23 mmol/L (22-29); Chloride 103 mmol/L (98-107); Creatinine Clr Calc Pharmacy 47.0282; Globulin 2.1 g/dL (1.3-4.6); Glucose 222 mg/dL (65-115); Osmolality Calculated 294 mOsm/kg (285-295); Potassium 4.2 mmol/L (3.5-5.1); Sodium 138 mmol/L (136-145); Thyroid Stimulating Hormone 5.35 uIU/mL (0.27-4.20); Total Bilirubin 0.2 mg/dL (0.15-1.2); Total Protein 6.2 g/dL (6.6-8.7)
[2024-10-12] MEDS: citalopram 20 mg Tablet PO (06:07)
--- NOTE | 2024-10-12 06:46 | PC.NURSE ---
patient just got to floor skin looks good vitals good very sweet and sleepy
[2024-10-12] MEDS: donepezil 5 MG Tablet 10 MG PO (08:44)
[2024-10-12] MEDS: apixaban 5 mg Tablet PO ×2 (08:44→21:28)
[2024-10-12] MEDS: isosorbide mononitrate ER 30 mg Tablet PO (08:44)
[2024-10-12] MEDS: amlodipine 10 mg Tablet PO (08:44)
--- NOTE | 2024-10-12 14:51 | P.PN_ITS ---
Subjective 2 Subjective: Hospital course, labs appreciated. Seen with spouse at bedside. Patient denies any nausea, vomiting, headache. States still having occasional episode of dizziness. Able to ambulate in room with walker. Vitals/I&O/Wt Last Vital Signs Temp 97.6 F 10/12/24 11:24 Pulse 63 10/12/24 11:24 Resp 17 10/12/24 11:24 BP 114/67 10/12/24 11:24 Pulse Ox 91 10/12/24 11:24 O2 Del Method Room Air 10/12/24 11:24 10/11/24 10/12/24 10/12/24 22:59 06:59 14:59 Intake Total 480 / 480 Output Total 1400 / 1400 Balance -1400 / -1400 480 / 480 Weight last 48 hrs Weight 94.12 kg Weight 81.647 kg Physical Exam 2 Narrative: General: Cooperative patient in no apparent distress. Hard of hearing. HEENT: Normocephalic, Atraumatic. Pupils are constricted bilaterally, but reactive to light and accommodation. External ears normal. Nasal passages patent without drainage. MMM. Heart: RRR. Resp: Bilateral lung crackles, diminished sounds worse on the right side. Abd: Soft, non-tender. Mildly distended with normal bowel sounds. Extremities: No edema. No focal motor or sensory loss. Skin: No rash or lesions on exposed areas. Data 10/12/24 03:53 10/12/24 03:53 A&P Assessment and plan (1) Vertigo: (2) Shortness of breath: (3) Angina of effort: (4) History of recent fall: (5) Mixed dyslipidemia: (6) Anticoagulated on Eliquis: (7) History of pulmonary embolism: (8) Essential hypertension: Plan 79-year-old male admitted for dizziness, vertigo, worsening shortness of breath, and recent fall. Admit for additional workup. CT, CTA head and neck were unremarkable. There were no acute findings on current lab studies. Reports having some dizziness, on his description is consistent with vertigo. His examination is notable for crackles through the lung bases. He did have a recent chest CTA which showed bronchiectasis that was new from previous studies. Will obtain a new chest x-ray to see if there edema or effusions are present given his examination. May require CT chest to further evaluate. Will obtain an echocardiogram with bubble study. His symptoms are most evident when he stands up and begins to walk. We can obtain some orthostatic pressures, and I will have the echocardiogram with a bubble study performed during this stay. Will check B12, folate, thyroid. Cardiac monitoring. Will obtain orthostatic vitals. Will have PT, OT evaluate and treat. We can consider cardiac monitoring on discharge. May also consider that his medications could be causing some of his problems. He may need to have his medications reevaluated, specifically his primidone, citalopram, and donepezil. If his blood pressure begins to elevate, we can restart his blood pressure medications overnight. Plan for the day: Orthostatic negative. Goal blood pressure less than 140/90 mmhg with mean over 65. Currently blood pressure is at goal. Continue with home dose of Imdur and amlodipine. History of PE. Remains on room air. Continue with home dose of Eliquis 5 mg twice daily. Complains of occasional dizziness. Follow-up physical therapy. Appreciate CT head and CTA head and neck results. Cannot rule out posterior circulation stroke. Will plan for MRI brain. Follow-up echocardiogram results. Add baby aspirin 81 mg daily. Appreciate A1c, lipid panel. Continue with home dose of atorvastatin. Follow-up physical therapy. Patient will benefit from outpatient referral for ENT to complete workup for vertigo. Code Status: Full IVF: None DVT PPx: Eliquis GI PPx: None ABx: None Diet: Cardic Discharge plan: Home with or without home health.. PDMP PDMP Reviewed: Not Reviewed Attestations 2 Medical Necessity Statement*: Requires further hospitalization for further evaluation and management of significant dizziness and vertigo with concerns for posterior circulation stroke Diagnoses Vertigo R42 Shortness of breath R06.02 Angina of effort I20.89 History of recent fall Z91.81 Mixed dyslipidemia E78.2 Anticoagulated on Eliquis Z79.01 History of pulmonary embolism Z86.711 Essential hypertension I10
[2024-10-12] MEDS: meclizine 25 mg tablet PO ×2 (15:06→21:28)
[2024-10-12] MEDS: atorvastatin 40 mg Tablet 20 MG PO (17:10)
[2024-10-13] VITALS (8 sets, daily range): BP systolic 124–159; BP diastolic 66–81; PULSE 64–87; RESP 17; TEMP 36.5–36.6; O2SAT 91–93
[2024-10-13] MEDS: citalopram 20 mg Tablet PO (05:11)
[2024-10-13 06:11] LABS: Basophils % 0.3 %; Eosinophils # 0.2 10^3/uL (0.0-0.8); Eosinophils % 3.1 %; Hematocrit 35.7 % (37-53); Lymphocytes # 0.9 10^3/uL (0.8-4.8); Lymphocytes % 15.5 %; Mean Corpuscular HGB Conc 33.3 g/dL (30-55); Mean Corpuscular Hemoglobin 31.2 pg (27-33); Mean Corpuscular Volume 93.5 fl (82-101); Mean Platelet Volume 10.8 fL (7.4-10.4); Monocytes # 0.7 10^3/uL (0.2-0.9); Monocytes % 11.6 %; Neutrophils # 3.95 10^3/uL (1.8-7.7); Neutrophils % 68.6 %; Nucleated Red Blood Cells % 0 %; Platelet Count 104 10^3/cmm (157-399); Red Blood Count 3.82 10^6/uL (3.85-5.65); Red Cell Distribution Width 13.1 % (12.1-15.1); White Blood Count 5.76 10^3/uL (3.29-11.43)
[2024-10-13 06:42] LABS: Alanine Aminotransferase 27 U/L (0-41); Albumin Level 3.9 g/dL (3.5-5.2); Alkaline Phosphatase 98 U/L (40-130); Anion Gap 16.2 (5-19); Aspartate Amino Transferase 16 U/L (0-40); Blood Urea Nitrogen 13 mg/dL (8-23); Calcium 9.4 mg/dL (8.5-10.5); Carbon Dioxide 24 mmol/L (22-29); Chloride 102 mmol/L (98-107); Creatinine Clr Calc Pharmacy 53.8907; Globulin 2.6 g/dL (1.3-4.6); Glucose 149 mg/dL (65-115); Osmolality Calculated 289 mOsm/kg (285-295); Potassium 4.2 mmol/L (3.5-5.1); Sodium 138 mmol/L (136-145); Total Bilirubin 0.4 mg/dL (0.15-1.2); Total Protein 6.5 g/dL (6.6-8.7)
[2024-10-13] MEDS: amlodipine 10 mg Tablet PO (08:00)
[2024-10-13] MEDS: meclizine 25 mg tablet PO (08:01)
[2024-10-13] MEDS: isosorbide mononitrate ER 30 mg Tablet PO (08:01)
[2024-10-13] MEDS: apixaban 5 mg Tablet PO (08:04)
[2024-10-13] MEDS: donepezil 5 MG Tablet 10 MG PO (08:04)
--- NOTE | 2024-10-13 08:29 | P.DS_ITS ---
Discharge Providers Date of Admission: 10/12/24 01:51 Date of Discharge: October 13, 2024 Attending Provider at Admission: Dominik Infante DO Attending Provider at Discharge: Santos Torres MD Primary Care Provider: Romina Whitlock MD Diagnoses at Discharge Discharge Diagnosis (1) Vertigo: Status: Acute (2) Shortness of breath: Status: Acute (3) Angina of effort: Status: Inactive (4) History of recent fall: Status: Acute (5) Mixed dyslipidemia: Status: Acute (6) Anticoagulated on Eliquis: Status: Acute (7) History of pulmonary embolism: Status: Acute (8) Essential hypertension: Status: Acute Reason for Visit Reason for Visit: dizzy; fall Brief History: As per HPI: Andrae Callejas is a 79 year old male seen today for evaluation of dizziness, concerns for vertigo. Apparently it was reported to the ER physician that he had this dizzy spell prior to arrival, and it resulted into a fall. Upon further questioning of his family they report that this has been going on for several months. Patient says that it was worse today than normal. He describes his dizziness as the room spinning when he stands up. He denies any recent weakness, or other strokelike symptoms. He denies having any headaches. He does have a past medical history of pulmonary embolisms, which were reported by the family. He is on Eliquis for this reason. There is a questionable history of Alzheimer's, though his neurologist did not believe this was evident. He is taking donepezil. He also has a history of hypertension, for which he takes amlodipine, isosorbide mononitrate. Family states that he has some kind of a tremor, and he takes primidone for it. He does not have a tremor at my time of evaluation. Family states that he has had some recent difficulties breathing, and there was a plan to have an echocardiogram with a bubble study to evaluate his heart function and structure. In the ER, labs, imaging were obtained. Labs were unremarkable. CT head showed no acute findings, but did note prior surgical and chronic ischemic changes. CTA of the head and neck did not show any stenosis, dissection, or occlusion throughout the viewed structures. 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 This was noted in the right suprasellar cistern. He did have a recent renal artery Doppler which was normal, with exception of a right renal cyst. He follows with cardiology, and had a cath performed on 08/26 of this year. No concerns were noted on this report. There was concern however with his symptoms that he may have a posterior circulation stroke, and patient was admitted for additional workup and rule out. Hospital Course Hospital Course Patient was admitted to the hospital further evaluation and management of vertigo. Posterior circulation stroke was ruled out with a negative CT head and CTA head and neck. MRI could not be patient was admitted to the hospital further evaluation and management of vertigo. Posterior circulation stroke was ruled out with a negative CT head and CT head and neck. 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 During hospitalization patient worked well with physical therapy. His symptoms improved with initiation of meclizine. He was able to ambulate in the hospital without concerns for fall. He has been discharged back home in hemodynamically stable condition advised to follow-up with neurology in 2 weeks, continue taking meclizine as needed, he is also to f ollow-up with ENT as an outpatient. Physical Exam Narrative: General: Cooperative patient in no apparent distress. Hard of hearing. HEENT: Normocephalic, Atraumatic. Pupils are constricted bilaterally, but reactive to light and accommodation. External ears normal. Nasal passages patent without drainage. MMM. Heart: RRR. Resp: Bilateral lung crackles, diminished sounds worse on the right side. Abd: Soft, non-tender. Mildly distended with normal bowel sounds. Extremities: No edema. No focal motor or sensory loss. Skin: No rash or lesions on exposed areas. Discharge Data Studies Completed and Pending Completed Studies During Hospitalization Category Date Time Status CT head wo con* [id number] Stat Cat Scan 10/11/24 12:43 Completed CTA head neck [CT angio headneck* [id number]] Stat Cat Scan 10/11/24 14:14 Completed XR chest 1V portable [id number] Routine Exams 10/11/24 19:28 Completed CV. echo lmt wo/w bubble [id number] Routine Ultrasound 10/12/24 01:51 Completed Pending at discharge Category Date Time Status MR head wo con* [id number] Routine MRI 10/13/24 14:49 Ordered Radiology Impressions Head CT 10/11/24 12:43 IMPRESSION: 1. No acute findings. 2. Surgical changes and chronic ischemic changes noted Head/Neck CTA 10/11/24 14:14 IMPRESSION: No acute arterial abnormality noted IMPRESSION: No stenosis or occlusion. REFERENCES: NASCET CRITERIA. The degree of stenosis in the cervical segment of the internal carotid artery is based on NASCET criteria. Normal is no stenosis. Mild is less than 50% stenosis. Moderate is 50-69% stenosis. Severe is 70% to 99% stenosis. Total occlusion is no detectable patent lumen. Chest X-Ray 10/11/24 19:28 IMPRESSION: 1. No radiographically apparent acute cardiopulmonary disease. Echocardiogram: CONCLUSIONS LV systolic function is normal with EF of 65-70%. No regional wall motion abnormalities are seen. Bubble study is inadequate. Can not rule out intracardiac shunting. Saqib Sanchez MD (Electronically Signed) Final Date: 12 October 2024 Laboratory Results WBC 5.76 10^3/uL (3.29-11.43) 10/13/24 05:30 RBC 3.82 10^6/uL (3.85-5.65) L 10/13/24 05:30 Hgb 11.90 g/dL (11.27-16.99) 10/13/24 05:30 Hct 35.7 % (37-53) L 10/13/24 05:30 MCV 93.5 fl (82-101) 10/13/24 05:30 MCH 31.2 pg (27-33) 10/13/24 05:30 MCHC 33.3 g/dL (30-55) 10/13/24 05:30 RDW 13.1 % (12.1-15.1) 10/13/24 05:30 Plt Count 104 10^3/cmm (157-399) L 10/13/24 05:30 MPV 10.8 fL (7.4-10.4) H 10/13/24 05:30 Neut % (Auto) 68.6 % 10/13/24 05:30 Lymph % (Auto) 15.5 % 10/13/24 05:30 Rusk % (Auto) 11.6 % 10/13/24 05:30 Eos % (Auto) 3.1 % 10/13/24 05:30 Baso % (Auto) 0.3 % 10/13/24 05:30 Neut # (Auto) 3.95 10^3/uL (1.8-7.7) 10/13/24 05:30 Lymph # (Auto) 0.9 10^3/uL (0.8-4.8) 10/13/24 05:30 Rusk # (Auto) 0.7 10^3/uL (0.2-0.9) 10/13/24 05:30 Eos # (Auto) 0.2 10^3/uL (0.0-0.8) 10/13/24 05:30 Baso # (Auto) 0.0 10^3/uL (0.0-0.1) 10/13/24 05:30 Nucleated RBC % (auto) 0 % 10/13/24 05:30 Nucleated RBCs # 0.0 /100WBC 10/13/24 05:30 PT 13.40 SECONDS (12.1-14.9) 10/11/24 12:52 INR 0.96 (0.8-1.2) 10/11/24 12:52 Sodium 138 mmol/L (136-145) 10/13/24 05:30 Potassium 4.2 mmol/L (3.5-5.1) 10/13/24 05:30 Chloride 102 mmol/L (98-107) 10/13/24 05:30 Carbon Dioxide 24 mmol/L (22-29) 10/13/24 05:30 Anion Gap 16.2 (5-19) 10/13/24 05:30 BUN 13 mg/dL (8-23) 10/13/24 05:30 Creatinine 1.3 mg/dL (0.7-1.2) H 10/13/24 05:30 GFR Calculation Not Reportable 10/13/24 05:30 Glucose 149 mg/dL (65-115) H 10/13/24 05:30 Estimat Average Glucose 186 10/12/24 03:53 Hemoglobin A1c 8.1 % (4.0-6.0) H 10/12/24 03:53 Calculated Osmolality 289 mOsm/kg (285-295) 10/13/24 05:30 Calcium 9.4 mg/dL (8.5-10.5) 10/13/24 05:30 Magnesium 2.0 mg/dL (1.7-2.3) 10/12/24 03:53 Total Bilirubin 0.4 mg/dL (0.15-1.2) 10/13/24 05:30 AST 16 U/L (0-40) 10/13/24 05:30 ALT 27 U/L (0-41) 10/13/24 05:30 Alkaline Phosphatase 98 U/L (40-130) 10/13/24 05:30 C-Reactive Protein 3.0 mg/L (0.0-4.9) 10/12/24 03:53 Total Protein 6.5 g/dL (6.6-8.7) L 10/13/24 05:30 Albumin 3.9 g/dL (3.5-5.2) 10/13/24 05:30 Globulin 2.6 g/dL (1.3-4.6) 10/13/24 05:30 Triglycerides 103 mg/dL (0-150) 10/12/24 03:53 Cholesterol 124 mg/dL (0-200) 10/12/24 03:53 LDL Cholesterol, Calc 68 mg/dL (50-129) 10/12/24 03:53 HDL Cholesterol 35 mg/dL (60-100) L 10/12/24 03:53 LDL/HDL Ratio 1.94 RATIO (0.00-3.22) 10/12/24 03:53 Cholesterol/HDL Ratio 3.54 mg/dL (1.0-5.00) 10/12/24 03:53 Vitamin B12 252 pg/mL (232-1245) 10/12/24 03:53 Folate 7.7 ng/mL (4.5-32.2) 10/12/24 03:53 TSH 5.35 uIU/mL (0.27-4.20) H 10/12/24 03:53 Free T4 1.22 ng/dL (0.82-1.77) 10/12/24 03:53 Vitals Last Vital Signs Temp 97.7 F 10/13/24 08:00 Pulse 87 10/13/24 08:00 Resp 17 10/13/24 08:00 BP 159/81 10/13/24 08:00 Pulse Ox 91 10/13/24 07:03 O2 Del Method Room Air 10/13/24 07:03 Discharge Plan Discharge Patient Disposition: Home Condition: Stable Prescriptions: New meclizine 25 mg Tablet 25 mg PO TID PRN (Reason: vertigo) Qty: 15 0RF Continued albuterol sulfate [Ventolin HFA] 90 mcg/actuation HFA aerosol inhaler 1 inh inhalation QID PRN (Reason: Shortness Of Breath) isosorbide mononitrate 30 mg tablet extended release 24 hr 30 mg PO DAILY Qty: 90 2RF donepezil 10 mg tablet 10 mg PO DAILY 30 Days Qty: 30 5RF primidone 50 mg Tablet 25 mg PO TID Eliquis 5 mg Tablet 5 mg PO BID atorvastatin 20 mg Tablet 20 mg PO QPM citalopram 20 mg tablet 20 mg PO QAM amlodipine 10 mg Tablet 10 mg PO DAILY cholecalciferol (vitamin D3) 50 mcg (2,000 unit) Tablet 50 mcg PO DAILY Discharge Orders: Discharge Order (Routine); Ordered 10/13/24 Ordered By: Santos Torres Referrals: Romina Whitlock MD [Primary Care Provider, [facility]] - 4-7 days Referral Note: We have notified your physician's clinic of the need for a follow-up appointment to be scheduled. If you have not heard from them within the next 2 business days, please call them directly. Gabino Parker MD [Physician, Neurology] - 10/26/24 8:00 am Referral Note: Willian Macdonald MD [Physician, Ear, Nose, Throat] - 10/14/24 1:30 pm Referral Note: Persistent vertigo Discharge Diet: Cardiac Discharge Activity: Resume usual activity and Increase activity as tolerated Patient Instructions: Meclizine (By mouth), Vertigo (GEN), Opioid Safety, Patient Portal & Saqib Instructions Discharge Attestations Time Spent in Discharge Care*: greater than 30 min Specific Discharge Activities: educating patient, educating and/or supporting family/caregiver, discussing with pcp/other providers, discussing with rifle case repairer/social workers/dc planners, documenting/other paperwork and evaluating patient/reviewing data Status at Discharge: Cognitive status at discharge: cognitively intact , Behavioral status at discharge: cooperative , Functional status at discharge: uses cane/walker , Overall status at discharge: patient is progressing back to baseline Quality Metrics Clinical Quality Measures [ No reported AMI, CVA or VTE this stay] Coding Level of Care Code 65637 Total time (in minutes) for Discharge: 65 Diagnoses Vertigo R42 Shortness of breath R06.02 Angina of effort I20.89 History of recent fall Z91.81 Mixed dyslipidemia E78.2 Anticoagulated on Eliquis Z79.01 History of pulmonary embolism Z86.711 Essential hypertension I10
--- NOTE | 2024-10-13 10:21 | PC.CHAP ---
Pastoral Care Encounter/Spiritual Assessment Type of Contact [] Declined roof mechanic visit [] Patient/Family/Request visit [] Outpatient visit [] Follow-up visit [] Physician referral [] Code/Alert [x] Routine visit [] Staff referral [] Actively dying [] Patient sleeping [x] Family support [] [] Out of room [] Palliative care [] [] Receiving care in room [] Pre-surgical visit [] Trauma [] Long length of stay [] ICU visit [] Other: Relational/Emotional Strength [x] Patient feels connected with others/family/visitors/staff [] Distress [] Loneliness/isolation [] Abandonment Spirituality of Patient [x] Person of Debby [] Attends Christian of their Debby [x] Believes in Prayer [] Reads Bible or Gnosticism materials [] There are Spiritual issues to be addressed Dip Guider Stoves Interventions [x] Prayer [x] Active listening [] Non-anxious presence [x] Spiritual/emotional support [] Crisis/trauma care [] Spiritual counseling [] Bereavement support [] Provided bereavement packet [] Provided Bible/devotional materials [] Provided toy/stuffed animal, coloring book to patient or family member [] Provided Communion [] Anointing/Jennings [] Salvation [x] Completed spiritual assessment [] Other: Impact on Illness or Injury [] Angry [] Fearful [] Anxious [] Often cries [] Exhaustion [] Unable to work [] Unable to attend temple [] Unable to walk/stand [] Unable to read [] Unable to drive [] Unable to eat/drink [] Unable to sleep [] Unable to be with family [] Patient intubated [] Other: Summary Time spent with patient 5 min
== END 2024-10-13 12:58 | disposition home or self-care (01) ==
LOC: ER 14:53 → ER IP 16:36 → MEDSURG 10-12 06:35
PROVIDERS: Admitting Provider Family Medicine; Emergency Provider Emergency Medicine; PCP Family Medicine; Visit Provider Student in an Organized Health Care Education/Training Program
DX: R42 Dizziness and giddiness (principal); I20.89 Other forms of angina pectoris; Z91.81 History of falling; E78.2 Mixed hyperlipidemia; Z79.01 Long term (current) use of anticoagulants; Z86.711 Personal history of pulmonary embolism; I10 Essential (primary) hypertension; Z87.891 Personal history of nicotine dependence
CPT/HCPCS: 36415; 70450; 70496; 70498; 71045; 80053; 80061; 82607; 82746; 83036; 83735; 84439; 84443; 85025; 85610; 86140; 93005; 97116; 97161; 97165; 97530; 99285; C8924; G0378; J8597; J9999

== ENCOUNTER 2024-11-11 06:59 | Outpatient (CLI) | payer OTHER, SELFPAY ==
--- NOTE | 2024-11-11 07:03 | USCV_ITS ---
Andrae Callejas Age: 79 Gender: M : 1945 Exam Date: 11/11/2024 07:20 Ordering Phys: Christine Mir MD Technologist: JARRETT Exam Location: [facility] [place] Indication: COFFEY BP: 143 / 78 HR: 71 Rhythm: Sinus Technical Quality: Adequate MEASUREMENTS (Male / Female) Normal Values 2D ECHO LV Diastolic Diameter PLAX 4.7 cm 4.2 - 5.9 / 3.9 - 5.3 cm IVS Diastolic Thickness 0.9 cm 0.6 - 1.0 / 0.6 - 0.9 cm IVS Systolic Thickness 1.8 cm LVPW Diastolic Thickness 1.4 cm 0.6 - 1.0 / 0.6 - 0.9 cm LVPW Systolic Thickness 1.5 cm LVOT Diameter 2.1 cm LV Ejection Fraction 2D Teich 68.5 % LV Ejection Fraction MOD 4C 63.6 % LV Ejection Fraction MOD 2C 71.9 % LV Ejection Fraction 2C AL 72.6 % LA Diameter 3.0 cm RA Systolic Volume 4C AL 58.7 ml RA Systolic Volume 4C MOD 56.7 ml LA Sys Volume AL 59.8 cm cubed LA Sys Volume Index AL 29.6 cm cubed/m squared Aorta at Sinotubular Diameter 2.9 cm M-MODE LA Ao Ratio MM 0.9 AV Cusp Separation MM 1.2 cm DOPPLER AV Peak Velocity 128.0 cm/s LVOT Peak Velocity 109.0 cm/s AV Area Cont Eq vti 3.0 cm squared AV Area Cont Eq pk 2.9 cm squared MV Peak Velocity 80.0 cm/s MV Area PHT 3.6 cm squared Mitral E to A Ratio 0.6 TV Peak Velocity 146.5 cm/s TR Peak Velocity 211.0 cm/s TR Peak Gradient 17.8 mmHg TV Peak E Velocity 69.0 cm/s PV Peak Velocity 124.0 cm/s FINDINGS Left Ventricle Normal left ventricular size and systolic function, ejection fraction 68%. Mild her pretrip via the left ventricular septum measuring 1.3 cm. The posterior left ventricular wall thickness is normal on my measurement. Stage I left ventricular diastolic dysfunction-normal for patient's age. Right Ventricle The right ventricle is normal in size and function. Right Atrium The right atrium is normal in size. Left Atrium The left atrium is normal in size. Mitral Valve Systolic anterior motion of the anterior mitral valve leaflet consistent with hypertrophic cardiomyopathy. No left ventricular outflow tract gradient. No mitral valve stenosis or regurgitation. Aortic Valve Structurally normal aortic valve without significant sclerosis or stenosis. There is no aortic regurgitation. Tricuspid Valve Structurally normal tricuspid valve without significant stenosis or regurgitation. Pulmonary artery systolic pressure cannot be estimated due to lack of TR jet. Pulmonic Valve Structurally normal pulmonic valve without significant stenosis. There is trace pulmonic regurgitation. Pericardium Normal pericardium without effusion. Aorta Normal ascending aorta dimension. IVC The inferior vena cava is not well-visualized. CONCLUSIONS 1. Normal left ventricular size and systolic function, ejection fraction 68%. 2. Normal right ventricular size and systolic function. 3. Mild hypertrophy of the left ventricular septum 4. Moderate systolic anterior motion of the anterior mitral valve leaflet with no left ventricular outflow tract obstruction. Findings consistent with hypertrophic cardiomyopathy without obstruction. Sancehz Cisneros (Electronically Signed) Final Date: 12 November 2024 18:45 S
== END 2024-11-11 07:00 | disposition home or self-care (01) ==
LOC: RAD 06:59
PROVIDERS: PCP Family Medicine; Visit Provider Internal Medicine Pulmonary Disease
DX: R06.09 Other forms of dyspnea (principal); R93.1 Abnormal findings on diagnostic imaging of heart and coronary circulation; I51.7 Cardiomegaly
CPT/HCPCS: 93306

== ENCOUNTER 2024-12-03 13:01 | Outpatient (CLI) | payer OTHER, SELFPAY ==
--- NOTE | 2024-12-03 13:10 | CT_ITS ---
WS: [id number] CT CHEST CT-HIGH RESOLUTION, NONCONTRAST. HISTORY: Interstitial lung disease. Technique: High-resolution chest CT is performed in inspiration, expiration, supine and prone positioning. All CT scans at [facility] use at least one of these dose optimization techniques: automated exposure control; mA and/or kV adjustment per patient size (includes targeted exams where dose is matched to clinical indication); or iterative reconstruction. DLP: 1231.69 mGy.cm COMPARISON: 08/07/2024 Findings: Lungs are mildly hyperexpanded. No mass or pulmonary nodule. Mild interstitial thickening at the lung bases. No bronchiectasis or honeycombing is identified. Thin linear areas of atelectasis or interstitial disease at the lung bases does not improve with prone positioning. Volume loss during expiration. No mosaic attenuation. No air trapping is identified. No pericardial or pleural effusions. Mild atherosclerosis aorta. Normal size pulmonary artery. Normal size heart. Small hiatal hernia. Incompletely visualized cyst upper pole RIGHT kidney measures 5.3 x 5.2 cm. No adrenal mass. Mild thoracic spondylosis. RIGHT lateral hypertrophic osteophytes in the midthoracic spine. CT/CT chest wo con [id number] Impression: 1. No honeycombing or bronchiectasis. 2. No mosaic attenuation or air trapping. 3. No pulmonary mass or nodule. 4. No mediastinal or hilar adenopathy. 5. Small hiatal hernia. 6. Incompletely visualized cyst upper pole RIGHT kidney, 5.3 x 5.2 cm.
== END 2024-12-03 13:02 | disposition home or self-care (01) ==
LOC: RAD 13:02
PROVIDERS: PCP Family Medicine; Visit Provider Internal Medicine Pulmonary Disease
DX: J84.9 Interstitial pulmonary disease, unspecified (principal); K44.9 Diaphragmatic hernia without obstruction or gangrene; N28.1 Cyst of kidney, acquired; M47.814 Spondylosis without myelopathy or radiculopathy, thoracic region; M25.78 Osteophyte, vertebrae
CPT/HCPCS: 71250

== ENCOUNTER 2025-01-15 10:02 | Outpatient (CLI) | payer OTHER, SELFPAY | END 2025-01-15 10:03 | disposition home or self-care (01) | LOC: RAD 10:03 | PROVIDERS: PCP Family Medicine; Visit Provider Internal Medicine Pulmonary Disease | DX: R06.09 Other forms of dyspnea (principal) | CPT/HCPCS: C8924 ==

== ENCOUNTER → 2025-01-21 15:09 | Outpatient (BNVA) | payer OTHER, SELFPAY | PROVIDERS: PCP Family Medicine; Visit Provider Internal Medicine Cardiovascular Disease | DX: I42.2 Other hypertrophic cardiomyopathy (principal) | CPT/HCPCS: 99214 ==